=== PATIENT | male | born 1965 | race Caucasian/White ===

== ENCOUNTER 2017-08-21 04:05 | Inpatient (IN) ==
[2017-08-21] MEDS ORDERED: *HR* HYDROcodone/Acet 5/325 mg TABLET PO PRN (08:34)
[2017-08-21] MEDS ORDERED: *HR* Promethazine 25 MG/ML VIAL IVP PRN ×2 (08:34→23:44)
[2017-08-21] MEDS ORDERED: Naloxone 0.4 MG/ML INJ IVP PRN (08:34)
[2017-08-21] MEDS ORDERED: *HR* Morphine 2 MG/ML SYRINGE IVP PRN (08:34)
[2017-08-21] MEDS ORDERED: Acetaminophen 325 MG TABLET PO PRN (08:34)
[2017-08-21] MEDS ORDERED: Ondansetron 4 MG/2 ML VIAL IVP PRN (08:34)
[2017-08-21] MEDS ORDERED: D5% in Water 1,000 ML IVC PRN (08:39)
[2017-08-21] MEDS ORDERED: *HR* Dextrose 50 % in Water (Syg) 50 ML SYRINGE IVP PRN (08:39)
[2017-08-21] MEDS ORDERED: Dextrose Gel 15 GM PO PRN ×2 (08:39)
--- NOTE | 2017-08-21 08:51 | Internal Med History&Physical ---
Date of Encounter: 08/21/17 Time of Encounter: 08:20 Assessment and Plan (1) Sepsis Current visit: Yes Status: Acute Will admit the pt into Tele Pt does meet sepsis criteria with elevated WBC, source of inf as osteomyelitis and foot abscess, tachcyardia and end organ damage ROBSON Will strat him on IV fluids Broad spec abx Zosyn and Vanco - renally dosed f/u on blod cx from other ER will get MRI of Left foot Talked to employee relation manager who will see him later will keep him on NPO for now reviewed labs from other ER WBC17.27, Cr: 1.28 Qualifiers: Qualified Code(s): A41.9 - Sepsis, unspecified organism (2) Acute osteomyelitis of left foot Current visit: Yes Status: Acute Reviewed Left foot X ray report showing Proximal and distal pathological fracture of first metatarsal with acute osteomyelitis will get MRI of Foot with no contrast (3) Foot abscess, left Current visit: Yes Status: Acute Development Technical Lead consulted possible OR later today (4) ROBSON (acute kidney injury) Current visit: Yes Status: Acute Mostly due to sepsis will cont IV fluids avoid nephrotoxic meds (5) Nondisplaced fracture of first left metatarsal bone Current visit: Yes Status: Acute Qualifiers: Qualified Code(s): S92.315A - Nondisplaced fracture of first metatarsal bone , left foot, initial encounter for closed fracture (6) DM2 (diabetes mellitus, type 2) Current visit: Yes Status: Acute Hold PO meds for now placed him on ISS medium + Lantus start from tonight Qualifiers: Qualified Code(s): E11.9 - Type 2 diabetes mellitus without complications (7) HTN (hypertension) Current visit: Yes Status: Acute stable Resumed home meds Qualifiers: Qualified Code(s): I10 - Essential (primary) hypertension (8) HLD (hyperlipidemia) Current visit: Yes Status: Acute Qualifiers: Qualified Code(s): E78.5 - Hyperlipidemia, unspecified (9) ANI (obstructive sleep apnea) Current visit: Yes Status: Acute will use CPAP at [facility] Internal Medicine - H&P: HPI Chief complaint: Acute Left foot pain Admitted From: Emergency Dept ([facility] ED) History of present illness: Mr. Robb is a 51 year old male with known DM2, HTN, HLD and ANI on CPAP at bed time, morbidly obese pt who presented to [facility] ED with 2 weeks history of worsening swelling, tenderness and erythema in Left foot proximally. He also mentioned from last few days he was unable to ambulate due to severe pain. Pt had X ray of Left foot done which showed Proximal and distal aspect of the first metatarsal in the setting of acute osteomyelitis. Pt was given broad spec abx Zosyn and Vancomycin, and send over here for further care.When I examined the pt he is alert, awake and O x 3. Denied any CP / SOB. No abdomina pain. Still has severe pain in Left foot. Past Med Surg Social Fam HX - Past Medical History Medical history: asthma, COPD, coronary artery disease, diabetes, GERD, hyperlipidemia, hypertension Psychiatric history: no psych history - Past Surgical History Surgical History: other (Cornea repair) - Social History Smoking Status: Never smoker Smokeless Tobacco Status: Yes Alcohol use: none Drug use: none - Family History Mother Hx Family Endocrine Disorder: Yes (DM2) Father Hx Family Cardiac Disorders: Yes ([place]) Brother Hx Family Endocrine Disorder: Yes (DM2) Internal Medicine - H&P: Meds Albuterol Sulfate [Albuterol Inhaler] 1 puff IH Q4H 08/21/17 [History] Amitriptyline HCl 25 mg PO HS 08/21/17 [History] Gabapentin [Neurontin] 800 mg PO TID 08/21/17 [History] GlipiZIDE [Glipizide Xl] 5 mg PO DAILY 08/21/17 [History] Insulin Glargine [Lantus] 50 unit SQ BID 08/21/17 [History] Liraglutide [Victoza 2-Abdoulaye] 08/21/17 [History] Lisinopril [Zestril] 20 mg PO DAILY 08/21/17 [History] Ranitidine HCl [Acid Cannery Tender Engineer] 150 mg PO BID 08/21/17 [History] Simvastatin [Zocor] 20 mg PO HS 08/21/17 [History] metFORMIN [Glucophage] 1,000 mg PO BIDWM 08/21/17 [History] 3 Allergy/AdvReac Type Severity Reaction Status Date / Time No Known Allergies Allergy Unverified 07/01/15 22:36 All Systems PM: A 10-system review of systems was performed and is negative for pertinent findings except as documented above in the HPI. Review of systems: Reviewed all the systems, everything is benign except the systems and symptoms I mentioned in the HPI - Constitutional Vitals: Temp Pulse Resp BP Pulse Ox 98.0 F 105 17 95/60 93 08/21/17 06:40 08/21/17 06:40 08/21/17 06:40 08/21/17 06:40 08/21/17 06:40 General appearance: Present: mild distress (with pain), A&O X 3, answers questions appropriately - Head Head exam: Present: atraumatic, normal inspection - Respiratory Respiratory exam: Present: decreased breath sounds, wheezes (mild). Absent: rales, respiratory distress, rhonchi - Cardiovascular Cardiovascular exam: Present: +S1, +S2, tachycardia. Absent: systolic murmur - GI/Abdominal GI/Abdominal exam: Present: soft. Absent: rebound, rigid, tenderness - Extremities Exam Extremities exam: Present: pedal edema (Left foot), tenderness. Absent: calf tenderness Additional comments: Diffuse swelling in whole left foot.. Diffuse erythema in left foot distally, loculated, possible fluid collection plantar region at the base of Left 1st and 2nd metatarsal bones.. Tenderness ++ - Neurological Exam Neurological exam: Present: alert, oriented X3 - Psychiatric Psychiatric exam: Present: normal affect, normal mood
[2017-08-21] MEDS ORDERED: Lisinopril 20 MG TABLET PO SCH (09:00)
[2017-08-21] MEDS ORDERED: Vancomycin 0 MG in D5% in Water 250 ML IVPB SCH (09:00)
[2017-08-21 09:21] LABS: Hematocrit 27.5 % (37.5-50.1); Hemoglobin 8.6 g/dL (12.9-16.9); Mean Corpuscular HGB Conc 31.3 g/dL (31.6-35.5); Mean Corpuscular Hemoglobin 24.6 pg (28.0-33.3); Mean Corpuscular Volume 78.6 fL (83.0-100.0); Mean Platelet Volume 9.5 fL (9.4-12.4); Platelet Count 244 K/mcL (140-400); Red Cell Distribution Width 16.1 % (11.5-14.5)
[2017-08-21 09:26] LABS: INR 1.7; Prothrombin Time 18.7 Seconds (9.4-12.1)
[2017-08-21 09:38] LABS: Alanine Aminotransferase 13 Units/L (0-55); Albumin/Globulin Ratio 0.4 (1.1-2.2); Alkaline Phosphatase 150 Units/L (38-126); Aspartate Amino Transferase 13 Units/L (5-34); BUN/Creatinine Ratio 22 (6-26); Bilirubin,Total 0.9 mg/dL (0.2-1.2); Blood Urea Nitrogen 26 mg/dL (8-26); Calcium 8.6 mg/dL (8.6-10.8); Carbon Dioxide 16 mEq/L (19-29); Chloride 98 mEq/L (98-109); Globulin 4.8 g/dL (2.4-3.5); Glucose 242 mg/dL (70-99); Magnesium 1.2 mg/dL (1.6-2.6); Osmolality,Calculated 285 (280-300); Potassium 3.9 mEq/L (3.5-4.5); Sodium 131 mEq/L (136-145); Total Protein 6.8 g/dL (6.0-8.3); eGFR For African Americans > 60 (> 60); eGFR For Non-African Americans > 60 (> 60)
[2017-08-21 09:46] LABS: Lymphocytes # 0.6 K/mcL (0.6-4.6); Neutrophils # 14.4 K/mcL (1.6-8.9)
[2017-08-21 09:47] LABS: Anisocytosis 1+ (Not Present); Platelet Estimate Normal (Normal)
[2017-08-21 10:54] LABS: Vancomycin,Random 10.3 mcg/mL
[2017-08-21] MEDS: 0.9 % Sodium Chloride 1,000 ML IVC SCH (11:09)
[2017-08-21] MEDS: Gabapentin 400 MG CAPSULE PO SCH ×2 (11:10→16:41)
[2017-08-21] MEDS: Piperacillin/Tazobactam 3.375 GM in D5% in Water (Mini-Bag+) 100 ML IVPB SCH ×2 (11:10→17:58)
[2017-08-21] MEDS: Famotidine 20 MG TABLET PO SCH ×2 (11:12→16:40)
[2017-08-21] MEDS ORDERED: Vancomycin 1,500 MG in D5% in Water 250 ML IVPB SCH (12:00)
[2017-08-21] MEDS: Insulin LISPRO 300 UNITS/3 ML VIAL SQ SCH (17:55)
--- NOTE | 2017-08-21 18:54 | Podiatry Consult Note ---
Date of Encounter: 08/21/17 Time of Encounter: 12:10 Assessment and Plan (1) Acute osteomyelitis of left foot Current visit: Yes Status: Acute I had a thorough review with the patient and his family members which were bedside with him regarding his conditions, my findings, and his treatment options. We discussed his x-ray and the concern of the pathologic fracture and potential bone infection. We discussed his MRI which showed findings consistent with abscess and infection of the first metatarsal bone with pathologic fracture as well as the findings of infection in the midfoot and hindfoot bones. Discussed with patient different forms of treatment involving antibiotics and surgery. In my opinion antibiotics alone are not sufficient to treat this infection and recommended the patient undergo a left foot incision and drainage and partial foot amputation of the first ray which has the pathologic fracture and enhancement of most of the first metatarsal consistent with infected bone and bone biopsy of multiple other bones. Discussed he will likely need skilled nursing IV antibiotics to treat the infection. the surgery will not cure his infection. I did discuss with the patient and his family that he is high risk of limb loss and there is a signficant chance that he ends up with a below knee amputation due to the infection. it was also explained that this may be a staged procedure and he will require return trips to the operating room for surgery. no guarantees were made as to the outcome and he will have an open wound after the procedure. discussed it is imperative that his blood sugar is under control to try to salvage his limb as an A1c of 11% is too high for wound healing. No guarantees were made as to the outcome of any of the procedures and the patient demonstrated understanding by shaking his head up and down voicing that he understands, again it was told to the patient it is highly probable that he will lose his left leg and below knee amputation was discussed with the patient. he says he wants to try to salvage the left foot. risks vs benefits potential complications and consequences of the procedures discussed at length. discussed with them they are more than welcome and can ask to get a second opinion but my opinion will not change. all questions answered. patient signed informed consent. remain NPO, personnel coordinator to OR. social service consult ordered for patient and family and discussed with med to get psych consult for patient and family dealing with his surgery. (2) Foot abscess, left Current visit: Yes Status: Acute History of Present Illness HPI: 51 year old diabetic male who is morbidly obese and presented to [facility] ED yesterday with 2 weeks history of worsening swelling, tenderness and erythema in the left foot. His and daughter are with him bedside. The is distraught over her husbands condition and daughter says the has been trying to take care of his foot at home. He was found to have a pathologic fracture of the 1st metatarsal bone, abscess, and bone infection. He has been unable to put weight on his left foot without a lot of pain. He says he has neuropathy at baseline and his A1c is over 11% according to the patient. He came with bloodwork reported in the H&P with a wbc of 17. His wbc today was 16. He denies experiencing a f/c/n/sob/cp. Past Med Surg Social Fam HX - Past Medical History Medical history: asthma, COPD, coronary artery disease, diabetes, GERD, hyperlipidemia, hypertension Psychiatric history: no psych history - Past Surgical History Surgical History: other (Cornea repair) - Social History Smoking Status: Never smoker Smokeless Tobacco Status: Yes Alcohol use: none Drug use: none - Family History Mother Hx Family Endocrine Disorder: Yes (DM2) Father Hx Family Cardiac Disorders: Yes ([place]) Brother Hx Family Endocrine Disorder: Yes (DM2) Medications and Allergies Albuterol Sulfate [Albuterol Inhaler] 1 puff IH Q4H 08/21/17 [History] Amitriptyline HCl 25 mg PO HS 08/21/17 [History] Gabapentin [Neurontin] 800 mg PO TID 08/21/17 [History] GlipiZIDE [Glipizide Xl] 5 mg PO DAILY 08/21/17 [History] Insulin Glargine [Lantus] 50 unit SQ BID 08/21/17 [History] Liraglutide [Victoza 2-Abdoulaye] 08/21/17 [History] Lisinopril [Zestril] 20 mg PO DAILY 08/21/17 [History] Ranitidine HCl [Acid Security Shift Manager] 150 mg PO BID 08/21/17 [History] Simvastatin [Zocor] 20 mg PO HS 08/21/17 [History] metFORMIN [Glucophage] 1,000 mg PO BIDWM 08/21/17 [History] 3 Allergy/AdvReac Type Severity Reaction Status Date / Time No Known Allergies Allergy Unverified 07/01/15 22:36 All Systems Reviewed: A 10-system review of systems was performed and is negative for pertinent findings except as documented above in the HPI. - Constitutional Constitutional: as per HPI - Cardiovascular Cardiovascular: as per HPI - Respiratory Respiratory: as per HPI Physical Exam - Constitutional Vitals: Temp Pulse Resp BP Pulse Ox 98.1 F 102 18 92/61 93 08/21/17 15:41 08/21/17 15:41 08/21/17 15:41 08/21/17 15:41 08/21/17 15:41 General appearance: cooperative, morbidly obese, no acute distress - Extremities Exam Additional comments: left foot increased temp, moderate edema, CFT < 3 sec x 5 digits, erythema with fluctuance and some purulence able to be expressed from the plantar medial foot , multiple areas of scabs on the left foot. foot is painful to palpation. light touch sensation is absent. Results - Labs Result Diagrams: 08/21/17 09:03 08/21/17 09:03 Labs: Abnormal lab results WBC 16.0 K/mcL (4.3-11.1) H 08/21/17 09:03 RBC 3.50 M/mcL (4.19-5.50) L 08/21/17 09:03 Hgb 8.6 g/dL (12.9-16.9) L 08/21/17 09:03 Hct 27.5 % (37.5-50.1) L 08/21/17 09:03 MCV 78.6 fL (83.0-100.0) L 08/21/17 09:03 MCH 24.6 pg (28.0-33.3) L 08/21/17 09:03 MCHC 31.3 g/dL (31.6-35.5) L 08/21/17 09:03 RDW 16.1 % (11.5-14.5) H 08/21/17 09:03 Neutrophils # 14.4 K/mcL (1.6-8.9) H 08/21/17 09:03 Anisocytosis 1+ (Not Present) A 08/21/17 09:03 PT 18.7 Seconds (9.4-12.1) H 08/21/17 09:03 Sodium 131 mEq/L (136-145) L 08/21/17 09:03 Carbon Dioxide 16 mEq/L (19-29) L 08/21/17 09:03 Glucose 242 mg/dL (70-99) H 08/21/17 09:03 Magnesium 1.2 mg/dL (1.6-2.6) L 08/21/17 09:03 Alkaline Phosphatase 150 Units/L (38-126) H 08/21/17 09:03 Albumin 2.0 g/dL (3.5-5.0) L 08/21/17 09:03 Globulin 4.8 g/dL (2.4-3.5) H 08/21/17 09:03 Albumin/Globulin Ratio 0.4 (1.1-2.2) L 08/21/17 09:03 H & H 08/21/17 Range/Units 09:03 Hgb 8.6 L (12.9-16.9) g/dL Hct 27.5 L (37.5-50.1) % All other labs normal. - Diagnostic results Ankle/Foot x-ray: report reviewed, image reviewed Ankle/Foot MRI: report reviewed, image reviewed Consult Discharge Plan - Plan Referrals: Sunny Rodriguez MD [Primary Care Provider] - 08/29/17 11:00 am
[2017-08-21] MEDS ORDERED: Insulin LISPRO 300 UNITS/3 ML VIAL SQ SCH (21:00)
--- NOTE | 2017-08-21 22:07 | Anesthesia Evaluation PreOp ---
Date of Encounter: 08/21/17 Time of Encounter: 22:03 - Past History Planned Operation: L-partial foot amputation/I&D/Bone Bx Cardiac History: HTN (maintained on Lisinopril), Hyperlipidemia (maintained on Simvastatin) Pulmonary History: Asthma (maintained on Albuterol), ANI Dx (non-compliant w/ BiPap re: "claustrophobic") PASTER OPERATOR History: Other (Diabetic neuropathy/Chronic pain maintained on Gabapentin. Anxiety/Depression maintained on Amitryptiline) Other Medical History: Diabetes Type II (maintained on Metformin, Victoza, Lantus, Glipizide), GERD (maintained on Ranitidine), Other (Sepsis re: Acute osteomyelitis L-foot this admission.) Anesthesia History: No Prior Anesthetic Complications, Past Anesthesia (Cornea surgery/repair) Alcohol Use: none Drug use: none Medications and Allergies Albuterol Sulfate [Albuterol Inhaler] 1 puff IH Q4H 08/21/17 [History] Amitriptyline HCl 25 mg PO HS 08/21/17 [History] Gabapentin [Neurontin] 800 mg PO TID 08/21/17 [History] GlipiZIDE [Glipizide Xl] 5 mg PO DAILY 08/21/17 [History] Insulin Glargine [Lantus] 50 unit SQ BID 08/21/17 [History] Liraglutide [Victoza 2-Abdoulaye] 08/21/17 [History] Lisinopril [Zestril] 20 mg PO DAILY 08/21/17 [History] Ranitidine HCl [Acid Bag Bleacher] 150 mg PO BID 08/21/17 [History] Simvastatin [Zocor] 20 mg PO HS 08/21/17 [History] metFORMIN [Glucophage] 1,000 mg PO BIDWM 08/21/17 [History] 3 Allergy/AdvReac Type Severity Reaction Status Date / Time No Known Allergies Allergy Unverified 07/01/15 22:36 - Meds/Allergy Pre-op Review Medications Reviewed: Yes Allergies Reviewed: Yes Beta Blockers on Current Med List: No Anesthesia Results - Labs 08/21/17 09:03 08/21/17 09:03 Laboratory Results Laboratory Tests 08/21/17 08/21/17 09:03 09:03 PT 18.7 H INR 1.7 Est GFR (Non-Af Amer) > 60 Glucose 242 H Magnesium 1.2 L Alkaline Phosphatase 150 H Impressions Foot MRI 08/21/17 08:44 IMPRESSION: 1. Osteomyelitis of the forefoot, midfoot, and hindfoot as detailed above, most pronounced in the 1st metatarsal bone. 2. Probable septic arthritis of the 1st MTP joint. 3. Probable advanced myositis of the visualized distal calf and foot musculature. There are component's appearance may be due to diabetic related changes. 4. Large phlegmon of the dorsum of the subcutaneous forefoot and multiple small abscesses of the plantar subcutaneous soft tissues of the forefoot. 5. Partial thickness tearing of the flexor hallucis longus, potentially due to infectious involvement. 6. Mildly displaced proximal 1st metatarsal bone fracture. D/ / 08/21/2017 11:39:40 Jose Altamirano MD / Dali Talbert Interpreting Provider: Jose Altamirano MD Foot X-Ray 08/21/17 09:11 IMPRESSION: 1. Probable osteomyelitis of the 1st metatarsal with associated subacute pathologic fractures and significant adjacent soft tissue swelling. MRI can be considered for further evaluation to evaluate the extent of abnormality. D/ / 08/21/2017 09:35:04 Jerica Anderson MD / irene Interpreting Provider: Jerica Anderson MD Anesthesia Exam Vital Signs Temp Pulse Resp BP Pulse Ox 08/21/17 19:27 99.0 F 106 17 100/64 95 08/21/17 15:41 98.1 F 102 18 92/61 93 08/21/17 11:19 98.4 F 100 18 111/71 92 08/21/17 06:40 98.0 F 105 17 95/60 93 Intake and Output 08/21/17 08/21/17 08/21/17 07:59 15:59 23:59 Intake Total 100 / 100 Output Total 700 / 700 Balance -700 / -700 100 / 100 Intake: IV Fluids 100 / 100 Zosyn 3.375 GM In Dextrose 5% ( 100 / 100 Minibag+) 100 ML 100 ML @ 25 mls/hr IVPB Q8H BRANDEE Rx#: [id number] Output: Urine 700 / 700 Other: Weight 104.014 kg Blood Glucose* 231 275 Patient Weight 08/21/17 23:59 Weight 104.014 kg Height: 5'9" Weight: 229# BMI = 34 NPO (# of Hours): MNoc - HEENT Pupil (Motor): Pupils equal, EOMI Mallampati: III Teeth: Edentulous Oral Opening: Greater than 3 - PASTER OPERATOR LOC: Oriented PASTER OPERATOR Motor: Normal RUE, Normal LUE, Normal RLE, Normal LLE, Normal Face PASTER OPERATOR Sensory: Normal: RUE, LUE, RLE, LLE, Face - Cardiac Rhythm: Regular Murmur: None - Pulmonary Breath Sounds: bilateral Clear Respiratory Effort: Symmetrical Anesthesia Assess/Plan ASA Score: 3 (Sepsis, OBesity, HTN, Chol, DM, Asthma/COPD, ANI), E Modified [place] Scale for Level of Consciousness: Cooperative, oriented, and tranquil Anesthetic Plan: General Monitoring Plan: Standard Monitors Recovery Plan: PACU Anes Supervising Prov Stmt: PT seen/evaluated, R&B discussed questions answered and consent obtained. Severino Savage MD
[2017-08-21] MEDS ORDERED: Lidocaine 1% 20 ML MDV ONE (22:23)
[2017-08-21] MEDS ORDERED: Acetaminophen IV 1,000 MG/100 ML INFUS..BTL ONE (22:36)
[2017-08-21] MEDS ORDERED: Lidocaine -MPF 4% 5 ML AMPUL ONE (22:37)
[2017-08-21] MEDS ORDERED: Lidocaine -MPF 2% 2 ML VIAL ONE (22:37)
[2017-08-21] MEDS ORDERED: *HR* Midazolam HCl 2 MG/2 ML VIAL ONE (22:37)
[2017-08-21] MEDS ORDERED: *HR* Propofol 200 MG/20 ML VIAL IVP ONE (22:37)
[2017-08-21] MEDS ORDERED: *HR* FentaNYL (PF) 100 MCG/2 ML VIAL ONE (22:37)
[2017-08-21] MEDS ORDERED: Metoclopramide 10 MG/2 ML VIAL ONE (22:45)
[2017-08-21] MEDS ORDERED: Famotidine 20 MG/2 ML VIAL ONE (22:48)
[2017-08-21] MEDS ORDERED: *HR* HYDROmorphone (PF) 1 MG/ML SYRINGE IVP PRN (23:44)
[2017-08-21] MEDS ORDERED: *HR* Labetalol 20 MG/4 ML SYRINGE IVP PRN (23:44)
[2017-08-21] MEDS ORDERED: *HR* Phenylephrine 10 MG/ML VIAL ONE (23:46)
[2017-08-22] MEDS ORDERED: Ondansetron 4 MG/2 ML VIAL ONE (00:08)
--- NOTE | 2017-08-22 00:48 | Event Note ---
Date of Encounter: 08/22/17 Time of Encounter: 12:40 patient is s/p I&D, 1st ray amputation left foot, biopsy of medial cuneiform bone, navicular bone, and talus bone left foot. Bones including 1st metatarsal, medial cuneiform, navicular and talus were sent to pathology and microbiology. Wound culture of purulent drainage sent to microbiology. Tissue culture sent to microbiology as well. wound is currently packed open with iodoform packing. Patient currently in PACU and stable. monitor vitals, check H&H tomorrow, transfuse if necessary, approximately 100cc blood loss in surgery. BP and HR stable at conclusion of procedure. adequate hemostasis at conclusion of procedure, okay to start lovenox as scheduled tomorrow. get infectious disease consult for antibiotic recommendations.
--- NOTE | 2017-08-22 00:51 | Operative Note ---
Date of procedure: 08/21/17 Pre-op diagnosis: left foot abscess, left foot osteomyelitis Post-op diagnosis: same Procedure: 1. incision and drainage left foot 2. 1st ray amputation left foot 3. bone biops medial cuneiform 4. bone biopsy navicular 5. bone biopsy talus Complications: none Anesthesia: GETA Surgeon: Pradeep Martin Estimated blood loss (cc): 100 Specimen: 1st metatarsal, medial cuneiform, navicular, talus bone micro and path , tis Condition: stable Disposition: PACU Procedure in Detail: 51-year-old diabetic male with reported A1c of 11% transferred from another hospital with left foot diabetic foot infection/abscess and osteomyelitis. Patient has pathologic fracture of the first metatarsal bone likely secondary to osteomyelitis which was shown to encompassed almost the entire first metatarsal . He has multiple areas on the left foot which were draining purulence. Patient had MRI showing abscess and likely osteomyelitis of multiple bones of the forefoot midfoot and hindfoot. Patient is also tachycardic preoperatively. Discussed nature of procedure above performed with patient and family at length as well as the risks versus benefits potential complications and consequences of the procedure. They understood this is a staged procedure and no guarantees were made as to the outcome. It was explained to the patient that he is high risk for limb loss. All questions were answered and informed consent was signed patient was taken in the operating room placed on the operating room table in the supine position following induction of general anesthesia via LMA, a high calf tourniquet was applied but not inflated during the entire procedure. 10 mL of 1% lidocaine plain was injected around the patient's left ankle joint and foot. Following procedures then began. Incision and drainage left foot. Attention was directed to the dorsal aspect of the patient's left foot where a #15 blade was used to make an incision through the superficial and deep fascia down to the level of the first metatarsal bone. The incision was extended the length of the entire first metatarsal. It should be noted that purulent drainage was immediately flowing out of the incision and from multiple directions. The purulent drainage was a milky vee color and extended across to the lateral aspect of the patient's forefoot where another incision was made and purulent drainage expressed. Purulent drainage was noted circumferentially around the first metatarsal bone also coming from the first metatarsal phalangeal joint and from the site of pathologic fracture of the first metatarsal. Purulence was noted dorsally and plantarly. Purulence tracking laterally plantarly was also expressed in addition to the purulence tracking laterally dorsally. Purulence was also noted surrounding the soft tissue and bone of the hallux dorsally and plantarly. Purulent drainage was also tracking proximally in the foot dorsally and medially. The incision was extended to follow the purulent drainage. After expressing as much purulent drainage as possible in all directions of the left foot, devitalized vee subcutaneous tissues were debrided with a #10 blade. The Bovie was utilized to cauterize any bleeders. The site was then flushed with the pulse lavage which had vancomycin mixed in normal sterile saline. Culture swab of the purulent drainage was obtained and sent to microbiology. Excised tissue with purulent drainage was also sent to microbiology. Left foot first ray amputation. Attention was directed to the first metatarsal bone which had the pathologic fracture and it should be noted that this bone was felt to be soft and discolored. There was purulence coming from the first metatarsal bone. There was no bleeding of the first metatarsal bone noted. The first metatarsal was disarticulated at the first met cuneiform joint and the entire first ray including the hallux was excised. The sesamoids were also removed. Plantarly the flexor tendon and dorsally the extensor tendon were identified and resected proximally. Bone biopsy medial cuneiform, navicular and talus left foot. With the first metatarsal excised the medial cuneiform bone was visualized and the trephine was utilized to obtain medial cuneiform bone which was sent to pathology and microbiology. C-arm was utilized to identify the area of the navicular and talus bone and a trephine was also utilized to obtain bone which was sent to microbiology and pathology for both bones. A separate incision was made to obtain the talus bone biopsy and the originals incision was extended proximally to obtain the navicular bone biopsy. It should be noted that the talus bone was felt to be soft in nature and some purulent drainage was felt to be coming out of the bone when obtaining the bone biopsy. No purulent drainage in the soft tissue surrounding the talus was able to be expressed. After flushing the surgical sites with copious amounts of normal sterile saline (4 L of saline with vancomycin) using the pulse lavage, the area was reexplored and no purulent drainage was able to be expressed from the left foot. The Bovie was used to cauterize any bleeding and adequate hemostasis was felt to be present. There was no active bleeding. The decision was made to leave the wound open and it was packed with iodoform packing and 1 surgicel so was placed on top of the iodoform packing. The postoperative bandaging included 4 x 4 gauze, abdominal pads Kerlix and loosely applied Armen wraps. The patient tolerated the anesthesia and the procedure well and was escorted to the recovery room with vital signs stable and vascular status intact to the remaining digits of the left foot noted by instant capillary refill time. Patient will return to the floor where he will continue IV antibiotics.
[2017-08-22] MEDS ORDERED: Ipratropium/Albuterol Neb 3 ML ONE (01:02)
[2017-08-22] MEDS ORDERED: Ipratropium/Albuterol Neb 3 ML IH ONE (01:03)
[2017-08-22] MEDS ORDERED: Ringers Solution, Lactated 1,000 ML ONE (01:14)
[2017-08-22 01:15] LABS: Basophils % 0.2 %; Eosinophils % 0.1 %; Hematocrit 27.8 % (37.5-50.1); Hemoglobin 8.8 g/dL (12.9-16.9); Immature Granulocytes % 1.2 % (0-4); Lymphocytes # 0.8 K/mcL (0.6-4.6); Lymphocytes % 4.3 %; Mean Corpuscular HGB Conc 31.7 g/dL (31.6-35.5); Mean Corpuscular Hemoglobin 25.2 pg (28.0-33.3); Mean Corpuscular Volume 79.7 fL (83.0-100.0); Mean Platelet Volume 9.6 fL (9.4-12.4); Monocytes # 0.6 K/mcL (0.0-1.3); Monocytes % 3.1 %; Neutrophils # 17.1 K/mcL (1.6-8.9); Platelet Count 273 K/mcL (140-400); Red Blood Count 3.49 M/mcL (4.19-5.50); Red Cell Distribution Width 16.1 % (11.5-14.5); Segmented Neutrophils % 91.1 %
--- NOTE | 2017-08-22 01:28 | Anesthesia Evaluation Post Op ---
Date of Encounter: 08/22/17 Time of Encounter: 01:27 - Vital Signs Vital Signs: Vital Signs/O2 Sat/Glucose, Most Current Temp Pulse Resp BP Pulse Ox 08/22/17 01:25 105 18 100/61 94 08/22/17 01:15 106 18 114/53 94 08/22/17 01:05 99.1 F 105 18 108/63 94 08/22/17 00:55 97 16 87/58 97 08/22/17 00:45 92 18 101/53 98 08/22/17 00:35 99.1 F 88 16 70/40 96 - Lungs Lungs: Clear Ascult./Percussion - Cardiovascular Regular Rate, Baseline Rhythm - Mental Status Mental Status: Alert & Oriented, Answers Appropriately - Pain Pain Scale: 0 Pain Scale used: Numeric (1 - 10) - Nausea Vomiting Nausea Vomiting: Not Present - Hydration Hydration: Ice chips, Has not voided - Discharge PostOp Status: Transfer Patient to floor Anes Supervising Prov Stmt: Pt seen/evaluated, VSS And pt has met criteria for discharge to floor. - MD Hussein
[2017-08-22] MEDS: Gabapentin 400 MG CAPSULE PO SCH ×4 (01:39→20:41)
[2017-08-22] MEDS: Piperacillin/Tazobactam 3.375 GM in D5% in Water (Mini-Bag+) 100 ML IVPB SCH ×3 (02:06→16:20)
[2017-08-22] MEDS: 0.9 % Sodium Chloride 1,000 ML IVC SCH ×2 (02:10→22:13)
[2017-08-22] MEDS ORDERED: *HR* Dextrose 50 % in Water (Syg) 50 ML SYRINGE IVP PRN (02:25)
[2017-08-22] MEDS ORDERED: Ondansetron 4 MG/2 ML VIAL IVP PRN (02:25)
[2017-08-22] MEDS ORDERED: Dextrose Gel 15 GM PO PRN ×2 (02:25)
[2017-08-22] MEDS ORDERED: D5% in Water 1,000 ML IVC PRN (02:25)
[2017-08-22] MEDS ORDERED: Naloxone 0.4 MG/ML INJ IVP PRN (02:25)
[2017-08-22] MEDS ORDERED: *HR* Promethazine 25 MG/ML VIAL IVP PRN ×2 (02:25)
[2017-08-22] MEDS ORDERED: Acetaminophen 325 MG TABLET PO PRN (02:25)
[2017-08-22] MEDS ORDERED: 0.9 % Sodium Chloride 1,000 ML IVC ONE ×2 (02:30→04:03)
[2017-08-22] MEDS ORDERED: 0.9 % Sodium Chloride 1,000 ML ONE (02:32)
--- NOTE | 2017-08-22 04:19 | Event Note ---
<Sunny Robertson - Last Filed: 08/22/17 04:38> Date of Encounter: 08/22/17 Time of Encounter: 04:18 Patient is in septic shock, hypotensive despite IVF boluses since returning from surgery earlier today with most recent highest BP 84/52. Decision was made to place central line, give IVF bolus, start Levophed, and transfer to ICU. Please see corresponding Procedure note. CXR was ordered to confirm CVC line placement, Patient had 1 L urine output upon placement of bonilla. Patient tolerated procedure well. Family at bedside was updated on patient's status. Critical care time: 45 minutes <Tyrone Dean - Last Filed: 08/22/17 04:52> Date of Encounter: 08/22/17 Patient with hypertension, not responding to 3L of IVF boluses, patient is admitted and managed for severe sepsis, he is immediate post-amputation. 35 minutes of critical care provided. Right CVC IJ placed by Dr. Robertson, I was present throughout the procedure, and CXR confirmed placement. Transfer to ICU for vasopressor initiation
--- NOTE | 2017-08-22 04:21 | Procedure Note ---
Date of procedure: 08/22/17 Pre-op diagnosis: Septic shock Post-op diagnosis: same Procedure: A time-out was completed verifying correct patient, procedure, site, positioning , and special equipment. The patient was placed in a dependent position appropriate for central line placement based on the vein to be cannulated. The patients right neck was prepped and draped in sterile fashion. 1% Lidocaine was used to anesthetize the surrounding skin area. A triple lumen Cordis catheter was introduced into the the internal jugular vein using the Seldinger technique and under ultrasound guidance. The catheter was threaded smoothly over the guide wire and appropriate blood return was obtained. Each lumen of the catheter was evacuated of air and flushed with sterile saline. The catheter was then sutured in place to the skin and a sterile dressing applied. Perfusion to the extremity distal to the point of catheter insertion was checked and found to be adequate. Attending Dr. Dean was present for the entire procedure. Estimated Blood Loss: 1cc The patient tolerated the procedure well and there were no complications. Surgeon: Sunny Robertson [employer] Department Supervisor: Tyrone Dean Estimated blood loss (cc): 1 Urine output (cc): 1,000 Pathology: none sent Condition: critical Disposition: ICU
[2017-08-22] MEDS ORDERED: Vancomycin 1,500 MG in D5% in Water 250 ML IVPB SCH (05:00)
[2017-08-22] MEDS: Vancomycin 1,500 MG in D5% in Water 250 ML IVPB SCH ×2 (05:06→16:20)
[2017-08-22] MEDS: Norepinephrine 4 MG in D5% in Water 250 ML IVC SCH (05:07)
[2017-08-22] MEDS ORDERED: *HR* Enoxaparin 40 MG/0.4 ML SYRINGE SQ SCH (06:00)
[2017-08-22] MEDS: *HR* Enoxaparin 40 MG/0.4 ML SYRINGE SQ SCH (06:23)
--- NOTE | 2017-08-22 07:23 | Pulmonology History & Physical ---
<MaryanAntoni - Last Filed: 08/22/17 17:13> Date of Encounter: 08/22/17 Time of Encounter: 07:10 Assessment and Plan (1) Septic shock Current visit: Yes Status: Acute Source, left foot osteomyelitis/abscess Operative biopsy showed Gm+ cocci Blood Cx pending Received levophed and IVF, goal to wean levophed Pressures improved to 120s/70s Treating with vancomycin and zosyn, Day 2 WBC increased from 16.0 to 18.8 (2) Acute osteomyelitis of left foot Current visit: Yes Status: Acute POD #1 Left foot I&D, 1st ray amputation, biopsy of medial cuneiform, navicular, and talus by Dr. Pradeep Martin on 08/22/17 On Vancomycin and zosyn Day 2 (3) Foot abscess, left Current visit: Yes Status: Acute See plan of care above (4) Nondisplaced fracture of first left metatarsal bone Current visit: Yes Status: Acute See plan of care above Qualifiers: Encounter type: initial encounter Fracture type: closed Qualified Code(s) : S92.315A - Nondisplaced fracture of first metatarsal bone, left foot, initial encounter for closed fracture (5) DM2 (diabetes mellitus, type 2) Current visit: Yes Status: Acute HgbA1C 9.0 On high dose sliding scale insulin Increased levemir to 25 units BID Will monitor blood sugar Qualifiers: Diabetes mellitus complication status: with unspecified complications Diabetes mellitus assisted insulin use: with oil heaterman use Qualified Code(s) : E11.8 - Type 2 diabetes mellitus with unspecified complications; Z79.4 - 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 (current) use of insulin (6) HTN (hypertension) Current visit: Yes Status: Acute Currently hypotensive Holding home meds Qualifiers: Hypertension type: unspecified Qualified Code(s): I10 - Essential (primary ) hypertension (7) HLD (hyperlipidemia) Current visit: Yes Status: Acute continue home meds Qualifiers: Hyperlipidemia type: unspecified Qualified Code(s): E78.5 - Hyperlipidemia , unspecified (8) ANI (obstructive sleep apnea) Current visit: Yes Status: Acute CPAP at night (9) ROBSON (acute kidney injury) Current visit: Yes Status: Acute History of Present Illness Chief complaint: Septic Shock d/t osteomyelitis Lt foot HPI: Mr. Robb is a 51 year old male with PMH of DM2, COPD, HTN, and HLD who presented from [facility] ED with 2 weeks of tenderness, erythema, and swelling in his left foot on which he was not able to ambulate. X ray of the foot showed osteomyelitis of the proximal and distal first metatarsal, for which he was initially treated with vancomycin and zosyn. MRI here at [facility] redemonstrated the osteomyelitis, and additionally showed septic arthritis of the 1st MTP, myositis of the distal calf and foot, phlegmon of the dorsum of the forefoot, small abscesses in the plantar forefoot, partial tearing of the flexor hallucis longus, and mildly displaced fracture of the proximal 1st metatarsal. Podiatry performed left-sided I&D, 1st ray amputation, and biopsies of the medial cuneiform, navicular, and talus on 08/21/17. Since admission, patient has met sepsis criteria with elevated WBC, source as osteomyelitis/abscess, tachycardia, and ROBSON. Early this morning, around 0400, the patient developed septic shock with pressures in the 80s/50s. Central line was placed and IVF were given with levophed. He was transferred to the ICU. Past Med Surg Social Fam HX - Past Medical History Medical history: asthma, COPD, coronary artery disease, diabetes, GERD, hyperlipidemia, hypertension Psychiatric history: no psych history - Past Surgical History Surgical History: other (Cornea repair) - Social History Smoking Status: Never smoker Smokeless Tobacco Status: Yes Alcohol use: none Drug use: none - Family History Mother Hx Family Endocrine Disorder: Yes (DM2) Father Hx Family Cardiac Disorders: Yes ([place]) Brother Hx Family Endocrine Disorder: Yes (DM2) Medications and Allergies Albuterol Sulfate [Albuterol Inhaler] 1 puff IH Q4H 08/21/17 [History] Gabapentin [Neurontin] 800 mg PO TID 08/21/17 [History] GlipiZIDE [Glipizide Xl] 5 mg PO DAILY 08/21/17 [History] Insulin Glargine [Lantus] 50 unit SQ BID 08/21/17 [History] Liraglutide [Victoza 2-Abdoulaye] 1.8 mg SQ DAILY 08/21/17 [History] Lisinopril [Zestril] 20 mg PO DAILY 08/21/17 [History] Ranitidine HCl [Acid Ob Nurse] 150 mg PO BID 08/21/17 [History] metFORMIN [Glucophage] 1,000 mg PO BIDWM 08/21/17 [History] Atorvastatin [Lipitor] 40 mg PO HS 08/22/17 [History] Azelastine 0.1% Nasal [place] [Astelin] 1 - 2 spr NS BID 08/22/17 [History] Cetirizine HCl [All Day Allergy] 10 mg PO DAILY 08/22/17 [History] Cyclobenzaprine [Flexeril] 10 mg PO TID 08/22/17 [History] Cyclosporine [Restasis] 1 drop BOTH EYES DAILY 08/22/17 [History] Empagliflozin [Jardiance] 25 mg PO DAILY 08/22/17 [History] Ergocalciferol (VITAMIN D2) [Vitamin D2] 50,000 unit PO QWEEK 08/22/17 [History] Lisinopril-HCTZ 20-12.5 [Prinzide 20-12.5] 1 tab PO DAILY 08/22/17 [History] Meloxicam [Mobic] 15 mg PO DAILY 08/22/17 [History] Mometasone/Formoterol [Dulera 200 Mcg/5 Mcg Inhaler] 2 puff IH BID 08/22/17 [ History] Montelukast [Singulair] 10 mg PO DAILY 08/22/17 [History] [place]-3/Dha/Epa/Fish Oil [Fish Oil 1,000 mg Softgel] 2,000 mg PO DAILY 08/22/17 [History] Omeprazole [PriLOSEC] 20 mg PO DAILY 08/22/17 [History] PARoxetine HCl [Paroxetine HCl] 40 mg PO DAILY 08/22/17 [History] Trazodone HCl 150 mg PO HS 08/22/17 [History] Zileuton [Zyflo] 600 mg PO QID 08/22/17 [History] 3 Allergy/AdvReac Type Severity Reaction Status Date / Time No Known Allergies Allergy Unverified 07/01/15 22:36 All Systems: A 10-system review of systems was performed and is negative for pertinent findings except as documented above in the HPI. - Constitutional Constitutional: chills, fever(s) - Cardiovascular Cardiovascular: no chest pain, no dyspnea - Respiratory Respiratory: cough (COPD related) - Gastrointestinal Gastrointestinal: no abdominal pain - Genitourinary Genitourinary: no dysuria Physical Examination Vital Signs: Vital Signs, Last 4 Hours Temp Pulse Resp BP Pulse Ox 08/22/17 06:00 97 22 105/44 94 08/22/17 05:14 100.7 F H 100 22 73/41 93 08/22/17 04:51 100.7 F H 100 20 74/54 94 08/22/17 03:48 99 F 102 2 84/52 99 08/22/17 03:22 100.2 F H 98 18 80/47 88 General appearance: no acute distress Eyes: nonicteric ENT: oropharynx moist Effort: normal Inspection: normal Cardiovascular: other (borderline tachycardic, regular rhythm) Gastrointestinal: soft, non-tender, non-distended Extremities: other (left foot forefoot amputation) normal mental status mood appropriate, affect normal Results - Laboratory Findings CBC and BMP: 08/22/17 08:04 08/22/17 08:04 PT/INR, D-dimer PT 18.7 Seconds (9.4-12.1) H 08/21/17 09:03 Abnormal lab findings: Abnormal lab results WBC 18.8 K/mcL (4.3-11.1) H 08/22/17 01:09 RBC 3.49 M/mcL (4.19-5.50) L 08/22/17 01:09 Hgb 8.8 g/dL (12.9-16.9) L 08/22/17 01:09 Hct 27.8 % (37.5-50.1) L 08/22/17 01:09 MCV 79.7 fL (83.0-100.0) L 08/22/17 01:09 MCH 25.2 pg (28.0-33.3) L 08/22/17 01:09 RDW 16.1 % (11.5-14.5) H 08/22/17 01:09 Neutrophils # 17.1 K/mcL (1.6-8.9) H 08/22/17 01:09 Anisocytosis 1+ (Not Present) A 08/21/17 09:03 PT 18.7 Seconds (9.4-12.1) H 08/21/17 09:03 Sodium 131 mEq/L (136-145) L 08/21/17 09:03 Carbon Dioxide 16 mEq/L (19-29) L 08/21/17 09:03 Glucose 242 mg/dL (70-99) H 08/21/17 09:03 POC Glucose 275 (58-89) H 08/21/17 15:33 Magnesium 1.2 mg/dL (1.6-2.6) L 08/21/17 09:03 Alkaline Phosphatase 150 Units/L (38-126) H 08/21/17 09:03 Albumin 2.0 g/dL (3.5-5.0) L 08/21/17 09:03 Globulin 4.8 g/dL (2.4-3.5) H 08/21/17 09:03 Albumin/Globulin Ratio 0.4 (1.1-2.2) L 08/21/17 09:03 - VTE Documentation of Mechanical Device: Intermittent pneumatic compression device <Max Mena S - Last Filed: 08/22/17 20:22> Date of Encounter: 08/22/17 History of Present Illness HPI: Mr. Robb is a 51 year old male All Systems: A 10-system review of systems was performed and is negative for pertinent findings except as documented above in the HPI. Physical Examination Vital Signs: Vital Signs, Last 4 Hours Pulse Resp BP Pulse Ox 08/22/17 18:00 105 26 106/72 94 08/22/17 17:00 105 22 120/97 94 Results - Laboratory Findings CBC and BMP: 08/22/17 08:04 08/22/17 08:04 PT/INR, D-dimer PT 18.7 Seconds (9.4-12.1) H 08/21/17 09:03 Abnormal lab findings: Abnormal lab results WBC 18.8 K/mcL (4.3-11.1) H 08/22/17 01:09 RBC 3.49 M/mcL (4.19-5.50) L 08/22/17 01:09 Hgb 8.0 g/dL (12.9-16.9) L 08/22/17 08:04 Hct 27.8 % (37.5-50.1) L 08/22/17 01:09 MCV 79.7 fL (83.0-100.0) L 08/22/17 01:09 MCH 25.2 pg (28.0-33.3) L 08/22/17 01:09 RDW 16.1 % (11.5-14.5) H 08/22/17 01:09 Neutrophils # 17.1 K/mcL (1.6-8.9) H 08/22/17 01:09 Anisocytosis 1+ (Not Present) A 08/21/17 09:03 PT 18.7 Seconds (9.4-12.1) H 08/21/17 09:03 Sodium 131 mEq/L (136-145) L 08/22/17 08:04 Carbon Dioxide 15 mEq/L (19-29) L 08/22/17 08:04 BUN 32 mg/dL (8-26) H 08/22/17 08:04 Creatinine 1.28 mg/dL (0.72-1.25) H 08/22/17 08:04 Est GFR (Non-Af Amer) 59 (> 60) L 08/22/17 08:04 Glucose 245 mg/dL (70-99) H 08/22/17 08:04 POC Glucose 275 (58-89) H 08/21/17 15:33 Hemoglobin A1c 9.0 % (-5.6) H 08/22/17 08:04 Calcium 8.3 mg/dL (8.6-10.8) L 08/22/17 08:04 Magnesium 1.3 mg/dL (1.6-2.6) L 08/22/17 08:04 Alkaline Phosphatase 150 Units/L (38-126) H 08/21/17 09:03 Albumin 2.0 g/dL (3.5-5.0) L 08/21/17 09:03 Globulin 4.8 g/dL (2.4-3.5) H 08/21/17 09:03 Albumin/Globulin Ratio 0.4 (1.1-2.2) L 08/21/17 09:03 HDL Cholesterol 5 mg/dL (40-59) L 08/22/17 08:04 Cholesterol/HDL Ratio 12.8 (0-4.9) H 08/22/17 08:04 - Attending Attestation I saw the patient with the resident agree with History and Physical exam findings. 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 Cardiac : On Vasopressor will wean off today . Nutrition/GI: Patient is eating and drinking , PPI prophylaxis Renal : ROBSON will trend serum creatinine Heme onc : Labs reviewed Endo: Diabetes on insulin Musculo skeletal / skin issues : Left foot wound was examined raw wound with much bleeding no evidence of tissue or slough Disposition : Once off vasopressors he can be transferred to the floor Code status: Full Code Family/POA: Daughter
[2017-08-22] MEDS ORDERED: Insulin LISPRO 300 UNITS/3 ML VIAL SQ SCH ×3 (07:30→21:00)
[2017-08-22 08:26] LABS: Chol/HDL Ratio 12.8 (0-4.9); Cholesterol 64 mg/dL (< 200); HDL Cholesterol 5 mg/dL (40-59); LDL Cholesterol,Calculated 36 mg/dL (0-99); Magnesium 1.3 mg/dL (1.6-2.6); Triglycerides 116 mg/dL (< 150)
[2017-08-22] MEDS: Famotidine 20 MG TABLET PO SCH ×2 (09:25→16:21)
[2017-08-22] MEDS: Lisinopril 20 MG TABLET PO SCH (09:26)
[2017-08-22] MEDS: *HR* HYDROcodone/Acet 5/325 mg TABLET PO PRN ×2 (10:40→20:42)
[2017-08-22 11:51] LABS: BUN/Creatinine Ratio 25 (6-26); Blood Urea Nitrogen 32 mg/dL (8-26); Calcium 8.3 mg/dL (8.6-10.8); Carbon Dioxide 15 mEq/L (19-29); Chloride 99 mEq/L (98-109); Glucose 245 mg/dL (70-99); Osmolality,Calculated 287 (280-300); Potassium 4.1 mEq/L (3.5-4.5); Sodium 131 mEq/L (136-145); eGFR For African Americans > 60 (> 60); eGFR For Non-African Americans 59 (> 60)
[2017-08-22] MEDS: Insulin LISPRO 300 UNITS/3 ML VIAL SQ SCH ×2 (12:09→16:21)
--- NOTE | 2017-08-22 13:28 | Podiatry Progress Note ---
Date of Encounter: 08/22/17 Time of Encounter: 12:30 - Assessment and Plan (1) Acute osteomyelitis of left foot Current Visit: Yes Status: Acute Assessment: s/p incision and drainage left foot, 1st ray amputation left foot, bone biopsy medial cuneiform, bone biopsy navicular, bone biopsy talus by Dr. Martin on 08/22 for acute osteomyelitis of the left foot. Full thickness surgical wound to the left foot. Moderate amount of bloody drainage, no purulent drainage. Periwound erythema ascending to the left ankle. WBC: elevated from 16 yesterday to 18.8 today. Temp: 98.8 Plan: Wound flush packed with saline and Iodoform gauze. Dr. Martin will plan on taking patient back to surgery later on this week, based on clinical picture. Will continue to change dressing daily and monitor for purulent drainage. AARON/PVR ordered of BLE. Portable XR of left foot ordered. Will consult Infectious Disease. Intraop cultures pending. NWB to LLE (2) Foot abscess, left Current Visit: Yes Status: Acute Subjective Interval history: Patient is s/p incision and drainage left foot, 1st ray amputation left foot, bone biopsy medial cuneiform, bone biopsy navicular, bone biopsy talus by Dr. Martin on 08/22/17. Patient was transferred to ICU today for septic shock. Patient is lying in bed sleeping. Arousable to verbal stimuli. Patient states his left foot is feeling better, no c/o pain. There is a dressing intact. Objective - Vital Signs Vital Signs: Vital Signs Temp Pulse Resp BP Pulse Ox 08/22/17 12:00 102 24 92/73 92 08/22/17 11:55 98.8 F 08/22/17 11:48 97 08/22/17 11:43 98 08/22/17 11:00 101 22 90/49 97 08/22/17 10:00 101 24 107/56 94 08/22/17 09:00 104 20 94/48 92 08/22/17 08:25 97 08/22/17 08:05 99.3 F 08/22/17 08:00 99 18 99/49 94 08/22/17 07:00 96 20 97/44 95 08/22/17 06:00 97 22 105/44 94 08/22/17 05:14 100.7 F H 100 22 73/41 93 08/22/17 04:51 100.7 F H 100 20 74/54 94 08/22/17 03:48 99 F 102 2 84/52 99 08/22/17 03:22 100.2 F H 98 18 80/47 88 08/22/17 02:42 97.8 F 88 22 87/52 08/22/17 02:27 18 91/54 93 08/22/17 02:13 18 76/48 08/22/17 01:58 18 79/49 08/22/17 01:44 97.9 F 103 20 79/50 08/22/17 01:25 105 18 100/61 94 08/22/17 01:15 106 18 114/53 94 08/22/17 01:05 99.1 F 105 18 108/63 94 08/22/17 00:55 97 16 87/58 97 08/22/17 00:45 92 18 101/53 98 08/22/17 00:35 99.1 F 88 16 70/40 96 08/21/17 19:27 99.0 F 106 17 100/64 95 08/21/17 15:41 98.1 F 102 18 92/61 93 Intake and Output 08/21/17 08/22/17 08/22/17 23:59 07:59 15:59 Intake Total 100 / 100 754 / 754 330 / 330 Output Total 1000 / 1000 1250 / 1250 Balance 100 / 100 -246 / -246 -920 / -920 Intake: IV Fluids 100 / 100 504 / 504 90 / 90 Levophed 4 MG In Dextrose 5% 54 / 54 90 / 90 250 ML @ 8 MCG/MIN 30.48 mls/hr IVC CONT BRAN[facility]E Rx#:[id number] Zosyn 3.375 GM In Dextrose 5% ( 100 / 100 200 / 200 Minibag+) 100 ML 100 ML @ 25 mls/hr IVPB Q8H BRAN[facility]E Rx#: [id number] Vancocin 1,500 MG In Dextrose 5 250 / 250 % 250 ML @ 166.67 mls/hr IVPB Q12H [facility] Rx#:[id number] Oral 250 / 250 240 / 240 Output: Urine 500 / 500 Estimated Blood Loss 100 / 100 Catheter 900 / 900 750 / 750 Other: Meal Lunch Percent of Meal Consumed 100% Weight 138.4 kg Blood Glucose* 638 275 Patient Weight 08/22/17 23:59 Weight 138.4 kg - Exam Exam: General appearance: alert awake oriented X 3. Calm and pleasant, no acute distress.. Vascular: Pedal pulses +1/4 DP/PT , No evidence of cyanosis, pallor or rubor, Edema graded at 2+/4, Skin Temperature warm, No calf pain with manual compression. capillary refill time is immediate to digits. Neurologic: Sensation intact with light touch to foot. Postop Exam: S/P Full thickness surgical wound measuring 14 cm in length x 6 cm in width x 3 cm in depth, undermining at 9 0'clock measuring 5 cm. Bloody drainage oozing, no purulent drainage, periwound erythema ascending to the ankle. Medial cuneiform exposed, tissue surrounding is pale, remainder of wound bed is red. - Lab Result Diagrams: 08/22/17 08:04 08/22/17 08:04 Labs: Abnormal lab results WBC 18.8 K/mcL (4.3-11.1) H 08/22/17 01:09 RBC 3.49 M/mcL (4.19-5.50) L 08/22/17 01:09 Hgb 8.0 g/dL (12.9-16.9) L 08/22/17 08:04 Hct 27.8 % (37.5-50.1) L 08/22/17 01:09 MCV 79.7 fL (83.0-100.0) L 08/22/17 01:09 MCH 25.2 pg (28.0-33.3) L 08/22/17 01:09 RDW 16.1 % (11.5-14.5) H 08/22/17 01:09 Neutrophils # 17.1 K/mcL (1.6-8.9) H 08/22/17 01:09 Anisocytosis 1+ (Not Present) A 08/21/17 09:03 PT 18.7 Seconds (9.4-12.1) H 08/21/17 09:03 Sodium 131 mEq/L (136-145) L 08/22/17 08:04 Carbon Dioxide 15 mEq/L (19-29) L 08/22/17 08:04 BUN 32 mg/dL (8-26) H 08/22/17 08:04 Creatinine 1.28 mg/dL (0.72-1.25) H 08/22/17 08:04 Est GFR (Non-Af Amer) 59 (> 60) L 08/22/17 08:04 Glucose 245 mg/dL (70-99) H 08/22/17 08:04 POC Glucose 275 (58-89) H 08/21/17 15:33 Hemoglobin A1c 9.0 % (-5.6) H 08/22/17 08:04 Calcium 8.3 mg/dL (8.6-10.8) L 08/22/17 08:04 Magnesium 1.3 mg/dL (1.6-2.6) L 08/22/17 08:04 Alkaline Phosphatase 150 Units/L (38-126) H 08/21/17 09:03 Albumin 2.0 g/dL (3.5-5.0) L 08/21/17 09:03 Globulin 4.8 g/dL (2.4-3.5) H 08/21/17 09:03 Albumin/Globulin Ratio 0.4 (1.1-2.2) L 08/21/17 09:03 HDL Cholesterol 5 mg/dL (40-59) L 08/22/17 08:04 Cholesterol/HDL Ratio 12.8 (0-4.9) H 08/22/17 08:04 Microbiology, Last 48 Hours 08/21/17 23:35 Gram Stain - Final Left Foot 08/21/17 23:35 Gram Stain - Final Left Foot 08/21/17 23:35 Gram Stain - Final Left Foot 08/21/17 23:35 Gram Stain - Final Left Foot 08/21/17 23:35 Gram Stain - Final Left Foot - VTE Documentation of Mechanical Device: Intermittent pneumatic compression device Consult Discharge Plan - Plan Referrals: Sunny Rodriguez MD [Primary Care Provider] - 08/29/17 11:00 am
--- NOTE | 2017-08-22 19:23 | Electrocardiograph Report ---
[address] [address] Test Date: 2017-08-21 Pat Name: Rolando Robb Department: 112 Room: [facility] Gender: M Fork Operator: MARK : 1965 Requested By: Tyrone Dean Order Number: [id number] Reading MD: Nereida Patrick Measurements Intervals [place] Rate: 109 P: 52 NM: 164 QRS: 34 QRSD: 105 T: 20 QT: 293 QTc: 357 Interpretive Statements SINUS TACHYCARDIA ABNORMAL RHYTHM ECG Electronically Signed On 08-22-2017 19:22:10 EDT by Nereida Patrick
[2017-08-22] MEDS: Insulin DETEMIR 100 UNIT/ML X5UNITS SQ SCH (20:42)
[2017-08-22] MEDS ORDERED: Insulin DETEMIR 100 UNIT/ML X5UNITS SQ SCH (21:00)
[2017-08-22] MEDS: *HR* Morphine 2 MG/ML SYRINGE IVP PRN (21:47)
[2017-08-23] MEDS: Piperacillin/Tazobactam 3.375 GM in D5% in Water (Mini-Bag+) 100 ML IVPB SCH ×3 (00:14→17:12)
[2017-08-23] MEDS: Norepinephrine 4 MG in D5% in Water 250 ML IVC SCH (00:19)
[2017-08-23 03:54] LABS: Basophils % 0.1 %; Eosinophils # 0.1 K/mcL (0.0-0.6); Eosinophils % 0.5 %; Hematocrit 23.5 % (37.5-50.1); Hemoglobin 7.3 g/dL (12.9-16.9); Immature Granulocytes % 2.8 % (0-4); Lymphocytes # 1.2 K/mcL (0.6-4.6); Lymphocytes % 10.2 %; Mean Corpuscular HGB Conc 31.1 g/dL (31.6-35.5); Mean Corpuscular Hemoglobin 24.7 pg (28.0-33.3); Mean Corpuscular Volume 79.7 fL (83.0-100.0); Monocytes # 0.7 K/mcL (0.0-1.3); Monocytes % 5.8 %; Neutrophils # 9.6 K/mcL (1.6-8.9); Platelet Count 238 K/mcL (140-400); Red Blood Count 2.95 M/mcL (4.19-5.50); Red Cell Distribution Width 16.3 % (11.5-14.5); Segmented Neutrophils % 80.6 %
[2017-08-23 04:05] LABS: BUN/Creatinine Ratio 23 (6-26); Blood Urea Nitrogen 28 mg/dL (8-26); Carbon Dioxide 23 mEq/L (19-29); Chloride 99 mEq/L (98-109); Glucose 227 mg/dL (70-99); Osmolality,Calculated 283 (280-300); Potassium 3.9 mEq/L (3.5-4.5); Sodium 130 mEq/L (136-145); eGFR For African Americans > 60 (> 60); eGFR For Non-African Americans > 60 (> 60)
[2017-08-23] MEDS: *HR* Enoxaparin 40 MG/0.4 ML SYRINGE SQ SCH (05:32)
[2017-08-23] MEDS: Vancomycin 1,500 MG in D5% in Water 250 ML IVPB SCH ×2 (05:34→17:11)
[2017-08-23] MEDS: *HR* Morphine 2 MG/ML SYRINGE IVP PRN ×4 (05:38→18:29)
[2017-08-23] MEDS: Insulin LISPRO 300 UNITS/3 ML VIAL SQ SCH ×4 (07:50→20:50)
[2017-08-23] MEDS: Famotidine 20 MG TABLET PO SCH ×2 (07:51→15:33)
--- NOTE | 2017-08-23 08:15 | Infectious Disease Consult ---
Date of Encounter: 08/22/17 Time of Encounter: 14:30 Assessment and Plan (1) Septic shock Status: Acute Assessment and plan: The patient had two SIRS criteria plus hypotension requiring vasopressors. Likely secondary to left foot osteomyelitis. Improved. The patient is off vasopressors. His WBC is back up a little today, likely reactive from surgery. Tachycardia has resolved. Blood cultures drawn 08/22/17 are pending x 2 sets. (2) Acute osteomyelitis of left foot Status: Acute Assessment and plan: Location: Left foot, first metatarsal. Causative organism unclear. Intra-operative cultures were obtained and are pending. Gram stain shows GPC. Likely secondary to previously-reported DFUs. MRI of the left foot showed osteomyelitis of the first metatarsal at the forefoot, midfoot, and hindfoot, as well as septic arthritis of the 1st MTP joint. Additionally, there was advanced myositis of the distal calf and foot, a large phlegmon in the dorsum subcutaneous forefoot, and multiple small abscesses in the plantar subcutaneous forefoot. No inflammatory markers have been checked. Podiatry was consulted. The patient was taken to the OR 08/22/17 and had 1st ray amputation of the left foot, I & D of the left foot, and bone biopsy of the medial cuneiform, navicular, and talus. Operative note reviewed. Infection extensive. Plan for staged repair if foot is able to be salvaged. Check ESR and CRP. Continue Vancomycin IV. Pharmacy to dose. Goal trough approximately 15. Continue Zosyn 3.375 grams IV Q8H. De-escalate based on cultures. Wound care per Podiatry's recommendations. Consult social service liaison to assist with discharge planning. Duration of treatment depends on the clinical picture, but likely 6 weeks of IV antibiotics. Monitor renal function and for drug toxicity and dose-adjust antibiotics. (3) Foot abscess, left Status: Acute Assessment and plan: Causative organism unclear. Status post I & D 08/22/[address] Martin. Cultures pending. Antibiotics as above. (4) Nondisplaced fracture of first left metatarsal bone Status: Acute Assessment and plan: Likely secondary to osteomyelitis. Qualifiers: Encounter type: initial encounter Fracture type: closed Qualified Code(s) : S92.315A - Nondisplaced fracture of first metatarsal bone, left foot, initial encounter for closed fracture (5) ROBSON (acute kidney injury) Status: Acute Assessment and plan: Likely secondary to sepsis. Monitor closely and dose-adjust antibiotics. (6) DM2 (diabetes mellitus, type 2) Status: Acute Assessment and plan: Uncontrolled. A1C 9%. Recommend aggressive glucose monitoring and control to promote wound healing and prevent re-infection. Management per the primary team. 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 Robb is a 51 year old male with a past medical history of type 2 diabetes, hypertension, hyperlipidemia, obstructive sleep apnea, morbid obesity, and COPD. She was admitted to the hospital August 21 for left foot osteomyelitis. We are consulted August 22 for further recommendations regarding the left foot osteomyelitis. The patient's a 51-year-old male with past medical history as stated above. The patient appears somewhat confused and is limited in his ability to provide me with information leading up to his information, therefore, most of the information is obtained from the medical record and his family that is at the bedside. Apparently, the patient has had a two-week history of left foot pain and swelling. The patient's ex- has been helping take care of him and reports that he has some superficial ulcers to his left great toe, but on the day prior to admission, he was complaining of left foot swelling so he applied ice pack directly to his foot which resulted in increased redness and some black areas to the dorsal aspect of his foot. On the day of admission, the patient presented to an [facility] for evaluation. Had an x-ray of his foot that showed her's metatarsal osteomyelitis. The patient was currently transferred here for evaluation. Upon arrival, the patient was afebrile. He was tachycardic and mildly hypotensive. He was started. Clear IV vancomycin and IV Zosyn. He had a foot MRI that showed osteomyelitis of the forefoot, midfoot, and hindfoot as well as septic arthritis of the first MTP joint. Additionally, there was advanced to myositis of the distal calf and foot, a large phlegmon on the dorsum subcutaneous forefoot, and multiple small abscesses of the plantar subcutaneous forefoot. Podiatry was consulted and patient was taken to the operating room on August 22 and underwent an I&D of the left foot, first ray amputation of the left foot, and bone biopsy of the medial cuneiform, navicular , and talus. The operative note was reviewed and it appears that the infection was quite extensive. Salvage of the foot is questionable at this point. Intra- operative cultures were obtained and are pending. Gram stain shows GPC. Post-op , the patient he came hypotensive and went into septic shock and was subsequently transferred to the ICU. She did spike fever with a MAXIMUM TEMPERATURE of 100.7 early this morning. His white blood cell count went up a little bit today to 18,000. Chest x-ray completed postoperatively shows central vascular congestion and/or bronchitis. Additional labs this morning showed A1c of 9. Lactic acid was normal. His serum creatinine went up to 1.28. Currently, the patient is on IV vancomycin and IV Zosyn. We've asked to evaluate and make further recommendations. 10, the patient's mental status precludes my ability showed obtain a complete review of systems. Currently, he complains of pain in the left foot, but is really unable to provide me with any other information at this time. CC: Theodore Jacobo MD Past Med Surg Social Fam HX - Past Medical History Attestation: No The following information was validated with the patient. Source: old records reviewed, obtained from family, nursing notes reviewed Medical history: asthma, COPD, coronary artery disease, diabetes, GERD, hyperlipidemia, hypertension Psychiatric history: no psych history - Past Surgical History Surgical History: other (Cornea repair) - Social History Smoking Status: Never smoker Smokeless Tobacco Status: Yes Alcohol use: none Drug use: none Occupational status: unemployed Current living situation: Home - Independent Activity Level: Independent ambulation Recent Out of Country Travel Within the Last 8 Weeks: No Exposure or Possible Exposure to Illness During Travel: No - Family History Mother Hx Family Endocrine Disorder: Yes (DM2) Father Hx Family Cardiac Disorders: Yes ([place]) Brother Hx Family Endocrine Disorder: Yes (DM2) Infectious Disease-CN:Meds Albuterol Sulfate [Albuterol Inhaler] 1 puff IH Q4H 08/21/17 [History] Gabapentin [Neurontin] 800 mg PO TID 08/21/17 [History] GlipiZIDE [Glipizide Xl] 5 mg PO DAILY 08/21/17 [History] Insulin Glargine [Lantus] 50 unit SQ BID 08/21/17 [History] Liraglutide [Victoza 2-Abdoulaye] 1.8 mg SQ DAILY 08/21/17 [History] Lisinopril [Zestril] 20 mg PO DAILY 08/21/17 [History] Ranitidine HCl [Acid Surgery Aid] 150 mg PO BID 08/21/17 [History] metFORMIN [Glucophage] 1,000 mg PO BIDWM 08/21/17 [History] Atorvastatin [Lipitor] 40 mg PO HS 08/22/17 [History] Azelastine 0.1% Nasal [place] [Astelin] 1 - 2 spr NS BID 08/22/17 [History] Cetirizine HCl [All Day Allergy] 10 mg PO DAILY 08/22/17 [History] Cyclobenzaprine [Flexeril] 10 mg PO TID 08/22/17 [History] Cyclosporine [Restasis] 1 drop BOTH EYES DAILY 08/22/17 [History] Empagliflozin [Jardiance] 25 mg PO DAILY 08/22/17 [History] Ergocalciferol (VITAMIN D2) [Vitamin D2] 50,000 unit PO QWEEK 08/22/17 [History] Lisinopril-HCTZ 20-12.5 [Prinzide 20-12.5] 1 tab PO DAILY 08/22/17 [History] Meloxicam [Mobic] 15 mg PO DAILY 08/22/17 [History] Mometasone/Formoterol [Dulera 200 Mcg/5 Mcg Inhaler] 2 puff IH BID 08/22/17 [ History] Montelukast [Singulair] 10 mg PO DAILY 08/22/17 [History] [place]-3/Dha/Epa/Fish Oil [Fish Oil 1,000 mg Softgel] 2,000 mg PO DAILY 08/22/17 [History] Omeprazole [PriLOSEC] 20 mg PO DAILY 08/22/17 [History] PARoxetine HCl [Paroxetine HCl] 40 mg PO DAILY 08/22/17 [History] Trazodone HCl 150 mg PO HS 08/22/17 [History] Zileuton [Zyflo] 600 mg PO QID 08/22/17 [History] 3 Allergy/AdvReac Type Severity Reaction Status Date / Time No Known Allergies Allergy Unverified 07/01/15 22:36 ROS unobtainable: due to mental status Exam - Constitutional Vitals: Temp Pulse Resp BP Pulse Ox 98.8 F 91 24 112/59 98 08/23/17 07:30 08/23/17 06:00 08/23/17 06:00 08/23/17 06:00 08/23/17 06:00 General appearance: cooperative, morbidly obese, no acute distress - Head Head exam: Present: atraumatic, normal inspection, normocephalic - Eye Eye exam: Present: EOMI, normal appearance, PERRL Pupils: Present: normal accommodation - ENT ENT exam: Present: mucous membranes moist - Neck Neck exam: Present: normal inspection - Respiratory Respiratory exam: Present: CTAB. Absent: rales, respiratory distress, rhonchi, wheezes - Cardiovascular Cardiovascular exam: Present: RRR, +S1, +S2 - GI/Abdominal GI/Abdominal exam: Present: distended (obese), normal bowel sounds, soft. Absent: tenderness - Extremities Exam Extremities exam: Present: pedal edema (2+ LLE). Absent: joint swelling, tenderness Additional comments: Left foot dressing C/D/I. Mild erythema noted to the skin above the dressing to the mid-calf. - Neurological Exam Neurological exam: Present: alert, no focal deficits. Absent: oriented X3 ( Oriented to person only.) - Psychiatric Psychiatric exam: Present: normal affect, normal mood - Skin Skin exam: Present: dry, intact, normal color, warm Infectious Disease CN: Results - Labs CBC & Chem 7: 08/23/17 03:40 08/23/17 03:40 Cultures: Cultures 08/21/17 23:35 Wound Culture - Preliminary Left Foot Strep agalactiae - (Group B) 08/21/17 23:35 Gram Stain - Final Left Foot 08/21/17 23:35 Gram Stain - Final Left Foot 08/21/17 23:35 Gram Stain - Final Left Foot 08/21/17 23:35 Gram Stain - Final Left Foot 08/21/17 23:35 Gram Stain - Final Left Foot - VTE Documentation of Mechanical Device: Intermittent pneumatic compression device Consult Discharge Plan - Plan Referrals: Sunny Rodriguez MD [Primary Care Provider] - 08/29/17 11:00 am
[2017-08-23] MEDS: Gabapentin 400 MG CAPSULE PO SCH ×3 (09:09→20:50)
[2017-08-23] MEDS: Lisinopril 20 MG TABLET PO SCH (09:09)
[2017-08-23] MEDS: *HR* HYDROcodone/Acet 5/325 mg TABLET PO PRN ×2 (09:09→20:50)
[2017-08-23] MEDS: Insulin DETEMIR 100 UNIT/ML X5UNITS SQ SCH ×2 (09:10→20:49)
--- NOTE | 2017-08-23 09:24 | Pulmonology Progress Note ---
<Antoni Steinberg - Last Filed: 08/23/17 11:47> Date of Encounter: 08/23/17 Time of Encounter: 09:21 Assessment and Plan (1) Septic shock Current Visit: Yes Status: Acute Source, left foot osteomyelitis/abscess Operative biopsy showed Gm+ cocci Blood Cx pending Wound cx shows GBS so far Off Levophed, pressures range 149-83/99-49 Treating with vancomycin and zosyn, Day 3, ID following WBC decreased from 18.8 to 11.9 (2) Acute osteomyelitis of left foot Current Visit: Yes Status: Acute POD #2 Left foot I&D, 1st ray amputation, biopsy of medial cuneiform, navicular, and talus by Dr. Pradeep Martin on 08/22/17 On Vancomycin and zosyn Day 3, ID following Wound care per podiatry (3) Foot abscess, left Current Visit: Yes Status: Acute See plan of care above (4) Nondisplaced fracture of first left metatarsal bone Current Visit: Yes Status: Acute See plan of care above Qualifiers: Encounter type: initial encounter Fracture type: closed Qualified Code(s) : S92.315A - Nondisplaced fracture of first metatarsal bone, left foot, initial encounter for closed fracture (5) DM2 (diabetes mellitus, type 2) Current Visit: Yes Status: Acute HgbA1C 9.0 On high dose sliding scale insulin Glucose still high 200s to low 300s since increasing levemir Increasing levemir from 25 to 40 units BID Will monitor blood sugar Qualifiers: Diabetes mellitus complication status: with unspecified complications Diabetes mellitus terminal press operator insulin use: with group home use Qualified Code(s) : E11.8 - Type 2 diabetes mellitus with unspecified complications; 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 of insulin (6) HTN (hypertension) Current Visit: Yes Status: Acute Pressures stable Holding home meds Qualifiers: Hypertension type: unspecified Qualified Code(s): I10 - Essential (primary ) hypertension (7) HLD (hyperlipidemia) Current Visit: Yes Status: Acute continue home meds Qualifiers: Hyperlipidemia type: unspecified Qualified Code(s): E78.5 - Hyperlipidemia , unspecified (8) ANI (obstructive sleep apnea) Current Visit: Yes Status: Acute CPAP at night (9) ROBSON (acute kidney injury) Current Visit: Yes Status: Acute Secondary to sepsis Improving Urine output good Subjective Principal diagnosis: Septic Shock d/t Osteomyelitis Left Foot Interval history: Patient doing well this morning. No new complaints. Denies nausea, vomiting, diarrhea, chest pain, shortness of breath Objective PUL Vital signs: Last Vital Signs Temp 98.8 F 08/23/17 07:30 Pulse 91 08/23/17 08:00 Resp 24 08/23/17 06:00 BP 112/59 08/23/17 06:00 Pulse Ox 98 08/23/17 06:00 General appearance: no acute distress, alert Eyes: nonicteric Effort: normal Auscultation: bilateral: clear Cardiovascular: regular rate and rhythm Gastrointestinal: normoactive bowel sounds, soft, non-tender, non-distended Extremities: other (1st ray amputation of left foot) normal mental status mood appropriate, affect normal Results - Laboratory Findings CBC and BMP: 08/23/17 03:40 08/23/17 03:40 PT/INR, D-dimer PT 18.7 Seconds (9.4-12.1) H 08/21/17 09:03 Abnormal lab findings: Abnormal lab results WBC 11.9 K/mcL (4.3-11.1) H 08/23/17 03:40 RBC 2.95 M/mcL (4.19-5.50) L 08/23/17 03:40 Hgb 7.3 g/dL (12.9-16.9) L 08/23/17 03:40 Hct 23.5 % (37.5-50.1) L 08/23/17 03:40 MCV 79.7 fL (83.0-100.0) L 08/23/17 03:40 MCH 24.7 pg (28.0-33.3) L 08/23/17 03:40 MCHC 31.1 g/dL (31.6-35.5) L 08/23/17 03:40 RDW 16.3 % (11.5-14.5) H 08/23/17 03:40 MPV 9.0 fL (9.4-12.4) L 08/23/17 03:40 Neutrophils # 9.6 K/mcL (1.6-8.9) H 08/23/17 03:40 Anisocytosis 1+ (Not Present) A 08/21/17 09:03 PT 18.7 Seconds (9.4-12.1) H 08/21/17 09:03 Sodium 130 mEq/L (136-145) L 08/23/17 03:40 BUN 28 mg/dL (8-26) H 08/23/17 03:40 Glucose 227 mg/dL (70-99) H 08/23/17 03:40 POC Glucose 350 (58-89) H 08/22/17 20:30 Hemoglobin A1c 9.0 % (-5.6) H 08/22/17 08:04 Calcium 8.0 mg/dL (8.6-10.8) L 08/23/17 03:40 Magnesium 1.3 mg/dL (1.6-2.6) L 08/22/17 08:04 Alkaline Phosphatase 150 Units/L (38-126) H 08/21/17 09:03 Albumin 2.0 g/dL (3.5-5.0) L 08/21/17 09:03 Globulin 4.8 g/dL (2.4-3.5) H 08/21/17 09:03 Albumin/Globulin Ratio 0.4 (1.1-2.2) L 08/21/17 09:03 HDL Cholesterol 5 mg/dL (40-59) L 08/22/17 08:04 Cholesterol/HDL Ratio 12.8 (0-4.9) H 08/22/17 08:04 - Microbiology Findings Microbiology Findings: Microbiology, Last 48 Hours 08/21/17 23:35 Wound Culture - Preliminary Left Foot Strep agalactiae - (Group B) 08/21/17 23:35 Gram Stain - Final Left Foot 08/21/17 23:35 Gram Stain - Final Left Foot 08/21/17 23:35 Gram Stain - Final Left Foot 08/21/17 23:35 Gram Stain - Final Left Foot 08/21/17 23:35 Gram Stain - Final Left Foot - Clinical Findings Intake & Output: Intake & Output 08/22/17 08/23/17 08/23/17 23:59 07:59 15:59 Intake Total 1030 / 1030 100 / 100 Output Total 1150 / 1150 925 / 925 Balance -120 / -120 -825 / -825 Weight 134.9 kg - VTE Documentation of Mechanical Device: Intermittent pneumatic compression device Consult Discharge Plan - Plan Referrals: Sunny Rodriguez MD [Primary Care Provider] - 08/29/17 11:00 am <NewMax astudillo Devan - Last Filed: 08/23/17 16:20> Date of Encounter: 08/23/17 Objective PUL Vital signs: Last Vital Signs Temp 98.1 F 08/23/17 11:35 Pulse 97 08/23/17 13:00 Resp 20 08/23/17 13:00 BP 113/75 08/23/17 13:00 Pulse Ox 98 08/23/17 13:00 Results - Laboratory Findings CBC and BMP: 08/23/17 03:40 08/23/17 03:40 PT/INR, D-dimer PT 18.7 Seconds (9.4-12.1) H 08/21/17 09:03 Abnormal lab findings: Abnormal lab results WBC 11.9 K/mcL (4.3-11.1) H 08/23/17 03:40 RBC 2.95 M/mcL (4.19-5.50) L 08/23/17 03:40 Hgb 7.3 g/dL (12.9-16.9) L 08/23/17 03:40 Hct 23.5 % (37.5-50.1) L 08/23/17 03:40 MCV 79.7 fL (83.0-100.0) L 08/23/17 03:40 MCH 24.7 pg (28.0-33.3) L 08/23/17 03:40 MCHC 31.1 g/dL (31.6-35.5) L 08/23/17 03:40 RDW 16.3 % (11.5-14.5) H 08/23/17 03:40 MPV 9.0 fL (9.4-12.4) L 08/23/17 03:40 Neutrophils # 9.6 K/mcL (1.6-8.9) H 08/23/17 03:40 Anisocytosis 1+ (Not Present) A 08/21/17 09:03 ESR >= 130 mm/hr (0-10) H 08/23/17 13:35 PT 18.7 Seconds (9.4-12.1) H 08/21/17 09:03 Sodium 130 mEq/L (136-145) L 08/23/17 03:40 BUN 28 mg/dL (8-26) H 08/23/17 03:40 Glucose 227 mg/dL (70-99) H 08/23/17 03:40 POC Glucose 350 (58-89) H 08/22/17 20:30 Hemoglobin A1c 9.0 % (-5.6) H 08/22/17 08:04 Calcium 8.0 mg/dL (8.6-10.8) L 08/23/17 03:40 Magnesium 1.3 mg/dL (1.6-2.6) L 08/22/17 08:04 Alkaline Phosphatase 150 Units/L (38-126) H 08/21/17 09:03 Albumin 2.0 g/dL (3.5-5.0) L 08/21/17 09:03 Globulin 4.8 g/dL (2.4-3.5) H 08/21/17 09:03 Albumin/Globulin Ratio 0.4 (1.1-2.2) L 08/21/17 09:03 HDL Cholesterol 5 mg/dL (40-59) L 08/22/17 08:04 Cholesterol/HDL Ratio 12.8 (0-4.9) H 08/22/17 08:04 - Microbiology Findings Microbiology Findings: Microbiology, Last 48 Hours 08/21/17 23:35 Wound Culture - Preliminary Left Foot Strep agalactiae - (Group B) 08/21/17 23:35 Gram Stain - Final Left Foot 08/21/17 23:35 Gram Stain - Final Left Foot 08/21/17 23:35 Gram Stain - Final Left Foot 08/21/17 23:35 Gram Stain - Final Left Foot 08/21/17 23:35 Gram Stain - Final Left Foot - Clinical Findings Intake & Output: Intake & Output 08/22/17 08/23/17 08/23/17 23:59 07:59 15:59 Intake Total 1030 / 1030 100 / 100 Output Total 1150 / 1150 925 / 925 700 / 700 Balance -120 / -120 -825 / -825 -700 / -700 Weight 134.9 kg - Attending Attestation I saw the patient with the resident agree with History and Physical exam findings. Labs and Radiology were reviewed HAND EDGER: Patient is conscious oriented x3 sitting in the bed having meaningful conversation NECK : No JVD appreciated Pulmonary : Patient gas exchange adequate will wean off O2 as tolerated .Will need Cardiac : Patient is off vasopressors more than 12 hrs Nutrition/GI: Patient is eating and drinking , PPI prophylaxis Renal : ROBSON reversed Heme onc : Labs reviewed Endo: Diabetes on insulin needs aggressive outpatient management counseled him and daughter. Musculo skeletal / skin issues : Left foot wound was examined raw podiatry following might have second look surgery if the wound is not getting better. ID : Left foot osteomyelitis needs terminal press operator antibiotics ID following will need PICC line , to continue Vanc and Zosyn till the blood cultures comes negative he can get PICC line and we can get the central line out. Disposition : Patient can be transferred to telemetry floor Code status: Full Code Family/POA: Daughter
[2017-08-23] MEDS ORDERED: Insulin DETEMIR 100 UNIT/ML X5UNITS SQ ONE (10:00)
[2017-08-23] MEDS ORDERED: *HR* Dextrose 50 % in Water (Syg) 50 ML SYRINGE IVP PRN (11:52)
[2017-08-23] MEDS ORDERED: Dextrose Gel 15 GM PO PRN ×2 (11:52)
[2017-08-23] MEDS ORDERED: *HR* Promethazine 25 MG/ML VIAL IVP PRN (11:52)
[2017-08-23] MEDS ORDERED: Ondansetron 4 MG/2 ML VIAL IVP PRN (11:52)
[2017-08-23] MEDS ORDERED: Naloxone 0.4 MG/ML INJ IVP PRN (11:52)
[2017-08-23] MEDS ORDERED: D5% in Water 1,000 ML IVC PRN (11:52)
--- NOTE | 2017-08-23 12:18 | Podiatry Progress Note ---
Date of Encounter: 08/23/17 Time of Encounter: 11:45 - Assessment and Plan (1) Acute osteomyelitis of left foot Current Visit: Yes Status: Acute discussed surgical procedure again with patient and his family bedside. infectious disease was also present. discussed current culture results. discussed that he is still high risk for limb amputation and developing worsening sepsis which could lead to . wbc trending down 18.8-11.9. continue to monitor. BP appears better recently-management per ICU team. recommend transfuse if hgb < 7. he does not have any active bleeding from his left foot at this time. wound packed open. non-wb left foot. c/w IV antibiotics per ID. when patient stable (possibly monday) will require excisional debridement and possible wound vac application. f/u ella/pvr. xrays reviewed and plan of care discussed with patient. (2) Foot abscess, left Current Visit: Yes Status: Acute Subjective Principal diagnosis: Septic Shock d/t Osteomyelitis Left Foot Interval history: patient s/p incision and drainage, 1st ray resection and biopsy of medial cuneiform, navicular and talus bones. patient sitting up in bed talking, says he feels okay today and better than yesterday. denies feeling like he had f/c/n/ v/cp. daughter is bedside with the patient. Objective - Vital Signs Vital Signs: Vital Signs Temp Pulse Resp BP Pulse Ox 08/23/17 11:35 98.1 F 08/23/17 11:00 98 18 126/95 98 08/23/17 10:00 93 18 127/63 99 08/23/17 09:51 96 16 90/72 100 08/23/17 08:00 91 18 108/71 100 08/23/17 07:30 98.8 F 08/23/17 06:00 91 24 112/59 98 08/23/17 05:00 91 16 85/57 96 08/23/17 04:00 99.5 F 92 14 88/52 97 08/23/17 03:44 95 08/23/17 03:00 92 18 85/53 97 08/23/17 02:00 95 18 100/74 96 08/23/17 01:00 97 26 83/49 97 08/23/17 00:00 98 F 99 23 83/50 98 08/22/17 23:00 99 17 91/64 98 08/22/17 22:00 104 23 92/68 97 08/22/17 21:00 109 15 95/73 95 08/22/17 20:00 99.5 F 111 20 108/60 91 08/22/17 19:00 106 25 104/99 87 08/22/17 18:00 105 26 106/72 94 08/22/17 17:00 105 22 120/97 94 08/22/17 16:00 102 24 149/68 97 08/22/17 15:58 99.6 F 08/22/17 15:25 105 08/22/17 15:00 106 26 106/62 96 08/22/17 14:00 96 18 100/85 96 08/22/17 13:00 96 20 114/68 99 Intake and Output 08/22/17 08/23/17 08/23/17 23:59 07:59 15:59 Intake Total 1030 / 1030 100 / 100 Output Total 1150 / 1150 925 / 925 700 / 700 Balance -120 / -120 -825 / -825 -700 / -700 Intake: IV Fluids 410 / 410 100 / 100 Levophed 4 MG In Dextrose 5% 60 / 60 250 ML @ 8 MCG/MIN 30.48 mls/hr IVC CONT [facility] Rx#:[id number] Zosyn 3.375 GM In Dextrose 5% ( 100 / 100 100 / 100 Minibag+) 100 ML 100 ML @ 25 mls/hr IVPB Q8H [facility] Rx#: [id number] Vancocin 1,500 MG In Dextrose 5 250 / 250 % 250 ML @ 166.67 mls/hr IVPB Q12H [facility] Rx#:[id number] Oral 620 / 620 Output: Urine 125 / 125 Catheter 1150 / 1150 800 / 800 700 / 700 Other: Weight 134.9 kg Blood Glucose* 350 241 238 Patient Weight 08/23/17 23:59 Weight 134.9 kg - Exam Exam: well developed obese male in no acute distress CFT < 3 sec x remaining digits of the left foot. left foot is warm to touch. there is some dorsal foot necrosis. there is no active bleeding from his foot. there is some devitalized tissue proximally dorsal and medial to the exposed medial cuneiform bone. there is granular tissue distally. no purulence could be expressed from his foot today. absent sensation to touch. - Radiology X-Rays: image reviewed - Lab Result Diagrams: 08/23/17 03:40 08/23/17 03:40 Labs: Abnormal lab results WBC 11.9 K/mcL (4.3-11.1) H 08/23/17 03:40 RBC 2.95 M/mcL (4.19-5.50) L 08/23/17 03:40 Hgb 7.3 g/dL (12.9-16.9) L 08/23/17 03:40 Hct 23.5 % (37.5-50.1) L 08/23/17 03:40 MCV 79.7 fL (83.0-100.0) L 08/23/17 03:40 MCH 24.7 pg (28.0-33.3) L 08/23/17 03:40 MCHC 31.1 g/dL (31.6-35.5) L 08/23/17 03:40 RDW 16.3 % (11.5-14.5) H 08/23/17 03:40 MPV 9.0 fL (9.4-12.4) L 08/23/17 03:40 Neutrophils # 9.6 K/mcL (1.6-8.9) H 08/23/17 03:40 Anisocytosis 1+ (Not Present) A 08/21/17 09:03 PT 18.7 Seconds (9.4-12.1) H 08/21/17 09:03 Sodium 130 mEq/L (136-145) L 08/23/17 03:40 BUN 28 mg/dL (8-26) H 08/23/17 03:40 Glucose 227 mg/dL (70-99) H 08/23/17 03:40 POC Glucose 350 (58-89) H 08/22/17 20:30 Hemoglobin A1c 9.0 % (-5.6) H 08/22/17 08:04 Calcium 8.0 mg/dL (8.6-10.8) L 08/23/17 03:40 Magnesium 1.3 mg/dL (1.6-2.6) L 08/22/17 08:04 Alkaline Phosphatase 150 Units/L (38-126) H 08/21/17 09:03 Albumin 2.0 g/dL (3.5-5.0) L 08/21/17 09:03 Globulin 4.8 g/dL (2.4-3.5) H 08/21/17 09:03 Albumin/Globulin Ratio 0.4 (1.1-2.2) L 08/21/17 09:03 HDL Cholesterol 5 mg/dL (40-59) L 08/22/17 08:04 Cholesterol/HDL Ratio 12.8 (0-4.9) H 08/22/17 08:04 Microbiology, Last 48 Hours 08/21/17 23:35 Wound Culture - Preliminary Left Foot Strep agalactiae - (Group B) 08/21/17 23:35 Gram Stain - Final Left Foot 08/21/17 23:35 Gram Stain - Final Left Foot 08/21/17 23:35 Gram Stain - Final Left Foot 08/21/17 23:35 Gram Stain - Final Left Foot 08/21/17 23:35 Gram Stain - Final Left Foot - VTE Documentation of Mechanical Device: Intermittent pneumatic compression device Consult Discharge Plan - Plan Referrals: Sunny Rodriguez MD [Primary Care Provider] - 08/29/17 11:00 am
--- NOTE | 2017-08-23 12:57 | Infectious Disease Progress No ---
Date of Encounter: 08/23/17 Time of Encounter: 12:55 - Assessment and Plan (1) Septic shock Current Visit: Yes Status: Acute The patient had two SIRS criteria plus hypotension requiring vasopressors. Likely secondary to left foot osteomyelitis. Improved. The patient is off vasopressors. His WBC has normalized. He has had some intermittent tachycardia over the last 24 hours. Blood cultures drawn 08/22/17 are pending x 2 sets. (2) Acute osteomyelitis of left foot Current Visit: Yes Status: Acute Location: Left foot, first metatarsal. Causative organism unclear. Intra-operative cultures are positive for GBS. Will await additional cultures to finalize as I am concerned that this could be polymicrobial given the extensive nature of the infection. Likely secondary to previously-reported DFUs. MRI of the left foot showed osteomyelitis of the first metatarsal at the forefoot, midfoot, and hindfoot, as well as septic arthritis of the 1st MTP joint. Additionally, there was advanced myositis of the distal calf and foot, a large phlegmon in the dorsum subcutaneous forefoot, and multiple small abscesses in the plantar subcutaneous forefoot. No inflammatory markers have been checked. Podiatry was consulted. The patient was taken to the OR 08/22/17 and had 1st ray amputation of the left foot, I & D of the left foot, and bone biopsy of the medial cuneiform, navicular, and talus. Operative note reviewed. Infection extensive. Plan for staged repair if foot is able to be salvaged. Case discussed with Dr. Martin today who plans to take the patient back to the OR Monday if he continues to stabilize. Check ESR and CRP.--> add to AM labs. Continue Vancomycin IV. Pharmacy to dose. Goal trough approximately 15. Continue Zosyn 3.375 grams IV Q8H. De-escalate based on cultures. Wound care per Podiatry's recommendations. Consult director of social work to assist with discharge planning. Duration of treatment depends on the clinical picture, but likely 6 weeks of IV antibiotics. Monitor renal function and for drug toxicity and dose-adjust antibiotics. (3) Foot abscess, left Current Visit: Yes Status: Acute Causative organism GBS, possibly polymicrobial. Status post I & D 08/22/[address] Martin. Cultures pending. Antibiotics as above. (4) Nondisplaced fracture of first left metatarsal bone Current Visit: Yes Status: Acute Likely secondary to osteomyelitis. Qualifiers: Encounter type: initial encounter Fracture type: closed Qualified Code(s) : S92.315A - Nondisplaced fracture of first metatarsal bone, left foot, initial encounter for closed fracture (5) ROBSON (acute kidney injury) Current Visit: Yes Status: Acute Likely secondary to sepsis. Resolved. Monitor closely and dose-adjust antibiotics. (6) DM2 (diabetes mellitus, type 2) Current Visit: Yes Status: Acute Uncontrolled. A1C 9%. Recommend aggressive glucose monitoring and control to promote wound healing and prevent re-infection. Management per the primary team. Qualifiers: Diabetes mellitus complication status: with unspecified complications Diabetes mellitus retirement insulin use: with terminal block assembler use Qualified Code(s) : E11.8 - Type 2 diabetes mellitus with unspecified complications; Z79.4 - custodial (current) use of insulin (7) ANI (obstructive sleep apnea) Current Visit: Yes Status: Acute - Subjective Interval history: Patient seen and examined. No acute events noted overnight. Patient remains off vasopressors currently. Mentation is improved. Denies fevers, chills, or rigors. Denies chest pain, shortness of breath, or cough. Denies nausea, vomiting, or diarrhea. Reports he had bonilla catheter removed this morning and denies urinary complaints. Denies abdominal pain and states his appetite is good. Reports intermittent pain in the left foot, denies currently, but describes as aching, throbbing. Denies oral thrush or skin rashes. Infect Dis PN-Objective Data - Labs CBC & Chem 7: 08/23/17 03:40 08/23/17 03:40 Labs: Laboratory Results - last 24 hr 08/22/17 08/22/17 08/22/17 04:31 07:32 10:29 WBC RBC Hgb Hct MCV MCH MCHC RDW Plt Count MPV Immature Gran % Seg Neutrophils % Lymphocytes % Monocytes % Eosinophils % Basophils % Neutrophils # Lymphocytes # Monocytes # Eosinophils # Basophils # Sodium Potassium Chloride Carbon Dioxide BUN Creatinine Est GFR ( Amer) Est GFR (Non-Af Amer) BUN/Creatinine Ratio Glucose POC Glucose 247 H 236 H 275 H Calculated Osmolality Calcium Vancomycin Trough 08/22/17 08/22/17 08/23/17 16:11 20:30 03:40 WBC RBC Hgb Hct MCV MCH MCHC RDW Plt Count MPV Immature Gran % Seg Neutrophils % Lymphocytes % Monocytes % Eosinophils % Basophils % Neutrophils # Lymphocytes # Monocytes # Eosinophils # Basophils # Sodium Potassium Chloride Carbon Dioxide BUN Creatinine Est GFR ( Amer) Est GFR (Non-Af Amer) BUN/Creatinine Ratio Glucose POC Glucose 256 H 350 H Calculated Osmolality Calcium Vancomycin Trough 17.2 08/23/17 08/23/17 03:40 03:40 WBC 11.9 H RBC 2.95 L Hgb 7.3 L Hct 23.5 L MCV 79.7 L MCH 24.7 L MCHC 31.1 L RDW 16.3 H Plt Count 238 MPV 9.0 L Immature Gran % 2.8 Seg Neutrophils % 80.6 Lymphocytes % 10.2 Monocytes % 5.8 Eosinophils % 0.5 Basophils % 0.1 Neutrophils # 9.6 H Lymphocytes # 1.2 Monocytes # 0.7 Eosinophils # 0.1 Basophils # 0.0 Sodium 130 L Potassium 3.9 Chloride 99 Carbon Dioxide 23 BUN 28 H Creatinine 1.23 Est GFR ( Amer) > 60 Est GFR (Non-Af Amer) > 60 BUN/Creatinine Ratio 23 Glucose 227 H POC Glucose Calculated Osmolality 283 Calcium 8.0 L Vancomycin Trough Cultures: Cultures 08/21/17 23:35 Wound Culture - Preliminary Left Foot Strep agalactiae - (Group B) 08/21/17 23:35 Gram Stain - Final Left Foot 08/21/17 23:35 Gram Stain - Final Left Foot 08/21/17 23:35 Gram Stain - Final Left Foot 08/21/17 23:35 Gram Stain - Final Left Foot 08/21/17 23:35 Gram Stain - Final Left Foot - Impressions Impressions Foot X-Ray 08/22/17 00:00 IMPRESSION: Intraoperative spot films from reported partial amputation. Please see full procedure note for further details. D/ / 08/22/2017 07:26:28 Joseph Jeronimo MD / bcarter Interpreting Provider: Joseph Jeronimo MD Foot X-Ray 08/22/17 13:10 IMPRESSION: Interval amputation of the 1st ray at the level of the 1st tarsometatarsal joint with postsurgical changes of the soft tissues. D/ / Fabián Davis MD / Fabián Davis MD Interpreting Provider: Fabián Davis MD Exam - Constitutional Vitals: Temp Pulse Resp BP Pulse Ox 98.1 F 98 20 113/67 99 08/23/17 11:35 08/23/17 12:00 08/23/17 12:00 08/23/17 12:00 08/23/17 12:00 General appearance: cooperative, morbidly obese, no acute distress - Head Head exam: Present: atraumatic, normal inspection, normocephalic - Eye Eye exam: Present: EOMI, normal appearance, PERRL Pupils: Present: normal accommodation - ENT ENT exam: Present: mucous membranes moist - Neck Neck exam: Present: normal inspection Additional comments: TL CVC noted to the right neck with transparent dressing C/D/I. - Respiratory Respiratory exam: Present: CTAB. Absent: rales, respiratory distress, rhonchi, wheezes - Cardiovascular Cardiovascular exam: Present: +S1, +S2, tachycardia - GI/Abdominal GI/Abdominal exam: Present: distended (obese), normal bowel sounds, soft. Absent: tenderness - Expanded Lower Extremity Exam 1 - Large, gaping surgical site noted to the dorsal/medial aspect of the left foot. Great toe has been amputated. No evidence of pilar pus noted. Mild oozing of the wound noted. Wound bed is beefy red with bone exposed. No foul odor or marked erythema. 2+ edema noted surrounding the surgical wound. - Neurological Exam Neurological exam: Present: alert, oriented X3, no focal deficits - Psychiatric Psychiatric exam: Present: normal affect, normal mood - Skin Skin exam: Present: dry, intact, normal color, warm - VTE Documentation of Mechanical Device: Intermittent pneumatic compression device Consult Discharge Plan - Plan Referrals: Sunny Rodriguez MD [Primary Care Provider] - 08/29/17 11:00 am
--- NOTE | 2017-08-23 14:18 | Arterial Study Report ---
LE Arterial Physiologic Study Patient Name:Rolando Robb Order Number:[id number] Procedure Date:08/22/2017 Date:1965Age:51 yrs Gender:Male Lt BP:108 / mmHg Rt.BP:115 / mmHgHeart Rate: Location:[facility] Room #: IC8 Rn Referral:Caren Trammell RVT Referring MD:Milton Mcgill MD vice president global advertising sales:Sunny Rodriguez MD Reading MD:Juan Miguel Castañeda MD , FACS Primary Indications:Open wound on left foot Risk Factors Yes/No Hypertension Yes Diabetes Yes Hypercholesterolemia Yes Smoker Previous Yes Impressions: 1) Right lower extremity waveform demonstrates normal hemodynamics. 2) Right Ankle Brachial Index is normal. 3) Overall Impression: Arterial hemodynamics are well maintained at rest. 1) Left lower extremity waveform demonstrates mildly diminished hemodynamics. 2) Left Ankle Brachial Index demonstrates mildly occlusive disease. Findings LE Arterial Physiologic Exam: PVR: Right: The PVR waveforms are mildly diminished in the right ankle. Left: The PVR waveforms are mildly diminished in the left ankle. Prior Study: No prior study available for comparison. Segmental Pressures Side Location Pressure Index Result Right Posterior Tibial 119 1.03 Right Dorsalis Pedis 111 0.97 Left Posterior Tibial 97 0.84 Left Dorsalis Pedis 105 0.91 Ankle Brachial Index Right Systolic Diastolic AARON Brachial 115 1.03 Dorsalis Pedis 111 0.97 Posterior Tibial 119 1.03 Left Systolic Diastolic AARON Brachial 108 0.91 Dorsalis Pedis 105 0.91 Posterior Tibial 97 0.84 Updated by Juan Miguel Castañeda MD, FACS on 08/23/2017 2:11:07 PM with Status of Final Juan Miguel Castañeda MD electronically signed on 08/23/2017 2:11:42 PM with status of Final
[2017-08-23] MEDS: (Mometasone/Formoterol [Dulera 200 Mcg/5 Mcg Inhaler]) IH SCH (20:51)
[2017-08-23] MEDS ORDERED: Insulin DETEMIR 100 UNIT/ML X5UNITS SQ SCH (21:00)
[2017-08-24] MEDS: *HR* Morphine 2 MG/ML SYRINGE IVP PRN ×2 (00:39→21:46)
[2017-08-24] MEDS: Piperacillin/Tazobactam 3.375 GM in D5% in Water (Mini-Bag+) 100 ML IVPB SCH ×2 (01:12→08:48)
[2017-08-24] MEDS: Acetaminophen 325 MG TABLET PO PRN ×3 (03:32→18:57)
[2017-08-24] MEDS: *HR* Enoxaparin 40 MG/0.4 ML SYRINGE SQ SCH (05:22)
[2017-08-24 05:31] LABS: Basophils % 0.2 %; Eosinophils # 0.1 K/mcL (0.0-0.6); Eosinophils % 0.7 %; Hemoglobin 7.3 g/dL (12.9-16.9); Immature Granulocytes % 3.7 % (0-4); Lymphocytes % 7.9 %; Mean Corpuscular HGB Conc 30.4 g/dL (31.6-35.5); Mean Corpuscular Hemoglobin 24.4 pg (28.0-33.3); Mean Corpuscular Volume 80.3 fL (83.0-100.0); Mean Platelet Volume 9.3 fL (9.4-12.4); Monocytes # 0.9 K/mcL (0.0-1.3); Monocytes % 7.4 %; Neutrophils # 9.8 K/mcL (1.6-8.9); Platelet Count 243 K/mcL (140-400); Red Blood Count 2.99 M/mcL (4.19-5.50); Red Cell Distribution Width 16.2 % (11.5-14.5); Segmented Neutrophils % 80.1 %
[2017-08-24 05:42] LABS: BUN/Creatinine Ratio 23 (6-26); Blood Urea Nitrogen 25 mg/dL (8-26); Carbon Dioxide 21 mEq/L (19-29); Chloride 97 mEq/L (98-109); Glucose 187 mg/dL (70-99); Osmolality,Calculated 275 (280-300); Potassium 4.5 mEq/L (3.5-4.5); Sodium 128 mEq/L (136-145); eGFR For African Americans > 60 (> 60); eGFR For Non-African Americans > 60 (> 60)
[2017-08-24] MEDS: Vancomycin 1,500 MG in D5% in Water 250 ML IVPB SCH ×2 (06:56→16:19)
[2017-08-24] MEDS: Famotidine 20 MG TABLET PO SCH ×2 (08:47→15:48)
[2017-08-24] MEDS: Gabapentin 400 MG CAPSULE PO SCH ×3 (08:47→21:47)
[2017-08-24] MEDS: Insulin LISPRO 300 UNITS/3 ML VIAL SQ SCH ×4 (08:48→21:35)
[2017-08-24] MEDS: (Mometasone/Formoterol [Dulera 200 Mcg/5 Mcg Inhaler]) IH SCH ×2 (08:48→21:47)
[2017-08-24] MEDS ORDERED: Lisinopril 20 MG TABLET PO SCH ×2 (09:00→12:31)
[2017-08-24] MEDS: Insulin DETEMIR 100 UNIT/ML X5UNITS SQ SCH ×2 (09:30→21:46)
--- NOTE | 2017-08-24 12:39 | Infectious Disease Progress No ---
Date of Encounter: 08/24/17 Time of Encounter: 12:37 - Assessment and Plan (1) Septic shock Current Visit: Yes Status: Resolved The patient had two SIRS criteria plus hypotension requiring vasopressors. Likely secondary to left foot osteomyelitis. Improved. The patient is off vasopressors. His WBC has normalized. Tachycardia has resolved. Blood cultures drawn 08/22/17 are NGTD x 2 sets. (2) Acute osteomyelitis of left foot Current Visit: Yes Status: Acute Location: Left foot, first metatarsal. Causative organism MRSA and GBS. Likely secondary to previously-reported DFUs. MRI of the left foot showed osteomyelitis of the first metatarsal at the forefoot, midfoot, and hindfoot, as well as septic arthritis of the 1st MTP joint. Additionally, there was advanced myositis of the distal calf and foot, a large phlegmon in the dorsum subcutaneous forefoot, and multiple small abscesses in the plantar subcutaneous forefoot. Podiatry was consulted. The patient was taken to the OR 08/22/17 and had 1st ray amputation of the left foot, I & D of the left foot, and bone biopsy of the medial cuneiform, navicular, and talus. Operative note reviewed. Infection extensive. Plan for staged repair if foot is able to be salvaged. Continue Vancomycin IV. Pharmacy to dose. Goal trough approximately 15. Discontinue Zosyn. Wound care per Podiatry's recommendations. Consult social media strategist to assist with discharge planning. Duration of treatment depends on the clinical picture, but likely 6 weeks of IV antibiotics. Monitor renal function and for drug toxicity and dose-adjust antibiotics. Okay to consult VAT for PICC line placement. (3) Foot abscess, left Current Visit: Yes Status: Acute Causative organism GBS and MRSA. Status post I & D 08/22/[address] Martin. Antibiotics as above. (4) Nondisplaced fracture of first left metatarsal bone Current Visit: Yes Status: Acute Likely secondary to osteomyelitis. Qualifiers: Encounter type: initial encounter Fracture type: closed Qualified Code(s) : S92.315A - Nondisplaced fracture of first metatarsal bone, left foot, initial encounter for closed fracture (5) ROBSON (acute kidney injury) Current Visit: Yes Status: Resolved Likely secondary to sepsis. Resolved. Monitor closely and dose-adjust antibiotics. (6) DM2 (diabetes mellitus, type 2) Current Visit: Yes Status: Chronic Uncontrolled. A1C 9%. Recommend aggressive glucose monitoring and control to promote wound healing and prevent re-infection. Management per the primary team. Qualifiers: Diabetes mellitus complication status: with unspecified complications Diabetes mellitus retirement insulin use: with retirement use Qualified Code(s) : E11.8 - Type 2 diabetes mellitus with unspecified complications; Z79.4 - assisted (current) use of insulin (7) ANI (obstructive sleep apnea) Current Visit: Yes Status: Acute - Subjective Interval history: Patient seen and examined. No acute events noted overnight. Denies fevers, chills, or rigors. Denies chest pain, shortness of breath, or cough. Denies nausea, vomiting, or diarrhea. Denies urinary complaints. Denies abdominal pain and states his appetite is good. Reports intermittent pain in the left foot, denies currently, but describes as aching, throbbing. Denies oral thrush or skin rashes. Infect Dis PN-Objective Data - Labs CBC & Chem 7: 08/24/17 05:19 08/24/17 05:19 Labs: Laboratory Results - last 24 hr 08/23/17 08/23/17 08/23/17 07:04 11:12 13:35 WBC RBC Hgb Hct MCV MCH MCHC RDW Plt Count MPV Immature Gran % Seg Neutrophils % Lymphocytes % Monocytes % Eosinophils % Basophils % Neutrophils # Lymphocytes # Monocytes # Eosinophils # Basophils # ESR >= 130 H Sodium Potassium Chloride Carbon Dioxide BUN Creatinine Est GFR ( Amer) Est GFR (Non-Af Amer) BUN/Creatinine Ratio Glucose POC Glucose 241 H 238 H Calculated Osmolality Calcium C-Reactive Protein 08/23/17 08/23/17 08/23/17 13:35 16:07 19:18 WBC RBC Hgb Hct MCV MCH MCHC RDW Plt Count MPV Immature Gran % Seg Neutrophils % Lymphocytes % Monocytes % Eosinophils % Basophils % Neutrophils # Lymphocytes # Monocytes # Eosinophils # Basophils # ESR Sodium Potassium Chloride Carbon Dioxide BUN Creatinine Est GFR ( Amer) Est GFR (Non-Af Amer) BUN/Creatinine Ratio Glucose POC Glucose 228 H 231 H Calculated Osmolality Calcium C-Reactive Protein 194 H 08/24/17 08/24/17 08/24/17 05:19 05:19 07:31 WBC 12.3 H RBC 2.99 L Hgb 7.3 L Hct 24.0 L MCV 80.3 L MCH 24.4 L MCHC 30.4 L RDW 16.2 H Plt Count 243 MPV 9.3 L Immature Gran % 3.7 Seg Neutrophils % 80.1 Lymphocytes % 7.9 Monocytes % 7.4 Eosinophils % 0.7 Basophils % 0.2 Neutrophils # 9.8 H Lymphocytes # 1.0 Monocytes # 0.9 Eosinophils # 0.1 Basophils # 0.0 ESR Sodium 128 L Potassium 4.5 Chloride 97 L Carbon Dioxide 21 BUN 25 Creatinine 1.08 Est GFR ( Amer) > 60 Est GFR (Non-Af Amer) > 60 BUN/Creatinine Ratio 23 Glucose 187 H POC Glucose 241 H Calculated Osmolality 275 L Calcium 8.0 L C-Reactive Protein 08/24/17 11:15 WBC RBC Hgb Hct MCV MCH MCHC RDW Plt Count MPV Immature Gran % Seg Neutrophils % Lymphocytes % Monocytes % Eosinophils % Basophils % Neutrophils # Lymphocytes # Monocytes # Eosinophils # Basophils # ESR Sodium Potassium Chloride Carbon Dioxide BUN Creatinine Est GFR ( Amer) Est GFR (Non-Af Amer) BUN/Creatinine Ratio Glucose POC Glucose 248 H Calculated Osmolality Calcium C-Reactive Protein Cultures: Cultures 08/22/17 08:05 Blood Culture - Preliminary Peripheral Venipuncture No growth. 08/22/17 08:00 Blood Culture - Preliminary Peripheral Venipuncture No growth. 08/21/17 23:35 Wound Culture - Preliminary Left Foot Staphylococcus aureus Strep agalactiae - (Group B) 08/21/17 23:35 Wound Culture - Preliminary Left Foot Staphylococcus aureus Strep agalactiae - (Group B) 08/21/17 23:35 Wound Culture - Preliminary Left Foot Staphylococcus aureus Strep agalactiae - (Group B) 08/21/17 23:35 Wound Culture - Preliminary Left Foot Staphylococcus aureus Strep agalactiae - (Group B) 08/21/17 23:35 Wound Culture - Preliminary Left Foot Staphylococcus aureus Strep agalactiae - (Group B) 08/21/17 23:35 Wound Culture - Preliminary Left Foot Strep agalactiae - (Group B) Staphylococcus aureus 08/21/17 23:35 Gram Stain - Final Left Foot 08/21/17 23:35 Gram Stain - Final Left Foot 08/21/17 23:35 Gram Stain - Final Left Foot 08/21/17 23:35 Gram Stain - Final Left Foot 08/21/17 23:35 Gram Stain - Final Left Foot Exam - Constitutional Vitals: Temp Pulse Resp BP Pulse Ox 98.4 F 83 16 97/56 95 08/24/17 10:10 08/24/17 10:10 08/24/17 10:10 08/24/17 10:10 08/24/17 10:10 General appearance: cooperative, morbidly obese, no acute distress - Head Head exam: Present: atraumatic, normal inspection, normocephalic - Eye Eye exam: Present: EOMI, normal appearance, PERRL Pupils: Present: normal accommodation - ENT ENT exam: Present: mucous membranes moist - Respiratory Respiratory exam: Present: CTAB. Absent: rales, respiratory distress, rhonchi, wheezes - Cardiovascular Cardiovascular exam: Present: RRR, +S1, +S2 - GI/Abdominal GI/Abdominal exam: Present: distended (obese), normal bowel sounds, soft. Absent: tenderness - Extremities Exam Extremities exam: Present: pedal edema (1+ LLE). Absent: joint swelling, tenderness Additional comments: Left foot dressing C/D/I. - Neurological Exam Neurological exam: Present: alert, oriented X3, no focal deficits - Psychiatric Psychiatric exam: Present: normal affect, normal mood - Skin Skin exam: Present: dry, intact, normal color, warm - VTE Documentation of Mechanical Device: Intermittent pneumatic compression device Consult Discharge Plan - Plan Referrals: Sunny Rodriguez MD [Primary Care Provider] - 08/29/17 11:00 am
--- NOTE | 2017-08-24 12:40 | Podiatry Progress Note ---
Date of Encounter: 08/24/17 Time of Encounter: 12:00 - Assessment and Plan (1) Acute osteomyelitis of left foot Current Visit: Yes Status: Acute Assessment: s/p incision and drainage left foot, 1st ray amputation left foot, bone biopsy medial cuneiform, bone biopsy navicular, bone biopsy talus by Dr. Martin on 08/22 for acute osteomyelitis of the left foot. Full thickness surgical wound to the left foot. Moderate amount of bloody drainage observed to dressing, no purulent drainage. Periwound erythema ascending to the left anterior tibial region with scattered serous filled blisters. AARON of BLE: Right lower extremity waveform demonstrates normal hemodynamics, Right Ankle Brachial Index is normal, Overall Impression: Arterial hemodynamics are well maintained at rest, Left lower extremity waveform demonstrates mildly diminished hemodynamics, Left Ankle Brachial Index demonstrates mildly occlusive disease. WBC: 12.3 Microbiology 08/22/17 08:05 Blood Culture - Preliminary Peripheral Venipuncture No growth. 08/22/17 08:00 Blood Culture - Preliminary Peripheral Venipuncture No growth. 08/21/17 23:35 Wound Culture - Preliminary Left Foot Staphylococcus aureus Strep agalactiae - (Group B) 08/21/17 23:35 Wound Culture - Preliminary Left Foot Staphylococcus aureus Strep agalactiae - (Group B) 08/21/17 23:35 Wound Culture - Preliminary Left Foot Staphylococcus aureus Strep agalactiae - (Group B) 08/21/17 23:35 Wound Culture - Preliminary Left Foot Staphylococcus aureus Strep agalactiae - (Group B) 08/21/17 23:35 Wound Culture - Preliminary Left Foot Staphylococcus aureus Strep agalactiae - (Group B) 08/21/17 23:35 Wound Culture - Preliminary Left Foot Strep agalactiae - (Group B) Staphylococcus aureus Plan: Wound flush packed with saline and Iodoform gauze, abd pad applied with adaptic to blisters of left anterior tibial region with kerlix gauze and acewrap. Dr. Martin will take patient back to surgery tomorrow (08/25/17) for an excisional debridement of left foot wound and application of wound vac. Infectious Disease following and currently on Vancomycin and Zosyn. NWB to LLE NPO after midnight (2) Foot abscess, left Current Visit: Yes Status: Acute Subjective Principal diagnosis: Septic Shock d/t Osteomyelitis Left Foot Interval history: Patient is s/p incision and drainage left foot, 1st ray amputation left foot, bone biopsy medial cuneiform, bone biopsy navicular, bone biopsy talus by Dr. Martin on 08/22/17. Patient was transferred from ICU to [facility]. Patient is lying in bed with family at bedside. Patient denies any pain. Dressing intact. No c/ o fever or chills. Objective - Vital Signs Vital Signs: Vital Signs Temp Pulse Resp BP Pulse Ox 08/24/17 10:10 98.4 F 83 16 97/56 95 08/24/17 06:24 98.7 F 86 16 90/56 96 08/24/17 03:28 99.3 F 100 20 91/60 97 08/23/17 23:31 99.5 F 108 16 128/75 92 08/23/17 23:27 99.5 F 08/23/17 20:00 99.2 F 102 27 110/67 96 08/23/17 19:20 99.2 F 08/23/17 18:00 103 16 140/90 99 08/23/17 16:00 98 20 108/95 99 08/23/17 15:59 98.7 F 08/23/17 13:00 97 20 113/75 98 Intake and Output 08/23/17 08/24/17 08/24/17 23:59 07:59 15:59 Intake Total 1270 / 1270 0 / 0 Output Total 675 / 675 0 / 0 Balance 595 / 595 0 / 0 Intake: IV Fluids 350 / 350 Zosyn 3.375 GM In Dextrose 5% ( 100 / 100 Minibag+) 100 ML 100 ML @ 25 mls/hr IVPB Q8H [facility] Rx#: [id number] Vancocin 1,500 MG In Dextrose 5 250 / 250 % 250 ML @ 166.67 mls/hr IVPB Q12H [facility] Rx#:[id number] Oral 920 / 920 0 / 0 Output: Urine 675 / 675 0 / 0 Other: Weight 135.6 kg Blood Glucose* 231 241 248 Patient Weight 08/24/17 23:59 Weight 135.6 kg - Exam Exam: General appearance: alert awake oriented X 3. Calm and pleasant, no acute distress.. Vascular: Pedal pulses +1/4 DP/PT , No evidence of cyanosis, pallor or rubor, Edema graded at 2+/4, Skin Temperature warm, No calf pain with manual compression. capillary refill time is immediate to digits. Neurologic: Sensation intact with light touch to foot. Postop Exam: S/P Full thickness surgical wound measuring 14 cm in length x 6 cm in width x 3 cm in depth, undermining at 9 0'clock measuring 5 cm. No active bleeding, no purulent drainage, periwound erythema ascending to the anterior tibial region. Medial cuneiform exposed, tissue surrounding is pale, remainder of wound bed is red. Necrotic skin to the dorsum of the left foot. Light erythema to the anterior tibial region with scatter serous filled blisters. - Lab Result Diagrams: 08/24/17 13:11 08/24/17 05:19 Labs: Abnormal lab results WBC 12.3 K/mcL (4.3-11.1) H 08/24/17 05:19 RBC 2.99 M/mcL (4.19-5.50) L 08/24/17 05:19 Hgb 7.3 g/dL (12.9-16.9) L 08/24/17 05:19 Hct 24.0 % (37.5-50.1) L 08/24/17 05:19 MCV 80.3 fL (83.0-100.0) L 08/24/17 05:19 MCH 24.4 pg (28.0-33.3) L 08/24/17 05:19 MCHC 30.4 g/dL (31.6-35.5) L 08/24/17 05:19 RDW 16.2 % (11.5-14.5) H 08/24/17 05:19 MPV 9.3 fL (9.4-12.4) L 08/24/17 05:19 Neutrophils # 9.8 K/mcL (1.6-8.9) H 08/24/17 05:19 Anisocytosis 1+ (Not Present) A 08/21/17 09:03 ESR >= 130 mm/hr (0-10) H 08/23/17 13:35 PT 18.7 Seconds (9.4-12.1) H 08/21/17 09:03 Sodium 128 mEq/L (136-145) L 08/24/17 05:19 Chloride 97 mEq/L (98-109) L 08/24/17 05:19 Glucose 187 mg/dL (70-99) H 08/24/17 05:19 POC Glucose 248 (58-89) H 08/24/17 11:15 Hemoglobin A1c 9.0 % (-5.6) H 08/22/17 08:04 Calculated Osmolality 275 (280-300) L 08/24/17 05:19 Calcium 8.0 mg/dL (8.6-10.8) L 08/24/17 05:19 Magnesium 1.3 mg/dL (1.6-2.6) L 08/22/17 08:04 Alkaline Phosphatase 150 Units/L (38-126) H 08/21/17 09:03 C-Reactive Protein 194 mg/L (Less than 5) H 08/23/17 13:35 Albumin 2.0 g/dL (3.5-5.0) L 08/21/17 09:03 Globulin 4.8 g/dL (2.4-3.5) H 08/21/17 09:03 Albumin/Globulin Ratio 0.4 (1.1-2.2) L 08/21/17 09:03 HDL Cholesterol 5 mg/dL (40-59) L 08/22/17 08:04 Cholesterol/HDL Ratio 12.8 (0-4.9) H 08/22/17 08:04 Microbiology, Last 48 Hours 08/22/17 08:05 Blood Culture - Preliminary Peripheral Venipuncture No growth. 08/22/17 08:00 Blood Culture - Preliminary Peripheral Venipuncture No growth. 08/21/17 23:35 Wound Culture - Preliminary Left Foot Staphylococcus aureus Strep agalactiae - (Group B) 08/21/17 23:35 Wound Culture - Preliminary Left Foot Staphylococcus aureus Strep agalactiae - (Group B) 08/21/17 23:35 Wound Culture - Preliminary Left Foot Staphylococcus aureus Strep agalactiae - (Group B) 08/21/17 23:35 Wound Culture - Preliminary Left Foot Staphylococcus aureus Strep agalactiae - (Group B) 08/21/17 23:35 Wound Culture - Preliminary Left Foot Staphylococcus aureus Strep agalactiae - (Group B) 08/21/17 23:35 Wound Culture - Preliminary Left Foot Strep agalactiae - (Group B) Staphylococcus aureus - VTE Documentation of Mechanical Device: Intermittent pneumatic compression device Consult Discharge Plan - Plan Referrals: Sunny Rodriguez MD [Primary Care Provider] - 08/29/17 11:00 am
[2017-08-24 13:16] LABS: Basophils % 0.3 %; Eosinophils # 0.1 K/mcL (0.0-0.6); Eosinophils % 1.1 %; Hematocrit 24.3 % (37.5-50.1); Hemoglobin 7.7 g/dL (12.9-16.9); Immature Granulocytes % 3.6 % (0-4); Lymphocytes # 1.5 K/mcL (0.6-4.6); Lymphocytes % 11.4 %; Mean Corpuscular HGB Conc 31.7 g/dL (31.6-35.5); Mean Corpuscular Hemoglobin 25.5 pg (28.0-33.3); Mean Corpuscular Volume 80.5 fL (83.0-100.0); Mean Platelet Volume 9.3 fL (9.4-12.4); Monocytes # 0.9 K/mcL (0.0-1.3); Monocytes % 7.1 %; Neutrophils # 9.9 K/mcL (1.6-8.9); Platelet Count 240 K/mcL (140-400); Red Blood Count 3.02 M/mcL (4.19-5.50); Red Cell Distribution Width 16.3 % (11.5-14.5); Segmented Neutrophils % 76.5 %
[2017-08-24] MEDS: *HR* HYDROcodone/Acet 5/325 mg TABLET PO PRN (15:48)
--- NOTE | 2017-08-24 19:10 | Internal Med Progress Note ---
Date of Encounter: 08/25/17 Time of Encounter: 11:40 - Assessment and plan (1) Acute osteomyelitis of left foot Current Visit: Yes Status: Acute Assessment and plan: POD #2 s/p left foot I&D, and partial left foot amputation. Plan is to go to OR tomorrow for debridement of left foot wound wound vac application. He has chronic anemia with acute illness. Currently hemoglobin is 7-8, anticipate post procedure he might need blood transfusion. (2) Foot abscess, left Current Visit: Yes Status: Acute Assessment and plan: Managed by Podiatry, plan as above. (3) Hyponatremia Current Visit: Yes Status: Acute Assessment and plan: Initially seemed like pseudohyponatremia given his elevated glucose levels. However some times his sodium is still low despite correction. He may need normal saline for repletion. Recheck BMP in AM. (4) Anemia of chronic disease Current Visit: Yes Status: Acute Assessment and plan: Possibilty he will need transfused tomorrow given his acute illness with chronic disease. (5) HTN (hypertension) Current Visit: Yes Status: Acute Assessment and plan: Currently BP running lower, but no signs of sepsis. Qualifiers: Hypertension type: unspecified Qualified Code(s): I10 - Essential (primary ) hypertension (6) Sepsis Current Visit: Yes Status: Acute Assessment and plan: Resolved. Qualifiers: Sepsis type: sepsis due to unspecified organism Qualified Code(s): A41.9 - Sepsis, unspecified organism (7) DM2 (diabetes mellitus, type 2) Current Visit: Yes Status: Chronic Assessment and plan: Will tighten glycemic control to promote healing. His basal insulin was lowered as he was NPO. Will titrate up closely to avoid hypoglycemic episodes. 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 He denies fevers/chills, n/v, diaphoresis. Leg pain controlled. - Constitutional Vitals: Temp Pulse Resp BP Pulse Ox 98.9 F 90 18 112/72 95 08/24/17 19:00 08/24/17 19:00 08/24/17 19:00 08/24/17 19:00 08/24/17 19:00 General appearance: Present: A&O X 3, answers questions appropriately - Respiratory Respiratory exam: Present: CTAB. Absent: accessory muscle use, rales, rhonchi, wheezes - Cardiovascular Cardiovascular exam: Present: RRR, +S1, +S2. Absent: diastolic murmur, gallop, rubs, systolic murmur - Extremities Exam Additional comments: left foot with exposed bone and packing. Removed by Podiatry currently and there is no drainage or active bleeding or necrotic tissue appreciated. Internal Medicine: Result - Labs CBC & Chem 7: 08/24/17 13:11 08/24/17 05:19 Labs: Short CBC 08/24/17 08/24/17 Range/Units 05:19 13:11 WBC 12.3 H 13.0 H (4.3-11.1) K/mcL Hgb 7.3 L 7.7 L (12.9-16.9) g/dL Hct 24.0 L 24.3 L (37.5-50.1) % Plt Count 243 240 (140-400) K/mcL Neutrophils # 9.8 H 9.9 H (1.6-8.9) K/mcL BMP 08/24/17 05:19 Sodium 128 L Potassium 4.5 Chloride 97 L Carbon Dioxide 21 BUN 25 Creatinine 1.08 Glucose 187 H Calcium 8.0 L - ABG Interpretation ABG results: PT/INR, D-dimer PT 18.7 Seconds (9.4-12.1) H 08/21/17 09:03 - VTE Documentation of Mechanical Device: Intermittent pneumatic compression device Consult Discharge Plan - Plan Referrals: Sunny Rodriguez MD [Primary Care Provider] - 08/29/17 11:00 am
--- NOTE | 2017-08-24 19:55 | Anesthesia Evaluation PreOp ---
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 Anxiety/ Depression maintained on Amitryptlline) Other Medical History: Diabetes Type II (maintained on Metformin, Victoza, Lantus, Glipizide), GERD (maintained on Ranitidine), Other (Sepsis re: Acute ostiomyelitis L-foot this admission s/p L-foot partial amputation 08/21/17) Anesthesia History: Past Anesthesia (Corneal surgery/repair, L-foot partial amputation 08/21/17) Alcohol Use: none Drug use: none Medications and Allergies Albuterol Sulfate [Albuterol Inhaler] 1 puff IH Q4H 08/21/17 [History] Gabapentin [Neurontin] 800 mg PO TID 08/21/17 [History] GlipiZIDE [Glipizide Xl] 5 mg PO DAILY 08/21/17 [History] Insulin Glargine [Lantus] 50 unit SQ BID 08/21/17 [History] Liraglutide [Victoza 2-Abdoulaye] 1.8 mg SQ DAILY 08/21/17 [History] Lisinopril [Zestril] 20 mg PO DAILY 08/21/17 [History] Ranitidine HCl [Acid Form Designer] 150 mg PO BID 08/21/17 [History] metFORMIN [Glucophage] 1,000 mg PO BIDWM 08/21/17 [History] Atorvastatin [Lipitor] 40 mg PO HS 08/22/17 [History] Azelastine 0.1% Nasal Freedom [Astelin] 1 - 2 spr NS BID 08/22/17 [History] Cetirizine HCl [All Day Allergy] 10 mg PO DAILY 08/22/17 [History] Cyclobenzaprine [Flexeril] 10 mg PO TID 08/22/17 [History] Cyclosporine [Restasis] 1 drop BOTH EYES DAILY 08/22/17 [History] Empagliflozin [Jardiance] 25 mg PO DAILY 08/22/17 [History] Ergocalciferol (VITAMIN D2) [Vitamin D2] 50,000 unit PO QWEEK 08/22/17 [History] Lisinopril-HCTZ 20-12.5 [Prinzide 20-12.5] 1 tab PO DAILY 08/22/17 [History] Meloxicam [Mobic] 15 mg PO DAILY 08/22/17 [History] Mometasone/Formoterol [Dulera 200 Mcg/5 Mcg Inhaler] 2 puff IH BID 08/22/17 [ History] Montelukast [Singulair] 10 mg PO DAILY 08/22/17 [History] Dennison-3/Dha/Epa/Fish Oil [Fish Oil 1,000 mg Softgel] 2,000 mg PO DAILY 08/22/17 [History] Omeprazole [PriLOSEC] 20 mg PO DAILY 08/22/17 [History] PARoxetine HCl [Paroxetine HCl] 40 mg PO DAILY 08/22/17 [History] Trazodone HCl 150 mg PO HS 08/22/17 [History] Zileuton [Zyflo] 600 mg PO QID 08/22/17 [History] 3 Allergy/AdvReac Type Severity Reaction Status Date / Time No Known Allergies Allergy Unverified 07/01/15 22:36 - Meds/Allergy Pre-op Review Medications Reviewed: Yes Allergies Reviewed: Yes Beta Blockers on Current Med List: No Anesthesia Results - Labs 08/24/17 13:11 08/24/17 05:19 Laboratory Results Impressions Foot MRI 08/21/17 08:44 IMPRESSION: 1. Osteomyelitis of the forefoot, midfoot, and hindfoot as detailed above, most pronounced in the 1st metatarsal bone. 2. Probable septic arthritis of the 1st MTP joint. 3. Probable advanced myositis of the visualized distal calf and foot musculature. There are component's appearance may be due to diabetic related changes. 4. Large phlegmon of the dorsum of the subcutaneous forefoot and multiple small abscesses of the plantar subcutaneous soft tissues of the forefoot. 5. Partial thickness tearing of the flexor hallucis longus, potentially due to infectious involvement. 6. Mildly displaced proximal 1st metatarsal bone fracture. D/ / 08/21/2017 11:39:40 Jose Altamirano MD / Dali Talbert Interpreting Provider: Jose Altamirano MD Chest X-Ray 08/22/17 03:27 IMPRESSION: No focal airspace consolidation. Bilateral perihilar prominence suggesting central vascular congestion and/or bronchitis. D/ / Kalee Rubalcava MD / Kalee Rubalcava MD Interpreting Provider: Kalee Rubalcava MD Foot X-Ray 08/22/17 13:10 IMPRESSION: Interval amputation of the 1st ray at the level of the 1st tarsometatarsal joint with postsurgical changes of the soft tissues. D/ / Fabián Davis MD / Fabián Davis MD Interpreting Provider: Fabián Davis MD Laboratory Tests 08/22/17 08/24/17 08/24/17 08:04 05:19 11:15 Est GFR (Non-Af Amer) > 60 POC Glucose 248 H Hemoglobin A1c 9.0 H Anesthesia Exam Vital Signs Temp Pulse Resp BP Pulse Ox 08/24/17 19:00 98.9 F 90 18 112/72 95 08/24/17 15:35 97.9 F 63 18 132/77 96 08/24/17 10:10 98.4 F 83 16 97/56 95 08/24/17 06:24 98.7 F 86 16 90/56 96 08/24/17 03:28 99.3 F 100 20 91/60 97 08/23/17 23:31 99.5 F 108 16 128/75 92 08/23/17 23:27 99.5 F Intake and Output 08/24/17 08/24/17 08/24/17 07:59 15:59 23:59 Intake Total 250 / 250 400 / 400 Output Total 0 / 0 1650 / 1650 Balance 250 / 250 -1250 / -1250 Intake: IV Fluids 250 / 250 Vancocin 1,500 MG In Dextrose 5 250 / 250 % 250 ML @ 166.67 mls/hr IVPB Q12H [facility] Rx#:[id number] Oral 0 / 0 400 / 400 Output: Urine 0 / 0 1650 / 1650 Other: Meal Lunch Percent of Meal Consumed 80% Stool Size Large Stool Consistency soft Stool Color Brown # Voids 1 Weight 135.6 kg Blood Glucose* 241 248 282 Patient Weight 08/24/17 23:59 Weight 135.6 kg Height: 5'9" Weight: 298# BMI = 44 NPO (# of Hours): MNOc - HEENT Pupil (Motor): Pupils equal, EOMI Mallampati: III Teeth: Edentulous Oral Opening: Greater than 3 - STUFFING MACHINE OPERATOR LOC: Oriented STUFFING MACHINE OPERATOR Motor: Normal RUE, Normal LUE, Normal RLE, Normal LLE, Normal Face STUFFING MACHINE OPERATOR Sensory: Normal: RUE, LUE, RLE, LLE, Face - Cardiac Rhythm: Regular Murmur: None - Pulmonary Breath Sounds: bilateral Clear Respiratory Effort: Symmetrical Anesthesia Assess/Plan ASA Score: 3 (Obesity, HTN, Chol, Poorly controlled DM, Asthma/COPD, ANI) Modified Rima Scale for Level of Consciousness: Cooperative, oriented, and tranquil Anesthetic Plan: General Monitoring Plan: Standard Monitors Recovery Plan: PACU Anes Supervising Prov Stmt: Pt seen/evaluated, R&B Discussed, questions answered and consent obtained. Severino Savage MD
[2017-08-25] MEDS: *HR* HYDROcodone/Acet 5/325 mg TABLET PO PRN ×3 (00:07→15:18)
[2017-08-25] MEDS: *HR* Enoxaparin 40 MG/0.4 ML SYRINGE SQ SCH (02:16)
[2017-08-25] MEDS: *HR* Morphine 2 MG/ML SYRINGE IVP PRN ×4 (03:26→20:44)
[2017-08-25 04:18] LABS: Basophils % 0.1 %; Eosinophils # 0.2 K/mcL (0.0-0.6); Eosinophils % 1.1 %; Hematocrit 24.9 % (37.5-50.1); Hemoglobin 7.8 g/dL (12.9-16.9); Immature Granulocytes % 4.9 % (0-4); Lymphocytes # 1.1 K/mcL (0.6-4.6); Lymphocytes % 8.1 %; Mean Corpuscular HGB Conc 31.3 g/dL (31.6-35.5); Mean Corpuscular Hemoglobin 25.1 pg (28.0-33.3); Mean Corpuscular Volume 80.1 fL (83.0-100.0); Mean Platelet Volume 9.4 fL (9.4-12.4); Monocytes # 0.9 K/mcL (0.0-1.3); Monocytes % 6.9 %; Neutrophils # 10.6 K/mcL (1.6-8.9); Platelet Count 305 K/mcL (140-400); Red Blood Count 3.11 M/mcL (4.19-5.50); Red Cell Distribution Width 16.1 % (11.5-14.5); Segmented Neutrophils % 78.9 %
[2017-08-25 04:25] LABS: BUN/Creatinine Ratio 20 (6-26); Blood Urea Nitrogen 19 mg/dL (8-26); Calcium 8.5 mg/dL (8.6-10.8); Carbon Dioxide 24 mEq/L (19-29); Chloride 97 mEq/L (98-109); Glucose 328 mg/dL (70-99); Osmolality,Calculated 283 (280-300); Potassium 4.6 mEq/L (3.5-4.5); Sodium 129 mEq/L (136-145); eGFR For African Americans > 60 (> 60); eGFR For Non-African Americans > 60 (> 60)
[2017-08-25] MEDS: Vancomycin 1,500 MG in D5% in Water 250 ML IVPB SCH ×2 (05:32→17:29)
[2017-08-25] MEDS: Insulin LISPRO 300 UNITS/3 ML VIAL SQ SCH ×4 (07:50→20:50)
[2017-08-25] MEDS: (Mometasone/Formoterol [Dulera 200 Mcg/5 Mcg Inhaler]) IH SCH (07:51)
[2017-08-25] MEDS: Famotidine 20 MG TABLET PO SCH ×2 (07:51→17:26)
[2017-08-25] MEDS: Gabapentin 400 MG CAPSULE PO SCH ×3 (07:51→20:43)
[2017-08-25] MEDS: Insulin DETEMIR 100 UNIT/ML X5UNITS SQ SCH ×2 (08:52→21:00)
[2017-08-25] MEDS ORDERED: *HR* Midazolam HCl 2 MG/2 ML VIAL ONE (10:12)
[2017-08-25] MEDS ORDERED: Lidocaine -MPF 2% 2 ML VIAL ONE (10:12)
[2017-08-25] MEDS ORDERED: *HR* FentaNYL (PF) 100 MCG/2 ML VIAL ONE ×2 (10:12→11:21)
[2017-08-25] MEDS ORDERED: Ondansetron 4 MG/2 ML VIAL ONE (10:12)
[2017-08-25] MEDS ORDERED: *HR* Propofol 200 MG/20 ML VIAL IVP ONE (10:12)
[2017-08-25] MEDS ORDERED: Dexamethasone 4 MG/ML VIAL ONE (10:12)
[2017-08-25] MEDS ORDERED: *HR* Succinylcholine 200 MG/10 ML VIAL IVP ONE (10:14)
--- NOTE | 2017-08-25 10:21 | Podiatry Progress Note ---
Date of Encounter: 08/25/17 Time of Encounter: 10:00 - Assessment and Plan (1) Acute osteomyelitis of left foot Current Visit: Yes Status: Acute discussed culutre results of presumptive MRSA in the left foot. discussed procedure today, excisional debridement left foot wound and application of wound vac. discussed with patient his infection and that he is likely to end up with a below knee amputation. he says he wants to try to save the foot but understands he could end up with his leg cut off. proceed as planned. (2) Foot abscess, left Current Visit: Yes Status: Acute Subjective Principal diagnosis: Septic Shock d/t Osteomyelitis Left Foot Interval history: patient seen bedside. has been febrile. denies n/v/sob/cp. Objective - Vital Signs Vital Signs: Vital Signs Temp Pulse Resp BP Pulse Ox 08/25/17 07:27 99.0 F 97 18 154/90 94 08/25/17 03:08 100.6 F H 97 18 110/67 96 08/25/17 00:08 99.2 F 96 16 129/76 93 08/24/17 19:00 98.9 F 90 18 112/72 95 08/24/17 15:35 97.9 F 63 18 132/77 96 Intake and Output 08/24/17 08/25/17 08/25/17 23:59 07:59 15:59 Intake Total 250 / 250 250 / 250 Output Total 450 / 450 625 / 625 Balance -200 / -200 -375 / -375 Intake: IV Fluids 250 / 250 250 / 250 Vancocin 1,500 MG In Dextrose 5 250 / 250 250 / 250 % 250 ML @ 166.67 mls/hr IVPB Q12H [facility] Rx#:[id number] Oral 0 / 0 Output: Urine 450 / 450 625 / 625 Other: Meal NPO # Voids 1 Blood Glucose* 344 277 - Exam Exam: bandage intact on left foot. - Radiology X-Rays: image reviewed - Lab Result Diagrams: 08/25/17 04:05 08/25/17 04:05 Labs: Abnormal lab results WBC 13.4 K/mcL (4.3-11.1) H 08/25/17 04:05 RBC 3.11 M/mcL (4.19-5.50) L 08/25/17 04:05 Hgb 7.8 g/dL (12.9-16.9) L 08/25/17 04:05 Hct 24.9 % (37.5-50.1) L 08/25/17 04:05 MCV 80.1 fL (83.0-100.0) L 08/25/17 04:05 MCH 25.1 pg (28.0-33.3) L 08/25/17 04:05 MCHC 31.3 g/dL (31.6-35.5) L 08/25/17 04:05 RDW 16.1 % (11.5-14.5) H 08/25/17 04:05 Immature Gran % 4.9 % (0-4) H 08/25/17 04:05 Neutrophils # 10.6 K/mcL (1.6-8.9) H 08/25/17 04:05 Anisocytosis 1+ (Not Present) A 08/21/17 09:03 ESR >= 130 mm/hr (0-10) H 08/23/17 13:35 PT 18.7 Seconds (9.4-12.1) H 08/21/17 09:03 Sodium 129 mEq/L (136-145) L 08/25/17 04:05 Potassium 4.6 mEq/L (3.5-4.5) H 08/25/17 04:05 Chloride 97 mEq/L (98-109) L 08/25/17 04:05 Glucose 328 mg/dL (70-99) H 08/25/17 04:05 POC Glucose 344 (58-89) H 08/24/17 21:03 Hemoglobin A1c 9.0 % (-5.6) H 08/22/17 08:04 Calcium 8.5 mg/dL (8.6-10.8) L 08/25/17 04:05 Magnesium 1.3 mg/dL (1.6-2.6) L 08/22/17 08:04 Alkaline Phosphatase 150 Units/L (38-126) H 08/21/17 09:03 C-Reactive Protein 194 mg/L (Less than 5) H 08/23/17 13:35 Albumin 2.0 g/dL (3.5-5.0) L 08/21/17 09:03 Globulin 4.8 g/dL (2.4-3.5) H 08/21/17 09:03 Albumin/Globulin Ratio 0.4 (1.1-2.2) L 08/21/17 09:03 HDL Cholesterol 5 mg/dL (40-59) L 08/22/17 08:04 Cholesterol/HDL Ratio 12.8 (0-4.9) H 08/22/17 08:04 Microbiology, Last 48 Hours 08/21/17 23:35 Anaerobic Culture - Preliminary Left Foot At this time, no anaerobic growth is present. The culture will be finalized after 5 days of incubation. 08/21/17 23:35 Anaerobic Culture - Preliminary Left Foot At this time, no anaerobic growth is present. The culture will be finalized after 5 days of incubation. 08/21/17 23:35 Anaerobic Culture - Preliminary Left Foot At this time, no anaerobic growth is present. The culture will be finalized after 5 days of incubation. 08/21/17 23:35 Anaerobic Culture - Preliminary Left Foot At this time, no anaerobic growth is present. The culture will be finalized after 5 days of incubation. 08/21/17 23:35 Anaerobic Culture - Preliminary Left Foot At this time, no anaerobic growth is present. The culture will be finalized after 5 days of incubation. 08/21/17 23:35 Anaerobic Culture - Preliminary Left Foot At this time, no anaerobic growth is present. The culture will be finalized after 5 days of incubation. 08/22/17 08:05 Blood Culture - Preliminary Peripheral Venipuncture No growth. 08/22/17 08:00 Blood Culture - Preliminary Peripheral Venipuncture No growth. 08/21/17 23:35 Wound Culture - Preliminary Left Foot Staphylococcus aureus Strep agalactiae - (Group B) 08/21/17 23:35 Wound Culture - Preliminary Left Foot Staphylococcus aureus Strep agalactiae - (Group B) 08/21/17 23:35 Wound Culture - Preliminary Left Foot Staphylococcus aureus Strep agalactiae - (Group B) 08/21/17 23:35 Wound Culture - Preliminary Left Foot Staphylococcus aureus Strep agalactiae - (Group B) 08/21/17 23:35 Wound Culture - Preliminary Left Foot Staphylococcus aureus Strep agalactiae - (Group B) 08/21/17 23:35 Wound Culture - Preliminary Left Foot Strep agalactiae - (Group B) Staphylococcus aureus - VTE Documentation of Mechanical Device: Intermittent pneumatic compression device Consult Discharge Plan - Plan Referrals: Sunny Rodriguez MD [Primary Care Provider] - 08/29/17 11:00 am
[2017-08-25] MEDS ORDERED: *HR* Promethazine 25 MG/ML VIAL IVP PRN ×2 (10:47→13:00)
[2017-08-25] MEDS ORDERED: *HR* Morphine 2 MG/ML SYRINGE IVP PRN (10:47)
[2017-08-25] MEDS ORDERED: Vancomycin 1,000 MG VIAL ONE (11:07)
--- NOTE | 2017-08-25 12:01 | Operative Note ---
Date of procedure: 08/25/17 Pre-op diagnosis: diabetic foot ulceration Post-op diagnosis: same Procedure: incision and drainage left ankle/leg excisional debridement of wound left foot Anesthesia: JONATHON Surgeon: Pradeep Martin Estimated blood loss (cc): 25 Specimen: left leg culture Condition: stable Disposition: PACU Procedure in Detail: Indications: 51 year old diabetic male with profound neuropathy, osteomyelitis of multiple bones in his left foot, MRSA diabetic foot infection which had underwent I&D for infection and 1st ray amputation left open on 08/22, wbc which began to increase, developed some erythema around the ankle and leg is being taken back to the OR for excisional debidement. Procedure discussed with patient. Risks and benefits of the procedure discussed and it was explained to the patient preoperatively that his limb may not be salvagable and he could end up with an amputation. He has been told this on multiple encounters and that leg amputation is a treatment option but he says he wants to try to keep the left foot. He communicated he understands the left limb may not be able to be saved. The informed consent was signed. Patient taken from the pre-operative holding area and into the operating room and placed on the operating room table. The left foot was scrubbed with betadine, prepped and draped in the usual sterile fashion. A thigh tourniquet was applied and inflated to 300 mm Hg. The following procedure then began. Excisional debridement of the left lower extremity wound/infected soft tissue. Devitalized tissue was present in the proximal medial aspect of the patients wound as well as necrotic patch of soft tissue over the distal lateral foot measuring approximately [id number]. The necrotic area was excisionally debrided with a #15 blade and excised, exposing some underlying devitalized tissue. Attention was directed medially to the open wound. Pressure was applied to the anterior distal ankle/leg where erythema had developed and purulent drainage was able to be expressed into the open wound. A #10 blade was utilized to open the area and purulent drainage was noted tracking into the anterior leg and along the course of the tibialis anterior tendon and sot tissue across the ankle and into the leg. The incision was made proximally to a level where no more purulence could be expressed. The tibialis anterior tendon, anterior, and anterolateral ankle/leg soft tissue had a lot of devitalized tissue. Soft tissue and the tibialis anterior tendon were aggressively debrided, excising devitalized tissue. The left leg, ankle and foot were pulse lavaged with 3L of normal sterile saline with 3 grams of vancomycin. The foot, ankle, and leg were reinspected and no further purulence was able to be expressed. Devitalized tissue remained present despite aggressive debridement. The decision was made not to place a wound vac as the foot and limb were not felt to be not salvagable with the condition of the soft tissue infection and osteomyelitis of the multiple bones in his foot. The tourniquet was deflated and the bovie was used to cauterize any bleeders. Adequate hemostasis was present. Two loose retention sutures placed one proximal and one distal on the leg. The foot, ankle , and leg areas were packed open using 1 inch iodoform packing. 4x4 gauze, abdominal pads, kerlix, and ROSARIO wrap applied. Patient transported to the recovery room in stable condition.
--- NOTE | 2017-08-25 12:38 | Anesthesia Evaluation Post Op ---
Date of Encounter: 08/25/17 Time of Encounter: 12:23 - Vital Signs Vital Signs: Vital Signs/O2 Sat, Most Current Temp Pulse Resp BP Pulse Ox 98.4 F 82 18 112/64 96 08/25/17 11:53 08/25/17 12:13 08/25/17 12:13 08/25/17 12:13 08/25/17 12:13 - Lungs Lungs: Clear Ascult./Percussion - Airway Airway: Non-obstructed - Cardiovascular Regular Rate - Mental Status Mental Status: Alert & Oriented, Answers Appropriately - Pain Pain Scale: 0 Pain Scale used: Numeric (1 - 10) - Nausea Vomiting Nausea Vomiting: Not Present - Hydration Hydration: Ice chips, Has not voided - Discharge PostOp Status: Transfer Patient to floor
[2017-08-25] MEDS ORDERED: *HR* Dextrose 50 % in Water (Syg) 50 ML SYRINGE IVP PRN (13:00)
[2017-08-25] MEDS ORDERED: Dextrose Gel 15 GM PO PRN ×2 (13:00)
[2017-08-25] MEDS ORDERED: Acetaminophen 325 MG TABLET PO PRN (13:00)
[2017-08-25] MEDS ORDERED: Naloxone 0.4 MG/ML INJ IVP PRN (13:00)
[2017-08-25] MEDS ORDERED: Ondansetron 4 MG/2 ML VIAL IVP PRN (13:00)
[2017-08-25] MEDS ORDERED: D5% in Water 1,000 ML IVC PRN (13:00)
--- NOTE | 2017-08-25 14:01 | Internal Med Progress Note ---
Date of Encounter: 08/25/17 Time of Encounter: 11:00 - Assessment and plan (1) Acute osteomyelitis of left foot Current Visit: Yes Status: Acute Assessment and plan: s/p left foot I&D, and partial left foot amputation. Most likely will need AKA. Podiatry continuing abx for now per family wish to hold off and monitor. (2) Foot abscess, left Current Visit: Yes Status: Acute (3) Anemia of chronic disease Current Visit: Yes Status: Acute (4) HTN (hypertension) Current Visit: Yes Status: Acute Assessment and plan: Stable Qualifiers: Hypertension type: unspecified Qualified Code(s): I10 - Essential (primary ) hypertension (5) Sepsis Current Visit: Yes Status: Resolved Qualifiers: Sepsis type: sepsis due to unspecified organism Qualified Code(s): A41.9 - Sepsis, unspecified organism (6) DM2 (diabetes mellitus, type 2) Current Visit: Yes Status: Chronic Assessment and plan: Add 10 units long acting insulin for better control. Qualifiers: Diabetes mellitus complication status: with unspecified complications Diabetes mellitus manager long term care insulin use: with manager long term care use Qualified Code(s) : E11.8 - Type 2 diabetes mellitus with unspecified complications; Z79.4 - terminal operator (current) use of insulin - Subjective Interval history: No acute events. He denies fevers/chills, n/v, diaphoresis. Leg pain controlled. - Constitutional Vitals: Temp Pulse Resp BP Pulse Ox 98.1 F 71 16 137/83 94 08/25/17 13:01 08/25/17 13:01 08/25/17 13:01 08/25/17 13:01 08/25/17 13:01 General appearance: Present: A&O X 3, answers questions appropriately Exam: Gen: NAD, AAOx3, non-toxic appearing CVS: RRR Lungs: CTAB Ext left foot wrapped in clean dressing. Right lower extremity without cyanosis or edema. Internal Medicine: Result - Labs CBC & Chem 7: 08/27/17 03:30 08/27/17 03:30 Labs: Short CBC 08/25/17 Range/Units 04:05 WBC 13.4 H (4.3-11.1) K/mcL Hgb 7.8 L (12.9-16.9) g/dL Hct 24.9 L (37.5-50.1) % Plt Count 305 (140-400) K/mcL Neutrophils # 10.6 H (1.6-8.9) K/mcL BMP 08/25/17 04:05 Sodium 129 L Potassium 4.6 H Chloride 97 L Carbon Dioxide 24 BUN 19 Creatinine 0.97 Glucose 328 H Calcium 8.5 L Cardiac Enzymes 08/25/17 08/25/17 Range/Units 04:05 09:40 Troponin I 0.00 0.00 (0-0.03) ng/mL - ABG Interpretation ABG results: PT/INR, D-dimer PT 18.7 Seconds (9.4-12.1) H 08/21/17 09:03 - VTE Documentation of Mechanical Device: Intermittent pneumatic compression device Consult Discharge Plan - Plan Referrals: Sunny Rodriguez MD [Primary Care Provider] - 08/29/17 11:00 am
--- NOTE | 2017-08-25 17:47 | Podiatry Progress Note ---
Date of Encounter: 08/25/17 Time of Encounter: 05:00 - Assessment and Plan (1) Acute osteomyelitis of left foot Current Visit: Yes Status: Acute when I went to his room to look for his family to speak with the patient and his family the first time today, the patient asked what I thought he should do in regards to his foot and I reviewed the findings of the surgery, infection and purulent drainage found going up the leg and I recommended to him that he have an amputation of the leg. multiple attempts to speak with his family were made as described in the HPI. The 2nd time I went to his room the family was there and we did discussed the surgery findings, the infection present in mutliple bones of his foot and his foot/ankle and leg, and that I would recommend he have an amputation of the leg because the foot is not salvagable due to the infection. Dr. Maloney was present and discussed with them amputation of the leg after examining it and the foot. It was explained to the patient and his family the reason for the amputation is the infection present. bandage will be changed twice daily with iodoform packing. Dr. Maloney planning amputation. (2) Foot abscess, left Current Visit: Yes Status: Acute as above Subjective Principal diagnosis: Osteomyelitis Left Foot Interval history: patient had surgery on his left lower extremity this afternoon. after surgery I went to speak with his family outside the OR but the front office agent did not have anyone registered as waiting nor did anyone respond when name called. I went to the patients room between patients in my afternoon clinic patients and there were no family members present in or around the room. I called both numbers which the nurse gave me in the patients electronic chart for contacts for Mr. Robb and did not receive an answer but I did leave a message at both numbers letting them know I was at his room and wanted to speak with them. I told the patient I was unable to get into contact with his family but will come back to check to see if they arrive. The patient asked me what I recommended he do with his foot and I answered him. His family came to the room later and I was paged. I came up to speak with them. Objective - Vital Signs Vital Signs: Vital Signs Temp Pulse Resp BP Pulse Ox 08/25/17 16:27 86 16 115/70 95 08/25/17 14:18 98.7 F 91 16 120/74 93 08/25/17 13:01 98.1 F 71 16 137/83 94 08/25/17 12:23 98.8 F 83 18 133/54 97 08/25/17 12:13 82 18 112/64 96 08/25/17 12:03 84 17 113/65 94 08/25/17 11:53 98.4 F 85 16 115/74 98 08/25/17 07:27 99.0 F 97 18 154/90 94 08/25/17 03:08 100.6 F H 97 18 110/67 96 08/25/17 00:08 99.2 F 96 16 129/76 93 08/24/17 19:00 98.9 F 90 18 112/72 95 Intake and Output 08/25/17 08/25/17 08/25/17 07:59 15:59 23:59 Intake Total 250 / 250 0 / 0 240 / 240 Output Total 625 / 625 25 / 25 Balance -375 / -375 -25 / -25 240 / 240 Intake: IV Fluids 250 / 250 Vancocin 1,500 MG In Dextrose 5 250 / 250 % 250 ML @ 166.67 mls/hr IVPB Q12H [facility] Rx#:[id number] Oral 0 / 0 0 / 0 240 / 240 Output: Urine 625 / 625 0 / 0 Estimated Blood Loss 25 Other: Meal NPO NPO Lunch Percent of Meal Consumed 0% 90% Blood Glucose* 277 217 300 - Exam Exam: well developed obese male in no acute distress anterior ankle/leg wound with no purulence expressed currently. there is devitalized tissue in the anterior ankle/leg and foot wound.there is bone exposed in the foot. the necrotic area on the dorsal foot has been removed. - Lab Result Diagrams: 08/25/17 04:05 08/25/17 04:05 Labs: Abnormal lab results WBC 13.4 K/mcL (4.3-11.1) H 08/25/17 04:05 RBC 3.11 M/mcL (4.19-5.50) L 08/25/17 04:05 Hgb 7.8 g/dL (12.9-16.9) L 08/25/17 04:05 Hct 24.9 % (37.5-50.1) L 08/25/17 04:05 MCV 80.1 fL (83.0-100.0) L 08/25/17 04:05 MCH 25.1 pg (28.0-33.3) L 08/25/17 04:05 MCHC 31.3 g/dL (31.6-35.5) L 08/25/17 04:05 RDW 16.1 % (11.5-14.5) H 08/25/17 04:05 Immature Gran % 4.9 % (0-4) H 08/25/17 04:05 Neutrophils # 10.6 K/mcL (1.6-8.9) H 08/25/17 04:05 Anisocytosis 1+ (Not Present) A 08/21/17 09:03 ESR >= 130 mm/hr (0-10) H 08/23/17 13:35 PT 18.7 Seconds (9.4-12.1) H 08/21/17 09:03 Sodium 129 mEq/L (136-145) L 08/25/17 04:05 Potassium 4.6 mEq/L (3.5-4.5) H 08/25/17 04:05 Chloride 97 mEq/L (98-109) L 08/25/17 04:05 Glucose 328 mg/dL (70-99) H 08/25/17 04:05 POC Glucose 344 (58-89) H 08/24/17 21:03 Hemoglobin A1c 9.0 % (-5.6) H 08/22/17 08:04 Calcium 8.5 mg/dL (8.6-10.8) L 08/25/17 04:05 Magnesium 1.3 mg/dL (1.6-2.6) L 08/22/17 08:04 Alkaline Phosphatase 150 Units/L (38-126) H 08/21/17 09:03 C-Reactive Protein 194 mg/L (Less than 5) H 08/23/17 13:35 Albumin 2.0 g/dL (3.5-5.0) L 08/21/17 09:03 Globulin 4.8 g/dL (2.4-3.5) H 08/21/17 09:03 Albumin/Globulin Ratio 0.4 (1.1-2.2) L 08/21/17 09:03 HDL Cholesterol 5 mg/dL (40-59) L 08/22/17 08:04 Cholesterol/HDL Ratio 12.8 (0-4.9) H 08/22/17 08:04 Microbiology, Last 48 Hours 08/21/17 23:35 Wound Culture - Final Left Foot Methicillin Resistant S.aureus Strep agalactiae - (Group B) 08/21/17 23:35 Wound Culture - Final Left Foot Methicillin Resistant S.aureus Strep agalactiae - (Group B) 08/21/17 23:35 Wound Culture - Final Left Foot Methicillin Resistant S.aureus Strep agalactiae - (Group B) 08/21/17 23:35 Wound Culture - Final Left Foot Methicillin Resistant S.aureus Strep agalactiae - (Group B) 08/21/17 23:35 Wound Culture - Final Left Foot Methicillin Resistant S.aureus Strep agalactiae - (Group B) 08/21/17 23:35 Wound Culture - Final Left Foot Strep agalactiae - (Group B) Methicillin Resistant S.aureus 08/21/17 23:35 Anaerobic Culture - Preliminary Left Foot At this time, no anaerobic growth is present. The culture will be finalized after 5 days of incubation. 08/21/17 23:35 Anaerobic Culture - Preliminary Left Foot At this time, no anaerobic growth is present. The culture will be finalized after 5 days of incubation. 08/21/17 23:35 Anaerobic Culture - Preliminary Left Foot At this time, no anaerobic growth is present. The culture will be finalized after 5 days of incubation. 08/21/17 23:35 Anaerobic Culture - Preliminary Left Foot At this time, no anaerobic growth is present. The culture will be finalized after 5 days of incubation. 08/21/17 23:35 Anaerobic Culture - Preliminary Left Foot At this time, no anaerobic growth is present. The culture will be finalized after 5 days of incubation. 08/21/17 23:35 Anaerobic Culture - Preliminary Left Foot At this time, no anaerobic growth is present. The culture will be finalized after 5 days of incubation. 08/22/17 08:05 Blood Culture - Preliminary Peripheral Venipuncture No growth. 08/22/17 08:00 Blood Culture - Preliminary Peripheral Venipuncture No growth. - VTE Documentation of Mechanical Device: Intermittent pneumatic compression device Consult Discharge Plan - Plan Referrals: Sunny Rodriguez MD [Primary Care Provider] - 08/29/17 11:00 am
--- NOTE | 2017-08-25 18:12 | Electrocardiograph Report ---
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
--- NOTE | 2017-08-25 18:12 | Electrocardiograph Report ---
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
--- NOTE | 2017-08-25 18:15 | Vascular/Endovasc Consult Note ---
Date of Encounter: 08/25/17 Time of Encounter: 17:00 Assessment and Plan (1) Acute osteomyelitis of left foot Current Visit: Yes Status: Acute The patient has had aggressive debridement of a severe diabetic foot infection that spread to the anterior compartment left lower leg. This surgery was done earlier today. Based on the findings from today, I would recommend left above- knee amputation. The patient in the family would like to consider 48 hours for antibiotics to see if the left knee joint can be salvaged. The musculature on the posterior aspect of the left leg appears to be intact without infection. If the patient is able to stabilize the tissue posteriorly with no extension of infection a left below-knee amputation may be possible. We will continue with vancomycin and Zosyn as well as wound assessment. - History of Present Illness Consult date: 08/25/17 Requesting physician: Pradeep Martin Consult reason: Necrotic left leg Chief complaint: Necrotic left leg History of present illness: Mr. Robb is a 51 year old male Who was admitted earlier this week with what appeared to be diabetic foot infection. He was taken to the operating room on Monday and then again today. Today in the operating room his foot was aggressively debrided and and infection was found tracking up the anterior compartment of the left lower leg. I was asked to see the patient for possible amputation. When I arrived 10 minutes after being called, the family was irate with the sequence of events in the afternoon. I spent 30 minutes with the family and the nursing survey workers supervisor to try and adequately communicate the patient's condition. I was able to examine his leg. I was able to speak with the primary operating surgeon. In the surgeon was in attendance for the latter part of the family meeting. The left medial foot is completely gone with all the bones of the foot skeletonized and it appears to be granulation tissue. This was achieved just that the infection was chronic. The patient is a morbidly obese diabetic with severe peripheral neuropathy. Dr. Mcnair was able to debride the tissue in the foot but tracked well up the leg and debrided to good deal of the anterior compartment. I was asked to provide consultation for amputation. If the indication was performed today an above-knee amputation would be necessary. I would like to give the patient 48 hours for antibiotics to see if the swelling and cellulitis on the posterior aspect of the left leg can be controlled. If it cannot be controlled above-knee amputation will be necessary. There may be enough tissue for a below-knee amputation but this is marginal. I would recommend 48 hours of antibiotic. Above-knee amputation for any clinical deterioration. Past Med Surg Social Fam HX - Past Medical History Medical history: asthma, COPD, coronary artery disease, diabetes, GERD, hyperlipidemia, hypertension Psychiatric history: no psych history - Past Surgical History Surgical History: other (Cornea repair) - Social History Smoking Status: Never smoker Smokeless Tobacco Status: Yes Alcohol use: none Drug use: none - Family History Mother Hx Family Endocrine Disorder: Yes (DM2) Father Hx Family Cardiac Disorders: Yes ([place]) Brother Hx Family Endocrine Disorder: Yes (DM2) Medications and Allergies Albuterol Sulfate [Albuterol Inhaler] 1 puff IH Q4H 08/21/17 [History] Gabapentin [Neurontin] 800 mg PO TID 08/21/17 [History] GlipiZIDE [Glipizide Xl] 5 mg PO DAILY 08/21/17 [History] Insulin Glargine [Lantus] 50 unit SQ BID 08/21/17 [History] Liraglutide [Victoza 2-Abdoulaye] 1.8 mg SQ DAILY 08/21/17 [History] Lisinopril [Zestril] 20 mg PO DAILY 08/21/17 [History] Ranitidine HCl [Acid Coal Tower Operator] 150 mg PO BID 08/21/17 [History] metFORMIN [Glucophage] 1,000 mg PO BIDWM 08/21/17 [History] Atorvastatin [Lipitor] 40 mg PO HS 08/22/17 [History] Azelastine 0.1% Nasal [place] [Astelin] 1 - 2 spr NS BID 08/22/17 [History] Cetirizine HCl [All Day Allergy] 10 mg PO DAILY 08/22/17 [History] Cyclobenzaprine [Flexeril] 10 mg PO TID 08/22/17 [History] Cyclosporine [Restasis] 1 drop BOTH EYES DAILY 08/22/17 [History] Empagliflozin [Jardiance] 25 mg PO DAILY 08/22/17 [History] Ergocalciferol (VITAMIN D2) [Vitamin D2] 50,000 unit PO QWEEK 08/22/17 [History] Lisinopril-HCTZ 20-12.5 [Prinzide 20-12.5] 1 tab PO DAILY 08/22/17 [History] Meloxicam [Mobic] 15 mg PO DAILY 08/22/17 [History] Mometasone/Formoterol [Dulera 200 Mcg/5 Mcg Inhaler] 2 puff IH BID 08/22/17 [ History] Montelukast [Singulair] 10 mg PO DAILY 08/22/17 [History] Aptos-3/Dha/Epa/Fish Oil [Fish Oil 1,000 mg Softgel] 2,000 mg PO DAILY 08/22/17 [History] Omeprazole [PriLOSEC] 20 mg PO DAILY 08/22/17 [History] PARoxetine HCl [Paroxetine HCl] 40 mg PO DAILY 08/22/17 [History] Trazodone HCl 150 mg PO HS 08/22/17 [History] Zileuton [Zyflo] 600 mg PO QID 08/22/17 [History] 3 Allergy/AdvReac Type Severity Reaction Status Date / Time No Known Allergies Allergy Unverified 07/01/15 22:36 All Systems Review: A 10-system review of systems was performed and is negative for pertinent findings except as documented above in the HPI. Exam Vital Signs, Last 4 Hours Temp Pulse Resp BP Pulse Ox 08/25/17 16:27 86 16 115/70 95 08/25/17 14:18 98.7 F 91 16 120/74 93 General: Present: Conversant, Other (Morbid obesity) HEENT: Present: Trachea midline, Pupils equal Cardiac: Present: Reg Rate and Rhythm, Normal S1 and S2, No Murmur Lungs: Present: Normal Breath Sounds, No Wheeze, Rales, Rhonchi Neuro: Present: Alert and responsive, No focal deficits noted, Cranial nerves grossly intact, Other (Severe peripheral diabetic neuropathy) Abdomen: Present: Soft, Non-tender, Other (Obese) Vascular: Present: Other (Femoral pulses present) Skin: Present: Wound/ulcer(s) (The patient has open surgical wounds along the entire length of the foot up to 10 cm below the knee), Other (Cellulitis in the left lower leg. He also has edema of the left lower leg.) Musculoskeletal: Present: Other (Open incision up to 10 cm below the knee. The foot cannot be salvaged. The lower leg is marginal.) Consult Discharge Plan - Plan Referrals: Sunny Rodriguez MD [Primary Care Provider] - 08/29/17 11:00 am
[2017-08-25] MEDS: traZODone 50 MG TABLET PO SCH (20:42)
[2017-08-26] MEDS: Vancomycin 1,500 MG in D5% in Water 250 ML IVPB SCH ×2 (05:04→17:38)
[2017-08-26] MEDS: *HR* Enoxaparin 40 MG/0.4 ML SYRINGE SQ SCH (05:09)
[2017-08-26 05:41] LABS: Basophils % 0.2 %; Eosinophils % 0.1 %; Hematocrit 23.6 % (37.5-50.1); Immature Granulocytes % 4.5 % (0-4); Lymphocytes # 1.3 K/mcL (0.6-4.6); Lymphocytes % 8.1 %; Mean Corpuscular HGB Conc 29.7 g/dL (31.6-35.5); Mean Corpuscular Hemoglobin 24.1 pg (28.0-33.3); Mean Corpuscular Volume 81.4 fL (83.0-100.0); Mean Platelet Volume 9.5 fL (9.4-12.4); Monocytes # 0.9 K/mcL (0.0-1.3); Monocytes % 5.6 %; Neutrophils # 12.8 K/mcL (1.6-8.9); Platelet Count 309 K/mcL (140-400); Segmented Neutrophils % 81.5 %
[2017-08-26] MEDS: Insulin LISPRO 300 UNITS/3 ML VIAL SQ SCH ×4 (08:18→22:02)
[2017-08-26] MEDS: Insulin DETEMIR 100 UNIT/ML X5UNITS SQ SCH ×2 (08:19→21:57)
[2017-08-26] MEDS: Gabapentin 400 MG CAPSULE PO SCH ×3 (08:19→21:55)
[2017-08-26] MEDS: *HR* HYDROcodone/Acet 5/325 mg TABLET PO PRN ×3 (08:20→22:03)
[2017-08-26] MEDS: Famotidine 20 MG TABLET PO SCH ×2 (08:20→17:38)
[2017-08-26] MEDS: Lisinopril 20 MG TABLET PO SCH (08:20)
--- NOTE | 2017-08-26 09:28 | Podiatry Progress Note ---
Date of Encounter: 08/26/17 Time of Encounter: 08:30 - Assessment and Plan (1) Acute osteomyelitis of left foot Current Visit: Yes Status: Acute nurse was present in room for assistance with bandage change. saline cleansed wound areas, iodoform packing placed in the wound and sterile bandage applied. they asked what I thought it looked like today and my reply was the same as yesterday when Dr. Maloney examined the extremity, the redness is still present and tissue impacted by the infection remains. discussed he has not had a recorded fever. discussed anything else as far as the amputation of the extremity I would not be able to answer as I am not the surgeon who will be performing the surgery. there is no active bleeding from the foot/ankle/or leg. bandage change to be done twice daily with iodoform packing. (2) Foot abscess, left Current Visit: Yes Status: Acute as above Subjective Principal diagnosis: Osteomyelitis Left Foot Interval history: patient sitting up in chair. he was up walking with the walker and there was some strikethrough on the bandage which was reinforced. patients daughter was present during visit. afebrile overnight. Objective - Vital Signs Vital Signs: Vital Signs Temp Pulse Resp BP Pulse Ox 08/26/17 07:14 97.8 F 77 16 138/83 98 08/25/17 23:10 98.4 F 82 16 104/64 97 08/25/17 19:35 97.7 F 86 16 122/81 95 08/25/17 16:27 86 16 115/70 95 08/25/17 14:18 98.7 F 91 16 120/74 93 08/25/17 13:01 98.1 F 71 16 137/83 94 08/25/17 12:23 98.8 F 83 18 133/54 97 08/25/17 12:13 82 18 112/64 96 08/25/17 12:03 84 17 113/65 94 08/25/17 11:53 98.4 F 85 16 115/74 98 Intake and Output 08/25/17 08/26/17 08/26/17 23:59 07:59 15:59 Intake Total 490 / 490 250 / 250 240 / 240 Output Total 1400 / 1400 850 / 850 Balance -910 / -910 -600 / -600 240 / 240 Intake: IV Fluids 250 / 250 250 / 250 Vancocin 1,500 MG In Dextrose 5 250 / 250 250 / 250 % 250 ML @ 166.67 mls/hr IVPB Q12H [facility] Rx#:[id number] Oral 240 / 240 240 / 240 Output: Urine 1400 / 1400 850 / 850 Other: Meal Lunch Breakfast Percent of Meal Consumed 90% 100% # Voids 1 Blood Glucose* 354 334 - Exam Exam: well developed obese male in no acute distress no necrosis. there is no active bleeding. a lot of devitalized tissue present around the ankle and leg. erythema of the leg unchanged. when I pressed on the erythema and surrounding areas, there is no purulence able to be expressed. - Lab Result Diagrams: 08/26/17 05:23 08/25/17 04:05 Labs: Abnormal lab results WBC 15.6 K/mcL (4.3-11.1) H 08/26/17 05:23 RBC 2.90 M/mcL (4.19-5.50) L 08/26/17 05:23 Hgb 7.0 g/dL (12.9-16.9) L 08/26/17 05:23 Hct 23.6 % (37.5-50.1) L 08/26/17 05:23 MCV 81.4 fL (83.0-100.0) L 08/26/17 05:23 MCH 24.1 pg (28.0-33.3) L 08/26/17 05:23 MCHC 29.7 g/dL (31.6-35.5) L 08/26/17 05:23 RDW 16.0 % (11.5-14.5) H 08/26/17 05:23 Immature Gran % 4.5 % (0-4) H 08/26/17 05:23 Neutrophils # 12.8 K/mcL (1.6-8.9) H 08/26/17 05:23 Anisocytosis 1+ (Not Present) A 08/21/17 09:03 ESR >= 130 mm/hr (0-10) H 08/23/17 13:35 PT 18.7 Seconds (9.4-12.1) H 08/21/17 09:03 Sodium 129 mEq/L (136-145) L 08/25/17 04:05 Potassium 4.6 mEq/L (3.5-4.5) H 08/25/17 04:05 Chloride 97 mEq/L (98-109) L 08/25/17 04:05 Glucose 328 mg/dL (70-99) H 08/25/17 04:05 POC Glucose 354 (58-89) H 08/25/17 19:30 Hemoglobin A1c 9.0 % (-5.6) H 08/22/17 08:04 Calcium 8.5 mg/dL (8.6-10.8) L 08/25/17 04:05 Magnesium 1.3 mg/dL (1.6-2.6) L 08/22/17 08:04 Alkaline Phosphatase 150 Units/L (38-126) H 08/21/17 09:03 C-Reactive Protein 194 mg/L (Less than 5) H 08/23/17 13:35 Albumin 2.0 g/dL (3.5-5.0) L 08/21/17 09:03 Globulin 4.8 g/dL (2.4-3.5) H 08/21/17 09:03 Albumin/Globulin Ratio 0.4 (1.1-2.2) L 08/21/17 09:03 HDL Cholesterol 5 mg/dL (40-59) L 08/22/17 08:04 Cholesterol/HDL Ratio 12.8 (0-4.9) H 08/22/17 08:04 Vancomycin Trough 28.3 mcg/mL (10-20) H* 08/26/17 05:23 Microbiology, Last 48 Hours 08/21/17 23:35 Wound Culture - Final Left Foot Methicillin Resistant S.aureus Strep agalactiae - (Group B) 08/21/17 23:35 Wound Culture - Final Left Foot Methicillin Resistant S.aureus Strep agalactiae - (Group B) 08/21/17 23:35 Wound Culture - Final Left Foot Methicillin Resistant S.aureus Strep agalactiae - (Group B) 08/21/17 23:35 Wound Culture - Final Left Foot Methicillin Resistant S.aureus Strep agalactiae - (Group B) 08/21/17 23:35 Wound Culture - Final Left Foot Methicillin Resistant S.aureus Strep agalactiae - (Group B) 08/21/17 23:35 Wound Culture - Final Left Foot Strep agalactiae - (Group B) Methicillin Resistant S.aureus 08/21/17 23:35 Anaerobic Culture - Preliminary Left Foot At this time, no anaerobic growth is present. The culture will be finalized after 5 days of incubation. 08/21/17 23:35 Anaerobic Culture - Preliminary Left Foot At this time, no anaerobic growth is present. The culture will be finalized after 5 days of incubation. 08/21/17 23:35 Anaerobic Culture - Preliminary Left Foot At this time, no anaerobic growth is present. The culture will be finalized after 5 days of incubation. 08/21/17 23:35 Anaerobic Culture - Preliminary Left Foot At this time, no anaerobic growth is present. The culture will be finalized after 5 days of incubation. 08/21/17 23:35 Anaerobic Culture - Preliminary Left Foot At this time, no anaerobic growth is present. The culture will be finalized after 5 days of incubation. 08/21/17 23:35 Anaerobic Culture - Preliminary Left Foot At this time, no anaerobic growth is present. The culture will be finalized after 5 days of incubation. 08/22/17 08:05 Blood Culture - Preliminary Peripheral Venipuncture No growth. 08/22/17 08:00 Blood Culture - Preliminary Peripheral Venipuncture No growth. - VTE Documentation of Mechanical Device: Intermittent pneumatic compression device Consult Discharge Plan - Plan Referrals: Sunny Rodriguez MD [Primary Care Provider] - 08/29/17 11:00 am
[2017-08-26] MEDS: *HR* Morphine 2 MG/ML SYRINGE IVP PRN ×2 (10:50→18:32)
--- NOTE | 2017-08-26 20:34 | Internal Med Progress Note ---
Date of Encounter: 08/26/17 Time of Encounter: 11:00 - Assessment and plan (1) Acute osteomyelitis of left foot Current Visit: Yes Status: Acute Assessment and plan: s/p left foot I&D, and partial left foot amputation. Most likely will need AKA. Podiatry continuing abx for now per family wish to hold off and monitor. (2) Foot abscess, left Current Visit: Yes Status: Acute Assessment and plan: Managed by Podiatry, plan as above. (3) Hyponatremia Current Visit: Yes Status: Acute Assessment and plan: Initially seemed like pseudohyponatremia given his elevated glucose levels. However some times his sodium is still low despite correction. He may need normal saline for repletion. Recheck BMP in AM. (4) Anemia of chronic disease Current Visit: Yes Status: Acute Assessment and plan: Possibilty he will need transfused tomorrow given his acute illness with chronic disease. 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 Breathing improved. She denies fevers/chills, n/v, diaphoresis. Leg pain controlled. - Constitutional Vitals: Temp Pulse Resp BP Pulse Ox 98.1 F 90 18 116/69 96 08/26/17 16:06 08/26/17 16:06 08/26/17 16:06 08/26/17 18:12 08/26/17 16:06 General appearance: Present: A&O X 3, answers questions appropriately Exam: CVS: RRR, distant heart sounds Lungs: Poor air exchange and effort Abdomen: nt/nd, soft Ext: bilateral lower extremities with venous stasis changes and two plantar ulcers with skin breakdown on left foot. Internal Medicine: Result - Labs CBC & Chem 7: 08/27/17 03:30 08/27/17 03:30 Labs: Short CBC 08/26/17 Range/Units 05:23 WBC 15.6 H (4.3-11.1) K/mcL Hgb 7.0 L (12.9-16.9) g/dL Hct 23.6 L (37.5-50.1) % Plt Count 309 (140-400) K/mcL Neutrophils # 12.8 H (1.6-8.9) K/mcL - ABG Interpretation ABG results: PT/INR, D-dimer PT 18.7 Seconds (9.4-12.1) H 08/21/17 09:03 - VTE Documentation of Mechanical Device: Intermittent pneumatic compression device Consult Discharge Plan - Plan Referrals: Sunny Rodriguez MD [Primary Care Provider] - 08/29/17 11:00 am
[2017-08-26] MEDS: traZODone 50 MG TABLET PO SCH (21:56)
[2017-08-27] MEDS: *HR* Morphine 2 MG/ML SYRINGE IVP PRN ×3 (00:59→18:01)
[2017-08-27] MEDS: *HR* HYDROcodone/Acet 5/325 mg TABLET PO PRN ×4 (03:24→22:03)
[2017-08-27 03:45] LABS: Hemoglobin 7.1 g/dL (12.9-16.9); Lymphocytes # 2.1 K/mcL (0.6-4.6); Mean Corpuscular HGB Conc 30.9 g/dL (31.6-35.5); Mean Corpuscular Hemoglobin 25.4 pg (28.0-33.3); Mean Corpuscular Volume 82.1 fL (83.0-100.0); Mean Platelet Volume 9.5 fL (9.4-12.4); Nucleated Red Blood Cells 0.3 /100 WBC (0); Platelet Count 327 K/mcL (140-400); Red Cell Distribution Width 16.2 % (11.5-14.5)
[2017-08-27 03:57] LABS: BUN/Creatinine Ratio 23 (6-26); Blood Urea Nitrogen 20 mg/dL (8-26); Calcium 8.6 mg/dL (8.6-10.8); Carbon Dioxide 27 mEq/L (19-29); Chloride 100 mEq/L (98-109); Glucose 266 mg/dL (70-99); Osmolality,Calculated 288 (280-300); Potassium 4.7 mEq/L (3.5-4.5); Sodium 133 mEq/L (136-145); eGFR For African Americans > 60 (> 60); eGFR For Non-African Americans > 60 (> 60)
[2017-08-27 04:08] LABS: Basophils # 0.5 K/mcL (0.0-0.2); Monocytes # 0.5 K/mcL (0.0-1.3); Neutrophils # 8.6 K/mcL (1.6-8.9)
[2017-08-27 04:12] LABS: Platelet Estimate Normal (Normal); Polychromasia 1+ (Not Present); Toxic Granulation Present (Not Present)
[2017-08-27] MEDS: Vancomycin 1,500 MG in D5% in Water 250 ML IVPB SCH ×2 (05:46→18:00)
[2017-08-27] MEDS: *HR* Enoxaparin 40 MG/0.4 ML SYRINGE SQ SCH (05:47)
[2017-08-27] MEDS: Famotidine 20 MG TABLET PO SCH ×2 (07:52→17:52)
[2017-08-27] MEDS: Lisinopril 20 MG TABLET PO SCH (07:52)
[2017-08-27] MEDS: Insulin LISPRO 300 UNITS/3 ML VIAL SQ SCH ×4 (07:52→21:23)
[2017-08-27] MEDS: Gabapentin 400 MG CAPSULE PO SCH ×3 (07:53→21:23)
--- NOTE | 2017-08-27 09:52 | Podiatry Progress Note ---
Date of Encounter: 08/27/17 Time of Encounter: 09:30 - Assessment and Plan (1) Acute osteomyelitis of left foot Current Visit: Yes Status: Acute nurse was present in room for assistance with bandage change. saline cleansed wound areas, iodoform packing placed in the wound and sterile bandage applied. he asked what it looked like today and I told him it is unchanged and is not salvagable. discussed he has not had a recorded fever overnight and wbc count is down from yesterday. discussed anything else as far as the amputation of the extremity I would not be able to answer as I am not the surgeon who will be performing the surgery. there is no active bleeding from the foot/ankle/or leg. bandage change to be done twice daily with iodoform packing. he is going for amputation of the left extremity tomorrow with Dr. Maloney. (2) Foot abscess, left Current Visit: Yes Status: Acute as above Subjective Principal diagnosis: Osteomyelitis Left Foot Interval history: patient sitting up in chair. afebrile overnight. reports no new events. denies feeling like he had a f/c/n/v. Objective - Vital Signs Vital Signs: Vital Signs Temp Pulse Resp BP Pulse Ox 08/27/17 06:50 97.8 F 86 15 159/82 97 08/27/17 04:14 98.4 F 84 19 111/69 97 08/27/17 00:33 98.2 F 81 18 114/67 96 08/26/17 21:07 98.0 F 87 17 118/68 96 08/26/17 18:12 116/69 08/26/17 16:06 98.1 F 90 18 148/77 96 08/26/17 11:33 97.9 F 83 16 130/80 98 Intake and Output 08/26/17 08/27/17 08/27/17 23:59 07:59 15:59 Intake Total 730 / 730 490 / 490 Output Total 700 / 700 500 / 500 Balance 490 / 490 -500 / -500 Intake: IV Fluids 250 / 250 250 / 250 Vancocin 1,500 MG In Dextrose 5 250 / 250 250 / 250 % 250 ML @ 166.67 mls/hr IVPB Q12H [facility] Rx#:[id number] Oral 480 / 480 240 / 240 Output: Urine 500 / 500 Urine/Stool Mix 700 / 700 Other: Meal Dinner Breakfast Percent of Meal Consumed 100% 100% Stool Size Small Moderate Stool Consistency soft formed formed Stool Characteristics Normal for Patient Stool Color Brown Brown # Voids 1 # Bowel Movements 1 1 Weight 136 kg Blood Glucose* 297 213 Patient Weight 08/27/17 23:59 Weight 136 kg - Exam Exam: well developed obese male in no acute distress no necrosis. there is no active bleeding. nonviable tissue present around the ankle and leg. faint leg erythema. when I pressed on the erythema and surrounding areas, there is no purulence able to be expressed. - Lab Result Diagrams: 08/27/17 03:30 08/27/17 03:30 Labs: Abnormal lab results WBC 11.6 K/mcL (4.3-11.1) H 08/27/17 03:30 RBC 2.80 M/mcL (4.19-5.50) L 08/27/17 03:30 Hgb 7.1 g/dL (12.9-16.9) L 08/27/17 03:30 Hct 23.0 % (37.5-50.1) L 08/27/17 03:30 MCV 82.1 fL (83.0-100.0) L 08/27/17 03:30 MCH 25.4 pg (28.0-33.3) L 08/27/17 03:30 MCHC 30.9 g/dL (31.6-35.5) L 08/27/17 03:30 RDW 16.2 % (11.5-14.5) H 08/27/17 03:30 Immature Gran % 4.5 % (0-4) H 08/26/17 05:23 Basophils # 0.5 K/mcL (0.0-0.2) H 08/27/17 03:30 Nucleated RBCs/100 WBC 0.3 /100 WBC (0) H 08/27/17 03:30 Toxic Granulation Present (Not Present) A 08/27/17 03:30 Polychromasia 1+ (Not Present) A 08/27/17 03:30 Anisocytosis 1+ (Not Present) A 08/21/17 09:03 ESR >= 130 mm/hr (0-10) H 08/23/17 13:35 PT 18.7 Seconds (9.4-12.1) H 08/21/17 09:03 Sodium 133 mEq/L (136-145) L 08/27/17 03:30 Potassium 4.7 mEq/L (3.5-4.5) H 08/27/17 03:30 Glucose 266 mg/dL (70-99) H 08/27/17 03:30 POC Glucose 213 (58-89) H 08/27/17 07:10 Hemoglobin A1c 9.0 % (-5.6) H 08/22/17 08:04 Magnesium 1.3 mg/dL (1.6-2.6) L 08/22/17 08:04 Alkaline Phosphatase 150 Units/L (38-126) H 08/21/17 09:03 C-Reactive Protein 194 mg/L (Less than 5) H 08/23/17 13:35 Albumin 2.0 g/dL (3.5-5.0) L 08/21/17 09:03 Globulin 4.8 g/dL (2.4-3.5) H 08/21/17 09:03 Albumin/Globulin Ratio 0.4 (1.1-2.2) L 08/21/17 09:03 HDL Cholesterol 5 mg/dL (40-59) L 08/22/17 08:04 Cholesterol/HDL Ratio 12.8 (0-4.9) H 08/22/17 08:04 Vancomycin Trough 28.3 mcg/mL (10-20) H* 08/26/17 05:23 Microbiology, Last 48 Hours 08/25/17 12:08 Wound Culture - Final Left Foot Methicillin Resistant S.aureus Strep agalactiae - (Group B) 08/21/17 23:35 Wound Culture - Final Left Foot Methicillin Resistant S.aureus Strep agalactiae - (Group B) 08/21/17 23:35 Wound Culture - Final Left Foot Methicillin Resistant S.aureus Strep agalactiae - (Group B) 08/21/17 23:35 Wound Culture - Final Left Foot Methicillin Resistant S.aureus Strep agalactiae - (Group B) 08/21/17 23:35 Wound Culture - Final Left Foot Methicillin Resistant S.aureus Strep agalactiae - (Group B) 08/21/17 23:35 Wound Culture - Final Left Foot Methicillin Resistant S.aureus Strep agalactiae - (Group B) 08/21/17 23:35 Wound Culture - Final Left Foot Strep agalactiae - (Group B) Methicillin Resistant S.aureus 08/21/17 23:35 Anaerobic Culture - Preliminary Left Foot At this time, no anaerobic growth is present. The culture will be finalized after 5 days of incubation. 08/21/17 23:35 Anaerobic Culture - Preliminary Left Foot At this time, no anaerobic growth is present. The culture will be finalized after 5 days of incubation. 08/21/17 23:35 Anaerobic Culture - Preliminary Left Foot At this time, no anaerobic growth is present. The culture will be finalized after 5 days of incubation. 08/21/17 23:35 Anaerobic Culture - Preliminary Left Foot At this time, no anaerobic growth is present. The culture will be finalized after 5 days of incubation. 08/21/17 23:35 Anaerobic Culture - Preliminary Left Foot At this time, no anaerobic growth is present. The culture will be finalized after 5 days of incubation. 08/21/17 23:35 Anaerobic Culture - Preliminary Left Foot At this time, no anaerobic growth is present. The culture will be finalized after 5 days of incubation. - VTE Documentation of Mechanical Device: Intermittent pneumatic compression device Consult Discharge Plan - Plan Referrals: Sunny Rodriguez MD [Primary Care Provider] - 08/29/17 11:00 am
[2017-08-27] MEDS: Insulin DETEMIR 100 UNIT/ML X5UNITS SQ SCH ×2 (12:05→21:23)
[2017-08-27] MEDS ORDERED: 0.9 % Sodium Chloride 250 ML ONE ×2 (14:19→22:09)
[2017-08-27] MEDS ORDERED: 0.9 % Sodium Chloride 250 ML IVC SCH (15:30)
--- NOTE | 2017-08-27 18:16 | Internal Med Progress Note ---
Date of Encounter: 08/29/17 Time of Encounter: 15:00 - Assessment and plan (1) Acute osteomyelitis of left foot Current Visit: Yes Status: Acute Assessment and plan: Patient and family trying therapy of antibiotics. Possibly AKA tomorrow. (2) Anemia of chronic disease Current Visit: Yes Status: Acute Assessment and plan: Transfuse if hemoglobin less than 7. (3) HTN (hypertension) Current Visit: Yes Status: Acute Assessment and plan: Stable Qualifiers: Hypertension type: unspecified Qualified Code(s): I10 - Essential (primary ) hypertension (4) Sepsis Current Visit: Yes Status: Resolved Qualifiers: Sepsis type: sepsis due to unspecified organism Qualified Code(s): A41.9 - Sepsis, unspecified organism (5) DM2 (diabetes mellitus, type 2) Current Visit: Yes Status: Chronic Qualifiers: Diabetes mellitus complication status: with unspecified complications Diabetes mellitus assisted insulin use: with continuous churn buttermaker use Qualified Code(s) : E11.8 - Type 2 diabetes mellitus with unspecified complications; 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 He denies fevers/chills, n/v, diaphoresis. Leg pain controlled. - Constitutional Vitals: Temp Pulse Resp BP Pulse Ox 97.9 F 84 16 136/78 97 08/27/17 15:02 08/27/17 15:02 08/27/17 15:02 08/27/17 15:02 08/27/17 15:02 General appearance: Present: A&O X 3, answers questions appropriately Exam: CVS: RRR, distant heart sounds Lungs: Poor air exchange and effort Abdomen: nt/nd, soft Ext: bilateral lower extremities with venous stasis changes and two plantar ulcers with skin breakdown on left foot. Internal Medicine: Result - Labs CBC & Chem 7: 08/28/17 04:48 08/28/17 04:48 Labs: Short CBC 08/27/17 Range/Units 03:30 WBC 11.6 H (4.3-11.1) K/mcL Hgb 7.1 L (12.9-16.9) g/dL Hct 23.0 L (37.5-50.1) % Plt Count 327 (140-400) K/mcL Neutrophils # 8.6 (1.6-8.9) K/mcL BMP 08/27/17 03:30 Sodium 133 L Potassium 4.7 H Chloride 100 Carbon Dioxide 27 BUN 20 Creatinine 0.86 Glucose 266 H Calcium 8.6 - ABG Interpretation ABG results: PT/INR, D-dimer PT 18.7 Seconds (9.4-12.1) H 08/21/17 09:03 - VTE Documentation of Mechanical Device: Intermittent pneumatic compression device Consult Discharge Plan - Plan Referrals: Sunny Rodriguez MD [Primary Care Provider] - 08/29/17 11:00 am
[2017-08-27] MEDS: traZODone 50 MG TABLET PO SCH (21:22)
[2017-08-28 05:25] LABS: Hematocrit 27.5 % (37.5-50.1); Hemoglobin 8.5 g/dL (12.9-16.9); Mean Corpuscular HGB Conc 30.9 g/dL (31.6-35.5); Mean Corpuscular Hemoglobin 25.6 pg (28.0-33.3); Mean Corpuscular Volume 82.8 fL (83.0-100.0); Mean Platelet Volume 9.1 fL (9.4-12.4); Nucleated Red Blood Cells 0.4 /100 WBC (0); Platelet Count 365 K/mcL (140-400); Red Blood Count 3.32 M/mcL (4.19-5.50); Red Cell Distribution Width 16.2 % (11.5-14.5)
[2017-08-28 05:41] LABS: BUN/Creatinine Ratio 24 (6-26); Blood Urea Nitrogen 16 mg/dL (8-26); Calcium 8.6 mg/dL (8.6-10.8); Carbon Dioxide 26 mEq/L (19-29); Chloride 103 mEq/L (98-109); Glucose 166 mg/dL (70-99); Osmolality,Calculated 289 (280-300); Potassium 4.5 mEq/L (3.5-4.5); Sodium 137 mEq/L (136-145); eGFR For African Americans > 60 (> 60); eGFR For Non-African Americans > 60 (> 60)
[2017-08-28 06:09] LABS: Eosinophils # 0.3 K/mcL (0.0-0.6); Lymphocytes # 1.8 K/mcL (0.6-4.6); Monocytes # 0.8 K/mcL (0.0-1.3); Neutrophils # 9.9 K/mcL (1.6-8.9); Platelet Estimate Normal (Normal)
[2017-08-28 06:10] LABS: Toxic Granulation Present (Not Present)
[2017-08-28 06:11] LABS: Anisocytosis 1+ (Not Present)
[2017-08-28] MEDS: Vancomycin 1,500 MG in D5% in Water 250 ML IVPB SCH ×2 (06:34→17:58)
[2017-08-28] MEDS: *HR* Enoxaparin 40 MG/0.4 ML SYRINGE SQ SCH (06:35)
--- NOTE | 2017-08-28 07:53 | Event Note ---
Date of Encounter: 08/28/17 Time of Encounter: 07:30 The patient is seen and evaluated today on morning rounds. The amount of swelling in his left lower extremity has dramatically decreased since aggressive debridement on Monday morning he has done very well with IV antibiotics over the weekend. His white blood cell count has normalized. His glucose levels are in the 170s. At this point I think it is reasonable to proceed with left below-knee amputation in an effort to salvage the left knee joint. The patient and family understands that he may have healing problems based on the underlying infection or his diabetes. I think it is reasonable to work through this in an effort to salvage the left knee joint. We will make him nothing by mouth and operate later today for left below-knee amputation.
[2017-08-28] MEDS: Insulin LISPRO 300 UNITS/3 ML VIAL SQ SCH ×3 (07:59→17:56)
[2017-08-28] MEDS: *HR* HYDROcodone/Acet 5/325 mg TABLET PO PRN (08:12)
[2017-08-28] MEDS: Lisinopril 20 MG TABLET PO SCH (08:14)
[2017-08-28] MEDS: Gabapentin 400 MG CAPSULE PO SCH (08:14)
[2017-08-28] MEDS: Famotidine 20 MG TABLET PO SCH (08:14)
[2017-08-28] MEDS ORDERED: 0.9 % Sodium Chloride 1,000 ML IVC SCH (09:15)
[2017-08-28] MEDS: Insulin DETEMIR 100 UNIT/ML X5UNITS SQ SCH (09:46)
[2017-08-28] MEDS: *HR* Morphine 2 MG/ML SYRINGE IVP PRN ×2 (11:03→15:09)
--- NOTE | 2017-08-28 13:43 | Infectious Disease Progress No ---
Date of Encounter: 08/28/17 Time of Encounter: 13:37 - Assessment and Plan (1) Septic shock Current Visit: Yes Status: Resolved The patient had two SIRS criteria plus hypotension requiring vasopressors. Likely secondary to left foot osteomyelitis. Improved. The patient is off vasopressors. His WBC has improved, but remains slightly elevated. Tachycardia has resolved. Blood cultures drawn 08/22/17 are negative x 2 sets. (2) Acute osteomyelitis of left foot Current Visit: Yes Status: Acute Location: Left foot, first metatarsal. Causative organism MRSA and GBS. Likely secondary to previously-reported DFUs. MRI of the left foot showed osteomyelitis of the first metatarsal at the forefoot, midfoot, and hindfoot, as well as septic arthritis of the 1st MTP joint. Additionally, there was advanced myositis of the distal calf and foot, a large phlegmon in the dorsum subcutaneous forefoot, and multiple small abscesses in the plantar subcutaneous forefoot. Podiatry was consulted. The patient was taken to the OR 08/22/17 and had 1st ray amputation of the left foot, I & D of the left foot, and bone biopsy of the medial cuneiform, navicular, and talus. Operative note reviewed. Infection extensive. Patient was taken back to the OR 08/25/17 and has incision and drainage of left ankle/leg and excisional debridement of the left foot wound. Purulent drainage noted from the existing surgical wound and extending proximally to the ankle and lower leg. Vascular surgery consulted and AKA recommended due to extensive soft tissue swelling of the knee. The patient opted to wait and see if further antibiotic therapy would improve the situation, which it appears to have. The patient is scheduled for left BKA later today with Dr. Maloney. Continue Vancomycin IV. Pharmacy to dose. Goal trough approximately 15. Wound care per Podiatry's recommendations. director of housing and energy services to assist with discharge planning. Duration of treatment depends on the clinical picture. We will await Dr. Maloney's intra-op findings before we decide the course of antibiotics. If we can be certain that all infected bone is removed, no further antibiotic therapy will be required. Monitor renal function and for drug toxicity and dose-adjust antibiotics. (3) Foot abscess, left Current Visit: Yes Status: Acute Causative organism GBS and MRSA. Status post I & D 08/22/[address] Martin. Repeat I & D 08/25/17. Antibiotics as above. (4) Nondisplaced fracture of first left metatarsal bone Current Visit: Yes Status: Acute Likely secondary to osteomyelitis. Qualifiers: Encounter type: initial encounter Fracture type: closed Qualified Code(s) : S92.315A - Nondisplaced fracture of first metatarsal bone, left foot, initial encounter for closed fracture (5) ROBSON (acute kidney injury) Current Visit: Yes Status: Resolved Likely secondary to sepsis. Resolved. Monitor closely and dose-adjust antibiotics. (6) DM2 (diabetes mellitus, type 2) Current Visit: Yes Status: Chronic Uncontrolled. A1C 9%. Recommend aggressive glucose monitoring and control to promote wound healing and prevent re-infection. Management per the primary team. Qualifiers: Diabetes mellitus complication status: with unspecified complications Diabetes mellitus technician terminal and repeater insulin use: with technician terminal and repeater use Qualified Code(s) : E11.8 - Type 2 diabetes mellitus with unspecified complications; Z79.4 - intermediate (current) use of insulin (7) ANI (obstructive sleep apnea) Current Visit: Yes Status: Acute - Subjective Interval history: Patient seen and examined. Weekend notes reviewed. Patient scheduled for BKA later today. States overall he feels okay. Denies fevers, chills, or rigors. Denies chest pain, shortness of breath, or cough. Denies nausea, vomiting, or diarrhea. Denies urinary complaints. Denies abdominal pain and states his appetite is good. Reports intermittent pain in the left foot, currently 5/10, but describes as aching, throbbing. Reports pain up to just below the left knee. Denies oral thrush or skin rashes. Infect Dis PN-Objective Data - Labs CBC & Chem 7: 08/28/17 04:48 08/28/17 04:48 Labs: Laboratory Results - last 24 hr 08/27/17 08/27/17 08/27/17 12:00 16:43 20:20 WBC RBC Hgb Hct MCV MCH MCHC RDW Plt Count MPV Seg Neutrophils % Lymphocytes % Monocytes % Eosinophils % Neutrophils # Lymphocytes # Monocytes # Eosinophils # Nucleated RBCs/100 WBC Toxic Granulation Platelet Estimate Anisocytosis Sodium Potassium Chloride Carbon Dioxide BUN Creatinine Est GFR ( Amer) Est GFR (Non-Af Amer) BUN/Creatinine Ratio Glucose POC Glucose 233 H 169 H Calculated Osmolality Calcium Blood Type O POSITIVE Antibody Screen NEGATIVE Crossmatch See Detail 08/28/17 08/28/17 04:48 04:48 WBC 12.7 H RBC 3.32 L Hgb 8.5 L Hct 27.5 L MCV 82.8 L MCH 25.6 L MCHC 30.9 L RDW 16.2 H Plt Count 365 MPV 9.1 L Seg Neutrophils % 78.0 Lymphocytes % 14.0 Monocytes % 6.0 Eosinophils % 2.0 Neutrophils # 9.9 H Lymphocytes # 1.8 Monocytes # 0.8 Eosinophils # 0.3 Nucleated RBCs/100 WBC 0.4 H Toxic Granulation Present A Platelet Estimate Normal Anisocytosis 1+ A Sodium 137 Potassium 4.5 Chloride 103 Carbon Dioxide 26 BUN 16 Creatinine 0.67 L Est GFR ( Amer) > 60 Est GFR (Non-Af Amer) > 60 BUN/Creatinine Ratio 24 Glucose 166 H POC Glucose Calculated Osmolality 289 Calcium 8.6 Blood Type Antibody Screen Crossmatch Cultures: Cultures 08/25/17 12:08 Anaerobic Culture - Preliminary Left Foot At this time, no anaerobic growth is present. The culture will be finalized after 5 days of incubation. 08/21/17 23:35 Anaerobic Culture - Final Left Foot No anaerobes were recovered. 08/21/17 23:35 Anaerobic Culture - Final Left Foot No anaerobes were recovered. 08/21/17 23:35 Anaerobic Culture - Final Left Foot No anaerobes were recovered. 08/21/17 23:35 Anaerobic Culture - Final Left Foot No anaerobes were recovered. 08/21/17 23:35 Anaerobic Culture - Final Left Foot No anaerobes were recovered. 08/21/17 23:35 Anaerobic Culture - Final Left Foot No anaerobes were recovered. 08/22/17 08:05 Blood Culture - Final Peripheral Venipuncture No growth. 08/22/17 08:00 Blood Culture - Final Peripheral Venipuncture No growth. 08/25/17 12:08 Wound Culture - Final Left Foot Methicillin Resistant S.aureus Strep agalactiae - (Group B) 08/21/17 23:35 Wound Culture - Final Left Foot Methicillin Resistant S.aureus Strep agalactiae - (Group B) 08/21/17 23:35 Wound Culture - Final Left Foot Methicillin Resistant S.aureus Strep agalactiae - (Group B) 08/21/17 23:35 Wound Culture - Final Left Foot Methicillin Resistant S.aureus Strep agalactiae - (Group B) 08/21/17 23:35 Wound Culture - Final Left Foot Methicillin Resistant S.aureus Strep agalactiae - (Group B) 08/21/17 23:35 Wound Culture - Final Left Foot Methicillin Resistant S.aureus Strep agalactiae - (Group B) 08/21/17 23:35 Wound Culture - Final Left Foot Strep agalactiae - (Group B) Methicillin Resistant S.aureus 08/21/17 23:35 Gram Stain - Final Left Foot 08/21/17 23:35 Gram Stain - Final Left Foot 08/21/17 23:35 Gram Stain - Final Left Foot 08/21/17 23:35 Gram Stain - Final Left Foot 08/21/17 23:35 Gram Stain - Final Left Foot - Impressions Impressions Foot MRI 08/21/17 08:44 IMPRESSION: 1. Osteomyelitis of the forefoot, midfoot, and hindfoot as detailed above, most pronounced in the 1st metatarsal bone. 2. Probable septic arthritis of the 1st MTP joint. 3. Probable advanced myositis of the visualized distal calf and foot musculature. A component of this appearance may be due to diabetic related changes. 4. Large phlegmon of the dorsum of the subcutaneous forefoot and multiple small abscesses of the plantar subcutaneous soft tissues of the forefoot. 5. Partial thickness tearing of the flexor hallucis longus, likely due to infectious involvement. 6. Mildly displaced proximal 1st metatarsal bone fracture. D/ / 08/21/2017 11:39:40 Jose Altamirano MD / Dali Talbert Interpreting Provider: Jose Altamirano MD Chest X-Ray 08/22/17 03:27 IMPRESSION: No focal airspace consolidation. Bilateral perihilar prominence suggesting central vascular congestion and/or bronchitis. D/ / Kalee Rubalcava MD / Kalee Rubalcava MD Interpreting Provider: Kalee Rubalcava MD Exam - Constitutional Vitals: Temp Pulse Resp BP Pulse Ox 97.7 F 93 16 127/75 95 08/28/17 10:36 08/28/17 10:36 08/28/17 10:36 08/28/17 10:36 08/28/17 10:36 General appearance: cooperative, morbidly obese, no acute distress - Head Head exam: Present: atraumatic, normal inspection, normocephalic - Eye Eye exam: Present: EOMI, normal appearance, PERRL Pupils: Present: normal accommodation - ENT ENT exam: Present: mucous membranes moist - Neck Neck exam: Present: normal inspection - Respiratory Respiratory exam: Present: CTAB. Absent: rales, respiratory distress, rhonchi, wheezes - Cardiovascular Cardiovascular exam: Present: RRR, +S1, +S2 - GI/Abdominal GI/Abdominal exam: Present: distended (obese), normal bowel sounds, soft. Absent: tenderness - Extremities Exam Extremities exam: Present: pedal edema (1+ LLE), tenderness (LLE) Additional comments: Left foot dressing intact. - Neurological Exam Neurological exam: Present: alert, oriented X3, no focal deficits - Psychiatric Psychiatric exam: Present: normal affect, normal mood - Skin Skin exam: Present: dry, intact, normal color, warm - VTE Documentation of Mechanical Device: Intermittent pneumatic compression device Consult Discharge Plan - Plan Referrals: Sunny Rodriguez MD [Primary Care Provider] - 08/29/17 11:00 am
--- NOTE | 2017-08-28 16:32 | Anesthesia Evaluation PreOp ---
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: Other (diabetic neuropathy) Other Medical History: Diabetes Type II, GERD, Other (anxiety) Anesthesia History: No Prior Anesthetic Complications, Past Anesthesia (corneal , left foot partial amputation, I&D left leg) Alcohol Use: none Drug use: none Medications and Allergies Albuterol Sulfate [Albuterol Inhaler] 1 puff IH Q4H 08/21/17 [History] Gabapentin [Neurontin] 800 mg PO TID 08/21/17 [History] GlipiZIDE [Glipizide Xl] 5 mg PO DAILY 08/21/17 [History] Insulin Glargine [Lantus] 50 unit SQ BID 08/21/17 [History] Liraglutide [Victoza 2-Abdoulaye] 1.8 mg SQ DAILY 08/21/17 [History] Lisinopril [Zestril] 20 mg PO DAILY 08/21/17 [History] Ranitidine HCl [Acid Soccer Referee] 150 mg PO BID 08/21/17 [History] metFORMIN [Glucophage] 1,000 mg PO BIDWM 08/21/17 [History] Atorvastatin [Lipitor] 40 mg PO HS 08/22/17 [History] Azelastine 0.1% Nasal Welches [Astelin] 1 - 2 spr NS BID 08/22/17 [History] Cetirizine HCl [All Day Allergy] 10 mg PO DAILY 08/22/17 [History] Cyclobenzaprine [Flexeril] 10 mg PO TID 08/22/17 [History] Cyclosporine [Restasis] 1 drop BOTH EYES DAILY 08/22/17 [History] Empagliflozin [Jardiance] 25 mg PO DAILY 08/22/17 [History] Ergocalciferol (VITAMIN D2) [Vitamin D2] 50,000 unit PO QWEEK 08/22/17 [History] Lisinopril-HCTZ 20-12.5 [Prinzide 20-12.5] 1 tab PO DAILY 08/22/17 [History] Meloxicam [Mobic] 15 mg PO DAILY 08/22/17 [History] Mometasone/Formoterol [Dulera 200 Mcg/5 Mcg Inhaler] 2 puff IH BID 08/22/17 [ History] Montelukast [Singulair] 10 mg PO DAILY 08/22/17 [History] [place]-3/Dha/Epa/Fish Oil [Fish Oil 1,000 mg Softgel] 2,000 mg PO DAILY 08/22/17 [History] Omeprazole [PriLOSEC] 20 mg PO DAILY 08/22/17 [History] PARoxetine HCl [Paroxetine HCl] 40 mg PO DAILY 08/22/17 [History] Trazodone HCl 150 mg PO HS 08/22/17 [History] Zileuton [Zyflo] 600 mg PO QID 08/22/17 [History] 3 Allergy/AdvReac Type Severity Reaction Status Date / Time No Known Allergies Allergy Unverified 07/01/15 22:36 - Meds/Allergy Pre-op Review Medications Reviewed: Yes Allergies Reviewed: Yes Beta Blockers on Current Med List: No Anesthesia Results - Labs 08/28/17 04:48 08/28/17 04:48 Anesthesia Exam Selected Entries 08/28/17 10:36 Temperature 97.7 F Pulse Rate 93 Respiratory Rate 16 Blood Pressure 127/75 O2 Sat by Pulse Oximetry 95 Weight: 137kg NPO (# of Hours): 8 - HEENT Pupil (Motor): EOMI Mallampati: III Teeth: Edentulous Oral Opening: Greater than 3 - SOFTWARE COMPUTER SPECIALIST LOC: Oriented SOFTWARE COMPUTER SPECIALIST Motor: Normal RUE, Normal LUE, Normal RLE, Normal LLE, Normal Face SOFTWARE COMPUTER SPECIALIST Sensory: Normal: RUE, LUE, RLE, LLE, Face - Cardiac Rhythm: Regular Murmur: None - Pulmonary Breath Sounds: bilateral Clear Respiratory Effort: Symmetrical Anesthesia Assess/Plan ASA Score: 3 Modified Gray Scale for Level of Consciousness: Cooperative, oriented, and tranquil Anesthetic Plan: General Monitoring Plan: Standard Monitors Recovery Plan: PACU (discussed GA, agrees to proceed)
--- NOTE | 2017-08-28 19:14 | Internal Med Progress Note ---
Date of Encounter: 08/28/17 Time of Encounter: 14:00 - Assessment and plan (1) Acute osteomyelitis of left foot Current Visit: Yes Status: Acute Assessment and plan: Surgery planned for today. (2) Hyponatremia Current Visit: Yes Status: Acute (3) Anemia of chronic disease Current Visit: Yes Status: Acute Assessment and plan: His baseline hemoglobin runs 8's. Follow-up next H&H post-op, may need transfused as he did need transfused before debredement procedure 3 days ago. 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 Patient is waiting to go to surgery. - Constitutional Vitals: Temp Pulse Resp BP Pulse Ox 98 F 96 18 129/73 96 08/28/17 14:51 08/28/17 14:51 08/28/17 14:51 08/28/17 14:51 08/28/17 14:51 General appearance: Present: A&O X 3, answers questions appropriately - Respiratory Respiratory exam: Present: CTAB. Absent: accessory muscle use, rales, rhonchi, wheezes - Cardiovascular Cardiovascular exam: Present: RRR, +S1, +S2. Absent: diastolic murmur, gallop, rubs, systolic murmur - Extremities Exam Additional comments: Left foot is wrapped and clean. There is trace edema appreciated just above his wyman Internal Medicine: Result - Labs CBC & Chem 7: 08/28/17 04:48 08/28/17 04:48 Labs: Short CBC 08/28/17 Range/Units 04:48 WBC 12.7 H (4.3-11.1) K/mcL Hgb 8.5 L (12.9-16.9) g/dL Hct 27.5 L (37.5-50.1) % Plt Count 365 (140-400) K/mcL Neutrophils # 9.9 H (1.6-8.9) K/mcL BMP 08/28/17 04:48 Sodium 137 Potassium 4.5 Chloride 103 Carbon Dioxide 26 BUN 16 Creatinine 0.67 L Glucose 166 H Calcium 8.6 - ABG Interpretation ABG results: PT/INR, D-dimer PT 18.7 Seconds (9.4-12.1) H 08/21/17 09:03 - Impressions Impressions Foot MRI 08/21/17 08:44 IMPRESSION: 1. Osteomyelitis of the forefoot, midfoot, and hindfoot as detailed above, most pronounced in the 1st metatarsal bone. 2. Probable septic arthritis of the 1st MTP joint. 3. Probable advanced myositis of the visualized distal calf and foot musculature. A component of this appearance may be due to diabetic related changes. 4. Large phlegmon of the dorsum of the subcutaneous forefoot and multiple small abscesses of the plantar subcutaneous soft tissues of the forefoot. 5. Partial thickness tearing of the flexor hallucis longus, likely due to infectious involvement. 6. Mildly displaced proximal 1st metatarsal bone fracture. D/ / 08/21/2017 11:39:40 Jose Altamirano MD / Dali Talbert Interpreting Provider: Jose Altmairano MD Chest X-Ray 08/22/17 03:27 IMPRESSION: No focal airspace consolidation. Bilateral perihilar prominence suggesting central vascular congestion and/or bronchitis. D/ / Kalee Rubalcava MD / Kalee Rubalcava MD Interpreting Provider: Kalee Rubalcava MD - VTE Documentation of Mechanical Device: Intermittent pneumatic compression device Consult Discharge Plan - Plan Referrals: Sunny Rodriguez MD [Primary Care Provider] - 08/29/17 11:00 am
[2017-08-28] MEDS ORDERED: *HR* Succinylcholine 200 MG/10 ML VIAL IVP ONE (19:18)
[2017-08-28] MEDS ORDERED: *HR* Propofol 200 MG/20 ML VIAL IVP ONE (19:18)
[2017-08-28] MEDS ORDERED: Lidocaine -MPF 2% 2 ML VIAL ONE (19:18)
[2017-08-28] MEDS ORDERED: *HR* Midazolam HCl 2 MG/2 ML VIAL ONE (19:18)
[2017-08-28] MEDS ORDERED: *HR* FentaNYL (PF) 100 MCG/2 ML VIAL ONE (19:19)
[2017-08-28] MEDS ORDERED: *HR* Rocuronium Bromide 50 MG/5 ML VIAL ONE (19:19)
[2017-08-28] MEDS ORDERED: *HR* Phenylephrine 10 MG/ML VIAL ONE (19:48)
[2017-08-28] MEDS ORDERED: Dexamethasone 4 MG/ML VIAL ONE (21:05)
[2017-08-28] MEDS ORDERED: Ondansetron 4 MG/2 ML VIAL ONE (21:05)
[2017-08-28] MEDS ORDERED: *HR* Morphine 10 MG/ML VIAL ONE (21:16)
--- NOTE | 2017-08-28 21:19 | Operative Note ---
Date of procedure: 08/28/17 Pre-op diagnosis: Severe left lower leg diabetic infection Post-op diagnosis: same Procedure: Left below-knee amputation Anesthesia: JONATHON Surgeon: Kentrell Maloney Estimated blood loss (cc): 200 Specimen: Left below knee amputation Condition: stable Disposition: PACU Procedure in Detail: After informed consent the patient was taken to the major operative suite placed supine position given adequate general endotracheal anesthesia. The left leg was prepped and draped in sterile fashion utilizing Betadine solution standard techniques. Timeout was taken patient was identified. Lateralizing Ha is identified. I used a one third rule to create the lines 3 fingerbreadths below the tibial tuberosity. We planned a tibial division 2 fingerbreadths below the tuberosity. The skin was incised. He was tremendously edematous. Once the skin flaps were incised in size the muscular layer. The anterior tibial compartment was divided the muscles were in good condition. I clamped the anterior tibial artery and vein as well as the anterior tibial nerve all were secured with silk. I isolated the tibia and fibula. I began the division of the lateral compartment. I switched to the medial compartment this was divided partially on the soleus and gastrocnemius. I identified the peroneal nerve as well as the tibial peroneal trunk artery and vein. All of these structures were high ligated. Once this is done I mobilized all the tissue off the tibia. The fibula was divided first just above the tibia and the tibia was divided and I cut a 20 degree ramp on the front third of the tibia. I then used to sweep knifed to divide the soleus and gastrocnemius muscles even when. This gave a excellent technical result. Clamps and hemostatic ligatures were used for hemostasis. I closed the stump multiple layers using interrupted 0 Vicryl. Antibiotic irrigation was used on all layers area skin was closed with skin clips. The patient was placed in a knee immobilizer. He tolerated the procedure well.
[2017-08-28] MEDS: *HR* HYDROmorphone (PF) 1 MG/ML SYRINGE IVP PRN ×4 (21:50→22:11)
--- NOTE | 2017-08-28 22:21 | Anesthesia Evaluation Post Op ---
Date of Encounter: 08/28/17 Time of Encounter: 22:19 - Vital Signs Vital Signs: Vital Signs/O2 Sat/Glucose, Most Recent Temp Pulse Resp BP Pulse Ox 98.3 F 89 18 129/57 98 08/28/17 22:06 08/28/17 22:06 08/28/17 22:06 08/28/17 22:06 08/28/17 22:06 Blood Glucose* 180 - Lungs Lungs: Clear Ascult./Percussion - Airway Airway: Non-obstructed - Cardiovascular Regular Rate - Mental Status Mental Status: Asleep with brisk response to light stimulation - Pain Pain Scale: 9 (sleeping but c/o 9/10 pain when asked) Pain Scale used: Numeric (1 - 10) - Nausea Vomiting Nausea Vomiting: Not Present - Hydration Hydration: Ice chips, Has not voided - Discharge PostOp Status: Transfer Patient to floor
[2017-08-28] MEDS ORDERED: Naloxone 0.4 MG/ML INJ IVP PRN (22:23)
[2017-08-28] MEDS ORDERED: *HR* Dextrose 50 % in Water (Syg) 50 ML SYRINGE IVP PRN (22:23)
[2017-08-28] MEDS ORDERED: Dextrose Gel 15 GM PO PRN ×2 (22:23)
[2017-08-28] MEDS ORDERED: *HR* HYDROcodone/Acet 5/325 mg TABLET PO PRN (22:23)
[2017-08-28] MEDS ORDERED: Ondansetron 4 MG/2 ML VIAL IVP PRN (22:23)
[2017-08-28] MEDS ORDERED: Acetaminophen 325 MG TABLET PO PRN (22:23)
[2017-08-28] MEDS ORDERED: D5% in Water 1,000 ML IVC PRN (22:23)
[2017-08-28] MEDS ORDERED: *HR* Promethazine 25 MG/ML VIAL IVP PRN (22:23)
[2017-08-28] MEDS ORDERED: *HR* Morphine 2 MG/ML SYRINGE IVP PRN (22:23)
[2017-08-28] MEDS: 0.9 % Sodium Chloride 1,000 ML IVC SCH (23:56)
[2017-08-29] MEDS: Vancomycin 1,500 MG in D5% in Water 250 ML IVPB SCH ×2 (05:22→16:49)
[2017-08-29] MEDS: *HR* Enoxaparin 40 MG/0.4 ML SYRINGE SQ SCH (05:23)
[2017-08-29] MEDS: *HR* HYDROmorphone (PF) 1 MG/ML SYRINGE IVP PRN ×3 (05:23→11:48)
[2017-08-29 06:36] LABS: BUN/Creatinine Ratio 18 (6-26); Blood Urea Nitrogen 12 mg/dL (8-26); Calcium 8.6 mg/dL (8.6-10.8); Carbon Dioxide 29 mEq/L (19-29); Chloride 100 mEq/L (98-109); Glucose 225 mg/dL (70-99); Osmolality,Calculated 287 (280-300); Potassium 4.8 mEq/L (3.5-4.5); Sodium 135 mEq/L (136-145); eGFR For African Americans > 60 (> 60); eGFR For Non-African Americans > 60 (> 60)
[2017-08-29 06:58] LABS: Basophils % 0.2 %; Eosinophils % 0.3 %; Hematocrit 26.8 % (37.5-50.1); Hemoglobin 8.1 g/dL (12.9-16.9); Immature Granulocytes % 3.6 % (0-4); Lymphocytes # 1.2 K/mcL (0.6-4.6); Lymphocytes % 8.3 %; Mean Corpuscular HGB Conc 30.2 g/dL (31.6-35.5); Mean Corpuscular Volume 82.7 fL (83.0-100.0); Mean Platelet Volume 9.3 fL (9.4-12.4); Monocytes # 0.6 K/mcL (0.0-1.3); Monocytes % 4.3 %; Neutrophils # 12.4 K/mcL (1.6-8.9); Nucleated Red Blood Cells 0.1 /100 WBC (0); Platelet Count 387 K/mcL (140-400); Red Blood Count 3.24 M/mcL (4.19-5.50); Red Cell Distribution Width 16.4 % (11.5-14.5); Segmented Neutrophils % 83.3 %
[2017-08-29] MEDS: Lisinopril 20 MG TABLET PO SCH (08:33)
[2017-08-29] MEDS: Gabapentin 400 MG CAPSULE PO SCH ×3 (08:33→20:40)
[2017-08-29] MEDS: Insulin LISPRO 300 UNITS/3 ML VIAL SQ SCH ×4 (08:34→20:41)
[2017-08-29] MEDS: Famotidine 20 MG TABLET PO SCH ×2 (08:34→16:50)
[2017-08-29] MEDS: 0.9 % Sodium Chloride 1,000 ML IVC SCH (08:35)
[2017-08-29] MEDS ORDERED: Insulin DETEMIR 100 UNIT/ML X5UNITS SQ SCH (09:00)
--- NOTE | 2017-08-29 11:23 | General Surgery Progress Note ---
<Jailyn Celments - Last Filed: 08/29/17 11:35> Date of Encounter: 08/29/17 Time of Encounter: 11:23 - Assessment and Plan (1) Acute osteomyelitis of left foot Current Visit: Yes Status: Acute POD #1 LEft below the knee amputation No s/s of infection noted. Dressing is clean and dry. -Do not remove outer dressing for 48 hours Discomfort is not well controlled. suspect anxiety is related to pain control, but will give 0.5 mg lorazepam IV x1 dose for acute anxiety now -Start Percocet 10/325 mg Q4H prn for pain rated 1-7 -Added scheduled ofirmev; ok to take with Percocet as long as acetaminophen dosage does not exceed 1G Q4H -Schedule toradol 15 mg Q6H x3 days -PRN hydromorphone for pain rated 8-10 or note relieved by above Out of bed at least TID with meals. PT/OT for d/c planning Stopped post-surgical IV hydration after 10 hours; No signs of bleeding from surgical site leading to low Hgb levels. VSS. Will continue to monitor (2) Anxiety Current Visit: Yes Status: Acute No CP, SOB, or able to states any correlating anxiety causes. Denies history of anxiety. VSS. Will treat with one dose of Ativan. (3) DM2 (diabetes mellitus, type 2) Current Visit: Yes Status: Chronic Management per medicine. Noted resumed long acting insulin in addition to sliding scale. Glucose is controlled at this time. Qualifiers: Diabetes mellitus complication status: with unspecified complications Diabetes mellitus fdc insulin use: with fdc use Qualified Code(s) : E11.8 - Type 2 diabetes mellitus with unspecified complications; Z79.4 - terminal worker (current) use of insulin (4) ROBSON (acute kidney injury) Current Visit: Yes Status: Resolved Resolved; Management per medicine Subjective Patient reports: still having pain, tolerating a regular diet, voiding w/o difficulty, no flatus, no bowel movement, afebrile Narrative: Feels anxious. Unable to state source of anxiety. States he does not feel that his discomfort is well controlled. Denies n/v/d or abdominal pain. Denies fevers , SOB, CP, or dizziness. Objective Vital Signs - Last 8 Hours Temp Pulse Resp BP Pulse Ox 08/29/17 07:31 98.0 F 88 16 132/80 92 08/29/17 05:00 98.3 F 85 17 145/70 98 Intake and Output 08/28/17 08/29/17 08/29/17 23:59 07:59 15:59 Intake Total 250 / 250 1250 / 1250 Output Total 200 / 200 Balance 50 / 50 1250 / 1250 Intake: IV Fluids 250 / 250 1250 / 1250 0.9 % Sodium Chloride 1,000 ML 1000 / 1000 @ 100 mls/hr IVC .Q10H [facility] Rx#: [id number] Vancocin 1,500 MG In Dextrose 5 250 / 250 250 / 250 % 250 ML @ 166.67 mls/hr IVPB Q12H [facility] Rx#:[id number] Output: Estimated Blood Loss 200 / 200 Other: # Voids 1 1 Blood Glucose* 180 244 - General physical appearance moderate distress, moderate pain, other (Sitting in chair at bedside. Restless) - Eyes normal ocular movement - ENT atraumatic, normocephalic - Neck Neck exam: trachea midline - Respiratory normal expansion, normal respiratory effort, clear to auscultation - Cardiovascular Cardiovascular exam: Present: RRR, distant heart sounds - Abdomen Abdomen: Present: bowel sounds present, soft, non tender Hernia: none - Incision Incision: Present: clean and dry (Do not remove surgical dressing until 2016) - Integumentary no rash - Neurologic normal coordination, normal sensation - Musculoskeletal normal posture - Psychiatric oriented to time, oriented to person, oriented to place, speech is normal, memory intact - Labs 08/29/17 05:52 08/29/17 05:52 Diabetes panel 08/29/17 Range/Units 05:52 Sodium 135 L (136-145) mEq/L Potassium 4.8 H (3.5-4.5) mEq/L Chloride 100 (98-109) mEq/L Carbon Dioxide 29 (19-29) mEq/L BUN 12 (8-26) mg/dL Creatinine 0.65 L (0.72-1.25) mg/dL Glucose 225 H (70-99) mg/dL Calcium 8.6 (8.6-10.8) mg/dL Calcium panel 08/29/17 Range/Units 05:52 Calcium 8.6 (8.6-10.8) mg/dL Pituitary panel 08/29/17 Range/Units 05:52 Sodium 135 L (136-145) mEq/L Potassium 4.8 H (3.5-4.5) mEq/L Chloride 100 (98-109) mEq/L Carbon Dioxide 29 (19-29) mEq/L BUN 12 (8-26) mg/dL Creatinine 0.65 L (0.72-1.25) mg/dL Glucose 225 H (70-99) mg/dL Calcium 8.6 (8.6-10.8) mg/dL Adrenal panel 08/29/17 Range/Units 05:52 Sodium 135 L (136-145) mEq/L Potassium 4.8 H (3.5-4.5) mEq/L Chloride 100 (98-109) mEq/L Carbon Dioxide 29 (19-29) mEq/L BUN 12 (8-26) mg/dL Creatinine 0.65 L (0.72-1.25) mg/dL Glucose 225 H (70-99) mg/dL Calcium 8.6 (8.6-10.8) mg/dL - VTE Documentation of Mechanical Device: Intermittent pneumatic compression device Consult Discharge Plan - Plan Referrals: Sunny Rodriguez MD [Primary Care Provider] - 08/29/17 11:00 am <Kentrell Maloney - Last Filed: 08/30/17 07:34> Date of Encounter: 08/29/17 - Assessment and Plan (1) Acute osteomyelitis of left foot Current Visit: Yes Status: Acute Objective Vital Signs - Last 8 Hours Temp Pulse Resp BP Pulse Ox 08/30/17 03:18 97.8 F 79 18 110/72 93 08/30/17 00:19 99.0 F 08/29/17 23:52 100.0 F H Intake and Output 08/29/17 08/29/17 08/30/17 15:59 23:59 07:59 Intake Total 1250 / 1250 300 / 300 290 / 290 Output Total 400 / 400 700 / 700 Balance 850 / 850 -400 / -400 290 / 290 Intake: IV Fluids 1250 / 1250 300 / 300 50 / 50 0.9 % Sodium Chloride 1,000 ML 1000 / 1000 @ 100 mls/hr IVC .Q10H [facility] Rx#: [id number] Ofirmev 1,000 mg/100 ml 500 mg 50 / 50 50 / 50 In 50 ml @ 200 mls/hr IVPB Q6HR [facility] Rx#:[id number] Vancocin 1,500 MG In Dextrose 5 250 / 250 250 / 250 % 250 ML @ 166.67 mls/hr IVPB Q12H [facility] Rx#:[id number] Oral 240 / 240 Output: Urine 400 / 400 700 / 700 Other: # Voids 1 1 Blood Glucose* 172 268 - Labs 08/30/17 06:37 08/29/17 05:52 - Attending Attestation I have personally performed a face to face evaluation on this patient. I have reviewed and agree with the care plan. History and Exam by me shows: The patient is seen and evaluated on morning rounds and this information was shared with the clinical nurse practitioner. He is afebrile area is having very little pain in the amputation site. We will plan to remove the dressing tomorrow. There is no evidence of bleeding. Kentrell Maloney MD FACS
[2017-08-29] MEDS ORDERED: *HR* LORazepam 2 MG/ML VIAL IVP ONE (11:34)
[2017-08-29] MEDS: Acetaminophen IV 500 MG/50 ML INFUS..BTL IVPB SCH ×2 (11:48→15:44)
--- NOTE | 2017-08-29 14:12 | Infectious Disease Progress No ---
Date of Encounter: 08/29/17 Time of Encounter: 14:10 - Assessment and Plan (1) Septic shock Current Visit: Yes Status: Resolved The patient had two SIRS criteria plus hypotension requiring vasopressors. Likely secondary to left foot osteomyelitis. Improved. The patient is off vasopressors. His WBC is a little worse this morning, but likely reactive secondary to his recent surgical procedure. Tachycardia has resolved. Blood cultures drawn 08/22/17 are negative x 2 sets. (2) Acute osteomyelitis of left foot Current Visit: Yes Status: Acute Location: Left foot, first metatarsal. Causative organism MRSA and GBS. Likely secondary to previously-reported DFUs. MRI of the left foot showed osteomyelitis of the first metatarsal at the forefoot, midfoot, and hindfoot, as well as septic arthritis of the 1st MTP joint. Additionally, there was advanced myositis of the distal calf and foot, a large phlegmon in the dorsum subcutaneous forefoot, and multiple small abscesses in the plantar subcutaneous forefoot. Podiatry was consulted. The patient was taken to the OR 08/22/17 and had 1st ray amputation of the left foot, I & D of the left foot, and bone biopsy of the medial cuneiform, navicular, and talus. Operative note reviewed. Infection extensive. Patient was taken back to the OR 08/25/17 and has incision and drainage of left ankle/leg and excisional debridement of the left foot wound. Purulent drainage noted from the existing surgical wound and extending proximally to the ankle and lower leg. Status post BKA 08/28/[address] Maloney. Will call to discuss the case with surgery as antibiotic recommendations will depend on how far up the leg the infection was. Continue Vancomycin IV for now. Pharmacy to dose. Goal trough approximately 15. Wound care per surgery's recommendations. donor services technician to assist with discharge planning. Duration of treatment depends on the clinical picture. We will await Dr. Maloney's intra-op findings before we decide the course of antibiotics. If we can be certain that all infected bone is removed, no further antibiotic therapy will be required. Monitor renal function and for drug toxicity and dose-adjust antibiotics. (3) Foot abscess, left Current Visit: Yes Status: Acute Causative organism GBS and MRSA. Status post I & D 08/22/[address] Martin. Repeat I & D 08/25/17. Status post BKA 08/28/17. Antibiotics as above. (4) Nondisplaced fracture of first left metatarsal bone Current Visit: Yes Status: Acute Likely secondary to osteomyelitis. Qualifiers: Qualified Code(s): S92.315A - Nondisplaced fracture of first metatarsal bone , left foot, initial encounter for closed fracture (5) ROBSON (acute kidney injury) Current Visit: Yes Status: Resolved Likely secondary to sepsis. Resolved. Monitor closely and dose-adjust antibiotics. (6) DM2 (diabetes mellitus, type 2) Current Visit: Yes Status: Chronic Uncontrolled. A1C 9%. Recommend aggressive glucose monitoring and control to promote wound healing and prevent re-infection. Management per the primary team. Qualifiers: Qualified Code(s): E11.8 - Type 2 diabetes mellitus with unspecified complications; Z79.4 - penitentiary (current) use of insulin; Z79.4 - penitentiary ( current) use of insulin; Z79.4 - penitentiary (current) use of insulin; Z79.4 - termite helper (current) use of insulin (7) ANI (obstructive sleep apnea) Current Visit: Yes Status: Acute - Subjective Interval history: Patient seen and examined. Status post left BKA 08/28/[address] Maloney. Patient very drowsy and difficult to keep awake during exam. States overall he feels okay. Denies fevers, chills, or rigors. Denies chest pain, shortness of breath, or cough. Denies nausea, vomiting, or diarrhea. Denies urinary complaints. Denies abdominal pain, but states he doesn't have much of an appetite. Reports "a little" pain in the LLE at the surgical site. Denies oral thrush or skin rashes. Infect Dis PN-Objective Data - Labs CBC & Chem 7: 08/29/17 05:52 08/29/17 05:52 Labs: Laboratory Results - last 24 hr 08/28/17 08/28/17 08/28/17 07:49 11:38 16:34 WBC RBC Hgb Hct MCV MCH MCHC RDW Plt Count MPV Immature Gran % Seg Neutrophils % Lymphocytes % Monocytes % Eosinophils % Basophils % Neutrophils # Lymphocytes # Monocytes # Eosinophils # Basophils # Nucleated RBCs/100 WBC ESR Sodium Potassium Chloride Carbon Dioxide BUN Creatinine Est GFR ( Amer) Est GFR (Non-Af Amer) BUN/Creatinine Ratio Glucose POC Glucose 134 H 134 H 159 H Calculated Osmolality Calcium C-Reactive Protein 08/29/17 08/29/17 08/29/17 05:52 05:52 07:37 WBC 14.8 H RBC 3.24 L Hgb 8.1 L Hct 26.8 L MCV 82.7 L MCH 25.0 L MCHC 30.2 L RDW 16.4 H Plt Count 387 MPV 9.3 L Immature Gran % 3.6 Seg Neutrophils % 83.3 Lymphocytes % 8.3 Monocytes % 4.3 Eosinophils % 0.3 Basophils % 0.2 Neutrophils # 12.4 H Lymphocytes # 1.2 Monocytes # 0.6 Eosinophils # 0.0 Basophils # 0.0 Nucleated RBCs/100 WBC 0.1 H ESR Sodium 135 L Potassium 4.8 H Chloride 100 Carbon Dioxide 29 BUN 12 Creatinine 0.65 L Est GFR ( Amer) > 60 Est GFR (Non-Af Amer) > 60 BUN/Creatinine Ratio 18 Glucose 225 H POC Glucose 244 H Calculated Osmolality 287 Calcium 8.6 C-Reactive Protein 08/29/17 08/29/17 08/29/17 08:36 08:36 11:44 WBC RBC Hgb Hct MCV MCH MCHC RDW Plt Count MPV Immature Gran % Seg Neutrophils % Lymphocytes % Monocytes % Eosinophils % Basophils % Neutrophils # Lymphocytes # Monocytes # Eosinophils # Basophils # Nucleated RBCs/100 WBC ESR 128 H Sodium Potassium Chloride Carbon Dioxide BUN Creatinine Est GFR ( Amer) Est GFR (Non-Af Amer) BUN/Creatinine Ratio Glucose POC Glucose 172 H Calculated Osmolality Calcium C-Reactive Protein 111 H Cultures: Cultures 08/25/17 12:08 Anaerobic Culture - Preliminary Left Foot At this time, no anaerobic growth is present. The culture will be finalized after 5 days of incubation. 08/21/17 23:35 Anaerobic Culture - Final Left Foot No anaerobes were recovered. 08/21/17 23:35 Anaerobic Culture - Final Left Foot No anaerobes were recovered. 08/21/17 23:35 Anaerobic Culture - Final Left Foot No anaerobes were recovered. 08/21/17 23:35 Anaerobic Culture - Final Left Foot No anaerobes were recovered. 08/21/17 23:35 Anaerobic Culture - Final Left Foot No anaerobes were recovered. 08/21/17 23:35 Anaerobic Culture - Final Left Foot No anaerobes were recovered. 08/22/17 08:05 Blood Culture - Final Peripheral Venipuncture No growth. 08/22/17 08:00 Blood Culture - Final Peripheral Venipuncture No growth. 08/25/17 12:08 Wound Culture - Final Left Foot Methicillin Resistant S.aureus Strep agalactiae - (Group B) 08/21/17 23:35 Wound Culture - Final Left Foot Methicillin Resistant S.aureus Strep agalactiae - (Group B) 08/21/17 23:35 Wound Culture - Final Left Foot Methicillin Resistant S.aureus Strep agalactiae - (Group B) 08/21/17 23:35 Wound Culture - Final Left Foot Methicillin Resistant S.aureus Strep agalactiae - (Group B) 08/21/17 23:35 Wound Culture - Final Left Foot Methicillin Resistant S.aureus Strep agalactiae - (Group B) 08/21/17 23:35 Wound Culture - Final Left Foot Methicillin Resistant S.aureus Strep agalactiae - (Group B) 08/21/17 23:35 Wound Culture - Final Left Foot Strep agalactiae - (Group B) Methicillin Resistant S.aureus 08/21/17 23:35 Gram Stain - Final Left Foot 08/21/17 23:35 Gram Stain - Final Left Foot 08/21/17 23:35 Gram Stain - Final Left Foot 08/21/17 23:35 Gram Stain - Final Left Foot 08/21/17 23:35 Gram Stain - Final Left Foot Exam - Constitutional Vitals: Temp Pulse Resp BP Pulse Ox 98.9 F 86 17 139/85 93 08/29/17 11:47 08/29/17 11:47 08/29/17 11:47 08/29/17 11:47 08/29/17 11:47 General appearance: cooperative, morbidly obese, no acute distress - Head Head exam: Present: atraumatic, normal inspection, normocephalic - Eye Eye exam: Present: EOMI, normal appearance, PERRL Pupils: Present: normal accommodation - ENT ENT exam: Present: mucous membranes moist - Neck Neck exam: Present: normal inspection - Respiratory Respiratory exam: Present: CTAB. Absent: rales, respiratory distress, rhonchi, wheezes - Cardiovascular Cardiovascular exam: Present: RRR, +S1, +S2 - GI/Abdominal GI/Abdominal exam: Present: normal bowel sounds, soft. Absent: distended, tenderness - Extremities Exam Additional comments: Left BKA dressing/knee immobilizer intact. - Neurological Exam Neurological exam: Present: altered (Drowsy, difficult to keep awake during exam.), no focal deficits. Absent: oriented X3 (Oriented to person and place only.) - Psychiatric Psychiatric exam: Present: normal affect, normal mood - Skin Skin exam: Present: dry, intact, normal color, warm - VTE Documentation of Mechanical Device: Intermittent pneumatic compression device Consult Discharge Plan - Plan Referrals: Sunny Rodriguez MD [Primary Care Provider] - 08/29/17 11:00 am
[2017-08-29] MEDS: Ketorolac 15 MG/ML VIAL IVP SCH ×2 (14:19→16:50)
--- NOTE | 2017-08-29 14:19 | Internal Med Progress Note ---
Date of Encounter: 08/29/17 Time of Encounter: 10:45 - Assessment and plan (1) Acute osteomyelitis of left foot Current Visit: Yes Status: Acute Assessment and plan: Status post right below-knee amputation. Postop day 1. Surgery following. Continue local wound care. On vancomycin per infectious disease recommendations. Pain control with intravenous narcotic medications. High risk for complications. ESR and CRP are trending down. (2) Anemia of chronic disease Current Visit: Yes Status: Chronic Assessment and plan: Hemoglobin 8.1 today. We will continue to monitor. (3) DM2 (diabetes mellitus, type 2) Current Visit: Yes Status: Chronic Assessment and plan: Remain elevated. We will increase insulin coverage. Qualifiers: Diabetes mellitus complication status: with unspecified complications Diabetes mellitus termite inspector insulin use: with termite inspector use Qualified Code(s) : E11.8 - Type 2 diabetes mellitus with unspecified complications; Z79.4 - termite inspector (current) use of insulin (4) HTN (hypertension) Current Visit: Yes Status: Chronic Assessment and plan: Blood pressure is better controlled. Will continue to monitor for now. Intermittently elevated likely related to pain. Qualifiers: Hypertension type: essential hypertension Qualified Code(s): I10 - Essential (primary) hypertension (5) Hyponatremia Current Visit: Yes Status: Chronic Assessment and plan: Sodium is 135. - Subjective Interval history: Patient having significant pain in his left lower extremity at surgical site rated 10 out of 10 in severity. Denies any fever or chills. No dizziness or lightheadedness. - Constitutional Vitals: Temp Pulse Resp BP Pulse Ox 98.9 F 86 17 139/85 93 08/29/17 11:47 08/29/17 11:47 08/29/17 11:47 08/29/17 11:47 08/29/17 11:47 General appearance: Present: cooperative, mild distress, A&O X 3, answers questions appropriately - Neck Neck exam general surgery: Present: supple, trachea midline. Absent: lymphadenopathy - Respiratory Respiratory exam: Present: CTAB. Absent: accessory muscle use, rales, rhonchi, wheezes - Cardiovascular Cardiovascular exam: Present: RRR, +S1, +S2. Absent: diastolic murmur, gallop, rubs, systolic murmur - GI/Abdominal GI/Abdominal exam: Present: normal bowel sounds, soft, no peritoneal signs. Absent: distended, tenderness - Extremities Exam Extremities exam: Present: warm, radial pulses palpable and symmetrical. Absent : calf tenderness, cyanotic, pedal edema Additional comments: Status post left below-knee amputation. Currently bandaged. Internal Medicine: Result - Labs CBC & Chem 7: 08/29/17 05:52 08/29/17 05:52 Labs: Short CBC 08/29/17 Range/Units 05:52 WBC 14.8 H (4.3-11.1) K/mcL Hgb 8.1 L (12.9-16.9) g/dL Hct 26.8 L (37.5-50.1) % Plt Count 387 (140-400) K/mcL Neutrophils # 12.4 H (1.6-8.9) K/mcL BMP 08/29/17 05:52 Sodium 135 L Potassium 4.8 H Chloride 100 Carbon Dioxide 29 BUN 12 Creatinine 0.65 L Glucose 225 H Calcium 8.6 - ABG Interpretation ABG results: PT/INR, D-dimer PT 18.7 Seconds (9.4-12.1) H 08/21/17 09:03 - VTE Documentation of Mechanical Device: Intermittent pneumatic compression device Consult Discharge Plan - Plan Referrals: Sunny Rodriguez MD [Primary Care Provider] - 08/29/17 11:00 am
[2017-08-29] MEDS: Insulin DETEMIR 100 UNIT/ML X5UNITS SQ SCH (20:40)
[2017-08-29] MEDS: traZODone 50 MG TABLET PO SCH (20:41)
[2017-08-29] MEDS: *HR* OxyCODONE/APAP 10/325 TABLET PO PRN (22:37)
[2017-08-30] MEDS: Acetaminophen IV 500 MG/50 ML INFUS..BTL IVPB SCH ×2 (00:22→07:09)
[2017-08-30] MEDS: Ketorolac 15 MG/ML VIAL IVP SCH ×6 (00:22→18:04)
[2017-08-30] MEDS: Vancomycin 1,500 MG in D5% in Water 250 ML IVPB SCH ×2 (05:49→16:54)
[2017-08-30] MEDS: *HR* Enoxaparin 40 MG/0.4 ML SYRINGE SQ SCH (05:49)
[2017-08-30 07:05] LABS: Basophils % 0.2 %; Eosinophils # 0.1 K/mcL (0.0-0.6); Eosinophils % 0.9 %; Hematocrit 24.2 % (37.5-50.1); Hemoglobin 7.4 g/dL (12.9-16.9); Immature Granulocytes % 2.6 % (0-4); Lymphocytes # 1.6 K/mcL (0.6-4.6); Lymphocytes % 14.8 %; Mean Corpuscular HGB Conc 30.6 g/dL (31.6-35.5); Mean Corpuscular Hemoglobin 25.9 pg (28.0-33.3); Mean Corpuscular Volume 84.6 fL (83.0-100.0); Mean Platelet Volume 9.3 fL (9.4-12.4); Monocytes # 0.8 K/mcL (0.0-1.3); Monocytes % 7.2 %; Neutrophils # 8.1 K/mcL (1.6-8.9); Nucleated Red Blood Cells 0.2 /100 WBC (0); Platelet Count 330 K/mcL (140-400); Red Blood Count 2.86 M/mcL (4.19-5.50); Red Cell Distribution Width 16.7 % (11.5-14.5); Segmented Neutrophils % 74.3 %
--- NOTE | 2017-08-30 09:08 | General Surgery Progress Note ---
<Celia Joshi - Last Filed: 08/30/17 09:06> Date of Encounter: 08/30/17 Time of Encounter: 07:00 - Assessment and Plan (1) Acute osteomyelitis of left foot Current Visit: Yes Status: Acute Patient is postop day #2 of left below-knee amputation secondary to osteomyelitis of the left foot from MRSA and group B strep. Pain is well controlled today and patient is able to lift L leg and straighten out his knee. Incision is healing well without signs of infection. Overnight was febrile to 100.7, but WBC decreased to 11.0 (14.8), Hgb decreased to 7.4 from 8.1. Patient already typed and screened. Currently transfusing 1 unit of PRBCs (according to the Blood bank record). BMP not ordered this morning; ordered at 0930 as K was increasing. Patient's incisional drainage has minimal blood, so most likely 2/2 dilution. Will continue to monitor though. Continue Vancomycin. Plan: - Changed acetaminophen from IV to PO (do not exceed 1g with percocet), can continue percocet 10/325mg Q4hr prn for pain, prn hydromorphine for pain rated 8 -10 and scheduled toradol 15mg Q 6hrs x 3 days - IV fluids stopped - f/u on BMP - out of bed at least TID with meals. PT/OT for d/c planning - daily dressing changes with zeroform and wrap with kerlex then wrap with ROSARIO bandage -Continue Vancomycin for 3-5 more days. (2) DM2 (diabetes mellitus, type 2) Current Visit: Yes Status: Chronic In the last 24 hrs blood glucose max 268. For optimal wound healing BG below 150. DM continue to be managed by primary team. Qualifiers: Diabetes mellitus complication status: with unspecified complications Diabetes mellitus regional driver insulin use: with half-way use Qualified Code(s) : E11.8 - Type 2 diabetes mellitus with unspecified complications; Z79.4 - senior care (current) use of insulin; Z79.4 - attendant arcade (current) use of insulin; Z79.4 - attendant arcade (current) use of insulin; Z79.4 - attendant arcade (current) use of insulin (3) ROBSON (acute kidney injury) Current Visit: Yes Status: Resolved BMP not returned yet but yesterday resolved. (4) Anxiety Current Visit: Yes Status: Acute Currently with pain well controlled anxiety has decreased. Anxiety well controlled. Subjective Narrative: Patient is a 51-year-old male status post below knee amputation on 08/28/17 2/ osteomyelitis of the left foot infected with MRSA and GBS. Overnight, patient was febrile to 100.7 but fever resolved but was given Ofirmev. Today, patient's pain is well controlled. Patient was able to sleep last night. No BM yet. Objective Vital Signs - Last 8 Hours Temp Pulse Resp BP Pulse Ox 08/30/17 07:38 99.0 F 69 18 134/80 96 08/30/17 03:18 97.8 F 79 18 110/72 93 Intake and Output 08/29/17 08/30/17 08/30/17 23:59 07:59 15:59 Intake Total 300 / 300 290 / 290 Output Total 700 / 700 Balance -400 / -400 290 / 290 Intake: IV Fluids 300 / 300 50 / 50 Ofirmev 1,000 mg/100 ml 500 mg 50 / 50 50 / 50 In 50 ml @ 200 mls/hr IVPB Q6HR [facility] Rx#:[id number] Vancocin 1,500 MG In Dextrose 5 250 / 250 % 250 ML @ 166.67 mls/hr IVPB Q12H [facility] Rx#:[id number] Oral 240 / 240 Output: Urine 700 / 700 Other: # Voids 1 Blood Glucose* 268 - Additional Exam Constitutional: Alert, in no acute distress, well nourished, well developed. Head: Normocephalic, atraumatic, normal contour and symmetric, no masses, lesions or scars Heart: Normal, regular rate and rhythm, no murmurs Lungs: Clear to auscultation, no wheezes, rales, or rhonchi Abdomen: Soft, nondistended, nontender, and no masses palpable, bowel sounds present and normal, no guarding or rigidity. Extremities: L below the knee amputation with incision stabled and skin without changes in color, no dog earring of the skin, no signs of infection, small amount of serosanguinous fluid drainage on bandage, patient is able to lift leg and straighten out knee, no edema, No clubbing, cyanosis, capillary refill < 2sec., Skin: Skin warm and dry, no lesions, no rashes, no jaundice Neurologic: Cranial nerves II through XII grossly intact, no focal deficits, strength within normal limits in all extremities Psych: Cooperative with exam, good eye contact, cognitive function intact, judgment good insight good, speech clear, thought process logical, and goal directed - Labs 08/30/17 06:37 08/29/17 05:52 - VTE Documentation of Mechanical Device: Intermittent pneumatic compression device Consult Discharge Plan - Plan Referrals: Sunny Rodriguez MD [Primary Care Provider] - 08/29/17 11:00 am <Kentrell Maloney - Last Filed: 08/30/17 17:46> Date of Encounter: 08/30/17 - Assessment and Plan (1) Acute osteomyelitis of left foot Current Visit: Yes Status: Acute Objective Intake and Output 08/30/17 08/30/17 08/30/17 07:59 15:59 23:59 Intake Total 290 / 290 490 / 490 240 / 240 Output Total 200 / 200 Balance 290 / 290 490 / 490 40 / 40 Intake: IV Fluids 50 / 50 250 / 250 Ofirmev 1,000 mg/100 ml 500 mg 50 / 50 In 50 ml @ 200 mls/hr IVPB Q6HR [facility] Rx#:[id number] Vancocin 1,500 MG In Dextrose 5 250 / 250 % 250 ML @ 166.67 mls/hr IVPB Q12H [facility] Rx#:[id number] Oral 240 / 240 240 / 240 240 / 240 Output: Urine 200 / 200 Other: Meal Lunch Dinner Percent of Meal Consumed 100% 100% Stool Size Large Stool Consistency soft Stool Characteristics Normal for Patient Stool Color Brown Blood Glucose* 125 - Labs 08/30/17 13:00 08/30/17 06:37 Diabetes panel 08/30/17 Range/Units 06:37 Sodium 135 L (136-145) mEq/L Potassium 4.2 (3.5-4.5) mEq/L Chloride 100 (98-109) mEq/L Carbon Dioxide 29 (19-29) mEq/L BUN 12 (8-26) mg/dL Creatinine 0.69 L (0.72-1.25) mg/dL Glucose 160 H (70-99) mg/dL Calcium 8.2 L (8.6-10.8) mg/dL Calcium panel 08/30/17 Range/Units 06:37 Calcium 8.2 L (8.6-10.8) mg/dL Pituitary panel 08/30/17 Range/Units 06:37 Sodium 135 L (136-145) mEq/L Potassium 4.2 (3.5-4.5) mEq/L Chloride 100 (98-109) mEq/L Carbon Dioxide 29 (19-29) mEq/L BUN 12 (8-26) mg/dL Creatinine 0.69 L (0.72-1.25) mg/dL Glucose 160 H (70-99) mg/dL Calcium 8.2 L (8.6-10.8) mg/dL Adrenal panel 08/30/17 Range/Units 06:37 Sodium 135 L (136-145) mEq/L Potassium 4.2 (3.5-4.5) mEq/L Chloride 100 (98-109) mEq/L Carbon Dioxide 29 (19-29) mEq/L BUN 12 (8-26) mg/dL Creatinine 0.69 L (0.72-1.25) mg/dL Glucose 160 H (70-99) mg/dL Calcium 8.2 L (8.6-10.8) mg/dL - Attending Attestation I examined this patient and my medical decision-making was reviewed with the Resident Physician. I agree with the documented findings, disposition and treatment plan as described except to the extent set forth below. The patient is seen in evaluated on morning rounds. The left below-knee amputation dressing was removed. The technical result this perfect. There is no evidence of cellulitis. He has good mobility of the knee joint. Kentrell Maloney MD FACS
[2017-08-30] MEDS ORDERED: Acetaminophen 325 MG TABLET PO PRN (09:57)
[2017-08-30] MEDS: Insulin DETEMIR 100 UNIT/ML X5UNITS SQ SCH ×2 (10:45→22:28)
[2017-08-30] MEDS: *HR* OxyCODONE/APAP 10/325 TABLET PO PRN ×3 (10:47→22:07)
[2017-08-30] MEDS: Insulin LISPRO 300 UNITS/3 ML VIAL SQ SCH ×5 (10:54→22:11)
[2017-08-30] MEDS: Lisinopril 20 MG TABLET PO SCH (10:54)
[2017-08-30] MEDS: Gabapentin 400 MG CAPSULE PO SCH ×3 (10:54→22:07)
[2017-08-30] MEDS: Famotidine 20 MG TABLET PO SCH ×2 (10:54→15:45)
[2017-08-30 11:20] LABS: BUN/Creatinine Ratio 17 (6-26); Blood Urea Nitrogen 12 mg/dL (8-26); Calcium 8.2 mg/dL (8.6-10.8); Carbon Dioxide 29 mEq/L (19-29); Chloride 100 mEq/L (98-109); Glucose 160 mg/dL (70-99); Osmolality,Calculated 283 (280-300); Potassium 4.2 mEq/L (3.5-4.5); Sodium 135 mEq/L (136-145); eGFR For African Americans > 60 (> 60); eGFR For Non-African Americans > 60 (> 60)
--- NOTE | 2017-08-30 12:31 | Infectious Disease Progress No ---
Date of Encounter: 08/30/17 Time of Encounter: 12:28 - Assessment and Plan (1) Septic shock Current Visit: Yes Status: Resolved The patient had two SIRS criteria plus hypotension requiring vasopressors. Likely secondary to left foot osteomyelitis. Improved. WBC has normalized, but the patient did have a fever overnight. Blood cultures drawn 08/22/17 are negative x 2 sets. (2) Acute osteomyelitis of left foot Current Visit: Yes Status: Acute Location: Left foot, first metatarsal. Causative organism MRSA and GBS. Likely secondary to previously-reported DFUs. MRI of the left foot showed osteomyelitis of the first metatarsal at the forefoot, midfoot, and hindfoot, as well as septic arthritis of the 1st MTP joint. Additionally, there was advanced myositis of the distal calf and foot, a large phlegmon in the dorsum subcutaneous forefoot, and multiple small abscesses in the plantar subcutaneous forefoot. Podiatry was consulted. The patient was taken to the OR 08/22/17 and had 1st ray amputation of the left foot, I & D of the left foot, and bone biopsy of the medial cuneiform, navicular, and talus. Operative note reviewed. Infection extensive. Patient was taken back to the OR 08/25/17 and has incision and drainage of left ankle/leg and excisional debridement of the left foot wound. Purulent drainage noted from the existing surgical wound and extending proximally to the ankle and lower leg. Status post BKA 08/28/[address] Maloney. Clinically, the stump looks great. Continue Vancomycin IV for now (day 2 post-op). Pharmacy to dose. Goal trough approximately 15. Wound care per surgery's recommendations. community services manager to assist with discharge planning. Duration of treatment depends on the clinical picture. The patient's WBC has normalized, but he did have a fever last night. Will continue antibiotics for now. Monitor renal function and for drug toxicity and dose-adjust antibiotics. (3) Foot abscess, left Current Visit: Yes Status: Acute Causative organism GBS and MRSA. Status post I & D 08/22/[address] Martin. Repeat I & D 08/25/17. Status post BKA 08/28/17. Antibiotics as above. (4) Nondisplaced fracture of first left metatarsal bone Current Visit: Yes Status: Acute Likely secondary to osteomyelitis. Qualifiers: Encounter type: initial encounter Fracture type: closed Qualified Code(s) : S92.315A - Nondisplaced fracture of first metatarsal bone, left foot, initial encounter for closed fracture (5) ROBSON (acute kidney injury) Current Visit: Yes Status: Resolved Likely secondary to sepsis. Resolved. Monitor closely and dose-adjust antibiotics. (6) DM2 (diabetes mellitus, type 2) Current Visit: Yes Status: Chronic Uncontrolled. A1C 9%. Recommend aggressive glucose monitoring and control to promote wound healing and prevent re-infection. Management per the primary team. Qualifiers: Diabetes mellitus complication status: with unspecified complications Diabetes mellitus wallet assembler insulin use: with half-way use Qualified Code(s) : E11.8 - Type 2 diabetes mellitus with unspecified complications; Z79.4 - [facility] (current) use of insulin (7) ANI (obstructive sleep apnea) Current Visit: Yes Status: Acute - Subjective Interval history: Patient seen and examined. Status post left BKA 08/28/[address] Maloney. Patient more alert this morning. States overall he feels okay. Denies fevers, chills, or rigors. Denies chest pain, shortness of breath, or cough. Denies nausea, vomiting, or diarrhea. Denies urinary complaints. Denies abdominal pain and states his appetite is better today. He denies pain in the LLE at the surgical site. Denies oral thrush or skin rashes. Infect Dis PN-Objective Data - Labs CBC & Chem 7: 08/30/17 06:37 08/30/17 06:37 Labs: Laboratory Results - last 24 hr 08/29/17 08/29/17 08/30/17 16:20 20:05 06:37 WBC 11.0 RBC 2.86 L Hgb 7.4 L Hct 24.2 L MCV 84.6 MCH 25.9 L MCHC 30.6 L RDW 16.7 H Plt Count 330 MPV 9.3 L Immature Gran % 2.6 Seg Neutrophils % 74.3 Lymphocytes % 14.8 Monocytes % 7.2 Eosinophils % 0.9 Basophils % 0.2 Neutrophils # 8.1 Lymphocytes # 1.6 Monocytes # 0.8 Eosinophils # 0.1 Basophils # 0.0 Nucleated RBCs/100 WBC 0.2 H Sodium Potassium Chloride Carbon Dioxide BUN Creatinine Est GFR ( Amer) Est GFR (Non-Af Amer) BUN/Creatinine Ratio Glucose POC Glucose 153 H 268 H Calculated Osmolality Calcium 08/30/17 06:37 WBC RBC Hgb Hct MCV MCH MCHC RDW Plt Count MPV Immature Gran % Seg Neutrophils % Lymphocytes % Monocytes % Eosinophils % Basophils % Neutrophils # Lymphocytes # Monocytes # Eosinophils # Basophils # Nucleated RBCs/100 WBC Sodium 135 L Potassium 4.2 Chloride 100 Carbon Dioxide 29 BUN 12 Creatinine 0.69 L Est GFR ( Amer) > 60 Est GFR (Non-Af Amer) > 60 BUN/Creatinine Ratio 17 Glucose 160 H POC Glucose Calculated Osmolality 283 Calcium 8.2 L Cultures: Cultures 08/25/17 12:08 Anaerobic Culture - Final Left Foot No anaerobes were recovered. 08/21/17 23:35 Anaerobic Culture - Final Left Foot No anaerobes were recovered. 08/21/17 23:35 Anaerobic Culture - Final Left Foot No anaerobes were recovered. 08/21/17 23:35 Anaerobic Culture - Final Left Foot No anaerobes were recovered. 08/21/17 23:35 Anaerobic Culture - Final Left Foot No anaerobes were recovered. 08/21/17 23:35 Anaerobic Culture - Final Left Foot No anaerobes were recovered. 08/21/17 23:35 Anaerobic Culture - Final Left Foot No anaerobes were recovered. 08/22/17 08:05 Blood Culture - Final Peripheral Venipuncture No growth. 08/22/17 08:00 Blood Culture - Final Peripheral Venipuncture No growth. 08/25/17 12:08 Wound Culture - Final Left Foot Methicillin Resistant S.aureus Strep agalactiae - (Group B) 08/21/17 23:35 Wound Culture - Final Left Foot Methicillin Resistant S.aureus Strep agalactiae - (Group B) 08/21/17 23:35 Wound Culture - Final Left Foot Methicillin Resistant S.aureus Strep agalactiae - (Group B) 08/21/17 23:35 Wound Culture - Final Left Foot Methicillin Resistant S.aureus Strep agalactiae - (Group B) 08/21/17 23:35 Wound Culture - Final Left Foot Methicillin Resistant S.aureus Strep agalactiae - (Group B) 08/21/17 23:35 Wound Culture - Final Left Foot Methicillin Resistant S.aureus Strep agalactiae - (Group B) 08/21/17 23:35 Wound Culture - Final Left Foot Strep agalactiae - (Group B) Methicillin Resistant S.aureus 08/21/17 23:35 Gram Stain - Final Left Foot 08/21/17 23:35 Gram Stain - Final Left Foot 08/21/17 23:35 Gram Stain - Final Left Foot 08/21/17 23:35 Gram Stain - Final Left Foot 08/21/17 23:35 Gram Stain - Final Left Foot Exam - Constitutional Vitals: Temp Pulse Resp BP Pulse Ox 99.0 F 69 18 134/80 96 08/30/17 07:38 08/30/17 07:38 08/30/17 07:38 08/30/17 07:38 08/30/17 07:38 General appearance: cooperative, morbidly obese, no acute distress - Head Head exam: Present: atraumatic, normal inspection, normocephalic - Eye Eye exam: Present: EOMI, normal appearance, PERRL Pupils: Present: normal accommodation - ENT ENT exam: Present: mucous membranes moist - Neck Neck exam: Present: normal inspection - Respiratory Respiratory exam: Present: CTAB. Absent: rales, respiratory distress, rhonchi, wheezes - Cardiovascular Cardiovascular exam: Present: RRR, +S1, +S2 - GI/Abdominal GI/Abdominal exam: Present: distended (obese), normal bowel sounds, soft. Absent: tenderness - Extremities Exam Additional comments: LLE BKA with augie intact and wound edges well-approximated. No erythema, drainage, or tenderness noted. - Neurological Exam Neurological exam: Present: alert, oriented X3, no focal deficits - Psychiatric Psychiatric exam: Present: normal affect, normal mood - Skin Skin exam: Present: dry, intact, normal color, warm - VTE Documentation of Mechanical Device: Intermittent pneumatic compression device Consult Discharge Plan - Plan Referrals: Sunny Rodriguez MD [Primary Care Provider] - 08/29/17 11:00 am
--- NOTE | 2017-08-30 12:52 | Internal Med Progress Note ---
Date of Encounter: 08/30/17 Time of Encounter: 09:30 - Assessment and plan (1) Acute osteomyelitis of left foot Current Visit: Yes Status: Acute Assessment and plan: S/p Left BKA. Post op day 2. Patient doing well overall. Surgery recommends continuing vancomycin for 3-5 more days. Continue PTOT. Awaiting placement to skilled rehabilitation. (2) Anemia of chronic disease Current Visit: Yes Status: Chronic Assessment and plan: Hgb 7.4 today. Will monitor and transfuse if trends downwards. (3) DM2 (diabetes mellitus, type 2) Current Visit: Yes Status: Chronic Assessment and plan: Uncontrolled. Will add prandial coverage. Continue to monitor blood sugars. ADA diet. Qualifiers: Diabetes mellitus complication status: with unspecified complications Diabetes mellitus residential insulin use: with seam press operator use Qualified Code(s) : E11.8 - Type 2 diabetes mellitus with unspecified complications; Z79.4 - intermediate (current) use of insulin (4) HTN (hypertension) Current Visit: Yes Status: Chronic Assessment and plan: Well controlled. Qualifiers: Hypertension type: essential hypertension Qualified Code(s): I10 - Essential (primary) hypertension (5) Hyponatremia Current Visit: Yes Status: Chronic Assessment and plan: Stable - Subjective Interval history: Patient is doing better today. Pain is better controlled. No fever or chills reported. No dizziness or lightheadedness. - Constitutional Vitals: Temp Pulse Resp BP Pulse Ox 99.0 F 69 18 134/80 96 08/30/17 07:38 08/30/17 07:38 08/30/17 07:38 08/30/17 07:38 08/30/17 07:38 General appearance: Present: cooperative, A&O X 3, no acute distress, answers questions appropriately - Neck Neck exam general surgery: Present: supple, trachea midline. Absent: lymphadenopathy - Respiratory Respiratory exam: Present: CTAB. Absent: accessory muscle use, rales, rhonchi, wheezes - Cardiovascular Cardiovascular exam: Present: RRR, +S1, +S2. Absent: diastolic murmur, gallop, rubs, systolic murmur - GI/Abdominal GI/Abdominal exam: Present: normal bowel sounds, soft, no peritoneal signs. Absent: distended, tenderness - Extremities Exam Extremities exam: Present: warm, radial pulses palpable and symmetrical. Absent : calf tenderness, cyanotic, pedal edema Additional comments: left lower extremity stump bandaged and healing well. - Neurological Exam Neurological exam: Present: alert, oriented X3, no focal deficits. Absent: facial droop, speech deficit Internal Medicine: Result - Labs CBC & Chem 7: 08/30/17 06:37 08/30/17 06:37 Labs: Short CBC 08/30/17 Range/Units 06:37 WBC 11.0 (4.3-11.1) K/mcL Hgb 7.4 L (12.9-16.9) g/dL Hct 24.2 L (37.5-50.1) % Plt Count 330 (140-400) K/mcL Neutrophils # 8.1 (1.6-8.9) K/mcL BMP 08/30/17 06:37 Sodium 135 L Potassium 4.2 Chloride 100 Carbon Dioxide 29 BUN 12 Creatinine 0.69 L Glucose 160 H Calcium 8.2 L - ABG Interpretation ABG results: PT/INR, D-dimer PT 18.7 Seconds (9.4-12.1) H 08/21/17 09:03 - VTE Documentation of Mechanical Device: Intermittent pneumatic compression device Consult Discharge Plan - Plan Referrals: Sunny Rodriguez MD [Primary Care Provider] - 08/29/17 11:00 am
[2017-08-30 13:06] LABS: Hematocrit 25.3 % (37.5-50.1); Hemoglobin 7.9 g/dL (12.9-16.9)
--- NOTE | 2017-08-30 14:06 | Podiatry Progress Note ---
Date of Encounter: 08/30/17 Time of Encounter: 01:45 - Assessment and Plan (1) DM2 (diabetes mellitus, type 2) Current Visit: Yes Status: Chronic reviewed with patient proper diabetic foot care and complication prevention. discussed checking his feet daily for open sores. discussed lack of feeling due to diabetes effecting the nerves. patient has profound neuropathy. Rx left with patient for right custom diabetic shoe insert and orthopedic shoes (for both proesthesis side and right side). I think he would benefit from these as he does have profound neuropathy and at risk for developing ulceration and subsequent infection which could lead to amputation. I discussed getting the custom molded orthotics and shoes with the patient and his daughter to try to prevent future diabetic foot issues. Qualifiers: Diabetes mellitus complication status: with neurologic complications Diabetes mellitus complication detail: with polyneuropathy Diabetes mellitus rodent 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 insulin use: with care home use Qualified Code(s): E11.42 - Type 2 diabetes mellitus with diabetic polyneuropathy; Z79.4 - long term care administrator (current) use of insulin; Z79.4 - custodial (current) use of insulin; Z79.4 - custodial ( current) use of insulin; Z79.4 - long term care administrator (current) use of insulin Subjective Principal diagnosis: diabetes with neuropathy Interval history: patient is s/p left BKA. says he is doing well. denies any complaints about his right foot at this time. Objective - Vital Signs Vital Signs: Vital Signs Temp Pulse Resp BP Pulse Ox 08/30/17 07:38 99.0 F 69 18 134/80 96 08/30/17 03:18 97.8 F 79 18 110/72 93 08/30/17 00:19 99.0 F 08/29/17 23:52 100.0 F H 08/29/17 23:00 100.7 F H 87 19 143/83 95 08/29/17 19:10 98.6 F 91 19 121/74 96 08/29/17 16:23 98.8 F 82 15 156/82 96 Intake and Output 08/29/17 08/30/17 08/30/17 23:59 07:59 15:59 Intake Total 300 / 300 290 / 290 490 / 490 Output Total 700 / 700 Balance -400 / -400 290 / 290 490 / 490 Intake: IV Fluids 300 / 300 50 / 50 250 / 250 Ofirmev 1,000 mg/100 ml 500 mg 50 / 50 50 / 50 In 50 ml @ 200 mls/hr IVPB Q6HR [facility] Rx#:[id number] Vancocin 1,500 MG In Dextrose 5 250 / 250 250 / 250 % 250 ML @ 166.67 mls/hr IVPB Q12H [facility] Rx#:[id number] Oral 240 / 240 240 / 240 Output: Urine 700 / 700 Other: Meal Lunch Percent of Meal Consumed 100% Stool Size Large Stool Consistency soft Stool Characteristics Normal for Patient Stool Color Brown # Voids 1 Blood Glucose* 268 - Exam Exam: well developed obese male in no acute distress Vasc: CFT < 3 sec x 5 digits right foot. right foot is warm to touch. + pedal hairgrowth. Derm: no open lesions. no erythema. left BKA. Musc: no pain with right foot/ankle ROM. Neuro: absent sensation consistent with neuropathy. - Lab Result Diagrams: 08/30/17 13:00 08/30/17 06:37 Labs: Abnormal lab results RBC 2.86 M/mcL (4.19-5.50) L 08/30/17 06:37 Hgb 7.9 g/dL (12.9-16.9) L 08/30/17 13:00 Hct 25.3 % (37.5-50.1) L 08/30/17 13:00 MCH 25.9 pg (28.0-33.3) L 08/30/17 06:37 MCHC 30.6 g/dL (31.6-35.5) L 08/30/17 06:37 RDW 16.7 % (11.5-14.5) H 08/30/17 06:37 MPV 9.3 fL (9.4-12.4) L 08/30/17 06:37 Nucleated RBCs/100 WBC 0.2 /100 WBC (0) H 08/30/17 06:37 Toxic Granulation Present (Not Present) A 08/28/17 04:48 Polychromasia 1+ (Not Present) A 08/27/17 03:30 Anisocytosis 1+ (Not Present) A 08/28/17 04:48 ESR 128 mm/hr (0-10) H 08/29/17 08:36 PT 18.7 Seconds (9.4-12.1) H 08/21/17 09:03 Sodium 135 mEq/L (136-145) L 08/30/17 06:37 Creatinine 0.69 mg/dL (0.72-1.25) L 08/30/17 06:37 Glucose 160 mg/dL (70-99) H 08/30/17 06:37 POC Glucose 268 (58-89) H 08/29/17 20:05 Hemoglobin A1c 9.0 % (-5.6) H 08/22/17 08:04 Calcium 8.2 mg/dL (8.6-10.8) L 08/30/17 06:37 Magnesium 1.3 mg/dL (1.6-2.6) L 08/22/17 08:04 Alkaline Phosphatase 150 Units/L (38-126) H 08/21/17 09:03 C-Reactive Protein 111 mg/L (Less than 5) H 08/29/17 08:36 Albumin 2.0 g/dL (3.5-5.0) L 08/21/17 09:03 Globulin 4.8 g/dL (2.4-3.5) H 08/21/17 09:03 Albumin/Globulin Ratio 0.4 (1.1-2.2) L 08/21/17 09:03 HDL Cholesterol 5 mg/dL (40-59) L 08/22/17 08:04 Cholesterol/HDL Ratio 12.8 (0-4.9) H 08/22/17 08:04 Vancomycin Trough 28.3 mcg/mL (10-20) H* 08/26/17 05:23 Microbiology, Last 48 Hours 08/25/17 12:08 Anaerobic Culture - Final Left Foot No anaerobes were recovered. - VTE Documentation of Mechanical Device: Intermittent pneumatic compression device Consult Discharge Plan - Plan Referrals: Sunny Rodriguez MD [Primary Care Provider] - 08/29/17 11:00 am
[2017-08-30] MEDS: traZODone 50 MG TABLET PO SCH (22:07)
[2017-08-31] MEDS: Ketorolac 15 MG/ML VIAL IVP SCH ×3 (00:51→12:25)
[2017-08-31 05:05] LABS: Basophils % 0.4 %; Eosinophils # 0.2 K/mcL (0.0-0.6); Eosinophils % 1.9 %; Hematocrit 25.7 % (37.5-50.1); Hemoglobin 7.7 g/dL (12.9-16.9); Immature Granulocytes % 1.4 % (0-4); Lymphocytes # 1.8 K/mcL (0.6-4.6); Lymphocytes % 23.3 %; Mean Corpuscular Volume 83.4 fL (83.0-100.0); Mean Platelet Volume 9.2 fL (9.4-12.4); Monocytes # 0.5 K/mcL (0.0-1.3); Neutrophils # 5.1 K/mcL (1.6-8.9); Platelet Count 337 K/mcL (140-400); Red Blood Count 3.08 M/mcL (4.19-5.50); Red Cell Distribution Width 16.5 % (11.5-14.5)
[2017-08-31 05:19] LABS: BUN/Creatinine Ratio 18 (6-26); Blood Urea Nitrogen 13 mg/dL (8-26); Calcium 8.3 mg/dL (8.6-10.8); Carbon Dioxide 29 mEq/L (19-29); Chloride 101 mEq/L (98-109); Glucose 85 mg/dL (70-99); Osmolality,Calculated 281 (280-300); Potassium 4.2 mEq/L (3.5-4.5); Sodium 136 mEq/L (136-145); eGFR For African Americans > 60 (> 60); eGFR For Non-African Americans > 60 (> 60)
[2017-08-31] MEDS: Vancomycin 1,500 MG in D5% in Water 250 ML IVPB SCH (05:33)
[2017-08-31] MEDS: *HR* Enoxaparin 40 MG/0.4 ML SYRINGE SQ SCH (05:33)
[2017-08-31] MEDS: Insulin LISPRO 300 UNITS/3 ML VIAL SQ SCH ×7 (08:34→21:27)
[2017-08-31] MEDS: Insulin DETEMIR 100 UNIT/ML X5UNITS SQ SCH ×2 (08:50→21:27)
[2017-08-31] MEDS: Famotidine 20 MG TABLET PO SCH ×2 (08:50→14:56)
[2017-08-31] MEDS: Lisinopril 20 MG TABLET PO SCH (08:51)
[2017-08-31] MEDS: Gabapentin 400 MG CAPSULE PO SCH ×3 (08:51→21:27)
[2017-08-31] MEDS ORDERED: Aminoglycoside Consult 1 EACH MC ONE (09:28)
[2017-08-31] MEDS: *HR* OxyCODONE/APAP 10/325 TABLET PO PRN ×3 (10:18→21:36)
[2017-08-31] MEDS ORDERED: *HR* HYDROmorphone (PF) 1 MG/ML SYRINGE IVP PRN (11:17)
--- NOTE | 2017-08-31 11:25 | General Surgery Progress Note ---
<Jailyn Clements - Last Filed: 08/31/17 12:23> Date of Encounter: 08/31/17 Time of Encounter: 11:00 - Assessment and Plan (1) Acute osteomyelitis of left foot Current Visit: Yes Status: Acute POD #3 LEft below the knee amputation No s/s of infection noted. Dressing is clean and dry. Dressing changes per nursing staff; No s/s of infection Discomfort is not well controlled. Increase Percocet to 2 tabs Q4H PRN. Scheduled ibuprofen. Stop Toradol today. Decrease frequency of IV hydromorphone. Out of bed at least TID with meals. PT/OT for d/c planning Ok to d/c from a surgical perspective Stop Vancomycin Follow-up in office with Dr. Maloney 09/13/2017. (2) DM2 (diabetes mellitus, type 2) Current Visit: Yes Status: Chronic Management per medicine. Noted resumed long acting insulin in addition to sliding scale. Glucose is controlled at this time. Qualifiers: Diabetes mellitus complication status: with neurologic complications Diabetes mellitus complication detail: with polyneuropathy Diabetes mellitus care home insulin use: with intermediate card tender use Qualified Code(s): E11.42 - Type 2 diabetes mellitus with diabetic polyneuropathy; Z79.4 - penitentiary (current) use of insulin; Z79.4 - penitentiary (current) use of insulin; Z79.4 - penitentiary ( current) use of insulin; Z79.4 - long term care administrator (current) use of insulin (3) ROBSON (acute kidney injury) Current Visit: Yes Status: Resolved Resolved; Management per medicine (4) Anxiety Current Visit: Yes Status: Resolved No CP, SOB, or able to states any correlating anxiety causes. Denies history of anxiety. VSS. Will treat with one dose of Ativan. Subjective Patient reports: no new complaints, feels better, still having pain, pain is less, tolerating a regular diet, voiding w/o difficulty, flatus, bowel movement , afebrile Objective Vital Signs - Last 8 Hours Temp Pulse Resp BP Pulse Ox 08/31/17 10:55 97.9 F 83 14 151/81 99 08/31/17 10:43 83 13 123/71 98 08/31/17 07:48 98.0 F 86 16 152/89 100 Intake and Output 08/30/17 08/31/17 08/31/17 23:59 07:59 15:59 Intake Total 490 / 490 Output Total 800 / 800 900 / 900 Balance -310 / -310 -900 / -900 Intake: IV Fluids 250 / 250 Vancocin 1,500 MG In Dextrose 5 250 / 250 % 250 ML @ 166.67 mls/hr IVPB Q12H [facility] Rx#:[id number] Oral 240 / 240 Output: Urine 800 / 800 900 / 900 Other: Meal Dinner Percent of Meal Consumed 100% Weight 133 kg Blood Glucose* 111 136 141 Patient Weight 08/31/17 23:59 Weight 133 kg - General physical appearance no distress, moderate pain - Eyes normal ocular movement - ENT atraumatic, normocephalic - Neck Neck exam: no masses, trachea midline, no venous distension - Respiratory other (Decreased bibasilar) - Cardiovascular Cardiovascular exam: Present: RRR, distant heart sounds - Abdomen Abdomen: Present: bowel sounds present, soft, non tender Hernia: none - Incision Incision: Present: clean and dry, intact - Integumentary no rash - Neurologic CN 2-12 grossly intact, normal coordination, normal sensation - Musculoskeletal normal gait, normal posture, other (Left BKA) - Psychiatric oriented to time, oriented to person, oriented to place, speech is normal, memory intact - Labs 08/31/17 04:56 08/31/17 04:56 Diabetes panel 08/30/17 08/31/17 Range/Units 06:37 04:56 Sodium 135 L 136 (136-145) mEq/L Potassium 4.2 4.2 (3.5-4.5) mEq/L Chloride 100 101 (98-109) mEq/L Carbon Dioxide 29 29 (19-29) mEq/L BUN 12 13 (8-26) mg/dL Creatinine 0.69 L 0.71 L (0.72-1.25) mg/dL Glucose 160 H 85 (70-99) mg/dL Calcium 8.2 L 8.3 L (8.6-10.8) mg/dL Calcium panel 08/30/17 08/31/17 Range/Units 06:37 04:56 Calcium 8.2 L 8.3 L (8.6-10.8) mg/dL Pituitary panel 08/30/17 08/31/17 Range/Units 06:37 04:56 Sodium 135 L 136 (136-145) mEq/L Potassium 4.2 4.2 (3.5-4.5) mEq/L Chloride 100 101 (98-109) mEq/L Carbon Dioxide 29 29 (19-29) mEq/L BUN 12 13 (8-26) mg/dL Creatinine 0.69 L 0.71 L (0.72-1.25) mg/dL Glucose 160 H 85 (70-99) mg/dL Calcium 8.2 L 8.3 L (8.6-10.8) mg/dL Adrenal panel 08/30/17 08/31/17 Range/Units 06:37 04:56 Sodium 135 L 136 (136-145) mEq/L Potassium 4.2 4.2 (3.5-4.5) mEq/L Chloride 100 101 (98-109) mEq/L Carbon Dioxide 29 29 (19-29) mEq/L BUN 12 13 (8-26) mg/dL Creatinine 0.69 L 0.71 L (0.72-1.25) mg/dL Glucose 160 H 85 (70-99) mg/dL Calcium 8.2 L 8.3 L (8.6-10.8) mg/dL - VTE Documentation of Mechanical Device: Intermittent pneumatic compression device Consult Discharge Plan - Plan Instructions: Below the Knee Amputation (DC) Additional Instructions: Wash incision daily with soap and water. Replace Xeroform (non-adherent), wrap with Kerlix, replace frannie bandage. Take 1-2 percocet every 4 Hour if needed for pain. Do not exceed two percocet every 4Hours daily. Take colace while on narcotics. May hold for loose stool. Follow-up with Dr. Maloney as directed. Report any increase in drainage, fevers greater than 100.5 oral, or increased pain. Referrals: Sunny Rodriguez MD [Primary Care Provider] - 08/29/17 11:00 am Kentrell Maloney MD [Partnered Physician] - 09/13/17 3:40 pm Prescriptions: OxyCODONE/APAP 10/325 [Percocet 10/325 MG] 1 - 2 each PO Q4HR PRN #56 tablet PRN Reason: Pain Docusate [Colace] 100 mg PO BID #60 capsule <Kentrell Maloney - Last Filed: 08/31/17 15:31> Date of Encounter: 08/31/17 - Assessment and Plan (1) Acute osteomyelitis of left foot Current Visit: Yes Status: Acute Objective Vital Signs - Last 8 Hours Temp Pulse Resp BP Pulse Ox 08/31/17 10:55 97.9 F 83 14 151/81 99 08/31/17 10:43 83 13 123/71 98 08/31/17 07:48 98.0 F 86 16 152/89 100 Intake and Output 08/30/17 08/31/17 08/31/17 23:59 07:59 15:59 Intake Total 490 / 490 490 / 490 Output Total 800 / 800 900 / 900 500 / 500 Balance -310 / -310 -900 / -900 -10 Intake: IV Fluids 250 / 250 250 / 250 Vancocin 1,500 MG In Dextrose 5 250 / 250 250 / 250 % 250 ML @ 166.67 mls/hr IVPB Q12H [facility] Rx#:[id number] Oral 240 / 240 240 / 240 Output: Urine 800 / 800 900 / 900 500 / 500 Other: Meal Dinner Lunch Percent of Meal Consumed 100% 100% Weight 133 kg Blood Glucose* 111 136 141 Patient Weight 08/31/17 23:59 Weight 133 kg - Labs 08/31/17 04:56 08/31/17 04:56 Diabetes panel 08/31/17 Range/Units 04:56 Sodium 136 (136-145) mEq/L Potassium 4.2 (3.5-4.5) mEq/L Chloride 101 (98-109) mEq/L Carbon Dioxide 29 (19-29) mEq/L BUN 13 (8-26) mg/dL Creatinine 0.71 L (0.72-1.25) mg/dL Glucose 85 (70-99) mg/dL Calcium 8.3 L (8.6-10.8) mg/dL Calcium panel 08/31/17 Range/Units 04:56 Calcium 8.3 L (8.6-10.8) mg/dL Pituitary panel 08/31/17 Range/Units 04:56 Sodium 136 (136-145) mEq/L Potassium 4.2 (3.5-4.5) mEq/L Chloride 101 (98-109) mEq/L Carbon Dioxide 29 (19-29) mEq/L BUN 13 (8-26) mg/dL Creatinine 0.71 L (0.72-1.25) mg/dL Glucose 85 (70-99) mg/dL Calcium 8.3 L (8.6-10.8) mg/dL Adrenal panel 08/31/17 Range/Units 04:56 Sodium 136 (136-145) mEq/L Potassium 4.2 (3.5-4.5) mEq/L Chloride 101 (98-109) mEq/L Carbon Dioxide 29 (19-29) mEq/L BUN 13 (8-26) mg/dL Creatinine 0.71 L (0.72-1.25) mg/dL Glucose 85 (70-99) mg/dL Calcium 8.3 L (8.6-10.8) mg/dL - Attending Attestation I examined this patient and my medical decision-making was reviewed with the Resident Physician. I agree with the documented findings, disposition and treatment plan as described except to the extent set forth below. The patient seen and evaluated on morning rounds with the resident. His amputation is in excellent condition and he should be ready for occupational therapy, physical therapy, and rehabilitation. Kentrell Maloney MD FACS
--- NOTE | 2017-08-31 11:39 | Infectious Disease Progress No ---
Date of Encounter: 08/31/17 Time of Encounter: 11:37 - Assessment and Plan (1) Septic shock Current Visit: Yes Status: Resolved The patient had two SIRS criteria plus hypotension requiring vasopressors. Likely secondary to left foot osteomyelitis. Improved. WBC has normalized. The patient has been afebrile. Blood cultures drawn 08/22/17 are negative x 2 sets. (2) Acute osteomyelitis of left foot Current Visit: Yes Status: Acute Location: Left foot, first metatarsal. Causative organism MRSA and GBS. Likely secondary to previously-reported DFUs. MRI of the left foot showed osteomyelitis of the first metatarsal at the forefoot, midfoot, and hindfoot, as well as septic arthritis of the 1st MTP joint. Additionally, there was advanced myositis of the distal calf and foot, a large phlegmon in the dorsum subcutaneous forefoot, and multiple small abscesses in the plantar subcutaneous forefoot. Podiatry was consulted. The patient was taken to the OR 08/22/17 and had 1st ray amputation of the left foot, I & D of the left foot, and bone biopsy of the medial cuneiform, navicular, and talus. Operative note reviewed. Infection extensive. Patient was taken back to the OR 08/25/17 and has incision and drainage of left ankle/leg and excisional debridement of the left foot wound. Purulent drainage noted from the existing surgical wound and extending proximally to the ankle and lower leg. Status post BKA 08/28/[address] Maloney. Clinically, the stump looks great. His WBC has normalized. According to the operative note, all infected tissue and bone were removed. Vancomycin discontinued by the surgery team. Wound care per surgery's recommendations. No further recommendations from the ID team. Will sign off. Please re-consult if needed. (3) Foot abscess, left Current Visit: Yes Status: Resolved Causative organism GBS and MRSA. Status post I & D 08/22/[address] Martin. Repeat I & D 08/25/17. Status post BKA 08/28/17. (4) Nondisplaced fracture of first left metatarsal bone Current Visit: Yes Status: Resolved Likely secondary to osteomyelitis. Qualifiers: Encounter type: initial encounter Fracture type: closed Qualified Code(s) : S92.315A - Nondisplaced fracture of first metatarsal bone, left foot, initial encounter for closed fracture (5) ROBSON (acute kidney injury) Current Visit: Yes Status: Resolved Likely secondary to sepsis. Resolved. Monitor closely and dose-adjust antibiotics. (6) DM2 (diabetes mellitus, type 2) Current Visit: Yes Status: Chronic Uncontrolled. A1C 9%. Recommend aggressive glucose monitoring and control to promote wound healing and prevent re-infection. Management per the primary team. Qualifiers: Diabetes mellitus complication status: with neurologic complications Diabetes mellitus complication detail: with polyneuropathy Diabetes mellitus retirement insulin use: with retirement use Qualified Code(s): E11.42 - Type 2 diabetes mellitus with diabetic polyneuropathy; Z79.4 - jail (current) use of insulin; Z79.4 - jail (current) use of insulin; Z79.4 - jail ( current) use of insulin; Z79.4 - equipment operator intermodal yard (current) use of insulin (7) ANI (obstructive sleep apnea) Current Visit: Yes Status: Acute - Subjective Interval history: Patient seen and examined. Status post left BKA 08/28/[address] Maloney. Patient resting in bed with family at bedside. States overall he feels okay. Denies fevers, chills, or rigors. Denies chest pain, shortness of breath, or cough. Denies nausea, vomiting, or diarrhea. Denies urinary complaints. Denies abdominal pain and states his appetite is good today. He complains of pain in the LLE at the surgical site, 08/06. Denies oral thrush or skin rashes. Infect Dis PN-Objective Data - Labs CBC & Chem 7: 08/31/17 04:56 08/31/17 04:56 Labs: Laboratory Results - last 24 hr 08/30/17 08/30/17 08/31/17 13:00 20:56 04:56 WBC 7.7 RBC 3.08 L Hgb 7.9 L 7.7 L Hct 25.3 L 25.7 L MCV 83.4 MCH 25.0 L MCHC 30.0 L RDW 16.5 H Plt Count 337 MPV 9.2 L Immature Gran % 1.4 Seg Neutrophils % 66.0 Lymphocytes % 23.3 Monocytes % 7.0 Eosinophils % 1.9 Basophils % 0.4 Neutrophils # 5.1 Lymphocytes # 1.8 Monocytes # 0.5 Eosinophils # 0.2 Basophils # 0.0 ESR Sodium Potassium Chloride Carbon Dioxide BUN Creatinine Est GFR ( Amer) Est GFR (Non-Af Amer) BUN/Creatinine Ratio Glucose POC Glucose 111 H Calculated Osmolality Calcium C-Reactive Protein Vancomycin Trough 08/31/17 08/31/17 08/31/17 04:56 04:56 04:56 WBC RBC Hgb Hct MCV MCH MCHC RDW Plt Count MPV Immature Gran % Seg Neutrophils % Lymphocytes % Monocytes % Eosinophils % Basophils % Neutrophils # Lymphocytes # Monocytes # Eosinophils # Basophils # ESR >= 130 H Sodium 136 Potassium 4.2 Chloride 101 Carbon Dioxide 29 BUN 13 Creatinine 0.71 L Est GFR ( Amer) > 60 Est GFR (Non-Af Amer) > 60 BUN/Creatinine Ratio 18 Glucose 85 POC Glucose Calculated Osmolality 281 Calcium 8.3 L C-Reactive Protein 102 H Vancomycin Trough 08/31/17 08/31/17 08/31/17 04:56 07:41 11:03 WBC RBC Hgb Hct MCV MCH MCHC RDW Plt Count MPV Immature Gran % Seg Neutrophils % Lymphocytes % Monocytes % Eosinophils % Basophils % Neutrophils # Lymphocytes # Monocytes # Eosinophils # Basophils # ESR Sodium Potassium Chloride Carbon Dioxide BUN Creatinine Est GFR ( Amer) Est GFR (Non-Af Amer) BUN/Creatinine Ratio Glucose POC Glucose 136 H 141 H Calculated Osmolality Calcium C-Reactive Protein Vancomycin Trough 14.4 Cultures: Cultures 08/25/17 12:08 Anaerobic Culture - Final Left Foot No anaerobes were recovered. 08/21/17 23:35 Anaerobic Culture - Final Left Foot No anaerobes were recovered. 08/21/17 23:35 Anaerobic Culture - Final Left Foot No anaerobes were recovered. 08/21/17 23:35 Anaerobic Culture - Final Left Foot No anaerobes were recovered. 08/21/17 23:35 Anaerobic Culture - Final Left Foot No anaerobes were recovered. 08/21/17 23:35 Anaerobic Culture - Final Left Foot No anaerobes were recovered. 08/21/17 23:35 Anaerobic Culture - Final Left Foot No anaerobes were recovered. 08/22/17 08:05 Blood Culture - Final Peripheral Venipuncture No growth. 08/22/17 08:00 Blood Culture - Final Peripheral Venipuncture No growth. 08/25/17 12:08 Wound Culture - Final Left Foot Methicillin Resistant S.aureus Strep agalactiae - (Group B) 08/21/17 23:35 Wound Culture - Final Left Foot Methicillin Resistant S.aureus Strep agalactiae - (Group B) 08/21/17 23:35 Wound Culture - Final Left Foot Methicillin Resistant S.aureus Strep agalactiae - (Group B) 08/21/17 23:35 Wound Culture - Final Left Foot Methicillin Resistant S.aureus Strep agalactiae - (Group B) 08/21/17 23:35 Wound Culture - Final Left Foot Methicillin Resistant S.aureus Strep agalactiae - (Group B) 08/21/17 23:35 Wound Culture - Final Left Foot Methicillin Resistant S.aureus Strep agalactiae - (Group B) 08/21/17 23:35 Wound Culture - Final Left Foot Strep agalactiae - (Group B) Methicillin Resistant S.aureus 08/21/17 23:35 Gram Stain - Final Left Foot 08/21/17 23:35 Gram Stain - Final Left Foot 08/21/17 23:35 Gram Stain - Final Left Foot 08/21/17 23:35 Gram Stain - Final Left Foot 08/21/17 23:35 Gram Stain - Final Left Foot Exam - Constitutional Vitals: Temp Pulse Resp BP Pulse Ox 97.9 F 83 14 151/81 99 08/31/17 10:55 08/31/17 10:55 08/31/17 10:55 08/31/17 10:55 08/31/17 10:55 General appearance: cooperative, morbidly obese, no acute distress - Head Head exam: Present: atraumatic, normal inspection, normocephalic - Eye Eye exam: Present: EOMI, normal appearance, PERRL Pupils: Present: normal accommodation - ENT ENT exam: Present: mucous membranes moist - Neck Neck exam: Present: normal inspection - Respiratory Respiratory exam: Present: CTAB. Absent: rales, respiratory distress, rhonchi, wheezes - Cardiovascular Cardiovascular exam: Present: RRR, +S1, +S2 - GI/Abdominal GI/Abdominal exam: Present: distended (obese), normal bowel sounds, soft. Absent: tenderness - Extremities Exam Extremities exam: Present: tenderness (left stump). Absent: joint swelling, pedal edema Additional comments: Left stump dressing C/D/I with knee immobilizer in place. - Neurological Exam Neurological exam: Present: alert, oriented X3, no focal deficits - Psychiatric Psychiatric exam: Present: normal affect, normal mood - Skin Skin exam: Present: dry, intact, normal color, warm - VTE Documentation of Mechanical Device: Intermittent pneumatic compression device Consult Discharge Plan - Plan Referrals: Kentrell Maloney MD [Partnered Physician] - 09/13/17 3:40 pm Sunny Rodriguez MD [Primary Care Provider] - 08/29/17 11:00 am
[2017-08-31] MEDS: Ibuprofen 800 MG TABLET PO SCH ×2 (14:56→23:24)
--- NOTE | 2017-08-31 15:35 | Internal Med Progress Note ---
Date of Encounter: 08/31/17 Time of Encounter: 10:00 - Assessment and plan (1) Acute osteomyelitis of left foot Current Visit: Yes Status: Acute Assessment and plan: Status post left BKA. Postop day 3. Doing well overall. Awaiting placement to skilled rehabilitation. Antibiotics stopped by surgery. Continue local wound care. Continue physical therapy. (2) Anemia of chronic disease Current Visit: Yes Status: Chronic Assessment and plan: Hemoglobin levels have remained stable since yesterday. No need for blood transfusion at this time. (3) DM2 (diabetes mellitus, type 2) Current Visit: Yes Status: Chronic Assessment and plan: Improved blood sugars. Continue current insulin regimen. Qualifiers: Diabetes mellitus complication status: with neurologic complications Diabetes mellitus complication detail: with polyneuropathy Diabetes mellitus intermediate school teacher insulin use: with intermediate school teacher use Qualified Code(s): E11.42 - Type 2 diabetes mellitus with diabetic polyneuropathy; Z79.4 - jail (current) use of insulin; Z79.4 - jail (current) use of insulin; Z79.4 - intermediate school teacher ( current) use of insulin; Z79.4 - intermediate school teacher (current) use of insulin (4) HTN (hypertension) Current Visit: Yes Status: Chronic Assessment and plan: Blood pressure intermittently elevated and not at goal. We will add carvedilol. Continue to monitor blood pressure Qualifiers: Hypertension type: essential hypertension Qualified Code(s): I10 - Essential (primary) hypertension (5) Hyponatremia Current Visit: Yes Status: Chronic Assessment and plan: Sodium 136 today. - Subjective Interval history: Patient is doing well. Sitting up in bed. Denies any new complaints at this time. Pain in left leg is well controlled. - Constitutional Vitals: Temp Pulse Resp BP Pulse Ox 97.9 F 83 14 151/81 99 08/31/17 10:55 08/31/17 10:55 08/31/17 10:55 08/31/17 10:55 08/31/17 10:55 General appearance: Present: cooperative, A&O X 3, no acute distress, answers questions appropriately - Neck Neck exam general surgery: Present: supple, trachea midline. Absent: lymphadenopathy - Respiratory Respiratory exam: Present: CTAB. Absent: accessory muscle use, rales, rhonchi, wheezes - Cardiovascular Cardiovascular exam: Present: RRR, +S1, +S2. Absent: diastolic murmur, gallop, rubs, systolic murmur - GI/Abdominal GI/Abdominal exam: Present: normal bowel sounds, soft, no peritoneal signs. Absent: distended, tenderness - Extremities Exam Extremities exam: Present: warm, radial pulses palpable and symmetrical. Absent : calf tenderness, cyanotic, pedal edema Additional comments: Left leg stump in bandage and brace. Healing well. - Neurological Exam Neurological exam: Present: alert, oriented X3, no focal deficits. Absent: facial droop, speech deficit Internal Medicine: Result - Labs CBC & Chem 7: 08/31/17 04:56 08/31/17 04:56 Labs: Short CBC 08/31/17 Range/Units 04:56 WBC 7.7 (4.3-11.1) K/mcL Hgb 7.7 L (12.9-16.9) g/dL Hct 25.7 L (37.5-50.1) % Plt Count 337 (140-400) K/mcL Neutrophils # 5.1 (1.6-8.9) K/mcL BMP 08/31/17 04:56 Sodium 136 Potassium 4.2 Chloride 101 Carbon Dioxide 29 BUN 13 Creatinine 0.71 L Glucose 85 Calcium 8.3 L - ABG Interpretation ABG results: PT/INR, D-dimer PT 18.7 Seconds (9.4-12.1) H 08/21/17 09:03 - VTE Documentation of Mechanical Device: Intermittent pneumatic compression device Consult Discharge Plan - Plan Instructions: Below the Knee Amputation (DC) Additional Instructions: Wash incision daily with soap and water. Replace Xeroform (non-adherent), wrap with Kerlix, replace frannie bandage. Take 1-2 percocet every 4 Hour if needed for pain. Do not exceed two percocet every 4Hours daily. Take colace while on narcotics. May hold for loose stool. Follow-up with Dr. Maloney as directed. Report any increase in drainage, fevers greater than 100.5 oral, or increased pain. Referrals: Kentrell Maloney MD [Partnered Physician] - 09/13/17 3:40 pm Sunny Rodriguez MD [Primary Care Provider] - 08/29/17 11:00 am Prescriptions: OxyCODONE/APAP 10/325 [Percocet 10/325 MG] 1 - 2 each PO Q4HR PRN #56 tablet PRN Reason: Pain Docusate [Colace] 100 mg PO BID #60 capsule
[2017-08-31] MEDS: traZODone 50 MG TABLET PO SCH (21:27)
[2017-09-01] MEDS: *HR* OxyCODONE/APAP 10/325 TABLET PO PRN ×3 (03:48→13:51)
[2017-09-01] MEDS: *HR* Enoxaparin 40 MG/0.4 ML SYRINGE SQ SCH (05:56)
[2017-09-01] MEDS: Insulin LISPRO 300 UNITS/3 ML VIAL SQ SCH ×4 (08:18→11:45)
[2017-09-01] MEDS: Famotidine 20 MG TABLET PO SCH (08:25)
[2017-09-01] MEDS: Gabapentin 400 MG CAPSULE PO SCH (08:26)
[2017-09-01] MEDS: Lisinopril 20 MG TABLET PO SCH (08:26)
[2017-09-01] MEDS: Ibuprofen 800 MG TABLET PO SCH (08:27)
[2017-09-01] MEDS: Insulin DETEMIR 100 UNIT/ML X5UNITS SQ SCH (09:09)
[2017-09-01 09:50] VITALS: BP 148/84
[2017-09-01] MEDS ORDERED: FLUARIX QUAD 2017-18 36MOS UP/PF 0.5 ML SYRINGE IM ONE (12:59)
--- NOTE | 2017-09-01 13:14 | Discharge Summary ---
Date of Encounter: 09/01/17 Time of Encounter: 13:09 - Discharge Diagnosis (1) Acute osteomyelitis of left foot Priority: Primary Status: Acute (2) Anemia of chronic disease Priority: Secondary Status: Chronic (3) DM2 (diabetes mellitus, type 2) Priority: Secondary Status: Chronic Qualifiers: Diabetes mellitus complication status: with neurologic complications Diabetes mellitus complication detail: with polyneuropathy Diabetes mellitus bed bug 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 insulin use: with bed bug 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 use Qualified Code(s): E11.42 - Type 2 diabetes mellitus with diabetic polyneuropathy; Z79.4 - watermaster (current) use of insulin; Z79.4 - FPC (current) use of insulin; Z79.4 - watermaster ( current) use of insulin; Z79.4 - FPC (current) use of insulin (4) HTN (hypertension) Priority: Secondary Status: Chronic Qualifiers: Hypertension type: essential hypertension Qualified Code(s): I10 - Essential (primary) hypertension (5) Hyponatremia Priority: Secondary Status: Chronic (6) Septic shock Priority: Secondary Status: Resolved - Discharge Medications Prescriptions: OxyCODONE/APAP 10/325 [Percocet 10/325 MG] 1 - 2 each PO Q4HR #20 tablet Carvedilol [Coreg] 3.125 mg PO BIDWM #60 tablet Docusate [Colace] 100 mg PO BID #60 capsule Gabapentin [Neurontin] 800 mg PO TID #60 tablet Home Medications: Albuterol Sulfate [Albuterol Inhaler] 1 puff IH Q4H 08/21/17 [History] GlipiZIDE [Glipizide Xl] 5 mg PO DAILY 08/21/17 [History] Insulin Glargine [Lantus] 50 unit SQ BID 08/21/17 [History] Liraglutide [Victoza 2-Abdoulaye] 1.8 mg SQ DAILY 08/21/17 [History] Lisinopril [Zestril] 20 mg PO DAILY 08/21/17 [History] Ranitidine HCl [Acid Coater Operator] 150 mg PO BID 08/21/17 [History] metFORMIN [Glucophage] 1,000 mg PO BIDWM 08/21/17 [History] Atorvastatin [Lipitor] 40 mg PO HS 08/22/17 [History] Azelastine 0.1% Nasal [place] [Astelin] 1 - 2 spr NS BID 08/22/17 [History] Cetirizine HCl [All Day Allergy] 10 mg PO DAILY 08/22/17 [History] Cyclobenzaprine [Flexeril] 10 mg PO TID 08/22/17 [History] Cyclosporine [Restasis] 1 drop BOTH EYES DAILY 08/22/17 [History] Empagliflozin [Jardiance] 25 mg PO DAILY 08/22/17 [History] Ergocalciferol (VITAMIN D2) [Vitamin D2] 50,000 unit PO QWEEK 08/22/17 [History] Mometasone/Formoterol [Dulera 200 Mcg/5 Mcg Inhaler] 2 puff IH BID 08/22/17 [ History] Montelukast [Singulair] 10 mg PO DAILY 08/22/17 [History] [place]-3/Dha/Epa/Fish Oil [Fish Oil 1,000 mg Softgel] 2,000 mg PO DAILY 08/22/17 [History] Omeprazole [PriLOSEC] 20 mg PO DAILY 08/22/17 [History] PARoxetine HCl [Paroxetine HCl] 40 mg PO DAILY 08/22/17 [History] Trazodone HCl 150 mg PO HS 08/22/17 [History] Zileuton [Zyflo] 600 mg PO QID 08/22/17 [History] Docusate [Colace] 100 mg PO BID #60 capsule 08/31/17 [Rx] Carvedilol [Coreg] 3.125 mg PO BIDWM #60 tablet 09/01/17 [Rx] Gabapentin [Neurontin] 800 mg PO TID #60 tablet 09/01/17 [Rx] OxyCODONE/APAP 10/325 [Percocet 10/325 MG] 1 - 2 each PO Q4HR #20 tablet [Rx] Allergies/Adverse Reactions: 3 Allergy/AdvReac Type Severity Reaction Status Date / Time No Known Allergies Allergy Unverified 07/01/15 22:36 Date of admission: 08/21/17 14:11 Primary care physician: Sunny Rodriguez MD Consults: 08/21/17 08:41 Consult to Podiatry [CONS] Routine Consulting Provider: Podiatry [facility] Reason for Consult: Acute Left foot osteomyelitis Call Completed: Yes 08/21/17 12:57 Consult to Pesticide Use Medical Coordinator [CONS] Stat Reason for SW Consult: will need bed bug 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 IV antibiotics, psychosocial consult for surgery patient and family, woundcare to be determined 08/22/17 13:40 Consult to Infectious Diseases [CONS] Routine Consulting Provider: Infectious [facility] Reason for Consult: Osteomyelitis Time Notified: 02:00 Call Completed: Yes 08/25/17 13:08 Consult to Invasive Line Access Team [CONS] Routine Reason for Consult: IV access Line Type: EPIV 08/28/17 07:26 Consult to Surgery [CONS] Routine Consulting Provider: [facility] Reason for Consult: Amara for Left BKA Call Completed: No 08/29/17 11:26 Consult to Occupational Therapy [CONS] Routine Comment: Evaluate, develop and implement POC Reason for Consult: s/p left BKA 08/29/17 11:41 Consult to Physical Therapy [CONS] Routine Comment: Evaluate, develop and implement POC Reason for Consult: d/c planning s/p L BKA Discharging clinician: Barrett Higginbotham Anticipated date of discharge: 09/01/17 - Patient Status Disposition: Transfer SNF Condition: Good Functional capacity at discharge: uses cane/walker Overall status at discharge: patient is progressing back to baseline - Discharge Instructions Instructions: Below the Knee Amputation (DC) Follow Up With: Kentrell Maloney MD [Partnered Physician] - 09/13/17 3:40 pm Sunny Rodriguez MD [Primary Care Provider] - 08/29/17 11:00 am Additional Instructions: Wash incision daily with soap and water. Replace Xeroform (non-adherent), wrap with Kerlix, replace frannie bandage. Take 1-2 percocet every 4 Hour if needed for pain. Do not exceed two percocet every 4Hours daily. Take colace while on narcotics. May hold for loose stool. Follow-up with Dr. Maloney as directed. Report any increase in drainage, fevers greater than 100.5 oral, or increased pain. - Diet and Activity Activity: as per physical therapy Diet: diabetic diet, low fat, low cholesterol, low salt diet Hospital course: Mr. Robb is a 51 year old male patient with history of diabetes mellitus, hypertension, hyperlipidemia who presented to the ER with complaints of tenderness and erythema involving his left foot. X-ray of the foot says to presence of osteomyelitis which was confirmed with MRI. He had undergone incision and drainage of the left foot with biopsies by podiatry prior to hospitalization. Patient was also diagnosed with sepsis related to this and was admitted here. He was started on IV antibiotics. Podiatry was also consulted. Patient then developed septic shock, and was transferred to the ICU. He was placed on levophed and IV fluids with continued IV antibiotics. Patient's condition slowly improved and per podiatry recommendations he underwent repeat incision and drainage of the left ankle and leg along with excisional debridement of the left foot. General surgery was also consulted due to aggressive foot infection which did not seem to be improving despite use of IV antibiotics and local debridement. They initially recommended that the patient undergo a left above-knee amputation. The patient's condition did improve over the next couple of days and as the swelling in his left leg and also decreased dramatically, they recommended left below knee amputation instead. Patient underwent this procedure on 08/28/17. Since then he has been recovering well. His wound cultures were positive for MRSA and strep a [place] today. Patient received vancomycin and Zosyn here. These antibiotics have now been stopped per surgery recommendations. Patient's blood sugars were elevated initially during his stay here. His A1c was 9%. After aggressive management of his diabetes with short and long-acting insulins, his blood sugars have now become much better controlled. Per evaluation by physical therapy, discharged to skilled rehabilitation today. He will follow up with surgery after discharge. His diabetes will be managed with Levemir and his usual anti-glycemic agents including metformin, Jardiance, Victoza and glipizide. He does not need any further antibiotics. Patient also has chronic anemia which has more or less been stable here with hemoglobin between 7.5 and 9. He does need follow-up for this as outpatient and would need colonoscopy and upper GI endoscopy. Has not had these done recently. - Time Spent with Patient Total time spent providing and/or coordinating discharge services: Greater than 30 minutes (45 min) - Constitutional Vitals: Temp Pulse Resp BP Pulse Ox 98.5 F 84 16 148/84 96 09/01/17 09:49 09/01/17 09:49 09/01/17 09:49 09/01/17 09:49 09/01/17 09:49 General appearance: Present: cooperative, A&O X 3, no acute distress, answers questions appropriately - Neck Neck exam general surgery: Present: supple, trachea midline. Absent: lymphadenopathy - Respiratory Respiratory exam: Present: CTAB. Absent: accessory muscle use, rales, rhonchi, wheezes - Cardiovascular Cardiovascular exam: Present: RRR, +S1, +S2. Absent: diastolic murmur, gallop, rubs, systolic murmur - Extremities Exam Extremities exam: Present: warm, radial pulses palpable and symmetrical. Absent : calf tenderness, cyanotic, pedal edema Additional comments: left LE stump healing well and bandaged - Neurological Exam Neurological exam: Present: alert, CN II-XII intact, oriented X3, no focal deficits. Absent: facial droop, speech deficit - Skin Skin exam: Present: dry, intact - VTE Documentation of Mechanical Device: Intermittent pneumatic compression device
--- NOTE | 2017-09-01 14:15 | Physician Discharge Referral ---
ExtendedCare Referral Info Provider in Charge after Transfer: PCP Institutional Level of Care: Skilled - Diagnosis (1) Acute osteomyelitis of left foot Priority: Primary Status: Acute (2) Anemia of chronic disease Priority: Secondary Status: Chronic (3) DM2 (diabetes mellitus, type 2) Priority: Secondary Status: Chronic (4) HTN (hypertension) Priority: Secondary Status: Chronic (5) Hyponatremia Priority: Secondary Status: Chronic (6) Septic shock Priority: Secondary Status: Resolved Prognosis: Fair Aware of Diagnosis: Patient, Family Aware of Prognosis: Patient, Family - Transfer Medications Prescriptions: OxyCODONE/APAP 10/325 [Percocet 10/325 MG] 1 - 2 each PO Q4HR PRN #56 tablet PRN Reason: Pain Carvedilol [Coreg] 3.125 mg PO BIDWM #60 tablet Docusate [Colace] 100 mg PO BID #60 capsule Gabapentin [Neurontin] 800 mg PO TID #60 tablet Home Medications: Albuterol Sulfate [Albuterol Inhaler] 1 puff IH Q4H 08/21/17 [History] GlipiZIDE [Glipizide Xl] 5 mg PO DAILY 08/21/17 [History] Insulin Glargine [Lantus] 50 unit SQ BID 08/21/17 [History] Liraglutide [Victoza 2-Abdoulaye] 1.8 mg SQ DAILY 08/21/17 [History] Lisinopril [Zestril] 20 mg PO DAILY 08/21/17 [History] Ranitidine HCl [Acid Oxygen Equipment Preparer] 150 mg PO BID 08/21/17 [History] metFORMIN [Glucophage] 1,000 mg PO BIDWM 08/21/17 [History] Atorvastatin [Lipitor] 40 mg PO HS 08/22/17 [History] Azelastine 0.1% Nasal [place] [Astelin] 1 - 2 spr NS BID 08/22/17 [History] Cetirizine HCl [All Day Allergy] 10 mg PO DAILY 08/22/17 [History] Cyclobenzaprine [Flexeril] 10 mg PO TID 08/22/17 [History] Cyclosporine [Restasis] 1 drop BOTH EYES DAILY 08/22/17 [History] Empagliflozin [Jardiance] 25 mg PO DAILY 08/22/17 [History] Ergocalciferol (VITAMIN D2) [Vitamin D2] 50,000 unit PO QWEEK 08/22/17 [History] Mometasone/Formoterol [Dulera 200 Mcg/5 Mcg Inhaler] 2 puff IH BID 08/22/17 [ History] Montelukast [Singulair] 10 mg PO DAILY 08/22/17 [History] [place]-3/Dha/Epa/Fish Oil [Fish Oil 1,000 mg Softgel] 2,000 mg PO DAILY 08/22/17 [History] Omeprazole [PriLOSEC] 20 mg PO DAILY 08/22/17 [History] PARoxetine HCl [Paroxetine HCl] 40 mg PO DAILY 08/22/17 [History] Trazodone HCl 150 mg PO HS 08/22/17 [History] Zileuton [Zyflo] 600 mg PO QID 08/22/17 [History] Docusate [Colace] 100 mg PO BID #60 capsule 08/31/17 [Rx] OxyCODONE/APAP 10/325 [Percocet 10/325 MG] 1 - 2 each PO Q4HR PRN #56 tablet 04/12 [Rx] Carvedilol [Coreg] 3.125 mg PO BIDWM #60 tablet 09/01/17 [Rx] Gabapentin [Neurontin] 800 mg PO TID #60 tablet 09/01/17 [Rx] Allergies/Adverse Reactions: 3 Allergy/AdvReac Type Severity Reaction Status Date / Time No Known Allergies Allergy Unverified 07/01/15 22:36 - Respiratory Orders Smoking Cessation: Smoking cessation has been advised. For more information, call the [place] Tobacco Quit Line at 0-024-TMJZ-NOW. - Ancillary Orders May consult with Dentist, Marine Mammal Trainer, Data Engineer PRN - Advance Directives Code Status: Full Code - Mobility Orders Other (per PT) - Rehabiliation Orders Rehab Potential: Fair Rehab Orders: Evaluation for Physical Therapy, Evaluation for Occupational Therapy - Diet Orders No Concentrated Sweets (and diabetic), Cardiac CERTIFICATION: I certify that the transfer of the above named patient to an Extended Care Facility is necessary for the continuing treatment of the diagnosis listed. The above information is true and accurate reflection of patient's current condition. Confidential - Redisclosure prohibited without a patient's written consent.
== END 2017-09-01 15:10 | DRG 710 ==
LOC: 2ANU → SUATTDRO 14:11 → ICNU 08-22 04:44 → 3NENU 08-24 00:47
PROVIDERS: ADMIT Internal Medicine; ATTEND Internal Medicine

== ENCOUNTER 2017-09-09 17:22 | Inpatient (IN) ==
[2017-09-09 18:42] LABS: Basophils # 0.1 K/mcL (0.0-0.2); Basophils % 0.4 %; Eosinophils # 0.1 K/mcL (0.0-0.6); Eosinophils % 0.5 %; Hematocrit 26.7 % (37.5-50.1); Hemoglobin 8.1 g/dL (12.9-16.9); Immature Granulocytes % 0.5 % (0-4); Lymphocytes # 1.1 K/mcL (0.6-4.6); Lymphocytes % 8.2 %; Mean Corpuscular HGB Conc 30.3 g/dL (31.6-35.5); Mean Corpuscular Hemoglobin 26.6 pg (28.0-33.3); Mean Corpuscular Volume 87.5 fL (83.0-100.0); Mean Platelet Volume 9.9 fL (9.4-12.4); Monocytes # 0.7 K/mcL (0.0-1.3); Monocytes % 5.2 %; Neutrophils # 11.7 K/mcL (1.6-8.9); Platelet Count 252 K/mcL (140-400); Red Blood Count 3.05 M/mcL (4.19-5.50); Red Cell Distribution Width 18.8 % (11.5-14.5); Segmented Neutrophils % 85.2 %
[2017-09-09 18:58] LABS: Alanine Aminotransferase 8 Units/L (0-55); Albumin 2.5 g/dL (3.5-5.0); Albumin/Globulin Ratio 0.5 (1.1-2.2); Alkaline Phosphatase 123 Units/L (38-126); Aspartate Amino Transferase 9 Units/L (5-34); BUN/Creatinine Ratio 15 (6-26); Blood Urea Nitrogen 24 mg/dL (8-26); Calcium 9.2 mg/dL (8.6-10.8); Carbon Dioxide 30 mEq/L (19-29); Chloride 97 mEq/L (98-109); Globulin 4.6 g/dL (2.4-3.5); Glucose 104 mg/dL (70-99); Osmolality,Calculated 284 (280-300); Potassium 4.9 mEq/L (3.5-4.5); Sodium 135 mEq/L (136-145); Total Protein 7.1 g/dL (6.0-8.3); eGFR For African Americans 56 (> 60); eGFR For Non-African Americans 46 (> 60)
[2017-09-09 19:00] LABS: Bilirubin,Total < 0.2 mg/dL (0.2-1.2)
--- NOTE | 2017-09-09 19:12 | Emergency Department Note ---
Disposition Clinical Impression: Altered mental status Pneumonia Qualifiers: Pneumonia type: due to unspecified organism Laterality: left Lung location: lower lobe of lung Qualified Code(s): J18.1 - Lobar pneumonia, unspecified organism Disposition: Admitted As Inpatient Condition: Good Referrals: Sunny Rodriguez MD [Primary Care Provider] - Forms: ED Satisfaction Letter Altered Mental Status HPI - General Chief Complaint: ED Altered Mental Status Stated Complaint: AMS Time Seen by Provider: 09/09/17 17:24 Source: patient, EMS Limitations: altered mental status Nursing Notes Reviewed: Yes Vital Signs Reviewed: Yes - History of Present Illness HPI Narrative: Patient presents with complaint of altered mental status. Symptoms started about 2 days ago which appears to coincide with this change in his medication regimen. Per report patient was on [place] 10 mg 4 times a day. He was changed to OxyContin 20 mg 4 times per day. Patient said several falls and family notes that he appears to be speaking out of his hair. He also notes that his pupils have been constricted. Patient denies chest pain denies shortness of breath. When questioned as to where he was patient states that he is at [facility]. States the year is 2020. - Related Data Home Medications Medication Instructions Recorded Confirmed Albuterol Sulfate [Albuterol 1 puff IH Q4H 08/21/17 08/21/17 Inhaler] GlipiZIDE [Glipizide Xl] 5 mg PO DAILY 08/21/17 08/21/17 Insulin Glargine [Lantus] 50 unit SQ BID 08/21/17 08/21/17 Liraglutide [Victoza 2-Abdoulaye] 1.8 mg SQ DAILY 08/21/17 08/22/17 Lisinopril [Zestril] 20 mg PO DAILY 08/21/17 08/21/17 Ranitidine HCl [Acid Floral Designer Salesperson] 150 mg PO BID 08/21/17 08/21/17 metFORMIN [Glucophage] 1,000 mg PO BIDWM 08/21/17 08/21/17 Atorvastatin [Lipitor] 40 mg PO HS 08/22/17 08/22/17 Azelastine 0.1% Nasal [place] 1 - 2 spr NS BID 08/22/17 08/22/17 [Astelin] Cetirizine HCl [All Day Allergy] 10 mg PO DAILY 08/22/17 08/22/17 Cyclobenzaprine [Flexeril] 10 mg PO TID 08/22/17 08/22/17 Cyclosporine [Restasis] 1 drop BOTH EYES DAILY 08/22/17 08/22/17 Empagliflozin [Jardiance] 25 mg PO DAILY 08/22/17 08/22/17 Ergocalciferol (VITAMIN D2) 50,000 unit PO QWEEK 08/22/17 08/22/17 [Vitamin D2] Mometasone/Formoterol [Dulera 200 2 puff IH BID 08/22/17 08/22/17 Mcg/5 Mcg Inhaler] Montelukast [Singulair] 10 mg PO DAILY 08/22/17 08/22/17 [place]-3/Dha/Epa/Fish Oil [Fish Oil 2,000 mg PO DAILY 08/22/17 08/22/17 1,000 mg Softgel] Omeprazole [PriLOSEC] 20 mg PO DAILY 08/22/17 08/22/17 PARoxetine HCl [Paroxetine HCl] 40 mg PO DAILY 08/22/17 08/22/17 Trazodone HCl 150 mg PO HS 08/22/17 08/22/17 Zileuton [Zyflo] 600 mg PO QID 08/22/17 08/22/17 Previous Rx's Medication Instructions Recorded Docusate [Colace] 100 mg PO BID #60 capsule 08/31/17 Carvedilol [Coreg] 3.125 mg PO BIDWM #60 tablet 09/01/17 Gabapentin [Neurontin] 800 mg PO TID #60 tablet 09/01/17 OxyCODONE/APAP 10/325 [Percocet 1 - 2 each PO Q4HR #20 tablet 09/01/17 10/325 MG] Allergies Allergy/AdvReac Type Severity Reaction Status Date / Time No Known Allergies Allergy Verified 09/09/17 17:37 All systems ED: reviewed and negative except as stated. Past Medical History - Past Medical History Source: patient Medical history: Reports: asthma, COPD, coronary artery disease, diabetes, GERD , hyperlipidemia, hypertension Surgical history: Reports: other (Cornea repair) Psychiatric history: Reports: anxiety, depression - Social History Smoking Status: Never smoker Smokeless Tobacco Status: Yes Alcohol use: Reports: none Drug use: Reports: none Physical Exam - General Limitations: altered mental status General appearance: lethargic - Head Head exam: atraumatic, normocephalic, normal inspection - Eye Eye exam: Present: normal appearance, EOMI, other (constricted pupils) - ENT ENT exam: normal exam, normal oropharynx, mucous membranes moist - Neck Neck exam: Present: normal inspection, full ROM, trachea midline - Chest Chest inspection: Present: normal inspection, symmetric chest wall rise - Respiratory Respiratory exam: Present: normal lung sounds bilaterally - Cardiovascular Cardiovascular exam: Present: regular rate, normal rhythm, normal heart sounds - Abdominal Exam Abdominal exam: Present: soft, Non-Tender. Absent: tenderness, distention, guarding, rebound, rigidity - Extremities Exam Extremities exam: Present: normal inspection, full ROM. Absent: tenderness, pedal edema - Back Exam Back exam: Present: normal inspection, full ROM. Absent: tenderness - Neurological Exam Neurological exam: Present: alert, oriented X3 - Psychiatric Psychiatric exam: Present: normal affect, normal mood - Skin Skin exam: Present: warm, dry, intact, normal color Course Vital Signs Temperature 97.5 F L 09/09/17 17:28 Pulse Rate 87 09/09/17 17:28 Respiratory Rate 18 09/09/17 17:28 Blood Pressure 108/64 09/09/17 17:28 O2 Sat by Pulse Oximetry 97 09/09/17 17:28 Temperature 97.5 F L 09/09/17 17:28 Pulse Rate 89 09/09/17 20:37 Respiratory Rate 18 09/09/17 20:37 Blood Pressure 101/57 09/09/17 20:37 O2 Sat by Pulse Oximetry 97 09/09/17 20:37 Oxygen Delivery Oxygen Delivery Room Air Altered Mental Status - Differential Diagnosis Likely: altered mental status, delirium, dementia, hypoglycemia, hyponatremia, substance use - Lab Data Lab results reviewed: Yes I reviewed the patient's lab results. Result diagrams: 09/09/17 18:13 09/09/17 18:13 Lab Results 09/09/17 09/09/17 09/09/17 Range/Units 18:13 18:13 18:13 WBC 13.7 H (4.3-11.1) K/mcL RBC 3.05 L (4.19-5.50) M/mcL Hgb 8.1 L (12.9-16.9) g/dL Hct 26.7 L (37.5-50.1) % MCV 87.5 (83.0-100.0) fL MCH 26.6 L (28.0-33.3) pg MCHC 30.3 L (31.6-35.5) g/dL RDW 18.8 H (11.5-14.5) % Plt Count 252 (140-400) K/mcL MPV 9.9 (9.4-12.4) fL Immature Gran % 0.5 (0-4) % Seg Neutrophils % 85.2 % Lymphocytes % 8.2 % Monocytes % 5.2 % Eosinophils % 0.5 % Basophils % 0.4 % Neutrophils # 11.7 H (1.6-8.9) K/mcL Lymphocytes # 1.1 (0.6-4.6) K/mcL Monocytes # 0.7 (0.0-1.3) K/mcL Eosinophils # 0.1 (0.0-0.6) K/mcL Basophils # 0.1 (0.0-0.2) K/mcL APTT 33.2 (26.0-36.0) Seconds Sodium 135 L (136-145) mEq/L Potassium 4.9 H (3.5-4.5) mEq/L Chloride 97 L (98-109) mEq/L Carbon Dioxide 30 H (19-29) mEq/L BUN 24 (8-26) mg/dL Creatinine 1.59 H (0.72-1.25) mg/dL Est GFR ( Amer) 56 L (> 60) Est GFR (Non-Af Amer) 46 L (> 60) BUN/Creatinine Ratio 15 (6-26) Glucose 104 H (70-99) mg/dL Calculated Osmolality 284 (280-300) Lactic Acid (0.5-2.2) mmol/L Calcium 9.2 (8.6-10.8) mg/dL Total Bilirubin < 0.2 L (0.2-1.2) mg/dL AST 9 (5-34) Units/L ALT 8 (0-55) Units/L Alkaline Phosphatase 123 (38-126) Units/L Troponin I (0-0.03) ng/mL Serum Total Protein 7.1 (6.0-8.3) g/dL Albumin 2.5 L (3.5-5.0) g/dL Globulin 4.6 H (2.4-3.5) g/dL Albumin/Globulin Ratio 0.5 L (1.1-2.2) Urine Color (Yellow) Urine Clarity (Clear) Urine pH (5.0-8.0) pH Units Ur Specific [place] (1.010-1.025) Urine Protein (Neg-Trace) mg/dL Urine Glucose (UA) (Normal) mg/dL Urine Ketones (Negative) mg/dL Urine Blood (Negative) Urine Nitrite (Negative) Urine Bilirubin (Negative) Urine Urobilinogen (Normal) mg/dL Ur Leukocyte Esterase (Negative) Urine Microscopic RBC (0-3) per hpf Urine Microscopic WBC (0-3) per hpf Ur Squamous Epith Cells (None-Few) per lpf Urine Bacteria (None-Few) per hpf Urine Yeast (None Seen) per hpf Urine Opiates Screen (Qcppnb=425) ng/mL Ur Barbiturates Screen (Nkhgqf=727) ng/mL Ur Phencyclidine Scrn (Cutoff=25) ng/mL Ur Amphetamines Screen (Siuvlk=3452) ng/mL U Benzodiazepines Scrn (Ivzwna=418) ng/mL Urine Cocaine Screen (Cutoff= 300) ng/mL U Marijuana (THC) Screen (Cutoff = 50) ng/mL 09/09/17 09/09/17 09/09/17 Range/Units 18:13 18:13 19:51 WBC (4.3-11.1) K/mcL RBC (4.19-5.50) M/mcL Hgb (12.9-16.9) g/dL Hct (37.5-50.1) % MCV (83.0-100.0) fL MCH (28.0-33.3) pg MCHC (31.6-35.5) g/dL RDW (11.5-14.5) % Plt Count (140-400) K/mcL MPV (9.4-12.4) fL Immature Gran % (0-4) % Seg Neutrophils % % Lymphocytes % % Monocytes % % Eosinophils % % Basophils % % Neutrophils # (1.6-8.9) K/mcL Lymphocytes # (0.6-4.6) K/mcL Monocytes # (0.0-1.3) K/mcL Eosinophils # (0.0-0.6) K/mcL Basophils # (0.0-0.2) K/mcL APTT (26.0-36.0) Seconds Sodium (136-145) mEq/L Potassium (3.5-4.5) mEq/L Chloride (98-109) mEq/L Carbon Dioxide (19-29) mEq/L BUN (8-26) mg/dL Creatinine (0.72-1.25) mg/dL Est GFR ( Amer) (> 60) Est GFR (Non-Af Amer) (> 60) BUN/Creatinine Ratio (6-26) Glucose (70-99) mg/dL Calculated Osmolality (280-300) Lactic Acid 0.5 (0.5-2.2) mmol/L Calcium (8.6-10.8) mg/dL Total Bilirubin (0.2-1.2) mg/dL AST (5-34) Units/L ALT (0-55) Units/L Alkaline Phosphatase (38-126) Units/L Troponin I 0.00 (0-0.03) ng/mL Serum Total Protein (6.0-8.3) g/dL Albumin (3.5-5.0) g/dL Globulin (2.4-3.5) g/dL Albumin/Globulin Ratio (1.1-2.2) Urine Color Yellow (Yellow) Urine Clarity Turbid A (Clear) Urine pH 5.5 (5.0-8.0) pH Units Ur Specific [place] 1.026 H (1.010-1.025) Urine Protein Negative (Neg-Trace) mg/dL Urine Glucose (UA) >=1000 H (Normal) mg/dL Urine Ketones Negative (Negative) mg/dL Urine Blood Negative (Negative) Urine Nitrite Negative (Negative) Urine Bilirubin Negative (Negative) Urine Urobilinogen Normal (Normal) mg/dL Ur Leukocyte Esterase Negative (Negative) Urine Microscopic RBC 0-3 (0-3) per hpf Urine Microscopic WBC 5-15 H (0-3) per hpf Ur Squamous Epith Cells Many H (None-Few) per lpf Urine Bacteria Few (None-Few) per hpf Urine Yeast Many H (None Seen) per hpf Urine Opiates Screen (Afprey=554) ng/mL Ur Barbiturates Screen (Kfzwjx=339) ng/mL Ur Phencyclidine Scrn (Cutoff=25) ng/mL Ur Amphetamines Screen (Lxdwno=5709) ng/mL U Benzodiazepines Scrn (Kizima=458) ng/mL Urine Cocaine Screen (Cutoff= 300) ng/mL U Marijuana (THC) Screen (Cutoff = 50) ng/mL 09/09/17 Range/Units 19:55 WBC (4.3-11.1) K/mcL RBC (4.19-5.50) M/mcL Hgb (12.9-16.9) g/dL Hct (37.5-50.1) % MCV (83.0-100.0) fL MCH (28.0-33.3) pg MCHC (31.6-35.5) g/dL RDW (11.5-14.5) % Plt Count (140-400) K/mcL MPV (9.4-12.4) fL Immature Gran % (0-4) % Seg Neutrophils % % Lymphocytes % % Monocytes % % Eosinophils % % Basophils % % Neutrophils # (1.6-8.9) K/mcL Lymphocytes # (0.6-4.6) K/mcL Monocytes # (0.0-1.3) K/mcL Eosinophils # (0.0-0.6) K/mcL Basophils # (0.0-0.2) K/mcL APTT (26.0-36.0) Seconds Sodium (136-145) mEq/L Potassium (3.5-4.5) mEq/L Chloride (98-109) mEq/L Carbon Dioxide (19-29) mEq/L BUN (8-26) mg/dL Creatinine (0.72-1.25) mg/dL Est GFR ( Amer) (> 60) Est GFR (Non-Af Amer) (> 60) BUN/Creatinine Ratio (6-26) Glucose (70-99) mg/dL Calculated Osmolality (280-300) Lactic Acid (0.5-2.2) mmol/L Calcium (8.6-10.8) mg/dL Total Bilirubin (0.2-1.2) mg/dL AST (5-34) Units/L ALT (0-55) Units/L Alkaline Phosphatase (38-126) Units/L Troponin I (0-0.03) ng/mL Serum Total Protein (6.0-8.3) g/dL Albumin (3.5-5.0) g/dL Globulin (2.4-3.5) g/dL Albumin/Globulin Ratio (1.1-2.2) Urine Color (Yellow) Urine Clarity (Clear) Urine pH (5.0-8.0) pH Units Ur Specific [place] (1.010-1.025) Urine Protein (Neg-Trace) mg/dL Urine Glucose (UA) (Normal) mg/dL Urine Ketones (Negative) mg/dL Urine Blood (Negative) Urine Nitrite (Negative) Urine Bilirubin (Negative) Urine Urobilinogen (Normal) mg/dL Ur Leukocyte Esterase (Negative) Urine Microscopic RBC (0-3) per hpf Urine Microscopic WBC (0-3) per hpf Ur Squamous Epith Cells (None-Few) per lpf Urine Bacteria (None-Few) per hpf Urine Yeast (None Seen) per hpf Urine Opiates Screen Positive H (Gwolvv=697) ng/mL Ur Barbiturates Screen Negative (Qnlubp=744) ng/mL Ur Phencyclidine Scrn Negative (Cutoff=25) ng/mL Ur Amphetamines Screen Negative (Fgrmjx=4688) ng/mL U Benzodiazepines Scrn Negative (Vcezzx=780) ng/mL Urine Cocaine Screen Negative (Cutoff= 300) ng/mL U Marijuana (THC) Screen Negative (Cutoff = 50) ng/mL - Radiology Data Radiology results reviewed: Yes I reviewed the patient's radiology results. Head CT 09/09/17 18:04 IMPRESSION: No acute intracranial abnormality. D/ / Celestine Blunt / Celestine Blunt Interpreting Provider: Celestine Blunt Tibia/Fibula X-Ray 09/09/17 18:04 IMPRESSION: No fracture detected. D/ / Bean Trejo MD / Bean Trejo MD Interpreting Provider: Bean Trejo MD Chest X-Ray 09/09/17 20:11 IMPRESSION: Increased central opacity. Correlate with clinical evidence of pulmonary edema. Superimposed pneumonia also considered. D/ / Yaya Bello MD / Yaya Bello MD Interpreting Provider: Yaya Bello MD - EKG Data EKG attestation: Yes I reviewed and interpreted this EKG. EKG shows normal: sinus rhythm Rate: normal TPA Checklist - LKW: 3-4.5 hrs Add. Warnings/Precautions Patient/family understanding: The patient/family members have been counseled and understood the risk, benefit , and alternatives of treatment.
[2017-09-09] MEDS ORDERED: 0.9 % Sodium Chloride 1,000 ML IVC ONE (19:55)
[2017-09-09 20:17] LABS: Bilirubin,Urine Negative (Negative); Blood,Urine Negative (Negative); Clarity,Urine Turbid (Clear); Color,Urine Yellow (Yellow); Glucose,Urine (UA) >=1000 mg/dL (Normal); Ketones,Urine Negative (Negative); Leukocyte Esterase,Urine Negative (Negative); Nitrite,Urine Negative (Negative); PH,Urine 5.5 pH Units (5.0-8.0); Protein,Urine Negative (Neg-Trace); Specific Gravity,Urine 1.026 (1.010-1.025); Urobilinogen,Urine Normal (Normal)
[2017-09-09 20:19] LABS: Squamous Epithelial Cell,Urine Many per lpf (None-Few)
[2017-09-09 20:23] LABS: Amphetamine Screen,Urine Negative ng/mL (Cutoff=1000); Barbiturate Screen,Urine Negative ng/mL (Cutoff=200); Benzodiazepines Screen,Urine Negative ng/mL (Cutoff=200); Cannabinoid Screen,Urine Negative ng/mL (Cutoff = 50); Cocaine Screen,Urine Negative ng/mL (Cutoff= 300); Opiate Screen,Urine Positive ng/mL (Cutoff=300); Phencyclidine Screen,Urine Negative ng/mL (Cutoff=25)
[2017-09-09 20:35] LABS: Bacteria,Urine Few per hpf (None-Few); RBC,Urine 0-3 per hpf (0-3); Yeast,Urine Many per hpf (None Seen)
[2017-09-09] MEDS ORDERED: Piperacillin/Tazobactam 3.375 GM in D5% in Water (Mini-Bag+) 100 ML IVPB ONE (21:13)
[2017-09-09] MEDS ORDERED: Vancomycin 1,750 MG in D5% in Water 500 ML IVPB ONE (21:13)
[2017-09-09] MEDS ORDERED: *HR* Dextrose 50 % in Water (Syg) 50 ML SYRINGE IVP PRN (22:09)
[2017-09-09] MEDS ORDERED: Dextrose Gel 15 GM PO PRN ×2 (22:09)
[2017-09-09] MEDS ORDERED: D5% in Water 1,000 ML IVC PRN (22:09)
[2017-09-09] MEDS ORDERED: Naloxone 0.4 MG/ML INJ IVP PRN (22:15)
[2017-09-09] MEDS: 0.9 % Sodium Chloride 1,000 ML IVC SCH (23:30)
[2017-09-09] MEDS: Aspirin 325 MG TABLET PO SCH (23:31)
--- NOTE | 2017-09-09 23:42 | Internal Med History&Physical ---
Date of Encounter: 09/09/17 Time of Encounter: 22:15 Assessment and Plan (1) Altered mental status Current visit: Yes Status: Acute Acute encephalopathy, probably metabolic or drug-induced - rule out CVA Continue aspirin, Lipitor CT head - no acute intracranial abnormality Chest x-ray - increased central opacity, possibly edema or pneumonia Troponin - negative WBC - 13.7 Urine drug screen - positive for opiates MRI brain - pending ABG - pending Echocardiogram - pending Carotid Doppler - pending Continue IV fluids, supportive care, cardiac telemetry, labs in a.m., monitor closely Qualifiers: Altered mental status type: unspecified Qualified Code(s): R41.82 - Altered mental status, unspecified (2) Pneumonia Current visit: Yes Status: Acute Probable healthcare associated pneumonia, present on admission Continue IV vancomycin, IV Levaquin, IV Zosyn, DuoNeb breathing treatment Cultures - pending Qualifiers: Pneumonia type: due to unspecified organism Laterality: unspecified laterality Lung location: lower lobe of lung Qualified Code(s): J18.1 - Lobar pneumonia, unspecified organism (3) DM2 (diabetes mellitus, type 2) Current visit: No Status: Chronic Type 2 diabetes mellitus, insulin-dependent, hyperglycemia Continue insulin sliding scale, glucose checks, continue Levemir Qualifiers: Diabetes mellitus complication status: with neurologic complications Diabetes mellitus complication detail: with polyneuropathy Diabetes mellitus intermediate manager insulin use: with intermediate manager use Qualified Code(s): E11.42 - Type 2 diabetes mellitus with diabetic polyneuropathy; Z79.4 - senior care (current) use of insulin; Z79.4 - buttermaker helper (current) use of insulin; Z79.4 - buttermaker helper ( current) use of insulin; Z79.4 - buttermaker helper (current) use of insulin (4) HTN (hypertension) Current visit: No Status: Chronic Essential hypertension, controlled, monitor Continue home meds Qualifiers: Hypertension type: essential hypertension Qualified Code(s): I10 - Essential (primary) hypertension (5) HLD (hyperlipidemia) Current visit: No Status: Chronic Continue Lipitor Qualifiers: Hyperlipidemia type: unspecified Qualified Code(s): E78.5 - Hyperlipidemia , unspecified (6) ANI (obstructive sleep apnea) Current visit: No Status: Chronic Family states patient has obstructive sleep apnea, but does not use CPAP because he does not like wearing it (7) Below knee amputation status Current visit: Yes Status: Acute Recent left below-knee amputation status for osteomyelitis Dressing intact, no bleeding, Dressing change Qualifiers: Laterality: left Qualified Code(s): Z89.512 - Acquired absence of left leg below knee (8) DVT prophylaxis Current visit: Yes Status: Acute Continue heparin subcutaneous Internal Medicine - H&P: HPI Chief complaint: Altered mental status, slurred speech Admitted From: Emergency Dept Plans for Post Hospital Care: Home History of present illness: Mr. Robb is a 51 year old male with past medical history of coronary artery disease, COPD, diabetes, GERD, hyperlipidemia, anxiety, depression and hypertension. Patient presents to the ED from SNF for altered mental status. Examined in the room. Patient is awake and alert. Patient is unable to provide history because of confusion and dysarthria. He is not in any distress. Family including and daughter are at bedside. Family provides all the history. Daughter states the patient underwent left below-knee amputation about 2 weeks ago. Patient has been in the long term facility since then. Family states that patient apparently had a fall about 2 nights ago and fell on his left below-knee stump. Patient had significant pain and bleeding at the time. Family states that his medication regimen including [place] and OxyContin had been changed. They think he may have been given an extra dose or higher dose then required. Family believes that the medication overdose could be causing his symptoms of altered mental status and slurred speech. Daughter states that when she visited the patient at the nursing facility at around 2 PM this afternoon, he was confused and was having difficulty verbalizing. She then alerted the nursing staff, and patient was then sent to the ER. Patient did not have any other symptoms and did not have any other complaints. Initial workup in the ED is significant for elevated white count and slightly elevated creatinine. Urine drug screen is positive for opiates. CT of the brain is negative for any acute intracranial abnormality. X-ray of the left tibia and fibula is negative. Chest x-ray shows increased central opacity, possible pneumonia or edema. EKG shows sinus rhythm. Patient is being admitted for altered mental status probably due to medication overdose. Patient also needs stroke workup. He is also going to be treated for probable healthcare associated pneumonia. Patient and family have been explained about his condition and plan of care in detail. They understood and agreed. No unanswered questions. CODE STATUS full code. Past Med Surg Social Fam HX - Past Medical History Medical history: asthma, COPD, coronary artery disease, diabetes, GERD, hyperlipidemia, hypertension Psychiatric history: anxiety, depression - Past Surgical History Surgical History: other (Cornea repair) - Social History Smoking Status: Never smoker Smokeless Tobacco Status: Yes Alcohol use: none Drug use: none - Family History Mother Hx Family Endocrine Disorder: Yes (DM2) Father Hx Family Cardiac Disorders: Yes (VT) Brother Hx Family Endocrine Disorder: Yes (DM2) Internal Medicine - H&P: Meds Albuterol Sulfate [Albuterol Inhaler] 1 puff IH Q4H 08/21/17 [History] GlipiZIDE [Glipizide Xl] 5 mg PO DAILY 08/21/17 [History] Insulin Glargine [Lantus] 50 unit SQ BID 08/21/17 [History] Liraglutide [Victoza 2-Abdoulaye] 1.8 mg SQ DAILY 08/21/17 [History] Lisinopril [Zestril] 20 mg PO DAILY 08/21/17 [History] Ranitidine HCl [Acid Assistant Manager Bilingual] 150 mg PO BID 08/21/17 [History] metFORMIN [Glucophage] 1,000 mg PO BIDWM 08/21/17 [History] Atorvastatin [Lipitor] 40 mg PO HS 08/22/17 [History] Azelastine 0.1% Nasal [place] [Astelin] 1 - 2 spr NS BID 08/22/17 [History] Cetirizine HCl [All Day Allergy] 10 mg PO DAILY 08/22/17 [History] Cyclobenzaprine [Flexeril] 10 mg PO TID 08/22/17 [History] Cyclosporine [Restasis] 1 drop BOTH EYES DAILY 08/22/17 [History] Empagliflozin [Jardiance] 25 mg PO DAILY 08/22/17 [History] Ergocalciferol (VITAMIN D2) [Vitamin D2] 50,000 unit PO QWEEK 08/22/17 [History] Mometasone/Formoterol [Dulera 200 Mcg/5 Mcg Inhaler] 2 puff IH BID 08/22/17 [ History] Montelukast [Singulair] 10 mg PO DAILY 08/22/17 [History] [place]-3/Dha/Epa/Fish Oil [Fish Oil 1,000 mg Softgel] 2,000 mg PO DAILY 08/22/17 [History] Omeprazole [PriLOSEC] 20 mg PO DAILY 08/22/17 [History] PARoxetine HCl [Paroxetine HCl] 40 mg PO DAILY 08/22/17 [History] Trazodone HCl 150 mg PO HS 08/22/17 [History] Zileuton [Zyflo] 600 mg PO QID 08/22/17 [History] Docusate [Colace] 100 mg PO BID #60 capsule 08/31/17 [Rx] Carvedilol [Coreg] 3.125 mg PO BIDWM #60 tablet 09/01/17 [Rx] Gabapentin [Neurontin] 800 mg PO TID #60 tablet 09/01/17 [Rx] OxyCODONE/APAP 10/325 [Percocet 10/325 MG] 1 - 2 each PO Q4HR #20 tablet [Rx] 3 Allergy/AdvReac Type Severity Reaction Status Date / Time No Known Allergies Allergy Verified 09/09/17 17:37 All Systems PM: A 10-system review of systems was performed and is negative for pertinent findings except as documented above in the HPI. - Constitutional Constitutional: fatigue, weakness, no fever(s) - EENT Eyes: no blurry vision - Cardiovascular Cardiovascular ROS IM: no chest pain, no dyspnea, no dyspnea on exertion, no orthopnea, no syncope - Respiratory Respiratory: no cough, no dyspnea, no dyspnea on exertion, no wheezing - Gastrointestinal Gastrointestinal: no abdominal pain, no cramping - Genitourinary Genitourinary ROS male: no dysuria - Neurological Neurological ROS: abnormal speech, confusion, no dizziness, no loss of vision, no numbness, no tingling, no weakness - Constitutional Vitals: Temp Pulse Resp BP Pulse Ox 98.3 F 89 16 97/61 97 09/09/17 22:12 09/09/17 22:12 09/09/17 22:12 09/09/17 22:12 09/09/17 22:12 General appearance: Present: A&O X 1, morbidly obese, pleasant, no acute distress. Absent: answers questions appropriately Exam: Patient is awake and alert. He is having difficulty verbalizing. Able to follow simple verbal commands. He is oriented to person only but not to time or place. Able to move all extremities. - Head Head exam: Present: atraumatic - Eye Eye exam: Present: EOMI - ENT ENT exam: Present: mucous membranes dry - Respiratory Respiratory exam: Present: CTAB. Absent: rales, rhonchi, wheezes, tachypnea - Cardiovascular Cardiovascular exam: Present: RRR, +S1, +S2 - GI/Abdominal GI/Abdominal exam: Present: soft (Obese). Absent: distended, firm, guarding, tenderness - Extremities Exam Extremities exam: Present: radial pulses palpable and symmetrical. Absent: calf tenderness, cyanotic, pedal edema Additional comments: Left below-knee amputation. Dressing intact, no bleeding. - Neurological Exam Neurological exam: Present: alert, altered, no focal deficits, speech deficit. Absent: facial droop Additional comments: Patient has dysarthria and has difficulty verbalizing. Able to follow simple commands. Able to move all extremities. Cranial nerves seem to be intact. No other focal neurological deficits, other than speech. Internal Med - H&P Results - Labs CBC & Chem 7: 09/09/17 18:13 09/09/17 18:13 Labs: Cardiac Enzymes 09/09/17 Range/Units 22:41 Troponin I 0.00 (0-0.03) ng/mL
[2017-09-10] MEDS: Ipratropium/Albuterol Neb 3 ML IH SCH ×7 (00:34→23:29)
[2017-09-10] MEDS: Insulin LISPRO 300 UNITS/3 ML VIAL SQ SCH ×4 (01:39→18:16)
[2017-09-10] MEDS: *HR* Heparin 5,000 UNIT/ML VIAL SQ SCH ×3 (01:43→18:15)
[2017-09-10] MEDS ORDERED: 0.9 % Sodium Chloride 250 ML IVC ONE (03:16)
[2017-09-10] MEDS ORDERED: 0.9 % Sodium Chloride 250 ML ONE (03:27)
[2017-09-10] MEDS ORDERED: Vancomycin 1,000 MG in D5% in Water 250 ML IVPB SCH (06:00)
[2017-09-10 06:19] LABS: INR 1.2
[2017-09-10] MEDS: Piperacillin/Tazobactam 3.375 GM in D5% in Water (Mini-Bag+) 100 ML IVPB SCH ×3 (06:34→23:55)
[2017-09-10 06:36] LABS: Basophils % 0.4 %; Eosinophils # 0.1 K/mcL (0.0-0.6); Eosinophils % 1.1 %; Hematocrit 26.3 % (37.5-50.1); Hemoglobin 7.8 g/dL (12.9-16.9); Immature Granulocytes % 0.4 % (0-4); Lymphocytes # 1.5 K/mcL (0.6-4.6); Mean Corpuscular HGB Conc 29.7 g/dL (31.6-35.5); Mean Corpuscular Volume 87.7 fL (83.0-100.0); Mean Platelet Volume 10.1 fL (9.4-12.4); Monocytes # 0.7 K/mcL (0.0-1.3); Monocytes % 7.2 %; Neutrophils # 7.2 K/mcL (1.6-8.9); Platelet Count 248 K/mcL (140-400); Red Cell Distribution Width 18.4 % (11.5-14.5); Segmented Neutrophils % 74.9 %
[2017-09-10 06:43] LABS: BUN/Creatinine Ratio 17 (6-26); Blood Urea Nitrogen 20 mg/dL (8-26); Calcium 8.9 mg/dL (8.6-10.8); Carbon Dioxide 29 mEq/L (19-29); Chloride 99 mEq/L (98-109); Cholesterol 131 mg/dL (< 200); Glucose 85 mg/dL (70-99); HDL Cholesterol 26 mg/dL (40-59); LDL Cholesterol,Calculated 63 mg/dL (0-99); Magnesium 1.8 mg/dL (1.6-2.6); Osmolality,Calculated 282 (280-300); Potassium 4.3 mEq/L (3.5-4.5); Sodium 135 mEq/L (136-145); Triglycerides 208 mg/dL (< 150); eGFR For African Americans > 60 (> 60); eGFR For Non-African Americans > 60 (> 60)
[2017-09-10] MEDS: Famotidine 20 MG TABLET PO SCH ×2 (08:58→19:34)
[2017-09-10] MEDS: Levofloxacin 750 MG/150 ML 750 MG/150 ML BAG IVPB SCH (08:58)
[2017-09-10] MEDS: Ondansetron 4 MG/2 ML VIAL IVP PRN (08:58)
[2017-09-10] MEDS: Loratadine 10 MG TABLET PO SCH (08:58)
[2017-09-10] MEDS: Aspirin 325 MG TABLET PO SCH (08:58)
[2017-09-10] MEDS: (Cyclosporine [Restasis] 1 DROP) OP SCH (08:59)
[2017-09-10] MEDS: Lisinopril 20 MG TABLET PO SCH (08:59)
[2017-09-10] MEDS ORDERED: NON-FORMULARY MEDICATION 1 EACH EACH (Insulin Glargine [Lantus] 50 UNIT) SQ SCH (09:00)
[2017-09-10] MEDS ORDERED: Ipratropium/Albuterol Neb 3 ML IH SCH (10:00)
[2017-09-10] MEDS: Insulin DETEMIR 100 UNIT/ML X5UNITS SQ SCH ×2 (10:19→19:34)
--- NOTE | 2017-09-10 12:40 | Electrocardiograph Report ---
[place] [id number] Test Date: 2017-09-09 Pat Name: Rolando Robb Department: 113 Room: 3B12 Gender: M Purchasing Assistant: [id number] : 1965 Requested By: Preston Steward Order Number: [id number] Reading MD: Miguelangel Andrade MD Measurements Intervals [place] Rate: 86 P: 23 CA: 187 QRS: 26 QRSD: 98 T: 43 QT: 347 QTc: 391 Interpretive Statements SINUS RHYTHM Electronically Signed On 09-10-2017 12:38:51 EDT by Miguelangel Andrade MD
[2017-09-10] MEDS: Vancomycin 1,500 MG in D5% in Water 250 ML IVPB SCH (13:17)
--- NOTE | 2017-09-10 15:12 | Internal Med Progress Note ---
Date of Encounter: 09/10/17 Time of Encounter: 10:55 - Assessment and plan (1) Altered mental status Current Visit: Yes Status: Acute Assessment and plan: Patient underwent left below-knee amputation about 2 weeks ago. Patient has been in the half-way facility since then. Family states that patient apparently had a fall about 2 nights ago and fell on his left below-knee stump. Patient had significant pain and bleeding at the time. Family states that his medication regimen including [place] and OxyContin had been changed. They think he may have been given an extra dose or higher dose then required. Family believes that the medication overdose could be causing his symptoms of altered mental status and slurred speech. Daughter states that when she visited the patient at the nursing facility at around 2 PM this afternoon, he was confused and was having difficulty verbalizing. She then alerted the nursing staff, and patient was then sent to the ER. Patient did not have any other symptoms and did not have any other complaints. Pt with no focal neurological deficits, he answers questions appropriately other than month and year. On admission, patient had leukocytosis, has resolved today. Patient with hemoglobin 7.8, this appears to be his norm since July. We will continue to monitor this closely. Labs are within normal limits, lactic was negative, ROBSON has resolved. Head CT is negative for any intracranial abnormality. Chest x-ray showed increased central opacity, could be evidence of pulmonary edema or superimposed pneumonia. Carotid Dopplers were essentially normal on the right, left proximal ICA has moderate stenosis. Echocardiogram shows LVEF of 60-65% with normal LV systolic function no significant valvular dysfunction, and wall segments showed normal motion. MRI brain is still pending. Unclear etiology right now of altered mental status, encephalopathy could be due to medication overdose with a KI, pneumonia. Patient is being treated with IV antibiotics, vancomycin and Zosyn. Continue telemetry, continue to monitor patient's status and labs, continue to monitor vital signs. Qualifiers: Altered mental status type: unspecified Qualified Code(s): R41.82 - Altered mental status, unspecified (2) DM2 (diabetes mellitus, type 2) Current Visit: Yes Status: Chronic Assessment and plan: Continue SSI, Accu-Cheks before meals at bedtime, diabetic diet. Patient is insulin-dependent diabetic. Stop home medications. Qualifiers: Diabetes mellitus complication status: with neurologic complications Diabetes mellitus complication detail: with polyneuropathy Diabetes mellitus adjunct faculty for medical terminology insulin use: with adjunct faculty for medical terminology use Qualified Code(s): E11.42 - Type 2 diabetes mellitus with diabetic polyneuropathy; Z79.4 - [facility] (current) use of insulin; Z79.4 - emt intermediate (current) use of insulin; Z79.4 - emt intermediate ( current) use of insulin; Z79.4 - [facility] (current) use of insulin (3) HTN (hypertension) Current Visit: Yes Status: Chronic Assessment and plan: Vital signs are stable in the hospital. Continue home medications. Continue to monitor vital signs. Qualifiers: Hypertension type: essential hypertension Qualified Code(s): I10 - Essential (primary) hypertension (4) HLD (hyperlipidemia) Current Visit: Yes Status: Chronic Assessment and plan: Chronic. Continue medications. Qualifiers: Hyperlipidemia type: unspecified Qualified Code(s): E78.5 - Hyperlipidemia , unspecified (5) ANI (obstructive sleep apnea) Current Visit: Yes Status: Chronic Assessment and plan: Patient is nonadherent with CPAP at home. Encourage use here. (6) ROBSON (acute kidney injury) Current Visit: Yes Status: Resolved Assessment and plan: Renal function has returned to baseline. Continue to monitor labs. Gentle IV hydration the patient is not eating well. Avoid nephrotoxins. (7) Below knee amputation status Current Visit: Yes Status: Acute Assessment and plan: Pt had recent left BKA for osteomyelitis and is in rehab at [facility]. Qualifiers: Laterality: left Qualified Code(s): Z89.512 - Acquired absence of left leg below knee (8) DVT prophylaxis Current Visit: Yes Status: Acute Assessment and plan: Pt on Warfarin. Pharmacy to dose. Monitor INR. - Time Spent With Patient less than 15 minutes - Subjective Interval history: Patient was seen and assessed at 10:55 AM. Patient was able to tell me his name and that he was in the hospital in [place] and that the did not like the president. He was unaware of time or his own birthday. Pt states that he feels very tired. He denies headache, blurred vision, n/v, abdominal pain, dizziness, or vision changes. - Constitutional Vitals: Temp Pulse Resp BP Pulse Ox 97.8 F 90 16 114/71 94 09/10/17 11:52 09/10/17 11:52 09/10/17 11:52 09/10/17 11:52 09/10/17 11:52 General appearance: Present: cooperative, A&O X 2, morbidly obese, pleasant, no acute distress. Absent: answers questions appropriately - Head Head exam: Present: atraumatic, normal inspection, normocephalic - Eye Eye exam: Present: normal appearance, conjuntiva pink, sclera anicteric - Neck Neck exam general surgery: Present: supple, trachea midline. Absent: lymphadenopathy - Respiratory Respiratory exam: Present: CTAB. Absent: accessory muscle use, rales, respiratory distress, rhonchi, wheezes - Cardiovascular Cardiovascular exam: Present: RRR, +S1, +S2. Absent: diastolic murmur, gallop, rubs, systolic murmur - GI/Abdominal GI/Abdominal exam: Present: normal bowel sounds, soft, no peritoneal signs. Absent: distended, hepatomegaly, tenderness - Extremities Exam Extremities exam: Present: normal capillary refill, warm, radial pulses palpable and symmetrical. Absent: calf tenderness, cyanotic, pedal edema, tenderness - Neurological Exam Neurological exam: Present: alert, oriented X3, no focal deficits. Absent: facial droop, speech deficit - Skin Skin exam: Present: dry, intact, normal color, warm. Absent: rash Internal Medicine: Result - Labs CBC & Chem 7: 09/10/17 05:30 09/10/17 05:30 Labs: Short CBC 09/10/17 Range/Units 05:30 WBC 9.6 (4.3-11.1) K/mcL Hgb 7.8 L (12.9-16.9) g/dL Hct 26.3 L (37.5-50.1) % Plt Count 248 (140-400) K/mcL Neutrophils # 7.2 (1.6-8.9) K/mcL BMP 09/10/17 05:30 Sodium 135 L Potassium 4.3 Chloride 99 Carbon Dioxide 29 BUN 20 Creatinine 1.17 Glucose 85 Calcium 8.9 Cardiac Enzymes 09/09/17 09/10/17 09/10/17 Range/Units 22:41 05:30 12:26 Troponin I 0.00 0.00 0.00 (0-0.03) ng/mL - ABG Interpretation ABG results: PT/INR, D-dimer PT 13.0 Seconds (9.4-12.1) H 10/15/17 05:30 - Impressions Impressions Echocardiogram 09/09/17 22:18 Impressions: LVEF 60-65%. Normal left ventricular size and systolic function. Normal right ventricular size and function. No significant valvular dysfunction. No pulmonary hypertension. Left Ventricular Wall Motion: Rest Echo Findings All wall segments showed normal motion. Findings: Study Quality * Technically adequate exam. ECG Findings * Normal sinus rhythm. Left Ventricle * LVEF 60-65%. * Normal LV chamber size, wall thickness and function. * Normal left ventricular diastolic function. Right Ventricle * Normal right ventricular structure and function. Left Atrium * Normal left atrial size. Right Atrium * Normal right atrial size. Interatrial Septum * Interatrial septum not well evaluated. Aortic Valve * Trileaflet aortic valve. * Trileaflet aortic valve with normal function. * No aortic stenosis. * No aortic regurgitation. Mitral Valve * Normal mitral valve structure and function. * No mitral regurgitation. * No mitral stenosis. Tricuspid Valve * Normal tricuspid valve structure. * Trace tricuspid regurgitation. * No evidence of pulmonary hypertension. Pulmonic Valve * Pulmonic valve not well visualized. Aorta * Normally sized aortic root. Pericardium * The pericardium appears normal. IVC * Normal IVC dimensions and inspiratory collapse. Consult Discharge Plan - Plan Referrals: Sunny Rodriguez MD [Primary Care Provider] -
[2017-09-10] MEDS: Acetaminophen 325 MG TABLET PO PRN (18:15)
[2017-09-10] MEDS: 0.9 % Sodium Chloride 1,000 ML IVC SCH (19:34)
[2017-09-10] MEDS: traZODone 50 MG TABLET PO SCH (19:34)
[2017-09-11] MEDS: Insulin LISPRO 300 UNITS/3 ML VIAL SQ SCH ×5 (00:46→23:48)
[2017-09-11] MEDS: Vancomycin 1,500 MG in D5% in Water 250 ML IVPB SCH ×3 (01:35→23:44)
[2017-09-11] MEDS: *HR* Heparin 5,000 UNIT/ML VIAL SQ SCH ×4 (01:37→23:45)
[2017-09-11] MEDS: Ipratropium/Albuterol Neb 3 ML IH SCH ×5 (04:06→20:54)
[2017-09-11 05:02] LABS: Basophils # 0.1 K/mcL (0.0-0.2); Basophils % 0.8 %; Eosinophils # 0.1 K/mcL (0.0-0.6); Eosinophils % 1.2 %; Hematocrit 27.7 % (37.5-50.1); Hemoglobin 8.4 g/dL (12.9-16.9); Immature Granulocytes % 0.5 % (0-4); Lymphocytes # 1.1 K/mcL (0.6-4.6); Lymphocytes % 18.9 %; Mean Corpuscular HGB Conc 30.3 g/dL (31.6-35.5); Mean Corpuscular Hemoglobin 26.1 pg (28.0-33.3); Monocytes # 0.5 K/mcL (0.0-1.3); Monocytes % 7.9 %; Neutrophils # 4.2 K/mcL (1.6-8.9); Platelet Count 218 K/mcL (140-400); Red Blood Count 3.22 M/mcL (4.19-5.50); Red Cell Distribution Width 17.9 % (11.5-14.5); Segmented Neutrophils % 70.7 %
[2017-09-11 05:19] LABS: BUN/Creatinine Ratio 15 (6-26); Blood Urea Nitrogen 12 mg/dL (8-26); Calcium 9.1 mg/dL (8.6-10.8); Carbon Dioxide 30 mEq/L (19-29); Chloride 100 mEq/L (98-109); Glucose 112 mg/dL (70-99); Osmolality,Calculated 285 (280-300); Sodium 137 mEq/L (136-145); eGFR For African Americans > 60 (> 60); eGFR For Non-African Americans > 60 (> 60)
[2017-09-11] MEDS: Piperacillin/Tazobactam 3.375 GM in D5% in Water (Mini-Bag+) 100 ML IVPB SCH ×3 (05:33→22:15)
[2017-09-11] MEDS: BREO ELLIPTA IH SCH (07:35)
[2017-09-11] MEDS: Aspirin 325 MG TABLET PO SCH (09:46)
[2017-09-11] MEDS: Lisinopril-HCTZ 20-12.5mg TABLET PO SCH (09:46)
[2017-09-11] MEDS: Lisinopril 20 MG TABLET PO SCH (09:47)
[2017-09-11] MEDS: Famotidine 20 MG TABLET PO SCH ×2 (09:47→22:16)
[2017-09-11] MEDS: Loratadine 10 MG TABLET PO SCH (09:47)
[2017-09-11] MEDS: Levofloxacin 750 MG/150 ML 750 MG/150 ML BAG IVPB SCH (09:48)
[2017-09-11] MEDS: (Cyclosporine [Restasis] 1 DROP) OP SCH (09:49)
[2017-09-11] MEDS ORDERED: Aminoglycoside Consult 1 EACH MC ONE (10:04)
[2017-09-11 10:05] LABS: ABG Base Excess 3 mEq/L (-2 to 3); ABG HCO3 30 mEq/L (21-27); ABG Oxygen Saturation 95 % (95-98); ABG PCO2 57 mmHg (35-45); ABG PH 7.33 pH Units (7.32-7.45); ABG PO2 85 mmHg (85-104); ABG TCO2 32 mEq/L (20-26)
[2017-09-11 10:23] LABS: Folate 7.6 ng/mL (7.0-31.4)
[2017-09-11] MEDS: Ondansetron 4 MG/2 ML VIAL IVP PRN (10:58)
--- NOTE | 2017-09-11 12:05 | Internal Med Progress Note ---
Date of Encounter: 09/11/17 Time of Encounter: 08:30 - Assessment and plan (1) Altered mental status Current Visit: Yes Status: Acute Assessment and plan: Patient underwent left below-knee amputation about 2 weeks ago. [facility]. Family states that patient apparently had a fall about 2 nights ago and fell on his left below-knee stump. Patient had significant pain and bleeding at the time. Family states that his medication regimen including [place] and OxyContin had been changed. They think he may have been given an extra dose or higher dose then required. Family believes that the medication overdose could be causing his symptoms of altered mental status and slurred speech. Daughter states that when she visited the patient at the nursing facility at around 2 PM this afternoon, he was confused and was having difficulty verbalizing. She then alerted the nursing staff, and patient was then sent to the ER. Patient did not have any other symptoms and did not have any other complaints. Pt with no focal neurological deficits, he answers questions appropriately other than year, he seems much more alert today. Patient with hemoglobin 8.4, this appears to be his norm since July. We will continue to monitor this closely. Iron, folate, and B12 ordered and pending. Labs are within normal limits, lactic was negative, ROBSON has resolved. Head CT is negative for any intracranial abnormality. Chest x-ray showed increased central opacity, could be evidence of pulmonary edema or superimposed pneumonia. Carotid Dopplers were essentially normal on the right, left proximal ICA has moderate stenosis. Echocardiogram shows LVEF of 60-65% with normal LV systolic function no significant valvular dysfunction, and wall segments showed normal motion. MRI brain is still pending today, Monday. Unclear etiology right now of altered mental status, encephalopathy could be due to medication overdose with ROBSON, pneumonia. Patient is being treated with IV antibiotics, vancomycin and Zosyn. Continue telemetry, continue to monitor patient's status and labs, continue to monitor vital signs. Qualifiers: Altered mental status type: unspecified Qualified Code(s): R41.82 - Altered mental status, unspecified (2) DM2 (diabetes mellitus, type 2) Current Visit: Yes Status: Chronic Assessment and plan: Continue SSI, Accu-Cheks before meals at bedtime, diabetic diet. Patient is insulin-dependent diabetic. Stop home medications. I have decreased Levemir at night due to hypoglycemia at night, continue to monitor and adjust insulin doses as necessary. Qualifiers: Diabetes mellitus complication status: with neurologic complications Diabetes mellitus complication detail: with polyneuropathy Diabetes mellitus long-term insulin use: with long-term use Qualified Code(s): E11.42 - Type 2 diabetes mellitus with diabetic polyneuropathy; Z79.4 - long term acute care registered nurse (current) use of insulin; Z79.4 - long term acute care registered nurse (current) use of insulin; Z79.4 - long term acute care registered nurse ( current) use of insulin; Z79.4 - long term acute care registered nurse (current) use of insulin (3) HTN (hypertension) Current Visit: Yes Status: Chronic Assessment and plan: Vital signs are stable in the hospital. Continue home medications. Continue to monitor vital signs. Qualifiers: Hypertension type: essential hypertension Qualified Code(s): I10 - Essential (primary) hypertension (4) HLD (hyperlipidemia) Current Visit: Yes Status: Chronic Assessment and plan: Chronic. Continue medications. Qualifiers: Hyperlipidemia type: unspecified Qualified Code(s): E78.5 - Hyperlipidemia , unspecified (5) ANI (obstructive sleep apnea) Current Visit: Yes Status: Chronic Assessment and plan: Patient is nonadherent with CPAP at home. Encourage use here and once he returns to rehab. (6) ROBSON (acute kidney injury) Current Visit: Yes Status: Resolved Assessment and plan: Renal function has returned to baseline. Continue to monitor labs. Avoid nephrotoxins. (7) Below knee amputation status Current Visit: Yes Status: Acute Assessment and plan: Pt had recent left BKA for osteomyelitis and is in rehab at [facility]. Nursing to evaluate for dressing changes. Qualifiers: Laterality: left Qualified Code(s): Z89.512 - Acquired absence of left leg below knee (8) DVT prophylaxis Current Visit: Yes Status: Acute Assessment and plan: Heparin SQ daily. (9) Urinary retention Current Visit: Yes Status: Acute Assessment and plan: Pt has had difficulty with urination for the last 2 days. Marley inserted today, immediately returned over 1000ml urine. Likely causes include BPH, anesthesia, or use of narcotic medications. Marley will remain in place until he is evaluated by urology. Retroperitoneal US ordered. Urology consulted. - Time Spent With Patient less than 15 minutes - Subjective Interval history: Patient was seen and assessed at 0830 AM. Patient is much more alert today than he was yesterday. Family at bedside states the patient has returned to baseline. Patient states that he feels well other than the urinary retention he is experiencing. Could be related to postop changes or narcotic medication. Patient had a Marley placed and returned at over 1000 mL's of urine. Primary nurse that is caring for him today states that he is even more alert after Marley was placed. - Constitutional Vitals: Temp Pulse Resp BP Pulse Ox 97.9 F 79 18 125/72 98 09/11/17 07:03 09/11/17 07:03 09/11/17 11:23 09/11/17 07:03 09/11/17 11:23 General appearance: Present: cooperative, A&O X 2, morbidly obese, pleasant, no acute distress, answers questions appropriately - Head Head exam: Present: atraumatic, normal inspection, normocephalic - Eye Eye exam: Present: normal appearance, PERRL, conjuntiva pink, sclera anicteric - Neck Neck exam general surgery: Present: supple, trachea midline. Absent: lymphadenopathy - Respiratory Respiratory exam: Present: decreased breath sounds, CTAB. Absent: accessory muscle use, chest wall tenderness, rales, respiratory distress, rhonchi, wheezes - Cardiovascular Cardiovascular exam: Present: RRR, +S1, +S2. Absent: diastolic murmur, gallop, rubs, systolic murmur - GI/Abdominal GI/Abdominal exam: Present: distended, normal bowel sounds, soft, no peritoneal signs. Absent: hepatomegaly, tenderness - Extremities Exam Extremities exam: Present: normal capillary refill, warm, radial pulses palpable and symmetrical. Absent: calf tenderness, cyanotic, pedal edema - Neurological Exam Neurological exam: Present: alert, no focal deficits. Absent: oriented X3, facial droop, speech deficit - Skin Skin exam: Present: dry, intact, normal color, warm. Absent: rash Internal Medicine: Result - Labs CBC & Chem 7: 09/11/17 04:32 09/11/17 04:32 Labs: Short CBC 09/11/17 Range/Units 04:32 WBC 5.9 (4.3-11.1) K/mcL Hgb 8.4 L (12.9-16.9) g/dL Hct 27.7 L (37.5-50.1) % Plt Count 218 (140-400) K/mcL Neutrophils # 4.2 (1.6-8.9) K/mcL BMP 09/11/17 04:32 Sodium 137 Potassium 4.0 Chloride 100 Carbon Dioxide 30 H BUN 12 Creatinine 0.82 Glucose 112 H Calcium 9.1 Cardiac Enzymes 09/10/17 Range/Units 12:26 Troponin I 0.00 (0-0.03) ng/mL - ABG Interpretation ABG results: ABG ABG pH 7.33 pH Units (7.32-7.45) 09/10/17 00:35 ABG pCO2 57 mmHg (35-45) H 09/10/17 00:35 ABG pO2 85 mmHg (85-104) 09/10/17 00:35 ABG O2 Saturation 95 % (95-98) 09/10/17 00:35 PT/INR, D-dimer PT 13.0 Seconds (9.4-12.1) H 09/10/17 05:30 - Impressions Impressions Echocardiogram 09/09/17 22:18 Impressions: LVEF 60-65%. Normal left ventricular size and systolic function. Normal right ventricular size and function. No significant valvular dysfunction. No pulmonary hypertension. Left Ventricular Wall Motion: Rest Echo Findings All wall segments showed normal motion. Findings: Study Quality * Technically adequate exam. ECG Findings * Normal sinus rhythm. Left Ventricle * LVEF 60-65%. * Normal LV chamber size, wall thickness and function. * Normal left ventricular diastolic function. Right Ventricle * Normal right ventricular structure and function. Left Atrium * Normal left atrial size. Right Atrium * Normal right atrial size. Interatrial Septum * Interatrial septum not well evaluated. Aortic Valve * Trileaflet aortic valve. * Trileaflet aortic valve with normal function. * No aortic stenosis. * No aortic regurgitation. Mitral Valve * Normal mitral valve structure and function. * No mitral regurgitation. * No mitral stenosis. Tricuspid Valve * Normal tricuspid valve structure. * Trace tricuspid regurgitation. * No evidence of pulmonary hypertension. Pulmonic Valve * Pulmonic valve not well visualized. Aorta * Normally sized aortic root. Pericardium * The pericardium appears normal. IVC * Normal IVC dimensions and inspiratory collapse. Consult Discharge Plan - Plan Referrals: Sunny Rodriguez MD [Primary Care Provider] -
[2017-09-11] MEDS: Insulin DETEMIR 100 UNIT/ML X5UNITS SQ SCH ×2 (13:29→22:18)
[2017-09-11] MEDS: traZODone 50 MG TABLET PO SCH (22:17)
[2017-09-11] MEDS: *HR* Morphine 2 MG/ML SYRINGE IVP PRN (23:42)
[2017-09-12] MEDS: Ipratropium/Albuterol Neb 3 ML IH SCH ×6 (00:12→19:44)
[2017-09-12] MEDS: Acetaminophen 325 MG TABLET PO PRN ×3 (04:57→22:47)
[2017-09-12 05:13] LABS: Basophils % 0.7 %; Eosinophils # 0.1 K/mcL (0.0-0.6); Eosinophils % 1.4 %; Hematocrit 25.5 % (37.5-50.1); Hemoglobin 7.8 g/dL (12.9-16.9); Immature Granulocytes % 0.5 % (0-4); Lymphocytes # 1.3 K/mcL (0.6-4.6); Lymphocytes % 22.8 %; Mean Corpuscular HGB Conc 30.6 g/dL (31.6-35.5); Mean Corpuscular Hemoglobin 25.7 pg (28.0-33.3); Mean Corpuscular Volume 84.2 fL (83.0-100.0); Mean Platelet Volume 9.6 fL (9.4-12.4); Monocytes # 0.4 K/mcL (0.0-1.3); Monocytes % 7.3 %; Platelet Count 209 K/mcL (140-400); Red Blood Count 3.03 M/mcL (4.19-5.50); Red Cell Distribution Width 17.6 % (11.5-14.5); Segmented Neutrophils % 67.3 %
[2017-09-12 05:20] LABS: % Iron Saturation 10 % (20-55); Iron 27 mcg/dL (65-175); Transferrin 191 mg/dL (174-364)
[2017-09-12 05:29] LABS: BUN/Creatinine Ratio 9 (6-26); Blood Urea Nitrogen 8 mg/dL (8-26); Calcium 9.1 mg/dL (8.6-10.8); Carbon Dioxide 29 mEq/L (19-29); Chloride 101 mEq/L (98-109); Glucose 87 mg/dL (70-99); Osmolality,Calculated 282 (280-300); Potassium 3.9 mEq/L (3.5-4.5); Sodium 137 mEq/L (136-145); eGFR For African Americans > 60 (> 60); eGFR For Non-African Americans > 60 (> 60)
[2017-09-12] MEDS: Insulin LISPRO 300 UNITS/3 ML VIAL SQ SCH ×3 (06:25→19:07)
[2017-09-12] MEDS: Piperacillin/Tazobactam 3.375 GM in D5% in Water (Mini-Bag+) 100 ML IVPB SCH (06:26)
[2017-09-12] MEDS: *HR* Morphine 2 MG/ML SYRINGE IVP PRN ×2 (07:04→11:59)
[2017-09-12] MEDS: BREO ELLIPTA IH SCH (07:53)
[2017-09-12] MEDS: Lisinopril 20 MG TABLET PO SCH (08:24)
[2017-09-12] MEDS: Loratadine 10 MG TABLET PO SCH (08:26)
[2017-09-12] MEDS: Aspirin 325 MG TABLET PO SCH (08:26)
[2017-09-12] MEDS: Famotidine 20 MG TABLET PO SCH ×2 (08:26→20:39)
[2017-09-12] MEDS: *HR* Heparin 5,000 UNIT/ML VIAL SQ SCH ×2 (08:26→19:06)
[2017-09-12] MEDS: Lisinopril-HCTZ 20-12.5mg TABLET PO SCH (08:26)
[2017-09-12] MEDS: (Cyclosporine [Restasis] 1 DROP) OP SCH (08:27)
[2017-09-12] MEDS: Levofloxacin 750 MG/150 ML 750 MG/150 ML BAG IVPB SCH (10:38)
[2017-09-12] MEDS: Insulin DETEMIR 100 UNIT/ML X5UNITS SQ SCH ×3 (10:39→21:29)
[2017-09-12] MEDS: Vancomycin 1,500 MG in D5% in Water 250 ML IVPB SCH (12:02)
--- NOTE | 2017-09-12 12:03 | Internal Med Progress Note ---
Date of Encounter: 09/12/17 Time of Encounter: 12:01 - Assessment and plan (1) DM2 (diabetes mellitus, type 2) Current Visit: Yes Status: Chronic Assessment and plan: Continue SSI, Accu-Cheks before meals at bedtime, diabetic diet. Patient is insulin-dependent diabetic. Continue current therapy Qualifiers: Diabetes mellitus complication status: with neurologic complications Diabetes mellitus complication detail: with polyneuropathy Diabetes mellitus 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 helper termite insulin use: with senior care use Qualified Code(s): E11.42 - Type 2 diabetes mellitus with diabetic polyneuropathy; Z79.4 - intermediate (current) use of insulin; Z79.4 - terminal manager (current) use of insulin; Z79.4 - intermediate ( current) use of insulin; Z79.4 - intermediate (current) use of insulin (2) HTN (hypertension) Current Visit: Yes Status: Chronic Assessment and plan: Vital signs are stable in the hospital. Continue home medications. Continue to monitor vital signs. Qualifiers: Hypertension type: essential hypertension Qualified Code(s): I10 - Essential (primary) hypertension (3) HLD (hyperlipidemia) Current Visit: Yes Status: Chronic Assessment and plan: Chronic. Continue medications. Qualifiers: Hyperlipidemia type: unspecified Qualified Code(s): E78.5 - Hyperlipidemia , unspecified (4) ANI (obstructive sleep apnea) Current Visit: Yes Status: Chronic Assessment and plan: Patient is nonadherent with CPAP at home. Encourage use here and once he returns to rehab. (5) ROBSON (acute kidney injury) Current Visit: Yes Status: Resolved Assessment and plan: Renal function has returned to baseline. Continue to monitor labs. Avoid nephrotoxins. (6) Anemia of chronic disease Current Visit: No Status: Chronic (7) Anxiety Current Visit: No Status: Resolved (8) Altered mental status Current Visit: Yes Status: Resolved Assessment and plan: Patient underwent left below-knee amputation about 2 weeks ago. Patient has been in the nursing home facility since then. Work up is negative till date for intracranial process Patient had ROBSON on admission which has resolved AMS could be metabolic or due to overuse of opiate Follow final cultures Patient is back to baseline Qualifiers: Altered mental status type: unspecified Qualified Code(s): R41.82 - Altered mental status, unspecified (9) DVT prophylaxis Current Visit: Yes Status: Acute Assessment and plan: Heparin SQ daily. (10) Below knee amputation status Current Visit: Yes Status: Acute Assessment and plan: Pt had recent left BKA for osteomyelitis and is in rehab at [facility]. Nursing to evaluate for dressing changes Will consult podiatry for augie removal Qualifiers: Laterality: left Qualified Code(s): Z89.512 - Acquired absence of left leg below knee (11) Urinary retention Current Visit: Yes Status: Acute Assessment and plan: Marley drained 1000cc per chart Will remain in-situ till review by urology as outpatient Renal USS - Subjective Interval history: Seen and evaluated at bedside with family, no new complains AMS has resolved He is awaiting PTOT eval Work up was negative so far I will de-escalate antibiotics to levaquin only - Constitutional Vitals: Temp Pulse Resp BP Pulse Ox 98.3 F 73 18 125/81 98 09/12/17 11:11 09/12/17 11:11 09/12/17 11:46 09/12/17 11:11 09/12/17 11:46 General appearance: Present: cooperative, A&O X 3, morbidly obese, pleasant, no acute distress, answers questions appropriately - Head Head exam: Present: atraumatic, normocephalic - Eye Eye exam: Present: PERRL, conjuntiva pink, sclera anicteric Pupils: Present: PERRL - Neck Neck exam general surgery: Present: supple, trachea midline. Absent: lymphadenopathy - Respiratory Respiratory exam: Present: CTAB. Absent: accessory muscle use, rales, rhonchi, wheezes - Cardiovascular Cardiovascular exam: Present: RRR, +S1, +S2. Absent: diastolic murmur, gallop, rubs, systolic murmur - GI/Abdominal GI/Abdominal exam: Present: normal bowel sounds, soft, no peritoneal signs. Absent: distended, tenderness - Extremities Exam Additional comments: s/p L BKA, stump clean and dry - Neurological Exam Neurological exam: Present: alert, CN II-XII intact, oriented X3, no focal deficits. Absent: pronater drift, facial droop, speech deficit - Skin Skin exam: Present: dry, intact Internal Medicine: Result - Labs CBC & Chem 7: 09/12/17 05:00 09/12/17 05:00 Labs: Short CBC 09/12/17 Range/Units 05:00 WBC 5.9 (4.3-11.1) K/mcL Hgb 7.8 L (12.9-16.9) g/dL Hct 25.5 L (37.5-50.1) % Plt Count 209 (140-400) K/mcL Neutrophils # 4.0 (1.6-8.9) K/mcL BMP 09/12/17 05:00 Sodium 137 Potassium 3.9 Chloride 101 Carbon Dioxide 29 BUN 8 Creatinine 0.85 Glucose 87 Calcium 9.1 - ABG Interpretation ABG results: ABG ABG pH 7.33 pH Units (7.32-7.45) 09/10/17 00:35 ABG pCO2 57 mmHg (35-45) H 09/10/17 00:35 ABG pO2 85 mmHg (85-104) 09/10/17 00:35 ABG O2 Saturation 95 % (95-98) 09/10/17 00:35 PT/INR, D-dimer PT 13.0 Seconds (9.4-12.1) H 09/10/17 05:30 - Impressions Impressions Brain MRI 09/11/17 12:30 IMPRESSION: Unremarkable exam D/ / Dony Rodney MD / Dony Rodney MD Interpreting Provider: Dony Rodney MD Consult Discharge Plan - Plan Referrals: Sunny Rodriguez MD [Primary Care Provider] -
[2017-09-12] MEDS: Ondansetron 4 MG/2 ML VIAL IVP PRN (16:21)
[2017-09-12] MEDS: traZODone 50 MG TABLET PO SCH (20:39)
[2017-09-13] MEDS: Ipratropium/Albuterol Neb 3 ML IH SCH ×7 (00:04→23:17)
[2017-09-13] MEDS: Insulin LISPRO 300 UNITS/3 ML VIAL SQ SCH ×4 (00:15→18:38)
[2017-09-13] MEDS: *HR* Morphine 2 MG/ML SYRINGE IVP PRN ×2 (00:16→04:59)
[2017-09-13] MEDS: *HR* Heparin 5,000 UNIT/ML VIAL SQ SCH ×3 (01:35→16:22)
[2017-09-13 04:22] LABS: Basophils # 0.1 K/mcL (0.0-0.2); Basophils % 0.7 %; Eosinophils # 0.2 K/mcL (0.0-0.6); Eosinophils % 2.3 %; Hematocrit 26.1 % (37.5-50.1); Hemoglobin 8.1 g/dL (12.9-16.9); Immature Granulocytes % 0.6 % (0-4); Lymphocytes # 2.1 K/mcL (0.6-4.6); Lymphocytes % 30.2 %; Mean Corpuscular Hemoglobin 26.1 pg (28.0-33.3); Mean Corpuscular Volume 84.2 fL (83.0-100.0); Mean Platelet Volume 9.9 fL (9.4-12.4); Monocytes # 0.6 K/mcL (0.0-1.3); Monocytes % 9.3 %; Neutrophils # 3.9 K/mcL (1.6-8.9); Platelet Count 204 K/mcL (140-400); Segmented Neutrophils % 56.9 %
[2017-09-13 04:29] LABS: BUN/Creatinine Ratio 11 (6-26); Blood Urea Nitrogen 9 mg/dL (8-26); Calcium 8.8 mg/dL (8.6-10.8); Carbon Dioxide 28 mEq/L (19-29); Chloride 100 mEq/L (98-109); Glucose 90 mg/dL (70-99); Osmolality,Calculated 280 (280-300); Potassium 3.9 mEq/L (3.5-4.5); Sodium 136 mEq/L (136-145); eGFR For African Americans > 60 (> 60); eGFR For Non-African Americans > 60 (> 60)
[2017-09-13] MEDS: BREO ELLIPTA IH SCH (08:19)
--- NOTE | 2017-09-13 08:46 | Physician Discharge Referral ---
ExtendedCare Referral Info Transfer To: SNF Provider in Charge: Dianne Provider in Charge after Transfer: PCP Institutional Level of Care: Skilled - Diagnosis (1) DM2 (diabetes mellitus, type 2) Priority: Secondary Status: Chronic (2) HTN (hypertension) Priority: Secondary Status: Chronic (3) HLD (hyperlipidemia) Priority: Secondary Status: Chronic (4) ANI (obstructive sleep apnea) Priority: Secondary Status: Chronic (5) ROBSON (acute kidney injury) Status: Resolved (6) Anemia of chronic disease Priority: Secondary Status: Chronic (7) Anxiety Priority: Secondary Status: Resolved (8) Altered mental status Priority: Primary Status: Resolved (9) DVT prophylaxis Priority: Primary Status: Acute (10) Below knee amputation status Priority: Primary Status: Acute (11) Urinary retention Priority: Primary Status: Resolved Prognosis: Fair Aware of Diagnosis: Patient, Family Aware of Prognosis: Patient, Family - Transfer Medications Home Medications: Albuterol Sulfate [Albuterol Inhaler] 1 - 2 puff IH Q4H PRN 08/21/17 [History] GlipiZIDE [Glipizide Xl] 5 mg PO DAILY 08/21/17 [History] Insulin Glargine [Lantus] 50 unit SQ BID 08/21/17 [History] Liraglutide [Victoza 2-Abdoulaye] 1.8 mg SQ DAILY 08/21/17 [History] Lisinopril [Zestril] 20 mg PO DAILY 08/21/17 [History] Ranitidine HCl [Acid Compensation Associate] 150 mg PO BID 08/21/17 [History] metFORMIN [Glucophage] 1,000 mg PO BIDWM 08/21/17 [History] Atorvastatin [Lipitor] 40 mg PO HS 08/22/17 [History] Azelastine 0.1% Nasal [place] [Astelin] 1 - 2 spr NS BID 08/22/17 [History] Cetirizine HCl [All Day Allergy] 10 mg PO DAILY 08/22/17 [History] Cyclobenzaprine [Flexeril] 10 mg PO TID 08/22/17 [History] Cyclosporine [Restasis] 1 drop BOTH EYES DAILY 08/22/17 [History] Empagliflozin [Jardiance] 25 mg PO DAILY 08/22/17 [History] Ergocalciferol (VITAMIN D2) [Vitamin D2] 50,000 unit PO QWEEK 08/22/17 [History] Mometasone/Formoterol [Dulera 200 Mcg/5 Mcg Inhaler] 2 puff IH BID 08/22/17 [ History] Montelukast [Singulair] 10 mg PO DAILY 08/22/17 [History] [place]-3/Dha/Epa/Fish Oil [Fish Oil 1,000 mg Softgel] 2,000 mg PO DAILY 08/22/17 [History] Omeprazole [PriLOSEC] 20 mg PO BID 08/22/17 [History] PARoxetine HCl [Paroxetine HCl] 40 mg PO DAILY 08/22/17 [History] Trazodone HCl 150 mg PO HS 08/22/17 [History] Zileuton [Zyflo] 600 mg PO QID 08/22/17 [History] Docusate [Colace] 100 mg PO BID #60 capsule 08/31/17 [Rx] Carvedilol [Coreg] 3.125 mg PO BIDWM #60 tablet 09/01/17 [Rx] Gabapentin [Neurontin] 800 mg PO TID #60 tablet 09/01/17 [Rx] Fluticasone/Vilanterol [Breo Ellipta 200-25 Mcg INH] 1 puff IH DAILY 09/10/17 [ History] Aspirin 325 mg PO DAILY tablet 09/13/17 [Rx] Tamsulosin [Flomax] 0.4 mg PO DAILY capsule 09/13/17 [Rx] Allergies/Adverse Reactions: 3 Allergy/AdvReac Type Severity Reaction Status Date / Time No Known Allergies Allergy Verified 09/09/17 17:37 - Respiratory Orders Smoking Cessation: Smoking cessation has been advised. For more information, call the [place] Tobacco Quit Line at 5-569-KIIA-NOW. - Advance Directives Code Status: Full Code - Mobility Orders Other (Per pt) - Diet Orders No Concentrated Sweets, Cardiac CERTIFICATION: I certify that the transfer of the above named patient to an Extended Care Facility is necessary for the continuing treatment of the diagnosis listed. The above information is true and accurate reflection of patient's current condition. Confidential - Redisclosure prohibited without a patient's written consent.
--- NOTE | 2017-09-13 08:46 | Discharge Summary ---
Date of Encounter: 09/14/17 Time of Encounter: 09:08 - Discharge Diagnosis (1) DM2 (diabetes mellitus, type 2) Priority: Secondary Status: Chronic Comments: Controlled, continue current meds Qualifiers: Diabetes mellitus complication status: with neurologic complications Diabetes mellitus complication detail: with polyneuropathy Diabetes mellitus long term care social worker insulin use: with shelter use Qualified Code(s): E11.42 - Type 2 diabetes mellitus with diabetic polyneuropathy; Z79.4 - [facility] (current) use of insulin; Z79.4 - [facility] (current) use of insulin; Z79.4 - [facility] ( current) use of insulin; Z79.4 - [facility] (current) use of insulin (2) HTN (hypertension) Priority: Secondary Status: Chronic Comments: Continue current meds Qualifiers: Hypertension type: essential hypertension Qualified Code(s): I10 - Essential (primary) hypertension (3) HLD (hyperlipidemia) Priority: Secondary Status: Chronic Comments: Continue statin Qualifiers: Hyperlipidemia type: unspecified Qualified Code(s): E78.5 - Hyperlipidemia , unspecified (4) ANI (obstructive sleep apnea) Priority: Secondary Status: Chronic Comments: CPAP at night (5) ROBSON (acute kidney injury) Priority: Primary Status: Resolved Comments: Resolved, possibly secondary to diuresis (6) Anemia of chronic disease Priority: Secondary Status: Chronic (7) Anxiety Priority: Secondary Status: Resolved (8) Altered mental status Priority: Primary Status: Resolved Qualifiers: Altered mental status type: unspecified Qualified Code(s): R41.82 - Altered mental status, unspecified (9) DVT prophylaxis Priority: Secondary Status: Acute (10) Below knee amputation status Priority: Secondary Status: Acute Qualifiers: Laterality: left Qualified Code(s): Z89.512 - Acquired absence of left leg below knee (11) Urinary retention Priority: Primary Status: Resolved - Discharge Medications Home Medications: Albuterol Sulfate [Albuterol Inhaler] 1 - 2 puff IH Q4H PRN 08/21/17 [History] GlipiZIDE [Glipizide Xl] 5 mg PO DAILY 08/21/17 [History] Insulin Glargine [Lantus] 50 unit SQ BID 08/21/17 [History] Liraglutide [Victoza 2-Abdoulaye] 1.8 mg SQ DAILY 08/21/17 [History] Lisinopril [Zestril] 20 mg PO DAILY 08/21/17 [History] Ranitidine HCl [Acid Principal Military Analyst] 150 mg PO BID 08/21/17 [History] metFORMIN [Glucophage] 1,000 mg PO BIDWM 08/21/17 [History] Atorvastatin [Lipitor] 40 mg PO HS 08/22/17 [History] Azelastine 0.1% Nasal [place] [Astelin] 1 - 2 spr NS BID 08/22/17 [History] Cetirizine HCl [All Day Allergy] 10 mg PO DAILY 08/22/17 [History] Cyclobenzaprine [Flexeril] 10 mg PO TID 08/22/17 [History] Cyclosporine [Restasis] 1 drop BOTH EYES DAILY 08/22/17 [History] Empagliflozin [Jardiance] 25 mg PO DAILY 08/22/17 [History] Ergocalciferol (VITAMIN D2) [Vitamin D2] 50,000 unit PO QWEEK 08/22/17 [History] Mometasone/Formoterol [Dulera 200 Mcg/5 Mcg Inhaler] 2 puff IH BID 08/22/17 [ History] Montelukast [Singulair] 10 mg PO DAILY 08/22/17 [History] [place]-3/Dha/Epa/Fish Oil [Fish Oil 1,000 mg Softgel] 2,000 mg PO DAILY 08/22/17 [History] Omeprazole [PriLOSEC] 20 mg PO BID 08/22/17 [History] PARoxetine HCl [Paroxetine HCl] 40 mg PO DAILY 08/22/17 [History] Trazodone HCl 150 mg PO HS 08/22/17 [History] Zileuton [Zyflo] 600 mg PO QID 08/22/17 [History] Docusate [Colace] 100 mg PO BID #60 capsule 08/31/17 [Rx] Carvedilol [Coreg] 3.125 mg PO BIDWM #60 tablet 09/01/17 [Rx] Gabapentin [Neurontin] 800 mg PO TID #60 tablet 09/01/17 [Rx] Fluticasone/Vilanterol [Breo Ellipta 200-25 Mcg INH] 1 puff IH DAILY 09/10/17 [ History] Aspirin 325 mg PO DAILY tablet 09/13/17 [Rx] Tamsulosin [Flomax] 0.4 mg PO DAILY capsule 09/13/17 [Rx] levoFLOXacin [Levaquin] 500 mg PO DAILY tablet 09/14/17 [Rx] Allergies/Adverse Reactions: 3 Allergy/AdvReac Type Severity Reaction Status Date / Time No Known Allergies Allergy Verified 09/09/17 17:37 Procedures/tests Complete & Pending: Procedures Performed prior 72 hours Category Date Time Status Retroperitoneal Ultrasound - Complete [US Exams 09/12/17 21:00 Completed retroperitoneal comp] [US] Routine MR head/brain wo con [MR] Routine MRI 09/11/17 12:30 Completed Date of admission: 09/09/17 22:15 Primary care physician: Sunny Rodriguez MD Consults: 09/11/17 14:15 Consult to Occupational Therapy [CONS] Routine Comment: Evaluate, develop and implement POC Reason for Consult: s/p L BKA with recent stay at [facility] Consult to Cork Insulation Installer [CONS] Routine Reason for SW Consult: s/p L BKA with recent stay at [facility] 09/11/17 14:16 Consult to Physical Therapy [CONS] Routine Comment: Evaluate, develop and implement POC Reason for Consult: s/p L BKA with recent stay at [facility] Discharging clinician: Tyrone Dean Anticipated date of discharge: 09/13/17 - Patient Status Disposition: Transfer SNF Condition: Good Functional capacity at discharge: uses cane/walker Overall status at discharge: patient is back to baseline - Discharge Instructions Follow Up With: Sunny Rodriguez MD [Primary Care Provider] - - Diet and Activity Activity: as per physical therapy Diet: diabetic diet, low fat, low cholesterol, low salt diet Interval History: See below Hospital course: Mr. Robb is a 51 year old male with DM, HTN, HLD, Recent admission for OM, s/p L BKA Patient underwent left below-knee amputation about 2 weeks ago. [facility]. Family stated that patient apparently had a fall prior to admission and patient's medication regimen including [place] and OxyContin was changed at SNF. Pt with no focal neurological deficits, he was AAOX3 , Labs are within normal limits, lactic was negative, ROBSON present on admission has resolved. Head CT is negative for any intracranial abnormality. Chest x-ray showed increased central opacity, could be evidence of pulmonary edema or superimposed pneumonia. Carotid Dopplers were essentially normal on the right, left proximal ICA has moderate stenosis. Echocardiogram shows LVEF of 60-65% with normal LV systolic function no significant valvular dysfunction, and wall segments showed normal motion. MRI brain is still pending today, Monday. Anemia of chronic disease is stable. Patient has improved with IVF hydration, and is back to baseline, he developed acute urinary retention, which required Marley placement, he will need to keep the Marley till urology review as out-patient. Podiatry was consulted during this admission for knee stump evaluation, will follow PTOT recommends SNF return, patient is stable to be discharged after certification is approved Folow up with PCP Complete antibiotics at SNF for 5 more days - Time Spent with Patient Total time spent providing and/or coordinating discharge services: Greater than 30 minutes - Constitutional Vitals: Temp Pulse Resp BP Pulse Ox 98.0 F 83 18 119/65 95 09/13/17 07:19 09/13/17 07:19 09/13/17 08:19 09/13/17 07:19 09/13/17 08:19 General appearance: Present: cooperative, A&O X 3, pleasant, no acute distress, obese, answers questions appropriately - Head Head exam: Present: atraumatic, normocephalic - Eye Eye exam: Present: PERRL, conjuntiva pink, sclera anicteric Pupils: Present: PERRL - Neck Neck exam general surgery: Present: supple, trachea midline. Absent: lymphadenopathy - Respiratory Respiratory exam: Present: CTAB. Absent: accessory muscle use, rales, rhonchi, wheezes - Cardiovascular Cardiovascular exam: Present: RRR, +S1, +S2. Absent: diastolic murmur, gallop, rubs, systolic murmur - GI/Abdominal GI/Abdominal exam: Present: normal bowel sounds, soft, no peritoneal signs. Absent: distended, tenderness - Extremities Exam Additional comments: s/p L BKA. Stump dressing clean and dry. RLE unremarkable - Neurological Exam Neurological exam: Present: alert, CN II-XII intact, oriented X3, no focal deficits. Absent: pronater drift, facial droop, speech deficit - Skin Skin exam: Present: dry, intact
[2017-09-13] MEDS: Acetaminophen 325 MG TABLET PO PRN ×3 (09:31→22:04)
[2017-09-13] MEDS: Loratadine 10 MG TABLET PO SCH (09:31)
[2017-09-13] MEDS: Famotidine 20 MG TABLET PO SCH ×2 (09:31→19:49)
[2017-09-13] MEDS: Lisinopril 20 MG TABLET PO SCH (09:31)
[2017-09-13] MEDS: (Cyclosporine [Restasis] 1 DROP) OP SCH (09:32)
[2017-09-13] MEDS: Aspirin 325 MG TABLET PO SCH (09:32)
[2017-09-13] MEDS: Lisinopril-HCTZ 20-12.5mg TABLET PO SCH (09:32)
[2017-09-13] MEDS: Levofloxacin 750 MG/150 ML 750 MG/150 ML BAG IVPB SCH (09:33)
[2017-09-13] MEDS: Insulin DETEMIR 100 UNIT/ML X5UNITS SQ SCH ×2 (09:34→19:50)
[2017-09-13] MEDS: traZODone 50 MG TABLET PO SCH (19:49)
[2017-09-14] MEDS: *HR* Heparin 5,000 UNIT/ML VIAL SQ SCH ×3 (00:41→15:45)
[2017-09-14] MEDS: Insulin LISPRO 300 UNITS/3 ML VIAL SQ SCH ×4 (00:41→18:07)
[2017-09-14] MEDS: *HR* Morphine 2 MG/ML SYRINGE IVP PRN ×4 (00:41→18:06)
[2017-09-14] MEDS: Ipratropium/Albuterol Neb 3 ML IH SCH ×6 (03:42→23:41)
[2017-09-14] MEDS: BREO ELLIPTA IH SCH (07:32)
[2017-09-14] MEDS: Levofloxacin 750 MG/150 ML 750 MG/150 ML BAG IVPB SCH (08:04)
[2017-09-14] MEDS: Lisinopril-HCTZ 20-12.5mg TABLET PO SCH (08:05)
[2017-09-14] MEDS: Loratadine 10 MG TABLET PO SCH (08:05)
[2017-09-14] MEDS: Aspirin 325 MG TABLET PO SCH (08:06)
[2017-09-14] MEDS: Famotidine 20 MG TABLET PO SCH ×2 (08:06→20:12)
[2017-09-14] MEDS: Lisinopril 20 MG TABLET PO SCH (08:07)
[2017-09-14] MEDS: (Cyclosporine [Restasis] 1 DROP) OP SCH (08:07)
[2017-09-14] MEDS: Insulin DETEMIR 100 UNIT/ML X5UNITS SQ SCH ×2 (09:01→23:41)
--- NOTE | 2017-09-14 11:42 | Internal Med Progress Note ---
Date of Encounter: 09/14/17 Time of Encounter: 11:42 - Assessment and plan (1) DM2 (diabetes mellitus, type 2) Current Visit: Yes Status: Chronic Assessment and plan: Continue SSI, Accu-Cheks before meals at bedtime, diabetic diet. Patient is insulin-dependent diabetic. Continue current therapy Qualifiers: Diabetes mellitus complication status: with neurologic complications Diabetes mellitus complication detail: with polyneuropathy Diabetes mellitus termination clerk insulin use: with fpc use Qualified Code(s): E11.42 - Type 2 diabetes mellitus with diabetic polyneuropathy; Z79.4 - group home (current) use of insulin; Z79.4 - technician terminal and repeater (current) use of insulin; Z79.4 - group home ( current) use of insulin; Z79.4 - group home (current) use of insulin (2) HTN (hypertension) Current Visit: Yes Status: Chronic Assessment and plan: Vital signs are stable in the hospital. Continue home medications. Continue to monitor vital signs. Qualifiers: Hypertension type: essential hypertension Qualified Code(s): I10 - Essential (primary) hypertension (3) HLD (hyperlipidemia) Current Visit: Yes Status: Chronic Assessment and plan: Chronic. Continue medications. Qualifiers: Hyperlipidemia type: unspecified Qualified Code(s): E78.5 - Hyperlipidemia , unspecified (4) ANI (obstructive sleep apnea) Current Visit: Yes Status: Chronic Assessment and plan: Patient is nonadherent with CPAP at home. Encourage use here and once he returns to rehab. (5) ROBSON (acute kidney injury) Current Visit: Yes Status: Resolved Assessment and plan: Renal function has returned to baseline. Continue to monitor labs. Avoid nephrotoxins. (6) Anemia of chronic disease Current Visit: No Status: Chronic (7) Anxiety Current Visit: No Status: Resolved (8) Altered mental status Current Visit: Yes Status: Resolved Assessment and plan: Patient underwent left below-knee amputation about 2 weeks ago. Patient has been in the [facility] facility since then. Work up is negative till date for intracranial process Patient had ROBSON on admission which has resolved AMS could be metabolic or due to overuse of opiate Blood and urine culture no growth Patient is AAOX3 and back to baseline Qualifiers: Altered mental status type: unspecified Qualified Code(s): R41.82 - Altered mental status, unspecified (9) DVT prophylaxis Current Visit: Yes Status: Acute Assessment and plan: Heparin SQ daily. (10) Below knee amputation status Current Visit: Yes Status: Acute Assessment and plan: Pt had recent left BKA for osteomyelitis and is in rehab at [facility]. Nursing to evaluate for dressing changes Will consult podiatry for augie removal Qualifiers: Laterality: left Qualified Code(s): Z89.512 - Acquired absence of left leg below knee (11) Urinary retention Current Visit: Yes Status: Resolved Assessment and plan: Marley drained 1000cc per chart Will remain in-situ till review by urology as outpatient Renal USS unremarkable - Subjective Interval history: Seen and evaluated at bedside with family, no new complains AMS has resolved No new complains Dr. Maloney was called and will evaluate patient's stump for possible augie removal patient is otherwise stable for discharge and awaiting pre-cert - Constitutional Vitals: Temp Pulse Resp BP Pulse Ox 98.3 F 85 16 152/77 98 09/14/17 07:15 09/14/17 07:15 09/14/17 07:26 09/14/17 07:26 09/14/17 07:26 General appearance: Present: cooperative, A&O X 3, pleasant, no acute distress, obese, answers questions appropriately - Head Head exam: Present: atraumatic, normocephalic - Eye Eye exam: Present: PERRL, conjuntiva pink, sclera anicteric Pupils: Present: PERRL - Neck Neck exam general surgery: Present: supple, trachea midline. Absent: lymphadenopathy - Respiratory Respiratory exam: Present: CTAB. Absent: accessory muscle use, rales, rhonchi, wheezes - Cardiovascular Cardiovascular exam: Present: RRR, +S1, +S2. Absent: diastolic murmur, gallop, rubs, systolic murmur - GI/Abdominal GI/Abdominal exam: Present: normal bowel sounds, soft, no peritoneal signs. Absent: distended, tenderness - Extremities Exam Additional comments: s/p L BKA, stump clean and dry - Neurological Exam Neurological exam: Present: alert, CN II-XII intact, oriented X3, no focal deficits. Absent: pronater drift, facial droop, speech deficit - Skin Skin exam: Present: dry, intact Internal Medicine: Result - Labs CBC & Chem 7: 09/13/17 03:03 09/13/17 03:03 - ABG Interpretation ABG results: ABG ABG pH 7.33 pH Units (7.32-7.45) 09/10/17 00:35 ABG pCO2 57 mmHg (35-45) H 09/10/17 00:35 ABG pO2 85 mmHg (85-104) 09/10/17 00:35 ABG O2 Saturation 95 % (95-98) 09/10/17 00:35 PT/INR, D-dimer PT 13.0 Seconds (9.4-12.1) H 09/10/17 05:30 Consult Discharge Plan - Plan Referrals: Sunny Rodriguez MD [Primary Care Provider] -
--- NOTE | 2017-09-14 13:26 | Event Note ---
Date of Encounter: 09/14/17 Time of Encounter: 13:15 Mr. Robb is POD #17 from a Left BKA. His incision is clean, dry and intact. No surrounding erythema, induration or drainage noted. Every other staple removed today and patient tolerated well. Will tobiasle for follow-up in the surgery office in 1 week to remove remaining augie. May leave incision open to air.
[2017-09-14] MEDS: Ondansetron 4 MG/2 ML VIAL IVP PRN (15:45)
--- NOTE | 2017-09-14 18:48 | Event Note ---
Date of Encounter: 09/13/17 Time of Encounter: 03:00 Discussed with hospitalist, Dr. Maloney who performed the below knee amputation should follow the amputation. I came and evaluated the right foot. There are no signs of infection, skin breakdown or ulceration in the right foot. Patient has no complaints with the right foot. Discussed again with patient and last admission prior to discharge and he was given an Rx for diabetic insoles for the right foot as well as for shoes which he is to get when he has sufficiently recovered from the BK to try to prevent ulceration, infection and amputation on the right side.
[2017-09-14] MEDS: traZODone 50 MG TABLET PO SCH (20:11)
[2017-09-14] MEDS: Acetaminophen 325 MG TABLET PO PRN (20:11)
[2017-09-15] MEDS: *HR* Heparin 5,000 UNIT/ML VIAL SQ SCH ×2 (01:25→08:14)
[2017-09-15] MEDS: Insulin LISPRO 300 UNITS/3 ML VIAL SQ SCH ×2 (01:26→06:09)
[2017-09-15] MEDS: Ipratropium/Albuterol Neb 3 ML IH SCH ×3 (04:28→11:32)
[2017-09-15] MEDS: Acetaminophen 325 MG TABLET PO PRN ×2 (08:14→13:02)
[2017-09-15] MEDS: Lisinopril-HCTZ 20-12.5mg TABLET PO SCH (08:14)
[2017-09-15] MEDS: Insulin DETEMIR 100 UNIT/ML X5UNITS SQ SCH (08:14)
[2017-09-15] MEDS: Loratadine 10 MG TABLET PO SCH (08:15)
[2017-09-15] MEDS: BREO ELLIPTA IH SCH (08:16)
[2017-09-15] MEDS: Aspirin 325 MG TABLET PO SCH (08:16)
[2017-09-15] MEDS: Famotidine 20 MG TABLET PO SCH (08:16)
[2017-09-15] MEDS: (Cyclosporine [Restasis] 1 DROP) OP SCH (08:16)
[2017-09-15] MEDS: Lisinopril 20 MG TABLET PO SCH (08:16)
[2017-09-15] MEDS ORDERED: levoFLOXacin 500 MG TABLET PO SCH (09:00)
[2017-09-15 12:25] VITALS: BP 143/74
== END 2017-09-15 13:15 | DRG 139 ==
LOC: 3BNU 17:22 → EMEROO 17:22 → 3BNU 21:45 → SUATTDRO 22:15
PROVIDERS: ADMIT Family Medicine; ATTEND Internal Medicine

== ENCOUNTER 2019-12-27 16:03 | Observation (INO) ==
[2019-12-27] MEDS ORDERED: Piperacillin/Tazobactam 3.375 GM in 0.9 % Sodium Chloride Mini Bag 100 ML IVPB ONE (16:52)
[2019-12-27 17:09] LABS: Basophils % 0.3 %; Eosinophils # 0.1 K/mcL (0.0-0.6); Eosinophils % 1.3 %; Hematocrit 41.2 % (37.5-50.1); Immature Granulocytes % 0.5 % (0-4); Lymphocytes # 1.5 K/mcL (0.6-4.6); Lymphocytes % 14.5 %; Mean Corpuscular Hemoglobin 28.5 pg (28.0-33.3); Mean Corpuscular Volume 83.9 fL (83.0-100.0); Mean Platelet Volume 11.2 fL (9.4-12.4); Monocytes # 0.5 K/mcL (0.0-1.3); Monocytes % 5.2 %; Neutrophils # 7.9 K/mcL (1.6-8.9); Platelet Count 270 K/mcL (140-400); Red Blood Count 4.91 M/mcL (4.19-5.50); Red Cell Distribution Width 15.3 % (11.5-14.5); Segmented Neutrophils % 78.2 %
[2019-12-27 17:27] LABS: BUN/Creatinine Ratio 16 (6-26); Blood Urea Nitrogen 16 mg/dL (6-20); C-Reactive Protein 7 mg/L (Less than 10); Calcium 9.2 mg/dL (8.6-10.3); Carbon Dioxide 22 mEq/L (23-29); Chloride 103 mEq/L (98-107); Glucose 383 mg/dL (70-105); Osmolality,Calculated 293 (280-300); Sodium 133 mEq/L (136-145); eGFR For African Americans > 60 (> 60); eGFR For Non-African Americans > 60 (> 60)
[2019-12-27] MEDS ORDERED: Insulin Human Regular 10 UNIT in 0.9 % Sodium Chloride 10 ML IV ONE (17:37)
[2019-12-27] MEDS ORDERED: Naloxone 0.4 MG/ML INJ IVP PRN (17:37)
[2019-12-27] MEDS ORDERED: Ondansetron ODT 4 MG TAB.RAPDIS SL PRN (17:38)
[2019-12-27] MEDS ORDERED: Ringers Solution, Lactated 1,000 ML IVC ONE (17:41)
[2019-12-27] MEDS ORDERED: Vancomycin 1,750 MG in 0.9 % Sodium Chloride 250 ML IVPB SCH (18:00)
[2019-12-27] MEDS ORDERED: Dextrose Gel 15 GM/37.5 ML TUBE PO PRN ×2 (18:28)
[2019-12-27] MEDS ORDERED: *HR* Dextrose 50 % in Water (Syg) 50 ML SYRINGE IVP PRN (18:28)
[2019-12-27] MEDS ORDERED: D5% in Water 1,000 ML IVC PRN (18:28)
[2019-12-27] MEDS: *HR* OxyCODONE Immed Rel 5 MG TABLET PO PRN (20:20)
[2019-12-27] MEDS: Insulin DETEMIR 100 UNIT/ML X5UNITS SQ SCH (20:21)
[2019-12-27] MEDS ORDERED: Insulin LISPRO 300 UNITS/3 ML VIAL SQ SCH (21:00)
[2019-12-27] MEDS: Cefepime HCl 2,000 MG in Water for inj. (sterile) 20 ML IVP SCH (23:36)
[2019-12-28 06:59] LABS: Hematocrit 41.2 % (37.5-50.1); Hemoglobin 13.6 g/dL (12.9-16.9); Mean Corpuscular Hemoglobin 28.2 pg (28.0-33.3); Mean Corpuscular Volume 85.5 fL (83.0-100.0); Platelet Count 247 K/mcL (140-400); Red Blood Count 4.82 M/mcL (4.19-5.50); Red Cell Distribution Width 15.7 % (11.5-14.5); White Blood Count 10.6 K/mcL (4.3-11.1)
[2019-12-28 07:26] LABS: BUN/Creatinine Ratio 25 (6-26); Blood Urea Nitrogen 21 mg/dL (6-20); Calcium 8.9 mg/dL (8.6-10.3); Carbon Dioxide 24 mEq/L (23-29); Chloride 107 mEq/L (98-107); Glucose 200 mg/dL (70-105); Osmolality,Calculated 297 (280-300); Potassium 3.9 mEq/L (3.5-5.1); Sodium 139 mEq/L (136-145); eGFR For African Americans > 60 (> 60); eGFR For Non-African Americans > 60 (> 60)
[2019-12-28] MEDS ORDERED: Insulin LISPRO 300 UNITS/3 ML VIAL SQ SCH ×2 (07:30→21:00)
[2019-12-28] MEDS: Insulin DETEMIR 100 UNIT/ML X5UNITS SQ SCH ×2 (08:21→20:20)
[2019-12-28] MEDS: Cefepime HCl 2,000 MG in Water for inj. (sterile) 20 ML IVP SCH ×3 (08:22→23:21)
[2019-12-28] MEDS ORDERED: Fluticasone Propionate Nasal 50 MCG/SPRAY BOTTLE NS PRN (11:54)
[2019-12-28] MEDS ORDERED: Baclofen 10 MG TABLET PO PRN (11:54)
[2019-12-28] MEDS: Insulin LISPRO 300 UNITS/3 ML VIAL SQ SCH ×2 (13:30→17:16)
[2019-12-28] MEDS: Gabapentin 300 MG CAPSULE PO SCH ×2 (13:31→20:19)
[2019-12-28] MEDS: *HR* OxyCODONE Immed Rel 5 MG TABLET PO PRN (23:37)
[2019-12-29 06:38] LABS: Estimated Average Glucose 258 mg/dl
[2019-12-29 07:53] LABS: Hematocrit 38.5 % (37.5-50.1); Hemoglobin 12.6 g/dL (12.9-16.9); Mean Corpuscular HGB Conc 32.7 g/dL (31.6-35.5); Mean Corpuscular Hemoglobin 28.6 pg (28.0-33.3); Mean Corpuscular Volume 87.3 fL (83.0-100.0); Mean Platelet Volume 10.8 fL (9.4-12.4); Platelet Count 198 K/mcL (140-400); Red Blood Count 4.41 M/mcL (4.19-5.50); Red Cell Distribution Width 15.5 % (11.5-14.5)
[2019-12-29 08:11] LABS: BUN/Creatinine Ratio 28 (6-26); Blood Urea Nitrogen 23 mg/dL (6-20); Calcium 8.6 mg/dL (8.6-10.3); Carbon Dioxide 26 mEq/L (23-29); Chloride 103 mEq/L (98-107); Glucose 177 mg/dL (70-105); Osmolality,Calculated 290 (280-300); Potassium 3.8 mEq/L (3.5-5.1); Sodium 136 mEq/L (136-145); eGFR For African Americans > 60 (> 60); eGFR For Non-African Americans > 60 (> 60)
[2019-12-29] MEDS: Insulin DETEMIR 100 UNIT/ML X5UNITS SQ SCH (08:12)
[2019-12-29] MEDS: Cefepime HCl 2,000 MG in Water for inj. (sterile) 20 ML IVP SCH (08:14)
[2019-12-29] MEDS: Insulin LISPRO 300 UNITS/3 ML VIAL SQ SCH ×2 (08:14→12:49)
[2019-12-29] MEDS: Gabapentin 300 MG CAPSULE PO SCH (08:16)
[2019-12-29] MEDS ORDERED: Aspirin Enteric Coated 81 MG Tablet PO SCH (09:00)
[2019-12-29] MEDS ORDERED: PARoxetine 20 MG TABLET PO SCH (09:00)
[2019-12-29] MEDS ORDERED: Lisinopril-HCTZ 20-12.5mg TABLET PO SCH (09:00)
[2019-12-29] MEDS ORDERED: carvediloL 6.25 MG TABLET PO SCH (09:00)
[2019-12-29] MEDS ORDERED: Cholecalciferol (D-3) 1,000 UNIT (25MCG) TABLET PO SCH (09:00)
[2019-12-29 11:41] VITALS: BP 92/59
[2019-12-29] MEDS ORDERED: Aminoglycoside Consult 1 EACH MC ONE (14:33)
[2019-12-29] MEDS ORDERED: Doxycycline 100 MG CAPSULE PO SCH (21:00)
== END 2019-12-29 14:34 | disposition home or self-care (01) ==
LOC: EMEROOARM 16:03 → 3ANU 16:03 → SUATTDRO 17:50 → 3ANU 18:41
PROVIDERS: ADMIT Internal Medicine; ATTEND Family Medicine